=== PATIENT | male | born 1950 | race African-American/Black ===

== ENCOUNTER 2016-03-05 12:28 | Emergency (ER) | payer MEDICARE ==
[~2016-03-05] VITALS: Ht 185.4 cm; Wt 86.2 kg
[~2016-03-05 12:28] MED LIST: ASPI-482 PO; ASPI325T4 PO; FENO135C PO; FENO135C2 PO; FURO-69 PO; GLIP1TAB5 PO; GLYB1TAB10 PO; HYDR50TA6 PO; INSU100I11 SQ; INSU100I17 SQ; INSU100I18 SQ; INSU100V SQ; INSU100V13 SQ; MELO7.5O2 PO; METF10002 PO; MOME17SP NS; OMEP40CA5 PO; POTA8CAP PO; PREG75CA PO; SIMV10TA3 PO; TRIA15OI TP; VALS160T3 PO
[2016-03-05] MEDS ORDERED: IV NORMAL SALINE 1000ML BAG 1,000 ML IV SCH (13:08)
[2016-03-05 13:39] LABS: BASO % 1 % (0-3); EOS % 1 % (0-3); HEMATOCRIT 26.2 % (39.0-53.0); LYMPH # 0.9 x10^3/uL (1.0-4.8); LYMPH % 16 % (24-48); MEAN CORPUSCULAR HEMOGLOBIN 28 pg (25-35); MEAN CORPUSCULAR HGB CONC 34 g/dL (31-37); MEAN CORPUSCULAR VOLUME 82 fL (79-100); MONO % 17 % (0-9); NEUT % 66 % (31-73); PLATELET COUNT 166 x10^3/uL (140-400); RED BLOOD COUNT 3.21 x10^6/uL (4.30-5.70); RED CELL DISTRIBUTION WIDTH 16.6 % (11.5-14.5); WHITE BLOOD COUNT 5.6 x10^3/uL (4.0-11.0)
--- NOTE | 2016-03-05 13:45 | RAD ---
CT of the head without contrast, 03/05/2016: History: Weakness, fall, head trauma The ventricles are at the upper limits of normal in size. There is no shift of the midline structures. There is no evidence of acute intracranial hemorrhage or mass effect. Minimal deep white matter lucencies are noted, predominantly on the right, compatible with chronic ischemic change. No abnormal extra-axial fluid collection is seen. IMPRESSION: 1. Minimal deep white matter lucencies compatible with chronic ischemic change. 2. No acute intracranial abnormality is detected.
--- NOTE | 2016-03-05 13:55 | RAD ---
Portable chest, 03/05/2016: History: Cough Comparison is made to a study from 01/25/2015. The heart size is normal. There is mild tortuosity of the thoracic aorta. The pulmonary vascularity is normal. No pulmonary infiltrates are seen. There is no evidence of pleural fluid. IMPRESSION: No acute cardiopulmonary abnormality is detected.
--- NOTE | 2016-03-05 13:55 | RAD ---
Indication: Fall and right hip pain. Time of exam 1346 hours. Femoral acetabular alignment is normal bilaterally. Both hips appear intact. The rami are intact. The SI joints and symphysis are not widened. No fractures are seen. Impression: No acute bony abnormality is detected.
[2016-03-05 13:56] LABS: CREATININE 2.1 mg/dL (0.7-1.3); GFR 38.5; POTASSIUM 3.6 mmol/L (3.5-5.1)
[2016-03-05] MEDS ORDERED: FENTANYL PF 100 MCG/2 ML VIAL. IV ONE (14:00)
[2016-03-05 14:03] LABS: ALBUMIN 3.4 g/dL (3.4-5.0); ALBUMIN/GLOBULIN RATIO 0.7 (1.0-1.7); TOTAL BILIRUBIN 0.6 mg/dL (0.2-1.0)
[2016-03-05] MEDS ORDERED: HYDR-971 PO (14:55)
--- NOTE | 2016-03-05 14:56 | PHYS DOC ---
Past Medical History Past Medical History: Arthritis, Diabetes-Type II, GERD, High Cholesterol, Hypertension Past Surgical History: Other Additional Past Surgical Histo: hernia repair, carpal tunnel, cataract Alcohol Use: None Drug Use: None Adult General Chief Complaint Chief Complaint: MECHANICAL FALL HPI HPI Patient is a 65 year old male who presents with complaint of a fall that took place at home. Patient states that he came from an assisted living apartment and was attempting to sit on a stool after getting off of an elevator but states that he missed the stool and fell to the ground. Patient does not member has had but states he does not think he lost consciousness. The patient states since the fall he has been having pain in his right hip. Patient states that he has been able to move the hip though he has some pain in the front and lateral portion of the hip. Patient rates his pain as 5 out of 10. Patient states that he has been having cold symptoms over the past few days and states that he has had mild generalized weakness but states that he has been able to ambulate with use of a walker without difficulty prior to his fall. Patient follows a Dr. Clark for primary care. Patient was brought to the emergency department for evaluation to make sure that he does not have any severe injuries. Review of Systems Review of Systems Constitutional: Denies fever or chills [] Eyes: Denies change in visual acuity, redness, or eye pain [] HENT: Nasal congestion [] Respiratory: Cough, denies shortness of breath [] Cardiovascular: No additional information not addressed in HPI [] GI: Denies abdominal pain, nausea, vomiting, bloody stools or diarrhea [] : Denies dysuria or hematuria [] Musculoskeletal: Right hip pain [] Integument: Denies rash or skin lesions [] Neurologic: Denies headache, focal weakness or sensory changes [] Endocrine: Denies polyuria or polydipsia [] Current Medications Current Medications Current Medications Medications (Trade) Dose Ordered Sig/Madeleine Start Time Stop Time Status Last Admin Dose Admin Fentanyl Citrate (Fentanyl 2ml Vial) 25 mcg 1X ONCE 03/05/16 14:00 03/05/16 14:03 DC 03/05/16 14:26 25 MCG Sodium Chloride (Iv Sodium Chloride 0.9% 1000ml Bag) 1,000 ml @ 100 mls/hr Q10H 03/05/16 13:08 03/05/16 23:07 03/05/16 14:05 100 MLS/HR Allergies Allergies Allergies Coded Allergies Type Severity Reaction Last Updated Verified No Known Drug Allergies 09/06/15 No Physical Exam Physical Exam Constitutional: Alert, afebrile, no acute distress. [] HENT: Normocephalic, atraumatic, bilateral external ears normal, oropharynx moist, no oral exudates, nose normal. [] Eyes: PERRLA, EOMI, conjunctiva normal, no discharge. [] Neck: Normal range of motion, no tenderness, supple, no stridor. [] Cardiovascular:Heart rate regular rhythm, no murmur [] Lungs & Thorax: Bilateral breath sounds clear to auscultation [] Abdomen: Bowel sounds normal, soft, no tenderness, no masses, no pulsatile masses. [] Skin: Warm, dry, no erythema, no rash. [] Back: No tenderness, no CVA tenderness. [] Extremities: Mild right anterior hip and lateral greater trochanteric tenderness to palpation, no cyanosis, no clubbing, ROM is slightly hindered due to pain, bilateral 1+ pitting edema bilaterally [] Neurologic: Alert and oriented X 3, normal motor function, normal sensory function, no focal deficits noted. [] Current Patient Data Vital Signs Vital Signs Date Time Temp Pulse Resp B/P Pulse Ox O2 Delivery O2 Flow Rate FiO2 03/05/16 14:26 20 94 Room Air 03/05/16 14:06 94 169/85 03/05/16 12:37 99.4 99.4 Lab Values Laboratory Tests Test 03/05/16 13:30 White Blood Count 5.6x10^3/uL (4.0-11.0) Red Blood Count 3.21x10^6/uL (4.30-5.70) L Hemoglobin 9.0g/dL (13.0-17.5) L Hematocrit 26.2% (39.0-53.0) L Mean Corpuscular Volume 82fL (79-100) Mean Corpuscular Hemoglobin 28pg (25-35) Mean Corpuscular Hemoglobin Concent 34g/dL (31-37) Red Cell Distribution Width 16.6% (11.5-14.5) H Platelet Count 166x10^3/uL (140-400) Neutrophils (%) (Auto) 66% (31-73) Lymphocytes (%) (Auto) 16% (24-48) L Monocytes (%) (Auto) 17% (0-9) H Eosinophils (%) (Auto) 1% (0-3) Basophils (%) (Auto) 1% (0-3) Neutrophils # (Auto) 3.7x10^3uL (1.8-7.7) Lymphocytes # (Auto) 0.9x10^3/uL (1.0-4.8) L Monocytes # (Auto) 0.9x10^3/uL (0.0-1.1) Eosinophils # (Auto) 0.0x10^3/uL (0.0-0.7) Basophils # (Auto) 0.0x10^3/uL (0.0-0.2) Sodium Level 141mmol/L (136-145) Potassium Level 3.6mmol/L (3.5-5.1) Chloride Level 103mmol/L (98-107) Carbon Dioxide Level 30mmol/L (21-32) Anion Gap 8 (6-14) Blood Urea Nitrogen 31mg/dL (8-26) H Creatinine 2.1mg/dL (0.7-1.3) H Estimated GFR (Cockcroft-Gault) 38.5 BUN/Creatinine Ratio 15 (6-20) Glucose Level 200mg/dL (70-99) H Calcium Level 9.0mg/dL (8.5-10.1) Total Bilirubin 0.6mg/dL (0.2-1.0) Aspartate Amino Transferase (AST) 26U/L (15-37) Alanine Aminotransferase (ALT) 26U/L (16-63) Alkaline Phosphatase 37U/L (46-116) L Total Protein 8.0g/dL (6.4-8.2) Albumin 3.4g/dL (3.4-5.0) Albumin/Globulin Ratio 0.7 (1.0-1.7) L Laboratory Tests 03/05/16 13:30 Laboratory Tests 03/05/16 13:30 EKG EKG Not performed [] Radiology/Procedures Radiology/Procedures [facility] [address] [place], [place] [id number] IMAGING REPORT Signed PATIENT: RACHEL GREEN ACCOUNT: [id number] : 1950 LOCATION: ER AGE: 65 SEX: M EXAM STATUS: REG ER ORD. PHYSICIAN: ENRIQUE NAIK MD REASON: fall, right hip pain,ALSO CT PROCEDURE: HIP RIGHT 2V WITH PELVIS Indication: Fall and right hip pain. Time of exam 1346 hours. Femoral acetabular alignment is normal bilaterally. Both hips appear intact. The rami are intact. The SI joints and symphysis are not widened. No fractures are seen. Impression: No acute bony abnormality is detected. DICTATED and SIGNED BY: SHERRI NATARAJAN MD DATE: 03/05/16 1352 CC: ENRIQUE NAIK MD; GISELL CLARK MD ~ [address] [address] IMAGING REPORT Signed PATIENT: RACHEL GREEN ACCOUNT: [id number] : 1950 LOCATION: ER AGE: 65 SEX: M EXAM STATUS: REG ER ORD. PHYSICIAN: ENRIQUE NAIK MD REASON: COUGH PROCEDURE: PORTABLE CHEST 1V Portable chest, 03/05/2016: History: Cough Comparison is made to a study from 01/25/2015. The heart size is normal. There is mild tortuosity of the thoracic aorta. The pulmonary vascularity is normal. No pulmonary infiltrates are seen. There is no evidence of pleural fluid. IMPRESSION: No acute cardiopulmonary abnormality is detected. DICTATED and SIGNED BY: MADAY BERRY MD DATE: 03/05/16 135 CC: ENRIQUE NAIK MD; GISELL CLARK MD ~ [facility] [address] [place] [address] IMAGING REPORT Signed PATIENT: RACHEL GREEN ACCOUNT: [id number] : 1950 LOCATION: ER AGE: 65 SEX: M EXAM STATUS: REG ER ORD. PHYSICIAN: ENRIQUE NAIK MD REASON: fall,ALSO XRAYS. PROCEDURE: HEAD WO CONTRAST CT of the head without contrast, 03/05/2016: History: Weakness, fall, head trauma The ventricles are at the upper limits of normal in size. There is no shift of the midline structures. There is no evidence of acute intracranial hemorrhage or mass effect. Minimal deep white matter lucencies are noted, predominantly on the right, compatible with chronic ischemic change. No abnormal extra-axial fluid collection is seen. IMPRESSION: 1. Minimal deep white matter lucencies compatible with chronic ischemic change. 2. No acute intracranial abnormality is detected. DICTATED and SIGNED BY: MADAY BERRY MD DATE: 03/05/16 1340 CC: ENRIQUE NAIK MD; GISELL CLARK MD ~ [] Course & Med Decision Making Course & Med Decision Making Pertinent Labs and Imaging studies reviewed. (See chart for details) Patient was given 25 g of IV fentanyl. Patient's pain has improved at this time. The patient was able to ambulate with use of a walker in the emergency department without difficulty. The patient states that he feels comfortable going home at this time. The patient's blood work shows that he has mild dehydration superimposed on chronic renal failure. Advised that the patient increase fluid intake at home and recommended follow-up with Dr. gopal miramontes in the next 3-5 days. Advised return to emergency department for any worsening symptoms. Patient voiced understanding and in agreement with treatment plan. Dragon Disclaimer Dragon Disclaimer This electronic medical record was generated, in whole or in part, using a voice recognition dictation system. Departure Departure Impression: Primary Impression: Fall from standing Additional Impression: Contusion of right hip Disposition: HOME, SELF-CARE Condition: IMPROVED Referrals: GISELL CLARK MD (PCP) Patient Instructions: Contusion, Fall Prevention and Home Safety Additional Instructions: Follow-up with Dr. Cuevas in 3-5 days. Return to the emergency department for any worsening symptoms. Scripts Hydrocodone/Apap 5-325 ([place] 5-325 Tablet)1 Each Tablet0.5-1 Tab PO Q6HRS PRN PAIN #15 TAB Prov:ENRIQUE NAIK MD 03/05/16 Problem Qualifiers Primary Impression: Fall from standing Encounter type: initial encounter Qualified Code: W19.XXXA - Unspecified fall, initial encounter Additional Impression: Contusion of right hip Encounter type: initial encounter Qualified Code: S70.01XA - Contusion of right hip, initial encounter ENRIQUE NAIK MD Mar 05, 2016 14:56
[2016-03-05 16:00] VITALS: BP 181/95
== END 2016-03-05 16:50 | disposition home or self-care (01) ==
LOC: ER 12:28
DX: S70.01XA Contusion of right hip, initial encounter (principal); E86.0 Dehydration; E78.00 Pure hypercholesterolemia, unspecified; E11.9 Type 2 diabetes mellitus without complications; K21.9 Gastro-esophageal reflux disease without esophagitis; M19.90 Unspecified osteoarthritis, unspecified site; Z98.49 Cataract extraction status, unspecified eye; W19.XXXA Unspecified fall, initial encounter; Y93.89 Activity, other specified; Y92.89 Other specified places as the place of occurrence of the external cause; Y99.8 Other external cause status
CPT/HCPCS: 36415; 70450; 71010; 73502; 80053; 85027; 96361; 96374; 99285; J3010; J7030

== ENCOUNTER 2016-04-14 12:53 | Inpatient (IN) | payer MEDICARE ==
[~2016-04-14] VITALS: Ht 182.9 cm; Wt 95.7 kg
[~2016-04-14 12:53] MED LIST changes: +HYDR-971 PO
[2016-04-14 14:30] VITALS: BP 189/94
--- NOTE | 2016-04-14 17:21 | EKG ---
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
[2016-04-14 17:22] LABS: BASO % 1 % (0-3); EOS % 3 % (0-3); HEMATOCRIT 24.6 % (39.0-53.0); HEMOGLOBIN 8.9 g/dL (13.0-17.5); LYMPH # 1.9 x10^3/uL (1.0-4.8); LYMPH % 24 % (24-48); MEAN CORPUSCULAR HEMOGLOBIN 28 pg (25-35); MEAN CORPUSCULAR HGB CONC 36 g/dL (31-37); MEAN CORPUSCULAR VOLUME 78 fL (79-100); MONO % 12 % (0-9); NEUT % 61 % (31-73); PLATELET COUNT 212 x10^3/uL (140-400); RED BLOOD COUNT 3.14 x10^6/uL (4.30-5.70)
[2016-04-14 17:34] LABS: CALCIUM 9.1 mg/dL (8.5-10.1); CREATININE 2.4 mg/dL (0.7-1.3); GFR 32.9; POTASSIUM 4.2 mmol/L (3.5-5.1)
[2016-04-14] MEDS: FUROSEMIDE 40 MG/4 ML VIAL IVP SCH (17:39)
[2016-04-14 17:40] LABS: ALBUMIN 3.6 g/dL (3.4-5.0); ALBUMIN/GLOBULIN RATIO 0.9 (1.0-1.7); TOTAL BILIRUBIN 0.5 mg/dL (0.2-1.0); TOTAL PROTEIN 7.5 g/dL (6.4-8.2)
[2016-04-14] MEDS: POTASSIUM CHLORIDE 20 MEQ TABLET.ER. PO SCH (17:42)
[2016-04-14] MEDS ORDERED: IPRATRPIUM/ALBUTEROL 0.5/2.5MG 3 ML NEBU. NEB ONE (18:15)
[2016-04-14] MEDS ORDERED: HYDROCODONE/APAP 5/325MG TABLET. PO PRN (19:15)
[2016-04-14] MEDS ORDERED: INSULIN ASPART 300 UNITS/3 ML INSULN.PEN SQ ONE (19:30)
[2016-04-14 19:40] VITALS: BP 165/81
[2016-04-14] MEDS ORDERED: DEXTROSE 50% 25 GM / 50ML DISP.SYRIN. IV PRN ×2 (20:15→21:30)
[2016-04-14] MEDS ORDERED: INSULIN DETEMIR 300 UNITS/3 ML INSULN.PEN. SQ SCH (21:00)
[2016-04-14] MEDS: IPRATRPIUM/ALBUTEROL 0.5/2.5MG 3 ML NEBU. NEB SCH (21:10)
[2016-04-14] MEDS: SIMVASTATIN 10 MG TABLET PO SCH (21:16)
[2016-04-14] MEDS ORDERED: ENOXAPARIN 40 MG/0.4 ML DISP.SYRIN. SQ SCH (22:00)
[2016-04-14 23:56] VITALS: BP 160/88
[2016-04-15] VITALS (12 sets, daily range): BP systolic 148–178; BP diastolic 75–96
[2016-04-15 04:07] LABS: BASO # 0.1 x10^3/uL (0.0-0.2); BASO % 1 % (0-3); EOS % 3 % (0-3); HEMATOCRIT 25.1 % (39.0-53.0); HEMOGLOBIN 9.2 g/dL (13.0-17.5); LYMPH # 2.3 x10^3/uL (1.0-4.8); LYMPH % 28 % (24-48); MEAN CORPUSCULAR HEMOGLOBIN 28 pg (25-35); MEAN CORPUSCULAR HGB CONC 37 g/dL (31-37); MEAN CORPUSCULAR VOLUME 77 fL (79-100); MONO % 11 % (0-9); NEUT % 57 % (31-73); PLATELET COUNT 218 x10^3/uL (140-400); RED BLOOD COUNT 3.25 x10^6/uL (4.30-5.70); RED CELL DISTRIBUTION WIDTH 17.7 % (11.5-14.5); WHITE BLOOD COUNT 8.2 x10^3/uL (4.0-11.0)
[2016-04-15 04:21] LABS: CALCIUM 9.4 mg/dL (8.5-10.1); CREATININE 2.4 mg/dL (0.7-1.3); GFR 32.9; POTASSIUM 3.8 mmol/L (3.5-5.1)
[2016-04-15 04:38] LABS: CHOLESTEROL/HDL RATIO 4.2
[2016-04-15] MEDS: IPRATRPIUM/ALBUTEROL 0.5/2.5MG 3 ML NEBU. NEB SCH ×4 (07:42→19:03)
--- NOTE | 2016-04-15 08:51 | RAD ---
EXAM: Chest one view. HISTORY: Shortness of breath, left chest pain. COMPARISON: 03/05/2016. FINDINGS: A frontal view of the chest is obtained. Mild opacities in the left base most likely indicate atelectasis. There is no pneumothorax or pleural effusion. The heart is not enlarged. The aorta is mildly calcified and tortuous. IMPRESSION: 1. Mild basilar atelectasis. Correlate with volume status to exclude mild pulmonary edema.
[2016-04-15] MEDS: ASPIRIN ENTERIC COATED 81 MG TABLET.DR. PO SCH (09:00)
[2016-04-15] MEDS: PANTOPRAZOLE 40 MG TABLET. PO SCH (09:00)
[2016-04-15] MEDS: LOSARTAN POTASSIUM 50 MG TABLET. PO SCH (09:01)
[2016-04-15] MEDS: FLUTICASONE 50MCG/NASAL SPRAY 16GM BOTTLE. NS SCH (09:02)
[2016-04-15] MEDS: POTASSIUM CHLORIDE 20 MEQ TABLET.ER. PO SCH ×2 (09:02→17:49)
[2016-04-15] MEDS: PREGABALIN 75 MG CAPSULE PO SCH (09:02)
[2016-04-15] MEDS: FUROSEMIDE 40 MG/4 ML VIAL IVP SCH ×2 (09:02→14:00)
[2016-04-15] MEDS: INSULIN ASPART 300 UNITS/3 ML INSULN.PEN SQ SCH ×6 (09:04→17:55)
--- NOTE | 2016-04-15 09:04 | RAD ---
EXAM: Bilateral lower extremity venous Doppler. HISTORY: Bilateral lower extremity pain/swelling. COMPARISON: None. FINDINGS: Grayscale and Doppler analysis of the both lower extremity deep venous systems was performed with graded compression and augmentation. The common femoral, greater saphenous, superficial femoral, popliteal and calf veins were assessed. There is no evidence of deep venous thrombosis. Subcutaneous edema is noted. IMPRESSION: 1. No evidence of deep venous thrombosis.
--- NOTE | 2016-04-15 09:04 | RAD ---
EXAM: Renal/retroperitonal ultrasound HISTORY: Edema. COMPARISON: 09/13/2013. FINDINGS: Ultrasound of the kidneys, bladder and retroperitoneum was performed. The right kidney measures 10 cm. Cortical thickness and echogenicity are preserved. There is no hydronephrosis. The left kidney measures 10.3 cm. Cortical thickness and echogenicity are preserved. There is no hydronephrosis. Images of the bladder reveal no gross abnormality. The liver and spleen are not measured, but both appear enlarged. IMPRESSION: 1. Unremarkable examination of the kidneys. No hydronephrosis. 2. The liver and spleen are not measured but appear enlarged.
--- NOTE | 2016-04-15 10:09 | PDOC2 ---
CAROLEKENNEDY M PAINT AND TABLE EDGER 04/15/16 1009: CARDIAC CONSULT DATE OF CONSULT Date of Consult DATE: 04/15/16 TIME: 10:06 REASON FOR CONSULT Reason for Consult: CHF REFERRING PHYSICIAN Referring Physician: Dr. Tamiko Colbert SOURCE Source: Chart review, Patient HISTORY OF PRESENT ILLNESS HISTORY OF PRESENT ILLNESS 66 year old with a multi-month history of dyspnea with progressive symptoms in the last week, however, patient has been sleeping in a recliner for at least 3 - 4 months. He is unsure how much weight he has gained and reports a weight of 224# in his PCP's office yesterday. Has also been fatigued and had bilateral chest pain yesterday which resolved as well as lower extremity edema. He denies palpitations. CXR without clear CHF, however, NT- proBNP 1330 in the setting of a Cr of 2.4. Treated with BID IV furosemide. Reason for Visit: CHF PAST MEDICAL HISTORY Cardiovascular: HTN, Hyperlipidemia CENTRAL NERVOUS SYSTEM: Carpal Tunnel Syndrome (with bilateral surgerical repair) GI: Diverticulosis, GERD, Hemorrhoids, Other (colon polyps) Heme/Onc: Anemia NOS Hepatobiliary: No pertinent hx Psych: No pertinent hx Musculoskeletal: low back pain, Osteoarthritis, Other (vertebral compression) Rheumatologic: No pertinent hx Infectious disease: Other (right toe gangrene) Renal/: Chronic renal insuff (stage II), Benign prostatic enlarg. Endocrine: Diabetes (type II, poorly controlled) Dermatology: No pertinent hx PAST SURGICAL HISTORY Past Surgical History: Cataract Removal (right), Hernia Repair (bilateral inguinal), Other (bilateral carpal tunnel release) FAMILY HISTORY Family History: Heart Disease, Stroke SOCIAL HISTORY Smoke: Quit ALCOHOL: none Drugs: None CURRENT MEDICATIONS CURRENT MEDICATIONS Current Medications Medications (Trade) Dose Ordered Sig/Madeleine Route PRN Reason Start Time Stop Time Status Last Admin Dose Admin Furosemide (Lasix) 40 mg [id number] IVP 04/14/16 17:00 04/15/16 09:02 Potassium Chloride (Klor-Con) 20 meq BID76 PO 04/14/16 18:00 04/15/16 09:02 Albuterol/ Ipratropium (Duoneb) 3 ml RTQID NEB 04/14/16 20:00 04/15/16 07:42 Aspirin (Ecotrin) 81 mg DAILY PO 04/15/16 09:00 04/15/16 09:00 Pregabalin (Lyrica) 75 mg DAILY PO 04/15/16 09:00 04/15/16 09:02 Simvastatin (Zocor) 10 mg HS PO 04/14/16 21:00 04/14/16 21:16 Fluticasone Propionate (Flonase) 2 spray DAILY NS 04/15/16 09:00 04/15/16 09:02 Pantoprazole Sodium (Protonix) 40 mg DAILYAC PO 04/15/16 07:30 04/15/16 09:00 Losartan Potassium (Cozaar) 100 mg DAILY PO 04/15/16 09:00 04/15/16 09:01 Albuterol/ Ipratropium (Duoneb) 3 ml 1X ONCE NEB 04/14/16 18:15 04/14/16 18:16 DC 04/14/16 18:21 Insulin Detemir (Levemir) 20 units QHS SQ 04/14/16 21:00 04/14/16 21:21 Insulin Aspart (Novolog) 20 units TIDAC SQ 04/15/16 07:30 04/15/16 09:05 Insulin Aspart (Novolog) 20 units 1X ONCE SQ 04/14/16 19:30 04/14/16 19:31 DC 04/14/16 19:42 Insulin Aspart (Novolog) 0-5 UNITS TIDWMEALS SQ 04/15/16 08:00 04/15/16 09:04 Enoxaparin Sodium (Lovenox 40mg Syringe) 30 mg Q24H SQ 04/14/16 22:00 04/14/16 22:02 ALLERGIES ALLERGIES: Coded Allergies: No Known Drug Allergies (Unverified , 04/14/16) ROS Review of System 14 point review with pertinent positives in HPI PHYSICAL EXAM General: Alert, Oriented X3, Cooperative, No acute distress HEENT: Atraumatic, PERRLA, Mucous membr. moist/pink Lungs: Clear to auscultation, Normal air movement Heart: Regular rate, Normal S1, Normal S2, No murmurs, Other (no carotid bruits ; tele: SR) Abdomen: Normal bowel sounds, No tenderness Extremities: Other (3+ bilateral lower extremity edema) Skin: No rashes Neuro: Normal speech Psych/Mental Status: Mental status NL, Mood NL MUSCULOSKELETAL: Osteoarthritic changes both hands VITALS VITALS Vital Signs Date Time Temp Pulse Resp B/P Pulse Ox O2 Delivery O2 Flow Rate FiO2 04/15/16 09:01 86 157/88 04/15/16 07:52 Room Air 04/15/16 07:43 96 04/15/16 07:00 98.2 18 98.2 LABS Lab: Laboratory Tests Test 04/14/16 17:15 04/14/16 17:37 04/14/16 21:17 04/15/16 03:20 White Blood Count 8.0x10^3/uL (4.0-11.0) 8.2x10^3/uL (4.0-11.0) Red Blood Count 3.14x10^6/uL (4.30-5.70) 3.25x10^6/uL (4.30-5.70) Hemoglobin 8.9g/dL (13.0-17.5) 9.2g/dL (13.0-17.5) Hematocrit 24.6% (39.0-53.0) 25.1% (39.0-53.0) Mean Corpuscular Volume 78fL (79-100) 77fL (79-100) Mean Corpuscular Hemoglobin 28pg (25-35) 28pg (25-35) Mean Corpuscular Hemoglobin Concent 36g/dL (31-37) 37g/dL (31-37) Red Cell Distribution Width 17.0% (11.5-14.5) 17.7% (11.5-14.5) Platelet Count 212x10^3/uL (140-400) 218x10^3/uL (140-400) Neutrophils (%) (Auto) 61% (31-73) 57% (31-73) Lymphocytes (%) (Auto) 24% (24-48) 28% (24-48) Monocytes (%) (Auto) 12% (0-9) 11% (0-9) Eosinophils (%) (Auto) 3% (0-3) 3% (0-3) Basophils (%) (Auto) 1% (0-3) 1% (0-3) Neutrophils # (Auto) 4.8x10^3uL (1.8-7.7) 4.7x10^3uL (1.8-7.7) Lymphocytes # (Auto) 1.9x10^3/uL (1.0-4.8) 2.3x10^3/uL (1.0-4.8) Monocytes # (Auto) 0.9x10^3/uL (0.0-1.1) 0.9x10^3/uL (0.0-1.1) Eosinophils # (Auto) 0.2x10^3/uL (0.0-0.7) 0.2x10^3/uL (0.0-0.7) Basophils # (Auto) 0.0x10^3/uL (0.0-0.2) 0.1x10^3/uL (0.0-0.2) Sodium Level 146mmol/L (136-145) 145mmol/L (136-145) Potassium Level 4.2mmol/L (3.5-5.1) 3.8mmol/L (3.5-5.1) Chloride Level 108mmol/L (98-107) 106mmol/L (98-107) Carbon Dioxide Level 29mmol/L (21-32) 29mmol/L (21-32) Anion Gap 9 (6-14) 10 (6-14) Blood Urea Nitrogen 36mg/dL (8-26) 38mg/dL (8-26) Creatinine 2.4mg/dL (0.7-1.3) 2.4mg/dL (0.7-1.3) Estimated GFR (Cockcroft-Gault) 32.9 32.9 BUN/Creatinine Ratio 15 (6-20) Glucose Level 261mg/dL (70-99) 213mg/dL (70-99) Calcium Level 9.1mg/dL (8.5-10.1) 9.4mg/dL (8.5-10.1) Total Bilirubin 0.5mg/dL (0.2-1.0) Aspartate Amino Transf (AST/SGOT) 18U/L (15-37) Alanine Aminotransferase (ALT/SGPT) 17U/L (16-63) Alkaline Phosphatase 41U/L (46-116) CM-Jmo-T-Type Natriuretic Peptide 1330pg/mL (0-124) Total Protein 7.5g/dL (6.4-8.2) Albumin 3.6g/dL (3.4-5.0) Albumin/Globulin Ratio 0.9 (1.0-1.7) Glucose (Fingerstick) 264mg/dL (70-99) 298mg/dL (70-99) Triglycerides Level 142mg/dL (0-150) Cholesterol Level 109mg/dL (0-200) LDL Cholesterol, Calculated 55mg/dL (0-100) VLDL Cholesterol, Calculated 28mg/dL (0-40) HDL Cholesterol 26mg/dL (40-60) Cholesterol/HDL Ratio 4.2 Thyroid Stimulating Hormone (TSH) 2.429uIU/mL (0.358-3.74) Test 04/15/16 08:51 Glucose (Fingerstick) 182mg/dL (70-99) IMAGES IMAGES CXR: Mild opacities in the left base most likely indicate atelectasis. There is no pneumothorax or pleural effusion. The heart is not enlarged. The aorta is mildly calcified and tortuous. IMPRESSION: 1. Mild basilar atelectasis. Correlate with volume status to exclude mild pulmonary edema. EKG EKG SR without acute changes ECHOCARDIOGRAM ECHOCARDIOGRAM 01/28/2015: TTE: Mildly reduced LV systolic function. EF 45% There is subtle mild hypokinesis of the lateral wall. Mild AI, PI HEART CATH HEART CATH 05/2015: Normal left sided filling pressures. LVEDP 15 mm Hg CORONARY ANGIOGRAPHY: LM has normal angiographic appearance. LCx is a non-dominant vessel with mild luminal irregularities. OM1 is a moderate sized vessel with mild luminal irregularities. LAD is a moderate to large sized vessel with mild luminal irregularities. The LAD gives rise to three small caliber diagonal vessels. RCA is a large caliber dominant vessel with mild luminal irregularities. Conclusion Normal left ventricular filling pressure. No significant obstructive coronary disease. Recommendations Aggressive Medical Therapy ASSESSMENT/PLAN ASSESSMENT/PLAN 1. acute on chronic systolic and diastolic CHF continue BID IV furosemide echo to re-evaluate LV function add beta-blockers to improve BP control continue ARB may also benefit from addition of aldosterone agonist 2. chest pain, atypical cardiac cath 05/2015 without significant obstructive disease echo to assess LV function, otherwise no further cardiac evaluation for CP 3. accelerated HTN add beta-blockers to improve BP control 4. DM, II, poorly controlled per primary service 5. HLD continue home statin therapy 6. CKD, stage II Problems: CARMELA ISBELL MD 04/16/16 0922: CARDIAC CONSULT ALLERGIES ALLERGIES: Coded Allergies: No Known Drug Allergies (Unverified , 04/14/16) ASSESSMENT/PLAN ASSESSMENT/PLAN Patient seen and examined 04/15/16. Agree with COAL GETTER's assessment and plan. Patient presently on intravenous Lasix drip per nephrology recommendations for acute on chronic diastolic heart failure. 2-D echo showed normal left ventricle systolic function. Chest pain atypical and noncardiac. Recent cardiac cath did not show any significant coronary artery disease. Agree with adding beta blockers for better blood pressure control. Thank you for your consultation. Problems: KENNEDY LAM APRN Apr 15, 2016 10:09 CARMELA ISBELL MD Apr 16, 2016 09:22
--- NOTE | 2016-04-15 10:11 | PDOC ---
Provider Note Provider Note pt seen.H&P dictated. #[id number] GISELL CLARK MD Apr 15, 2016 10:11
[2016-04-15] MEDS: METOPROLOL TART IMMED RELEASE 25 MG TABLET PO SCH ×2 (12:13→20:46)
[2016-04-15 12:27] LABS: % SAT IRON 19 % (15-34); IRON,SERUM 55 ug/dL (65-175)
--- NOTE | 2016-04-15 14:12 | PDOC2 ---
CONSULT Date of Consult Date of Consult DATE: 04/15/16 TIME: 14:10 Reason for Consult Reason for Consult: ^ creat Referring Physician Referring Physician: Dr Colbert Identification/Chief Complaint Chief Complaint Edema and wt gain Problems: Source Source: Chart review, Patient History of Present Illness Reason for Visit: as dictated Past Medical History Past Medical History 1. Positive for longstanding hypertension. 2. Diabetes for about 20 years without known retinopathy, recent right eye cataract extraction and lens implant. 3. Hyperlipidemia. 4. GERD. 5. Diabetic neuropathy. 6. Hernia surgery. 7. Carpal tunnel surgery. SOCIAL HISTORY: He is single. Denies alcohol, tobacco, or illicit drug use. FAMILY HISTORY: Positive for sister with kidney problems and on dialysis, heart disease, hypertension, and stroke. Diabetes also noted in the family. Cardiovascular: HTN, Hyperlipidemia CENTRAL NERVOUS SYSTEM: Carpal Tunnel Syndrome (with bilateral surgerical repair) GI: Diverticulosis, GERD, Hemorrhoids, Other (colon polyps) Heme/Onc: Anemia NOS Hepatobiliary: No pertinent hx Psych: No pertinent hx Musculoskeletal: low back pain, Osteoarthritis, Other (vertebral compression) Rheumatologic: No pertinent hx Infectious disease: Other (right toe gangrene) Renal/: Chronic renal insuff (stage II), Benign prostatic enlarg. Endocrine: Diabetes (type II, poorly controlled) Dermatology: No pertinent hx Past Surgical History Past Surgical History: Cataract Removal (right), Hernia Repair (bilateral inguinal), Other (bilateral carpal tunnel release) Family History Family History: Heart Disease, Stroke Social History Quit ALCOHOL: none Drugs: None Current Problem List Problem List Problems Medical Problems: (1) CHF (congestive heart failure) Status: Acute Current Medications Current Medications Current Medications Furosemide (Lasix) 40 mg [id number] IVP Last administered on 04/15/16 09:02; Start 04/14/16 at 17:00 Potassium Chloride (Klor-Con) 20 meq BID76 PO Last administered on 04/15/16 09: 02; Start 04/14/16 at 18:00 Albuterol/ Ipratropium (Duoneb) 3 ml RTQID NEB Last administered on 04/15/16 11 :28; Start 04/14/16 at 20:00 Aspirin (Ecotrin) 81 mg DAILY PO Last administered on 04/15/16 09:00; Start 04/15/16 at 09:00 Pregabalin (Lyrica) 75 mg DAILY PO Last administered on 04/15/16 09:02; Start 04/15/16 at 09:00 Simvastatin (Zocor) 10 mg HS PO Last administered on 04/14/16 21:16; Start 04/14 at 21:00 Fluticasone Propionate (Flonase) 2 spray DAILY NS Last administered on 09:02; Start 04/15/16 at 09:00 Pantoprazole Sodium (Protonix) 40 mg DAILYAC PO Last administered on 04/15/16 09:00; Start 04/15/16 at 07:30 Losartan Potassium (Cozaar) 100 mg DAILY PO Last administered on 04/15/16 09:01 ; Start 04/15/16 at 09:00 Albuterol/ Ipratropium (Duoneb) 3 ml 1X ONCE NEB Last administered on 18:21; Start 04/14/16 at 18:15; Stop 04/14/16 at 18:16; Status DC Acetaminophen/ Hydrocodone Bitart (Lortab 5/325) 1 tab PRN Q6HRS PRN PO PAIN; Start 04/14/16 at 19:15 Insulin Detemir (Levemir) 20 units QHS SQ Last administered on 04/14/16 21:21; Start 04/14/16 at 21:00 Insulin Aspart (Novolog) 20 units TIDAC SQ Last administered on 04/15/16 12:15 ; Start 04/15/16 at 07:30 Insulin Aspart (Novolog) 20 units 1X ONCE SQ Last administered on 04/14/16 19: 42; Start 04/14/16 at 19:30; Stop 04/14/16 at 19:31; Status DC Dextrose 12.5 gm PRN Q15MIN PRN IV SEE COMMENTS; Start 04/14/16 at 20:15 Insulin Aspart (Novolog) 0-5 UNITS TIDWMEALS SQ Last administered on 04/15/16 12:14; Start 04/15/16 at 08:00 Dextrose 12.5 gm PRN Q15MIN PRN IV SEE COMMENTS; Start 04/14/16 at 21:30; Status UNV Enoxaparin Sodium (Lovenox 40mg Syringe) 30 mg Q24H SQ Last administered on 04/14 22:02; Start 04/14/16 at 22:00; Stop 04/15/16 at 13:40; Status DC Metoprolol Tartrate (Lopressor) 25 mg BID PO Last administered on 04/15/16 12: 13; Start 04/15/16 at 11:00 Enoxaparin Sodium (Lovenox 30mg Syringe) 30 mg Q24H SQ ; Start 04/15/16 at 21:00 Active Scripts Active [place] 5-325 Tablet (Acetaminophen/Hydrocodone Bitart) 1 Each Tablet 0.5-1 Tab PO Q6HRS PRN Reported Potassium Chloride 8 Meq Capsule.er 8 Meq PO DAILY Lasix (Furosemide) 20 Mg Tablet 20 Mg PO DAILY Metformin Hcl 1,000 Mg Tablet 1,000 Mg PO BIDWMEALS Mobic (Meloxicam) 7.5 Mg/5 Ml Oral.susp 7.5 Mg PO DAILY Nasonex (Mometasone Furoate) 17 Gm [place].pump 2 Sprays NS DAILY Levemir (Insulin Detemir) 100 Unit/1 Ml Vial 20 Unit SQ HS Humalog (Insulin Lispro) 100 Unit/1 Ml Vial 20 Unit SQ TIDWMEALS Trilipix (Fenofibric Acid (Choline)) 135 Mg Capsule.dr 135 Mg PO DAILY Triamcinolone Acetonide 0.1% Oint (Triamcinolone Acetonide) 15 Gm Oint...g. 1 Ayse TP BID MIX WITH EUCERIN DIRECTED BY PHYSICIAN Aspir 81 (Aspirin) 81 Mg Tablet.dr 81 Mg PO DAILY Lyrica (Pregabalin) 75 Mg Capsule 75 Mg PO DAILY Omeprazole 40 Mg Capsule.dr 40 Mg PO DAILY Simvastatin 10 Mg Tablet 10 Mg PO HS Diovan (Valsartan) 160 Mg Tablet 160 Mg PO DAILY Allergies Allergies: Coded Allergies: No Known Drug Allergies (Unverified , 04/14/16) ROS Review of System GEN: no Fevers no Chills EYES: + Visual Complaints - worsening vision in Rt eye ENT: no EN Drainage no Hearing deficiets CVS: no Orthopnea no CP RESP: min SOB min ROSE GI: no Nausea no Vomiting : no Dysuria no Urgency HEME: no easy bruising no Palp Ly Nodes NEURO no Focal Weakness no Sz PSYCH: no Suicidal Ideation no Depression SKIN: no Rashes ENDO: no Polyuria or Polydipsia no Hot/Cold Intolerance MU SK: ch Arthraigia no new Myalgia Physical Exam Physical Exam PHYSICAL EXAMINATION: GENERAL: The patient is awake, alert, and oriented, and in no apparent distress. HEENT: Head is NC/AT. Right eye lens implant noted. Left eye ? cataract is noted. Sclerae normal. Conjunctivae is mildly on the pale side on the left. Mucous membranes are moist. No active ear or nasal drainage. LUNGS: Clear to auscultation bilaterally. No rales or rhonchi. HEART: Heart sounds are S1 and S2. I was unable to hear murmurs, gallops, or rubs. ABDOMEN: Soft. He is somewhat ticklish. Hepatosplenomegaly was unable to be palpated from the same. BACK: No CVA tenderness. No back or spine tenderness. PELVIC: Deferred due to the patient being extremely ticklish. RECTAL: Deferred due to the patient being extremely ticklish. External genitalia was also hence not examined. EXTREMITIES: Lower extremities shows +2 edema. Pulses are +1 at least. He has decreased sensation in the stocking distribution, although, only half way up to his calf. Somewhat slightly dry skin is noted. No muscle atrophy is noted. Range of motion appears to be adequate. Minimum crepitus in his joints. No skin rashes . Vital Signs Vital Signs Date Time Temp Pulse Resp B/P Pulse Ox O2 Delivery O2 Flow Rate FiO2 04/15/16 12:13 80 162/98 04/15/16 11:30 Room Air 04/15/16 10:45 98.5 18 95 98.5 Assessment & Plan ARF: due to NSAIDs, ARB and Lasix combo cannot be ruled out. ? Underlying CKD based on Previous Creats in our systems. Current FLuid and E- lyte status does not necessitate emergent need for Dialysis. Will re-evaluate for Dialysis in am CHF and Edema - Diuresis; Lasix gtt as ordered Anemia: Dr South evaluating HTN: Current BP meds reviewed. See orders for changes. Discussed Plan of Care and prognosis etc. at length with pt Labs Labs Laboratory Tests Test 04/14/16 17:15 04/14/16 17:37 04/14/16 21:17 04/15/16 03:20 White Blood Count 8.0x10^3/uL (4.0-11.0) 8.2x10^3/uL (4.0-11.0) Red Blood Count 3.14x10^6/uL (4.30-5.70) 3.25x10^6/uL (4.30-5.70) Hemoglobin 8.9g/dL (13.0-17.5) 9.2g/dL (13.0-17.5) Hematocrit 24.6% (39.0-53.0) 25.1% (39.0-53.0) Mean Corpuscular Volume 78fL (79-100) 77fL (79-100) Mean Corpuscular Hemoglobin 28pg (25-35) 28pg (25-35) Mean Corpuscular Hemoglobin Concent 36g/dL (31-37) 37g/dL (31-37) Red Cell Distribution Width 17.0% (11.5-14.5) 17.7% (11.5-14.5) Platelet Count 212x10^3/uL (140-400) 218x10^3/uL (140-400) Neutrophils (%) (Auto) 61% (31-73) 57% (31-73) Lymphocytes (%) (Auto) 24% (24-48) 28% (24-48) Monocytes (%) (Auto) 12% (0-9) 11% (0-9) Eosinophils (%) (Auto) 3% (0-3) 3% (0-3) Basophils (%) (Auto) 1% (0-3) 1% (0-3) Neutrophils # (Auto) 4.8x10^3uL (1.8-7.7) 4.7x10^3uL (1.8-7.7) Lymphocytes # (Auto) 1.9x10^3/uL (1.0-4.8) 2.3x10^3/uL (1.0-4.8) Monocytes # (Auto) 0.9x10^3/uL (0.0-1.1) 0.9x10^3/uL (0.0-1.1) Eosinophils # (Auto) 0.2x10^3/uL (0.0-0.7) 0.2x10^3/uL (0.0-0.7) Basophils # (Auto) 0.0x10^3/uL (0.0-0.2) 0.1x10^3/uL (0.0-0.2) Sodium Level 146mmol/L (136-145) 145mmol/L (136-145) Potassium Level 4.2mmol/L (3.5-5.1) 3.8mmol/L (3.5-5.1) Chloride Level 108mmol/L (98-107) 106mmol/L (98-107) Carbon Dioxide Level 29mmol/L (21-32) 29mmol/L (21-32) Anion Gap 9 (6-14) 10 (6-14) Blood Urea Nitrogen 36mg/dL (8-26) 38mg/dL (8-26) Creatinine 2.4mg/dL (0.7-1.3) 2.4mg/dL (0.7-1.3) Estimated GFR (Cockcroft-Gault) 32.9 32.9 BUN/Creatinine Ratio 15 (6-20) Glucose Level 261mg/dL (70-99) 213mg/dL (70-99) Calcium Level 9.1mg/dL (8.5-10.1) 9.4mg/dL (8.5-10.1) Total Bilirubin 0.5mg/dL (0.2-1.0) Aspartate Amino Transf (AST/SGOT) 18U/L (15-37) Alanine Aminotransferase (ALT/SGPT) 17U/L (16-63) Alkaline Phosphatase 41U/L (46-116) YN-Plz-X-Type Natriuretic Peptide 1330pg/mL (0-124) Total Protein 7.5g/dL (6.4-8.2) Albumin 3.6g/dL (3.4-5.0) Albumin/Globulin Ratio 0.9 (1.0-1.7) Glucose (Fingerstick) 264mg/dL (70-99) 298mg/dL (70-99) Iron Level 55ug/dL (65-175) Total Iron Binding Capacity 291ug/dL (250-450) Iron Saturation 19% (15-34) Ferritin 794ng/mL (26-388) Triglycerides Level 142mg/dL (0-150) Cholesterol Level 109mg/dL (0-200) LDL Cholesterol, Calculated 55mg/dL (0-100) VLDL Cholesterol, Calculated 28mg/dL (0-40) HDL Cholesterol 26mg/dL (40-60) Cholesterol/HDL Ratio 4.2 Thyroid Stimulating Hormone (TSH) 2.429uIU/mL (0.358-3.74) Test 04/15/16 08:51 04/15/16 12:02 Glucose (Fingerstick) 182mg/dL (70-99) 233mg/dL (70-99) Laboratory Tests Test 04/14/16 17:15 04/14/16 17:37 04/14/16 21:17 04/15/16 03:20 White Blood Count 8.0x10^3/uL (4.0-11.0) 8.2x10^3/uL (4.0-11.0) Red Blood Count 3.14x10^6/uL (4.30-5.70) 3.25x10^6/uL (4.30-5.70) Hemoglobin 8.9g/dL (13.0-17.5) 9.2g/dL (13.0-17.5) Hematocrit 24.6% (39.0-53.0) 25.1% (39.0-53.0) Mean Corpuscular Volume 78fL (79-100) 77fL (79-100) Mean Corpuscular Hemoglobin 28pg (25-35) 28pg (25-35) Mean Corpuscular Hemoglobin Concent 36g/dL (31-37) 37g/dL (31-37) Red Cell Distribution Width 17.0% (11.5-14.5) 17.7% (11.5-14.5) Platelet Count 212x10^3/uL (140-400) 218x10^3/uL (140-400) Neutrophils (%) (Auto) 61% (31-73) 57% (31-73) Lymphocytes (%) (Auto) 24% (24-48) 28% (24-48) Monocytes (%) (Auto) 12% (0-9) 11% (0-9) Eosinophils (%) (Auto) 3% (0-3) 3% (0-3) Basophils (%) (Auto) 1% (0-3) 1% (0-3) Neutrophils # (Auto) 4.8x10^3uL (1.8-7.7) 4.7x10^3uL (1.8-7.7) Lymphocytes # (Auto) 1.9x10^3/uL (1.0-4.8) 2.3x10^3/uL (1.0-4.8) Monocytes # (Auto) 0.9x10^3/uL (0.0-1.1) 0.9x10^3/uL (0.0-1.1) Eosinophils # (Auto) 0.2x10^3/uL (0.0-0.7) 0.2x10^3/uL (0.0-0.7) Basophils # (Auto) 0.0x10^3/uL (0.0-0.2) 0.1x10^3/uL (0.0-0.2) Sodium Level 146mmol/L (136-145) 145mmol/L (136-145) Potassium Level 4.2mmol/L (3.5-5.1) 3.8mmol/L (3.5-5.1) Chloride Level 108mmol/L (98-107) 106mmol/L (98-107) Carbon Dioxide Level 29mmol/L (21-32) 29mmol/L (21-32) Anion Gap 9 (6-14) 10 (6-14) Blood Urea Nitrogen 36mg/dL (8-26) 38mg/dL (8-26) Creatinine 2.4mg/dL (0.7-1.3) 2.4mg/dL (0.7-1.3) Estimated GFR (Cockcroft-Gault) 32.9 32.9 BUN/Creatinine Ratio 15 (6-20) Glucose Level 261mg/dL (70-99) 213mg/dL (70-99) Calcium Level 9.1mg/dL (8.5-10.1) 9.4mg/dL (8.5-10.1) Total Bilirubin 0.5mg/dL (0.2-1.0) Aspartate Amino Transf (AST/SGOT) 18U/L (15-37) Alanine Aminotransferase (ALT/SGPT) 17U/L (16-63) Alkaline Phosphatase 41U/L (46-116) TS-Rjt-D-Type Natriuretic Peptide 1330pg/mL (0-124) Total Protein 7.5g/dL (6.4-8.2) Albumin 3.6g/dL (3.4-5.0) Albumin/Globulin Ratio 0.9 (1.0-1.7) Glucose (Fingerstick) 264mg/dL (70-99) 298mg/dL (70-99) Iron Level 55ug/dL (65-175) Total Iron Binding Capacity 291ug/dL (250-450) Iron Saturation 19% (15-34) Ferritin 794ng/mL (26-388) Triglycerides Level 142mg/dL (0-150) Cholesterol Level 109mg/dL (0-200) LDL Cholesterol, Calculated 55mg/dL (0-100) VLDL Cholesterol, Calculated 28mg/dL (0-40) HDL Cholesterol 26mg/dL (40-60) Cholesterol/HDL Ratio 4.2 Thyroid Stimulating Hormone (TSH) 2.429uIU/mL (0.358-3.74) Test 04/15/16 08:51 04/15/16 12:02 Glucose (Fingerstick) 182mg/dL (70-99) 233mg/dL (70-99) DARLENE QUARLES MD Apr 15, 2016 14:12
--- NOTE | 2016-04-15 14:28 | CARD ---
APPROVED REPORT EXAM: Two-dimensional and M-mode echocardiogram with Doppler and color Doppler. Other Information Quality : GoodHR: 83bpm Rhythm : NSR INDICATION Congestive Heart Failure RISK FACTORS Hypertension 2D DIMENSIONS RVDd2.8 (2.9-3.5cm)Left Atrium(2D)4.2 (1.6-4.0cm) IVSd1.3 (0.7-1.1cm)Aortic Root(2D)3.5 (2.0-3.7cm) LVDd5.6 (3.9-5.9cm)LVOT Diameter2.6 (1.8-2.4cm) PWd1.3 (0.7-1.1cm)LVDs3.4 (2.5-4.0cm) FS (%) 39.6 %SV107.2 ml LVEF(%)69.5 (>50%) Aortic Valve AoV Peak Mark.129.3cm/sAoV VTI27.6cm AO Peak GR.6.7mmHgLVOT Peak Mark.99.1cm/s AO Mean GR.4mmHgAVA (VMAX)4.07cm2 AI P 1/2 Zfmt375pp Mitral Valve MV E Vbbprpod31.6cm/sMV E Peak Gr.5mmHg MV DECEL [id number] A Qsjbcsle89.7cm/s MV E Mean Gr.3mmHgE/A Ratio0.9 MV A [id number] Pulmonary Valve PV Peak Wobmsdjy92.9cm/s Tricuspid Valve TR P. Tcvgiafc238rt/sTR Peak Gr.26mmHg Pulmonary Vein S1 Yewxqmeq10.7cm/sD2 Xsliekbm62.9cm/s PVa [id number] LEFT VENTRICLE The left ventricle is normal size. There is mild concentric left ventricular hypertrophy. The left ve ntricular systolic function is normal and the ejection fraction is within normal range. The Ejection Fraction is 60-65%. There is normal LV segmental wall motion. Transmitral Doppler flow pattern is Gra de I-abnormal relaxation pattern. RIGHT VENTRICLE The right ventricle is normal size. There is normal right ventricular wall thickness. The right ventr icular systolic function is normal. ATRIA The left atrium size is normal. The right atrium size is normal. The interatrial septum is intact wit h no evidence for an atrial septal defect or patent foramen ovale as noted on 2-D or Doppler imaging. AORTIC VALVE The aortic valve is mildly thickened. The aortic valve is trileaflet. Doppler and Color Flow revealed trace aortic regurgitation. There is no significant aortic valvular stenosis. MITRAL VALVE The mitral valve leaflets are thickened. There is no evidence of mitral valve prolapse. There is no m itral valve stenosis. Doppler and Color Flow revealed mild mitral regurgitation. TRICUSPID VALVE The tricuspid valve is normal in structure and function. Doppler and Color Flow revealed trace tricus pid regurgitation. The pulmonary artery systolic pressure is estimated at 31 mmHg. There is no tricus pid valve prolapse or vegetation. PULMONIC VALVE Doppler and Color Flow revealed mild pulmonic valvular regurgitation. There is no pulmonic valvular s tenosis. GREAT VESSELS The aortic root is normal in size. The ascending aorta is normal in size. The pulmonary artery is nor mal. The IVC is normal in size and collapses >50% with inspiration. PERICARDIAL EFFUSION There is no evidence of significant pericardial effusion. Critical Notification Critical Value: No <Conclusion> The left ventricle is normal size. The left ventricular systolic function is normal and the ejection fraction is within normal range. The Ejection Fraction is 60-65%. There is mild concentric left ventricular hypertrophy. There is no significant aortic valvular stenosis. Doppler and Color Flow revealed trace aortic regurgitation. Doppler and Color Flow revealed mild mitral regurgitation. Doppler and Color Flow revealed trace tricuspid regurgitation. The pulmonary artery systolic pressure is estimated at 31 mmHg.
[2016-04-15] MEDS ORDERED: MAGNESIUM SULFATE 2GM 50 ML IV PRN (14:30)
--- NOTE | 2016-04-15 14:45 | PDOC ---
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 No transfusions needed. No need for Aranesp. Baseline hgb ~ 10. Mild iron deficiency- Venofer ordered. Thank you. FERMIN TSANG DO Apr 15, 2016 14:45
[2016-04-15] MEDS ORDERED: IRON SUCROSE COMPLEX 500 MG in IV NORMAL SALINE 250ML 250 ML IV ONE (15:00)
[2016-04-15] MEDS: FUROSEMIDE INJ 100 MG in IV NORMAL SALINE 100ML 100 ML IV PRN (16:05)
[2016-04-15] MEDS: SIMVASTATIN 10 MG TABLET PO SCH (20:45)
[2016-04-15] MEDS: ENOXAPARIN 30 MG/0.3 ML DISP.SYRIN. SQ SCH (20:46)
[2016-04-15] MEDS: INSULIN DETEMIR 300 UNITS/3 ML INSULN.PEN. SQ SCH (20:47)
--- NOTE | 2016-04-15 20:50 | HP ---
ADMIT DATE: 04/14/2016 PATIENT LOCATION: 210. REASON FOR ADMISSION TO THE HOSPITAL: Shortness of breath, acute on chronic heart failure. HISTORY OF PRESENT ILLNESS: The patient is a 66-year-old male patient known to me, had history of diabetes, hypertension, had a cardiac catheterization 2 years ago, has a systolic heart failure and he was doing relatively well, all of a sudden he developed swelling, short of breath, gained 20 pounds who was admitted to the hospital for fine tuning of heart failure and also his kidney function was getting worse, around 2.5 to less than 3 creatinine and his hemoglobin around 9 may be contributing his problems. PAST MEDICAL HISTORY: Hypertension, hyperlipidemia, thalassemia trait. He also has GERD, anemia, arthritis, chronic renal failure, BPH, diabetes insulin-dependent, poorly controlled. PAST SURGICAL HISTORY: Had a cardiac catheterization 2 years ago. No major blockages, cataract, hernia repair, bilateral inguinal, carpal tunnel. FAMILY HISTORY: Diabetes, heart disease, kidney failure and sister on dialysis. SOCIAL HISTORY: He used to smoke, quit couple of years ago. Denies alcohol. Denies street drugs. MEDICATIONS: He is on Lasix 40 mg twice a day, potassium 20 mEq twice a day, DuoNeb 4 times daily, aspirin 81 mg daily, Lyrica 75 mg daily, Zocor 10 mg daily, fluticasone nose spray daily, Protonix 40 mg daily, Cozaar 100 mg daily, Levemir 20 units at bedtime, NovoLog 20 units 3 times daily and start on Lovenox here. ALLERGIES: No known drug allergies. REVIEW OF SYMPTOMS: CARDIAC: No chest pain, shortness of breath. GASTROINTESTINAL: No nausea or vomiting. NEUROLOGICAL: No weakness. EXTREMITIES: Swelling. Rest of the 14 systems was reviewed and negative. PHYSICAL EXAMINATION: VITAL SIGNS: At the time of admission shows temperature 97, pulse 90, respirations 20, blood pressure 189/94, 92% on room air. HEENT: Head is atraumatic. Pupils equal. Oral cavity: No congestion. NECK: Supple. Thyroid not enlarged. JVD not elevated. CHEST: Symmetrical. CARDIOVASCULAR: S1, S2. LUNGS: Crackle one-third at the base. No wheezing. ABDOMEN: Soft, bowel sounds present, no mass palpable. EXTERNAL GENITALIA: No Lombardo. RECTAL: Deferred. EXTREMITIES: 2+ edema all the way from the foot up to the knee, pitting edema. Foot, no ulcerations. NEUROLOGIC: Cranial nerves intact. Power 5/5 in all extremities. LABORATORY DATA: Shows a white count of 8, hemoglobin 8.9, platelets 212. Electrolytes shows a sodium 143, potassium 4.2, chloride 108, bicarbonate 29, BUN 36, creatinine 2.4, glucose 261. LFTs were normal. Albumin 3.6. BNP 1330. Cholesterol 109, LDL 55. TSH 2.4. Ultrasound of the lower extremities, no evidence of DVT. Ultrasound of the kidneys shows unremarkable, no hydronephrosis. Chest x-ray shows mild CHF. EKG done, report is pending. FINAL IMPRESSION: 1. Congestive heart failure, acute on chronic. 2. Diastolic heart failure, ejection fraction 65%, LVH. 3. 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 4. 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 5. Hypertension. 6. Hyperlipidemia. 7. Hemoglobin CC disease. PLAN: At this time, admit to hospital. IV Lasix, will have Cardiology consult, echocardiogram. Renal consult. Ultrasound of the kidneys was done and also hematology. The patient may benefit from iron infusion and Iron Extra over the long-term because of anemia of chronic disease. GISELL CLARK MD DR: BARBI/ruben JOB#: [id number] / [id number] PRISCILLA
[2016-04-15 23:49] LABS: BILIRUBIN,URINE NEGATIVE (NEG); GLUCOSE,URINE NEGATIVE (NEG); NITRITE,URINE NEGATIVE (NEG); PROTEIN,URINE 100 mg/dL (NEG-TRACE)
[2016-04-15 23:56] LABS: BACTERIA,URINE 0 /HPF (0-FEW); WBC,URINE 0 /HPF (0-4)
[2016-04-16] VITALS (7 sets, daily range): BP systolic 127–167; BP diastolic 76–106
[2016-04-16 05:26] LABS: BASO # 0.1 x10^3/uL (0.0-0.2); BASO % 1 % (0-3); EOS % 3 % (0-3); HEMATOCRIT 25.9 % (39.0-53.0); HEMOGLOBIN 9.1 g/dL (13.0-17.5); LYMPH # 1.8 x10^3/uL (1.0-4.8); LYMPH % 27 % (24-48); MEAN CORPUSCULAR HEMOGLOBIN 28 pg (25-35); MEAN CORPUSCULAR HGB CONC 35 g/dL (31-37); MEAN CORPUSCULAR VOLUME 79 fL (79-100); MONO % 12 % (0-9); NEUT % 58 % (31-73); PLATELET COUNT 215 x10^3/uL (140-400); RED BLOOD COUNT 3.26 x10^6/uL (4.30-5.70); RED CELL DISTRIBUTION WIDTH 16.3 % (11.5-14.5); WHITE BLOOD COUNT 6.9 x10^3/uL (4.0-11.0)
[2016-04-16 05:52] LABS: ALBUMIN 3.5 g/dL (3.4-5.0); CALCIUM 9.3 mg/dL (8.5-10.1); CREATININE 2.3 mg/dL (0.7-1.3); GFR 34.6; POTASSIUM 3.9 mmol/L (3.5-5.1)
--- NOTE | 2016-04-16 06:13 | CONS ---
DATE OF CONSULTATION: PRIMARY CARE PHYSICIAN: Dorinda Colbert M.D. REASON FOR CONSULTATION: Elevated creatinine. HISTORY OF PRESENT ILLNESS: The patient is a 66-year-old -[place] gentleman with past medical history as reviewed in my electronic note. He was at Dr. Colbert's office yesterday and was found to have some significant amount of weight gain as well as edema and possible shortness of breath. He denies chest pain to me; however, he has admitted to chest pain elsewhere. He does not know his baseline weight, but he thinks that he was below 200 pounds prior and he was yesterday 224. His chest x-ray on arrival here did not show significant CHF per se. He does have a lot of edema in his lower extremities. In this setting, he was admitted to the hospital for further evaluation. His creatinine today is 2.4. His previous creatinines in our system has been 1.7-1.8 the highest as recently as 04/28/2015. On asking to the patient, he denies any history of chronic kidney problems. He does admit to right eye vision issues as well as poorly-controlled diabetes. For rest of the details, see electronic records. DARLENE QUARLES MD DR: RAVINDER/ruben JOB#: [id number] / [id number]
[2016-04-16] MEDS: POTASSIUM CHLORIDE 20 MEQ TABLET.ER. PO SCH ×2 (06:24→17:40)
[2016-04-16] MEDS: IPRATRPIUM/ALBUTEROL 0.5/2.5MG 3 ML NEBU. NEB SCH ×4 (07:30→20:39)
[2016-04-16] MEDS: FLUTICASONE 50MCG/NASAL SPRAY 16GM BOTTLE. NS SCH (09:00)
--- NOTE | 2016-04-16 09:25 | PDOC ---
SUBJECTIVE ROS HUSSEIN/ CKD III doing well overall - thinks the fluid is coming off well CVS: no Orthopnea, no CP RESP: no SOB, no ROSE GI: no Nausea, no Vomiting : no Dysuria, no Urgency OBJECTIVE Vital Signs Vital Signs Date Time Temp Pulse Resp B/P Pulse Ox O2 Delivery O2 Flow Rate FiO2 04/16/16 07:30 Room Air 04/16/16 07:00 98.2 89 18 167/91 94 98.2 I & 0 Intake and Output 04/16/16 07:00 Intake Total 1360 ml Output Total 3300 ml Balance -1940 ml Intake Oral 1080 ml IV Total 62 ml Other 218 ml Output Urine Total 3300 ml # Voids 1 # Bowel Movements 1 PHYSICAL EXAM Physical Exam GEN: Awake, Oriented x 2, In no distress EYES: Vision Unchanged, Conjunctiva Normal EN: No EN Drainage, Mucous Membranes moist NECK: no JVD, min JVP, Supple, no Thyromegaly CVS: S1S2, + Murmur, No Gallop, No Rub,+2 Edema RESP: no Rales, no Rhonchi,no Acc. Muscle Use GI: BS + ve, NO Bruit, Non Tender, Non Distended : no CVA tenderness, no Suprapubic Tenderness DIAGNOSIS/ASSESSMENT Assessment & Plan ARF: due to NSAIDs, ARB and Lasix combo cannot be ruled out. Creat is stable for now ? Underlying CKD based on Previous Creats in our systems. Current FLuid and E- lyte status does not necessitate emergent need for Dialysis. Will re-evaluate for Dialysis in am CHF and Edema - Diuresis; Lasix gtt as ordered; DVT scan is -ve Anemia: Dr South evaluating HTN: Current BP meds reviewed. See orders for changes. Discussed Plan of Care and prognosis etc. at length with pt Problems: COMMENT/RELEVANT DATA Meds Current Medications Medications (Trade) Dose Ordered Sig/Madeleine Start Time Stop Time Status Last Admin Dose Admin Acetaminophen/ Hydrocodone Bitart (Lortab 5/325) 1 tab PRN Q6HRS PRN 04/14/16 19:15 Albuterol/ Ipratropium (Duoneb) 3 ml 1X ONCE 04/14/16 18:15 04/14/16 18:16 DC 04/14/16 18:21 3 ML Aspirin (Ecotrin) 81 mg DAILY 04/15/16 09:00 04/15/16 09:00 81 MG Dextrose 12.5 gm PRN Q15MIN PRN 04/14/16 21:30 UNV Enoxaparin Sodium (Lovenox 30mg Syringe) 30 mg Q24H 04/15/16 21:00 04/15/16 20:46 30 MG Enoxaparin Sodium (Lovenox 40mg Syringe) 30 mg Q24H 04/14/16 22:00 04/15/16 13:40 DC 04/14/16 22:02 30 MG Fluticasone Propionate (Flonase) 2 spray DAILY 04/15/16 09:00 04/15/16 09:02 2 SPRAY Furosemide (Lasix) 40 mg [id number] 04/14/16 17:00 04/15/16 14:56 DC 04/15/16 09:02 40 MG Furosemide/Sodium Chloride (Lasix Drip/Iv Sodium Chloride 0.9% 100ml) 100 ml @ 5 mls/hr CONT PRN 04/15/16 15:00 04/15/16 16:05 5 MLS/HR Insulin Aspart (Novolog) 0-5 UNITS TIDWMEALS 04/15/16 08:00 04/15/16 17:54 2 UNITS Insulin Detemir (Levemir) 20 units QHS 04/14/16 21:00 04/15/16 14:16 DC 04/14/16 21:21 20 UNITS Insulin Detemir 25 units 25 units QHS 04/15/16 21:00 04/15/16 20:47 25 UNITS Iron Sucrose 500 mg/Sodium Chloride 275 ml @ 78.571 mls/ hr 1X ONCE 04/15/16 15:00 04/15/16 18:29 DC 04/15/16 16:06 78.571 MLS/HR Losartan Potassium (Cozaar) 100 mg DAILY 04/15/16 09:00 04/15/16 09:01 100 MG Magnesium Sulfate/ Dextrose 50 ml @ 25 mls/hr PRN DAILY PRN 04/15/16 14:30 Metoprolol Tartrate (Lopressor) 25 mg BID 04/15/16 11:00 04/15/16 20:46 25 MG Pantoprazole Sodium (Protonix) 40 mg DAILYAC 04/15/16 07:30 04/15/16 09:00 40 MG Potassium Chloride (Klor-Con) 20 meq [id number] 04/14/16 18:00 04/16/16 06:24 20 MEQ Pregabalin (Lyrica) 75 mg DAILY 04/15/16 09:00 04/15/16 09:02 75 MG Simvastatin (Zocor) 10 mg HS 04/14/16 21:00 04/15/16 20:45 10 MG Lab Laboratory Tests Test 04/15/16 12:02 04/15/16 17:20 04/15/16 20:40 04/15/16 23:18 Glucose (Fingerstick) 233mg/dL (70-99) 160mg/dL (70-99) 154mg/dL (70-99) Urine Collection Type Unknown Urine Color Yellow Urine Clarity Clear Urine pH 6.0 Urine Specific [place] 1.010 Urine Protein 100mg/dL (NEG-TRACE) Urine Glucose (UA) Negativemg/dL (NEG) Urine Ketones (Stick) Negativemg/dL (NEG) Urine Blood Small (NEG) Urine Nitrite Negative (NEG) Urine Bilirubin Negative (NEG) Urine Urobilinogen Dipstick 1.0mg/dL (0.2 mg/dL) Urine Leukocyte Esterase Negative (NEG) Urine RBC 3-5/HPF (0-2) Urine WBC 0/HPF (0-4) Urine Squamous Epithelial Cells None/LPF Urine Bacteria 0/HPF (0-FEW) Urine Hyaline Casts Occasional/HPF Urine Mucus Slight/LPF Test 04/16/16 05:15 04/16/16 07:55 White Blood Count 6.9x10^3/uL (4.0-11.0) Red Blood Count 3.26x10^6/uL (4.30-5.70) Hemoglobin 9.1g/dL (13.0-17.5) Hematocrit 25.9% (39.0-53.0) Mean Corpuscular Volume 79fL (79-100) Mean Corpuscular Hemoglobin 28pg (25-35) Mean Corpuscular Hemoglobin Concent 35g/dL (31-37) Red Cell Distribution Width 16.3% (11.5-14.5) Platelet Count 215x10^3/uL (140-400) Neutrophils (%) (Auto) 58% (31-73) Lymphocytes (%) (Auto) 27% (24-48) Monocytes (%) (Auto) 12% (0-9) Eosinophils (%) (Auto) 3% (0-3) Basophils (%) (Auto) 1% (0-3) Neutrophils # (Auto) 4.0x10^3uL (1.8-7.7) Lymphocytes # (Auto) 1.8x10^3/uL (1.0-4.8) Monocytes # (Auto) 0.8x10^3/uL (0.0-1.1) Eosinophils # (Auto) 0.2x10^3/uL (0.0-0.7) Basophils # (Auto) 0.1x10^3/uL (0.0-0.2) Sodium Level 145mmol/L (136-145) Potassium Level 3.9mmol/L (3.5-5.1) Chloride Level 105mmol/L (98-107) Carbon Dioxide Level 31mmol/L (21-32) Anion Gap 9 (6-14) Blood Urea Nitrogen 36mg/dL (8-26) Creatinine 2.3mg/dL (0.7-1.3) Estimated GFR (Cockcroft-Gault) 34.6 Glucose Level 177mg/dL (70-99) Calcium Level 9.3mg/dL (8.5-10.1) Phosphorus Level 4.0mg/dL (2.6-4.7) Magnesium Level 1.9mg/dL (1.8-2.4) Albumin 3.5g/dL (3.4-5.0) Glucose (Fingerstick) 182mg/dL (70-99) DARLENE QUARLES MD Apr 16, 2016 09:25
[2016-04-16] MEDS: PREGABALIN 75 MG CAPSULE PO SCH (10:02)
[2016-04-16] MEDS: PANTOPRAZOLE 40 MG TABLET. PO SCH (10:03)
[2016-04-16] MEDS: LOSARTAN POTASSIUM 50 MG TABLET. PO SCH (10:03)
[2016-04-16] MEDS: ASPIRIN ENTERIC COATED 81 MG TABLET.DR. PO SCH (10:03)
[2016-04-16] MEDS: METOPROLOL TART IMMED RELEASE 25 MG TABLET PO SCH (10:03)
[2016-04-16] MEDS: INSULIN ASPART 300 UNITS/3 ML INSULN.PEN SQ SCH ×6 (10:10→17:45)
--- NOTE | 2016-04-16 10:41 | PDOC ---
RONALDO DAN [employer]INCIPAL AUTOMATION ENGINEER 04/16/16 1040: CARDIO Progress Notes Date and Time Date of Service 04/16/2016 Time of Evaluation 0920 Subjective Subjective: No Chest Pain, No shortness of breath, No Palpitations, No Dizziness, Other (slept well overnight) Vitals Vitals Vital Signs Date Time Temp Pulse Resp B/P Pulse Ox O2 Delivery O2 Flow Rate FiO2 04/16/16 10:03 89 167/91 04/16/16 07:30 Room Air 04/16/16 07:00 98.2 18 94 98.2 Weight Weight [ ] Input and Output Intake and Output Intake and Output 04/16/16 07:00 Intake Total 1360 ml Output Total 3300 ml Balance -1940 ml Intake Oral 1080 ml IV Total 62 ml Other 218 ml Output Urine Total 3300 ml # Voids 1 # Bowel Movements 1 Laboratory Labs Laboratory Tests Test 04/15/16 12:02 04/15/16 17:20 04/15/16 20:40 04/15/16 23:18 Glucose (Fingerstick) 233mg/dL (70-99) 160mg/dL (70-99) 154mg/dL (70-99) Urine Collection Type Unknown Urine Color Yellow Urine Clarity Clear Urine pH 6.0 Urine Specific [place] 1.010 Urine Protein 100mg/dL (NEG-TRACE) Urine Glucose (UA) Negativemg/dL (NEG) Urine Ketones (Stick) Negativemg/dL (NEG) Urine Blood Small (NEG) Urine Nitrite Negative (NEG) Urine Bilirubin Negative (NEG) Urine Urobilinogen Dipstick 1.0mg/dL (0.2 mg/dL) Urine Leukocyte Esterase Negative (NEG) Urine RBC 3-5/HPF (0-2) Urine WBC 0/HPF (0-4) Urine Squamous Epithelial Cells None/LPF Urine Bacteria 0/HPF (0-FEW) Urine Hyaline Casts Occasional/HPF Urine Mucus Slight/LPF Test 04/16/16 05:15 04/16/16 07:55 White Blood Count 6.9x10^3/uL (4.0-11.0) Red Blood Count 3.26x10^6/uL (4.30-5.70) Hemoglobin 9.1g/dL (13.0-17.5) Hematocrit 25.9% (39.0-53.0) Mean Corpuscular Volume 79fL (79-100) Mean Corpuscular Hemoglobin 28pg (25-35) Mean Corpuscular Hemoglobin Concent 35g/dL (31-37) Red Cell Distribution Width 16.3% (11.5-14.5) Platelet Count 215x10^3/uL (140-400) Neutrophils (%) (Auto) 58% (31-73) Lymphocytes (%) (Auto) 27% (24-48) Monocytes (%) (Auto) 12% (0-9) Eosinophils (%) (Auto) 3% (0-3) Basophils (%) (Auto) 1% (0-3) Neutrophils # (Auto) 4.0x10^3uL (1.8-7.7) Lymphocytes # (Auto) 1.8x10^3/uL (1.0-4.8) Monocytes # (Auto) 0.8x10^3/uL (0.0-1.1) Eosinophils # (Auto) 0.2x10^3/uL (0.0-0.7) Basophils # (Auto) 0.1x10^3/uL (0.0-0.2) Sodium Level 145mmol/L (136-145) Potassium Level 3.9mmol/L (3.5-5.1) Chloride Level 105mmol/L (98-107) Carbon Dioxide Level 31mmol/L (21-32) Anion Gap 9 (6-14) Blood Urea Nitrogen 36mg/dL (8-26) Creatinine 2.3mg/dL (0.7-1.3) Estimated GFR (Cockcroft-Gault) 34.6 Glucose Level 177mg/dL (70-99) Calcium Level 9.3mg/dL (8.5-10.1) Phosphorus Level 4.0mg/dL (2.6-4.7) Magnesium Level 1.9mg/dL (1.8-2.4) Albumin 3.5g/dL (3.4-5.0) Glucose (Fingerstick) 182mg/dL (70-99) Physical Exam HEENT: Neck Supple W Full Motion Chest: Symmetric LUNGS: Other (basilar crackles) Heart: S1S2, RRR (SR), murmurs (2/6 systolic murmur) Abdomen: Soft N/T, Other (truncal obesity) Extremities: No Calf Tenderness, Other (3+ pitting LE edema) Neurology: alert, oriented, follow commands Assessment Assessment 1. Acute on chronic diastolic CHF: suspect induced primarily by uncontrolled HTN, element of noncompliance with renal insufficiency. Currently compensated 2. Atypical CP: noncardiac, recent LHC with no significant CAD. Current TTE virtually unremarkable for significant changes 3. Accelerated HTN: improved 4. DM2: A1C 6.4 5. HLD 6. CKD3 7. Suspect element of poor compliance 8. ?PITER Recommendations 1. Lasix drip per nephrology 2. Change metoprolol to coreg and uptitrate as warranted 3. Continue with losartan 4. Continue with secondary prevention 5. Defer diurese to nephrology, no further cardiac recommendation CARMELA ISBELL MD 04/17/16 0955: CARDIO Progress Notes Assessment Assessment Patient seen and examined 04/16/16. Agree with BLOOD BANK CALENDAR CONTROL CLERK's assessment and plan. Acute on chronic diastolic heart failure better compensated after diuresis with intravenous Lasix drip started by nephrology team. Blood pressure better controlled since admission. Continue current medical regimen. RONALDO DAN APRN Apr 16, 2016 10:40 CARMELA ISBELL MD Apr 17, 2016 09:55
[2016-04-16] MEDS: FUROSEMIDE INJ 100 MG in IV NORMAL SALINE 100ML 100 ML IV PRN (13:00)
--- NOTE | 2016-04-16 13:01 | CONS ---
DATE OF CONSULTATION: 04/15/2016 REFERRING PROVIDER: Dr. Colbert. REASON FOR CONSULTATION: Anemia. HISTORY OF PRESENT ILLNESS: The patient is a 66-year-old male, who I met in clinic in December 2015 to follow up on his chronic anemia. 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 He has not required ongoing transfusions. He is admitted now with heart failure. When I saw him in clinic in December 2015, his hemoglobin was noted to be 10.2, previously in May 2015, it was down to 9.3. His B12, folic acid, and iron levels were previously within normal limits. Here in the hospital now, his hemoglobin is again 9.2, but MCV has decreased to 77, previously 84. Renal ultrasound has been unremarkable and did not reveal any hepatosplenomegaly. He states it has been a few years since his last colonoscopy, but that only 1-2 polyps were removed. PAST MEDICAL HISTORY: Hypertension; diabetes; chronic kidney disease; arthritis; hyperlipidemia; anemia of chronic disease, multifactorial as above; and hemoglobin CC disease. PAST SURGICAL HISTORY: Colonoscopy and heart catheterization. FAMILY HISTORY: Mom has coronary artery disease, diabetes, breast cancer, stroke. Dad had heart disease, diabetes, stroke. He has 19 siblings, many of whom have diabetes. SOCIAL HISTORY: He denied any tobacco or alcohol use. ALLERGIES: No known drug allergies. CURRENT MEDICATIONS: Levemir, Lovenox, metoprolol, Cozaar, Flonase, Lyrica, aspirin, NovoLog, Protonix, simvastatin, DuoNeb, Lortab, potassium chloride and Lasix. REVIEW OF SYSTEMS: Ten point review of systems completed and unremarkable with the exception of some initial shortness of breath, chest pressure, lower extremity swelling, and worsening fatigue. PHYSICAL EXAMINATION: VITAL SIGNS: Temperature 98.5, pulse 80, respiratory rate 18, blood pressure 162/96, 95% O2 on room air. GENERAL: He is alert and oriented. He is not in any distress at this time. HEENT: Right eye generally remains closed. There is no scleral icterus. CARDIOVASCULAR: Heart is regular in rhythm and rate. LUNGS: Clear to auscultation bilaterally. ABDOMEN: Soft, obese, nontender. EXTREMITIES: 2+ edema bilateral lower extremities. NEUROLOGIC: No focal cranial deficit. IMAGING AND LABORATORY DATA: Pertinent CBC findings as above. I added on iron tests, which revealed a mildly decreased serum iron level of 55, percent iron saturation 19, TIBC 291, ferritin remains elevated at 794. Chest x-ray was negative. Renal ultrasound negative as above. Lower extremity ultrasound negative for clot. ASSESSMENT AND PLAN: The patient is a 66-year-old male with the following medical problems: 1. 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 His labs are really close to his baseline since 2012. Therefore, he does not need long-term Oncology followup. He has some very minimal iron deficiency today and due to his worsening microcytosis, I will go ahead and replace him with Venofer 500 mg. He has not required any transfusions. Again, due to the multifactorial nature, especially with his underlying hemoglobinopathy, I do not think he would benefit from Aranesp injections. I discussed this information with Dr. Colbert. Thank you again for alerting us of his admission. He can follow up as needed. FERMIN TSANG DO DR: BREANN/ruben JOB#: [id number] / [id number]
--- NOTE | 2016-04-16 14:10 | PDOC ---
PROGRESS NOTES Subjective Subjective swelling down in legs Objective Objective Vital Signs Date Time Temp Pulse Resp B/P Pulse Ox O2 Delivery O2 Flow Rate FiO2 04/16/16 13:10 96 Room Air 04/16/16 10:25 97.6 93 20 140/82 97.6 Intake and Output 04/16/16 07:00 Intake Total 1360 ml Output Total 3300 ml Balance -1940 ml Intake Oral 1080 ml IV Total 62 ml Other 218 ml Output Urine Total 3300 ml # Voids 1 # Bowel Movements 1 Physical Exam Abdomen: Normal bowel sounds, No tenderness Heart: Regular rate, Normal S1, Normal S2, No murmurs, Other (no carotid bruits ; tele: SR) Extremities: Other (3+ bilateral lower extremity edema) General: Alert, Oriented X3, Cooperative, No acute distress HEENT: Atraumatic, PERRLA, Mucous membr. moist/pink Lungs: Clear to auscultation, Normal air movement MUSCULOSKELETAL: Osteoarthritic changes both hands Neuro: Normal speech Psych/Mental Status: Mental status NL, Mood NL Skin: No rashes Diagnosis Problem List Problems Medical Problems: (1) CHF (congestive heart failure) Status: Acute Assessment Assessment Problems Medical Problems: (1) CHF (congestive heart failure) Status: Acute FINAL IMPRESSION: 1. Congestive heart failure, acute on chronic. 2. Diastolic heart failure, ejection fraction 65%, LVH. 3. 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 4. 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 5. Hypertension. 6. Hyperlipidemia. 7. Hemoglobin CC disease. 8.Diabetic retinopathy PLAN: echo good lvf. cr 2.3 sono kidneys ok. eye doctor referaal blurring in eyes . At this time, admit to hospital. IV Lasix, will have Cardiology consult, echocardiogram. Renal consult. Ultrasound of the kidneys was done and also hematology. The patient may benefit from iron infusion and Iron Extra over the long-term because of anemia of chronic disease. Problems: Plan Plan of Care Problems Medical Problems: (1) CHF (congestive heart failure) Status: Acute Comment Review of Relevant I have reviewed the following items ken (where applicable) has been applied. Labs Laboratory Tests Test 04/15/16 17:20 04/15/16 20:40 04/15/16 23:18 04/16/16 05:15 Glucose (Fingerstick) 160mg/dL (70-99) 154mg/dL (70-99) Urine Collection Type Unknown Urine Color Yellow Urine Clarity Clear Urine pH 6.0 Urine Specific [place] 1.010 Urine Protein 100mg/dL (NEG-TRACE) Urine Glucose (UA) Negativemg/dL (NEG) Urine Ketones (Stick) Negativemg/dL (NEG) Urine Blood Small (NEG) Urine Nitrite Negative (NEG) Urine Bilirubin Negative (NEG) Urine Urobilinogen Dipstick 1.0mg/dL (0.2 mg/dL) Urine Leukocyte Esterase Negative (NEG) Urine RBC 3-5/HPF (0-2) Urine WBC 0/HPF (0-4) Urine Squamous Epithelial Cells None/LPF Urine Bacteria 0/HPF (0-FEW) Urine Hyaline Casts Occasional/HPF Urine Mucus Slight/LPF White Blood Count 6.9x10^3/uL (4.0-11.0) Red Blood Count 3.26x10^6/uL (4.30-5.70) Hemoglobin 9.1g/dL (13.0-17.5) Hematocrit 25.9% (39.0-53.0) Mean Corpuscular Volume 79fL (79-100) Mean Corpuscular Hemoglobin 28pg (25-35) Mean Corpuscular Hemoglobin Concent 35g/dL (31-37) Red Cell Distribution Width 16.3% (11.5-14.5) Platelet Count 215x10^3/uL (140-400) Neutrophils (%) (Auto) 58% (31-73) Lymphocytes (%) (Auto) 27% (24-48) Monocytes (%) (Auto) 12% (0-9) Eosinophils (%) (Auto) 3% (0-3) Basophils (%) (Auto) 1% (0-3) Neutrophils # (Auto) 4.0x10^3uL (1.8-7.7) Lymphocytes # (Auto) 1.8x10^3/uL (1.0-4.8) Monocytes # (Auto) 0.8x10^3/uL (0.0-1.1) Eosinophils # (Auto) 0.2x10^3/uL (0.0-0.7) Basophils # (Auto) 0.1x10^3/uL (0.0-0.2) Sodium Level 145mmol/L (136-145) Potassium Level 3.9mmol/L (3.5-5.1) Chloride Level 105mmol/L (98-107) Carbon Dioxide Level 31mmol/L (21-32) Anion Gap 9 (6-14) Blood Urea Nitrogen 36mg/dL (8-26) Creatinine 2.3mg/dL (0.7-1.3) Estimated GFR (Cockcroft-Gault) 34.6 Glucose Level 177mg/dL (70-99) Calcium Level 9.3mg/dL (8.5-10.1) Phosphorus Level 4.0mg/dL (2.6-4.7) Magnesium Level 1.9mg/dL (1.8-2.4) Albumin 3.5g/dL (3.4-5.0) Test 04/16/16 07:55 04/16/16 11:50 Glucose (Fingerstick) 182mg/dL (70-99) 215mg/dL (70-99) Medications Current Medications Carvedilol (Coreg) 6.25 mg BIDWMEALS PO ; Start 04/16/16 at 17:00 Enoxaparin Sodium (Lovenox 30mg Syringe) 30 mg Q24H SQ Last administered on 04/15 20:46; Start 04/15/16 at 21:00 Furosemide/Sodium Chloride (Lasix Drip/Iv Sodium Chloride 0.9% 100ml) 100 ml @ 5 mls/hr CONT PRN IV SEE I/O RECORD Last administered on 04/16/16 13:00; Start 04/15/16 at 15:00 Insulin Detemir 25 units 25 units QHS SQ Last administered on 04/15/16 20:47; Start 04/15/16 at 21:00 Iron Sucrose 500 mg/Sodium Chloride 275 ml @ 78.571 mls/ hr 1X ONCE IV Last administered on 04/15/16 16:06; Start 04/15/16 at 15:00; Stop 04/15/16 at 18:29; Status DC Magnesium Sulfate/ Dextrose 50 ml @ 25 mls/hr PRN DAILY PRN IV for Mag < 1.7 on am labs; Start 04/15/16 at 14:30 Vitals/I & O Vital Sign - Last 24 Hours 3/804/15/16 04/15/16 04/15/16 14:46 15:57 16:15 16:45 Temp 97.3 97.3 Pulse 80 86 83 Resp 18 B/P 148/80 165/89 178/83 Pulse Ox 95 O2 Delivery Room Air Room Air 04/15/16 04/15/16 04/15/16 04/15/16 17:15 19:00 19:04 19:30 Temp 98.1 98.1 Pulse 85 82 98 Resp 18 B/P 174/93 177/89 166/81 Pulse Ox 93 O2 Delivery Room Air Room Air 04/15/16 04/15/16 04/15/16 04/15/16 19:45 20:30 20:46 21:30 Pulse 86 98 84 B/P 162/82 166/81 148/75 O2 Delivery Room Air 04/15/16 04/16/16 04/16/16 04/16/16 23:00 01:00 03:03 07:00 Temp 97.6 97.6 98.2 97.6 97.6 98.2 Pulse 82 82 80 89 Resp 18 20 18 B/P 153/91 162/85 160/106 167/91 Pulse Ox 94 99 94 O2 Delivery Room Air Room Air Room Air 04/16/16 04/16/16 04/16/16 04/16/16 07:30 10:03 10:03 10:25 Temp 97.6 97.6 Pulse 89 89 93 Resp 20 B/P 167/91 167/91 140/82 Pulse Ox 93 O2 Delivery Room Air Room Air 04/16/16 13:10 Pulse Ox 96 O2 Delivery Room Air Intake and Output 04/15/16 04/15/16 04/16/16 15:00 23:00 07:00 Intake Total 180 ml 618 ml 562 ml Output Total 1850 ml 400 ml 1050 ml Balance -1670 ml 218 ml -488 ml GISELL CLARK MD Apr 16, 2016 14:10
[2016-04-16] MEDS: CARVEDILOL 6.25 MG TABLET PO SCH (17:40)
[2016-04-16] MEDS: ENOXAPARIN 30 MG/0.3 ML DISP.SYRIN. SQ SCH (21:31)
[2016-04-16] MEDS: SIMVASTATIN 10 MG TABLET PO SCH (21:31)
[2016-04-16] MEDS: INSULIN DETEMIR 300 UNITS/3 ML INSULN.PEN. SQ SCH (21:36)
[2016-04-17 03:36] VITALS: BP 140/82
[2016-04-17 04:46] LABS: CALCIUM 9.6 mg/dL (8.5-10.1); CREATININE 2.7 mg/dL (0.7-1.3); GFR 28.8; POTASSIUM 4.4 mmol/L (3.5-5.1)
[2016-04-17 04:54] LABS: ALBUMIN 3.6 g/dL (3.4-5.0); CALCIUM 9.6 mg/dL (8.5-10.1); CREATININE 2.8 mg/dL (0.7-1.3); GFR 27.6; POTASSIUM 4.3 mmol/L (3.5-5.1)
[2016-04-17 07:40] VITALS: BP 174/89
[2016-04-17] MEDS: PANTOPRAZOLE 40 MG TABLET. PO SCH (08:35)
[2016-04-17] MEDS: PREGABALIN 75 MG CAPSULE PO SCH (08:36)
[2016-04-17] MEDS: ASPIRIN ENTERIC COATED 81 MG TABLET.DR. PO SCH (08:36)
[2016-04-17] MEDS: POTASSIUM CHLORIDE 20 MEQ TABLET.ER. PO SCH ×3 (08:36→21:21)
[2016-04-17] MEDS: CARVEDILOL 6.25 MG TABLET PO SCH ×2 (08:37→17:42)
[2016-04-17] MEDS: LOSARTAN POTASSIUM 50 MG TABLET. PO SCH (08:37)
[2016-04-17] MEDS: FLUTICASONE 50MCG/NASAL SPRAY 16GM BOTTLE. NS SCH (08:38)
[2016-04-17] MEDS: INSULIN ASPART 300 UNITS/3 ML INSULN.PEN SQ SCH ×6 (08:45→17:46)
[2016-04-17] MEDS: IPRATRPIUM/ALBUTEROL 0.5/2.5MG 3 ML NEBU. NEB SCH ×4 (08:58→20:01)
--- NOTE | 2016-04-17 09:05 | PDOC ---
SUBJECTIVE ROS CKD III/ IV DOign andf eeling OK voerall, happy with dec in edema / swelling CVS: no Orthopnea, no CP RESP: no SOB, min ROSE GI: no Nausea, no Vomiting : no Dysuria, no Urgency OBJECTIVE Vital Signs Vital Signs Date Time Temp Pulse Resp B/P Pulse Ox O2 Delivery O2 Flow Rate FiO2 04/17/16 08:37 85 174/89 04/17/16 03:36 98.5 16 92 Room Air 98.5 I & 0 Intake and Output 04/17/16 07:00 Intake Total 1460 ml Output Total 925 ml Balance 535 ml Intake Oral 1460 ml Output Urine Total 925 ml # Voids 1 PHYSICAL EXAM Physical Exam GEN: Awake, Oriented x 2, In no distress EYES: Vision Unchanged, Conjunctiva Normal EN: No EN Drainage, Mucous Membranes moist NECK: no JVD, min JVP, Supple, no Thyromegaly CVS: S1S2, + Murmur, No Gallop, No Rub,+1 Edema RESP: no Rales, no Rhonchi,no Acc. Muscle Use GI: BS + ve, NO Bruit, Non Tender, Non Distended : no CVA tenderness, no Suprapubic Tenderness DIAGNOSIS/ASSESSMENT Assessment & Plan ARF: due to NSAIDs, ARB and Lasix combo cannot be ruled out. Creat trend noted ? Underlying CKD III (previously) / IV (now) based on Previous Creats in our systems. Current FLuid and E-lyte status does not necessitate emergent need for Dialysis. Will re-evaluate for Dialysis in am CHF - symptomatically better and has had a good Diuresis;change to Po Bumex; Low ext Edema - ? due to Liver asso pathology? DVT scan is -ve Anemia: Dr South evaluating HTN: Current BP meds reviewed. See orders for changes. Discussed Plan of Care and prognosis etc. at length with pt - would be OK to D.c in am COMMENT/RELEVANT DATA Meds Current Medications Medications (Trade) Dose Ordered Sig/Madeleine Start Time Stop Time Status Last Admin Dose Admin Acetaminophen/ Hydrocodone Bitart (Lortab 5/325) 1 tab PRN Q6HRS PRN 04/14/16 19:15 Albuterol/ Ipratropium (Duoneb) 3 ml 1X ONCE 04/14/16 18:15 3/7/17 18:16 DC 04/14/16 18:21 3 ML Aspirin (Ecotrin) 81 mg DAILY 04/15/16 09:00 04/17/16 08:36 81 MG Carvedilol (Coreg) 6.25 mg BIDWMEALS 04/16/16 17:00 04/17/16 08:37 6.25 MG Dextrose 12.5 gm PRN Q15MIN PRN 04/14/16 21:30 UNV Enoxaparin Sodium (Lovenox 30mg Syringe) 30 mg Q24H 04/15/16 21:00 04/16/16 21:31 30 MG Enoxaparin Sodium (Lovenox 40mg Syringe) 30 mg Q24H 04/14/16 22:00 04/15/16 13:40 DC 04/14/16 22:02 30 MG Fluticasone Propionate (Flonase) 2 spray DAILY 04/15/16 09:00 04/17/16 08:38 2 SPRAY Furosemide (Lasix) 40 mg BID92 04/14/16 17:00 04/15/16 14:56 DC 04/15/16 09:02 40 MG Furosemide/Sodium Chloride (Lasix Drip/Iv Sodium Chloride 0.9% 100ml) 100 ml @ 5 mls/hr CONT PRN 04/15/16 15:00 04/16/16 13:00 5 MLS/HR Insulin Aspart (Novolog) 0-5 UNITS TIDWMEALS 04/15/16 08:00 04/16/16 13:08 3 UNITS Insulin Detemir (Levemir) 20 units QHS 04/14/16 21:00 04/15/16 14:16 DC 04/14/16 21:21 20 UNITS Insulin Detemir 25 units 25 units QHS 04/15/16 21:00 04/16/16 21:36 25 UNITS Iron Sucrose 500 mg/Sodium Chloride 275 ml @ 78.571 mls/ hr 1X ONCE 04/15/16 15:00 04/15/16 18:29 DC 04/15/16 16:06 78.571 MLS/HR Losartan Potassium (Cozaar) 100 mg DAILY 04/15/16 09:00 04/17/16 08:37 100 MG Magnesium Sulfate/ Dextrose 50 ml @ 25 mls/hr PRN DAILY PRN 04/15/16 14:30 Metoprolol Tartrate (Lopressor) 25 mg BID 04/15/16 11:00 04/16/16 10:42 DC 04/16/16 10:03 25 MG Pantoprazole Sodium (Protonix) 40 mg DAILYAC 04/15/16 07:30 04/17/16 08:35 40 MG Potassium Chloride (Klor-Con) 20 meq BID76 04/14/16 18:00 04/17/16 08:36 20 MEQ Pregabalin (Lyrica) 75 mg DAILY 04/15/16 09:00 04/17/16 08:36 75 MG Simvastatin (Zocor) 10 mg HS 04/14/16 21:00 04/16/16 21:31 10 MG Lab Laboratory Tests Test 04/16/16 11:50 04/16/16 17:01 04/17/16 03:30 04/17/16 03:40 Glucose (Fingerstick) 215mg/dL (70-99) 101mg/dL (70-99) Sodium Level 142mmol/L (136-145) 142mmol/L (136-145) Potassium Level 4.4mmol/L (3.5-5.1) 4.3mmol/L (3.5-5.1) Chloride Level 102mmol/L (98-107) 102mmol/L (98-107) Carbon Dioxide Level 32mmol/L (21-32) 30mmol/L (21-32) Anion Gap 8 (6-14) 10 (6-14) Blood Urea Nitrogen 42mg/dL (8-26) 41mg/dL (8-26) Creatinine 2.7mg/dL (0.7-1.3) 2.8mg/dL (0.7-1.3) Estimated GFR (Cockcroft-Gault) 28.8 27.6 Glucose Level 275mg/dL (70-99) 277mg/dL (70-99) Calcium Level 9.6mg/dL (8.5-10.1) 9.6mg/dL (8.5-10.1) Phosphorus Level 4.0mg/dL (2.6-4.7) Magnesium Level 2.3mg/dL (1.8-2.4) Albumin 3.6g/dL (3.4-5.0) Test 04/17/16 08:17 Glucose (Fingerstick) 281mg/dL (70-99) DARLENE QUARLES MD Apr 17, 2016 09:05
--- NOTE | 2016-04-17 10:22 | PDOC ---
PROGRESS NOTES Subjective Subjective feeling better today Objective Objective Vital Signs Date Time Temp Pulse Resp B/P Pulse Ox O2 Delivery O2 Flow Rate FiO2 04/17/16 09:01 95 Room Air 04/17/16 08:37 85 174/89 04/17/16 07:40 98.5 16 98.5 Intake and Output 04/17/16 07:00 Intake Total 1460 ml Output Total 925 ml Balance 535 ml Intake Oral 1460 ml Output Urine Total 925 ml # Voids 1 Physical Exam Abdomen: Normal bowel sounds, No tenderness Heart: Regular rate, Normal S1, Normal S2, No murmurs, Other (no carotid bruits ; tele: SR) Extremities: Other (3+ bilateral lower extremity edema) General: Alert, Oriented X3, Cooperative, No acute distress HEENT: Atraumatic, PERRLA, Mucous membr. moist/pink Lungs: Clear to auscultation, Normal air movement MUSCULOSKELETAL: Osteoarthritic changes both hands Neuro: Normal speech Psych/Mental Status: Mental status NL, Mood NL Skin: No rashes COMMENT dec leg swelling Diagnosis Problem List Problems Medical Problems: (1) CHF (congestive heart failure) Status: Acute Assessment Assessment Problems Medical Problems: (1) CHF (congestive heart failure) Status: Acute FINAL IMPRESSION: 1. Congestive heart failure, acute on chronic. 2. Diastolic heart failure, ejection fraction 65%, LVH. 3. 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 4. 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 5. Hypertension. 6. Hyperlipidemia. 7. Hemoglobin CC disease. 8.Diabetic retinopathy PLAN: IV lasix drip echo good lvf. cr 2.3 sono kidneys ok. eye doctor referral blurring in eyes . home over the weekend? At this time, admit to hospital. IV Lasix, will have Cardiology consult, echocardiogram. Renal consult. Ultrasound of the kidneys was done and also hematology. The patient may benefit from iron infusion and Iron Extra over the long-term because of anemia of chronic disease. Problems: Plan Plan of Care Problems Medical Problems: (1) CHF (congestive heart failure) Status: Acute Comment Review of Relevant I have reviewed the following items ken (where applicable) has been applied. Labs Laboratory Tests Test 04/16/16 11:50 04/16/16 17:01 04/17/16 03:30 04/17/16 03:40 Glucose (Fingerstick) 215mg/dL (70-99) 101mg/dL (70-99) Sodium Level 142mmol/L (136-145) 142mmol/L (136-145) Potassium Level 4.4mmol/L (3.5-5.1) 4.3mmol/L (3.5-5.1) Chloride Level 102mmol/L (98-107) 102mmol/L (98-107) Carbon Dioxide Level 32mmol/L (21-32) 30mmol/L (21-32) Anion Gap 8 (6-14) 10 (6-14) Blood Urea Nitrogen 42mg/dL (8-26) 41mg/dL (8-26) Creatinine 2.7mg/dL (0.7-1.3) 2.8mg/dL (0.7-1.3) Estimated GFR (Cockcroft-Gault) 28.8 27.6 Glucose Level 275mg/dL (70-99) 277mg/dL (70-99) Calcium Level 9.6mg/dL (8.5-10.1) 9.6mg/dL (8.5-10.1) Phosphorus Level 4.0mg/dL (2.6-4.7) Magnesium Level 2.3mg/dL (1.8-2.4) Albumin 3.6g/dL (3.4-5.0) Test 04/17/16 08:17 Glucose (Fingerstick) 281mg/dL (70-99) Medications Current Medications Bumetanide (Bumex) 1 mg BID PO ; Start 04/17/16 at 09:30 Carvedilol (Coreg) 6.25 mg BIDWMEALS PO Last administered on 04/17/16t 08:37; Start 04/16/16 at 17:00 Darbepoetin Camron (Aranesp) 60 mcg WEEKLYHS SQ ; Start 04/17/16 at 21:00 Metolazone (Zaroxolyn) 2.5 mg DAILY PO ; Start 04/17/16 at 09:30 Vitals/I & O Vital Sign - Last 24 Hours 04/16/16 04/16/16 04/16/16 04/16/16 10:25 13:10 15:14 16:21 Temp 97.6 98.5 97.6 98.5 Pulse 93 85 Resp 20 18 B/P 140/82 127/76 Pulse Ox 93 96 92 96 O2 Delivery Room Air Room Air Room Air Room Air 04/16/16 04/16/16 04/16/16 04/16/16 17:40 19:23 19:50 20:39 Temp 98.0 98.0 Pulse 85 89 Resp 16 B/P 127/76 143/85 Pulse Ox 93 95 O2 Delivery Room Air Room Air Room Air 04/16/16 04/17/16 04/17/16 04/17/16 23:07 03:36 07:40 08:37 Temp 98.2 98.5 98.5 98.2 98.5 98.5 Pulse 87 90 89 86 Resp 18 16 16 B/P 157/79 140/82 174/89 174/89 Pulse Ox 93 92 96 O2 Delivery Room Air Room Air Room Air 04/17/16 04/17/16 08:37 09:01 Pulse 85 B/P 174/89 Pulse Ox 95 O2 Delivery Room Air Intake and Output 04/16/16 04/16/16 04/17/16 15:00 23:00 07:00 Intake Total 1060 ml 400 ml Output Total 600 ml 325 ml Balance 460 ml 75 ml GISELL CLARK MD Apr 17, 2016 10:22
[2016-04-17] MEDS: BUMETANIDE 1 MG TABLET PO SCH ×2 (11:20→21:02)
[2016-04-17] MEDS: METOLAZONE 2.5 MG TABLET PO SCH (11:20)
[2016-04-17 11:54] VITALS: BP_SYST 130; BP_SYST 140; BP_SYST 143; BP_DIAS 64; BP_DIAS 67; BP_DIAS 70
[2016-04-17 15:00] VITALS: BP 132/70
[2016-04-17 19:40] VITALS: BP 139/77
[2016-04-17] MEDS ORDERED: DARBEPOETIN ALFA 60 MCG/0.3 ML DISP.SYRIN. SQ SCH (21:00)
[2016-04-17] MEDS: SIMVASTATIN 10 MG TABLET PO SCH (21:02)
[2016-04-17] MEDS: ENOXAPARIN 30 MG/0.3 ML DISP.SYRIN. SQ SCH (21:02)
[2016-04-17] MEDS: INSULIN DETEMIR 300 UNITS/3 ML INSULN.PEN. SQ SCH (21:07)
[2016-04-17 23:46] VITALS: BP 131/86
[2016-04-18 03:00] VITALS: BP 117/70
[2016-04-18 06:14] LABS: ALBUMIN 3.4 g/dL (3.4-5.0); CALCIUM 9.5 mg/dL (8.5-10.1); CREATININE 3.1 mg/dL (0.7-1.3); GFR 24.5; PHOSPHORUS 4.6 mg/dL (2.6-4.7); POTASSIUM 4.5 mmol/L (3.5-5.1)
[2016-04-18] MEDS: IPRATRPIUM/ALBUTEROL 0.5/2.5MG 3 ML NEBU. NEB SCH ×2 (07:31→12:21)
[2016-04-18 07:50] VITALS: BP 142/83
--- NOTE | 2016-04-18 07:55 | PDOC ---
DAO-SOCORRO BRITTON [employer] 04/18/16 0755: IM PROGRESS NOTES- Subjective Subjective breathing improved Objective Objective alert stable Vitals Vital Signs Date Time Temp Pulse Resp B/P Pulse Ox O2 Delivery O2 Flow Rate FiO2 04/18/16 07:31 96 Room Air 04/18/16 03:00 98.1 85 18 117/70 98.1 Input & Output Intake and Output 04/18/16 07:00 Intake Total 1175 ml Output Total 800 ml Balance 375 ml Intake Oral 1160 ml IV Total 15 ml Output Urine Total 800 ml # Voids 1 Physical Exam Physical Exam General appearance - alert,well appearing, and in no distress and oriented to person, place, and time Mental Status - alert, oriented to person, place, and time, affect appropriate to mood Head - normal Chest - clear to auscultation, no wheezes, rales or rhonchi Heart - S1 and S2 normal Abdomen - soft, nontender, nondistended, no masses or organomegaly Neurological - no acute focal neurological deficit noted Musculoskeletal - no muscular tenderness noted Extremities - ++ pedal edema Skin - warm and dry Labs Laboratory Tests Test 04/16/16 07:55 04/16/16 11:50 04/16/16 17:01 04/16/16 20:56 Glucose (Fingerstick) 182mg/dL (70-99) 215mg/dL (70-99) 101mg/dL (70-99) 237mg/dL (70-99) Test 04/17/16 03:30 04/17/16 03:40 04/17/16 08:17 04/17/16 11:22 Sodium Level 142mmol/L (136-145) 142mmol/L (136-145) Potassium Level 4.4mmol/L (3.5-5.1) 4.3mmol/L (3.5-5.1) Chloride Level 102mmol/L (98-107) 102mmol/L (98-107) Carbon Dioxide Level 32mmol/L (21-32) 30mmol/L (21-32) Anion Gap 8 (6-14) 10 (6-14) Blood Urea Nitrogen 42mg/dL (8-26) 41mg/dL (8-26) Creatinine 2.7mg/dL (0.7-1.3) 2.8mg/dL (0.7-1.3) Estimated GFR (Cockcroft-Gault) 28.8 27.6 Glucose Level 275mg/dL (70-99) 277mg/dL (70-99) Calcium Level 9.6mg/dL (8.5-10.1) 9.6mg/dL (8.5-10.1) Phosphorus Level 4.0mg/dL (2.6-4.7) Magnesium Level 2.3mg/dL (1.8-2.4) Albumin 3.6g/dL (3.4-5.0) Glucose (Fingerstick) 281mg/dL (70-99) 220mg/dL (70-99) Test 04/17/16 16:40 04/18/16 05:00 Glucose (Fingerstick) 74mg/dL (70-99) Sodium Level 142mmol/L (136-145) Potassium Level 4.5mmol/L (3.5-5.1) Chloride Level 102mmol/L (98-107) Carbon Dioxide Level 31mmol/L (21-32) Anion Gap 9 (6-14) Blood Urea Nitrogen 54mg/dL (8-26) Creatinine 3.1mg/dL (0.7-1.3) Estimated GFR (Cockcroft-Gault) 24.5 Glucose Level 153mg/dL (70-99) Calcium Level 9.5mg/dL (8.5-10.1) Phosphorus Level 4.6mg/dL (2.6-4.7) Magnesium Level 2.2mg/dL (1.8-2.4) Albumin 3.4g/dL (3.4-5.0) Laboratory Tests Test 04/17/16 08:17 04/17/16 11:22 04/17/16 16:40 04/18/16 05:00 Glucose (Fingerstick) 281mg/dL (70-99) 220mg/dL (70-99) 74mg/dL (70-99) Sodium Level 142mmol/L (136-145) Potassium Level 4.5mmol/L (3.5-5.1) Chloride Level 102mmol/L (98-107) Carbon Dioxide Level 31mmol/L (21-32) Anion Gap 9 (6-14) Blood Urea Nitrogen 54mg/dL (8-26) Creatinine 3.1mg/dL (0.7-1.3) Estimated GFR (Cockcroft-Gault) 24.5 Glucose Level 153mg/dL (70-99) Calcium Level 9.5mg/dL (8.5-10.1) Phosphorus Level 4.6mg/dL (2.6-4.7) Magnesium Level 2.2mg/dL (1.8-2.4) Albumin 3.4g/dL (3.4-5.0) Meds Current Medications Bumetanide (Bumex) 1 mg BID PO Last administered on 04/17/16 21:02; Start 11/24 at 09:30 Darbepoetin Camron (Aranesp) 60 mcg WEEKLYHS SQ Last administered on 04/17/16 21 :03; Start 04/17/16 at 21:00 Metolazone (Zaroxolyn) 2.5 mg DAILY PO Last administered on 04/17/16 11:20; Start 04/17/16 at 09:30 Potassium Chloride (Klor-Con) 20 meq BID PO Last administered on 04/17/16 21: 21; Start 04/17/16 at 21:00 Assessment Assessment Problems Medical Problems: (1) CHF (congestive heart failure) Status: Acute FINAL IMPRESSION: 1. Congestive heart failure, acute on chronic. 2. Diastolic heart failure, ejection fraction 65%, LVH. 3. 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 4. 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 5. Hypertension. 6. Hyperlipidemia. 7. Hemoglobin CC disease. 8.Diabetic retinopathy PLAN: A/C diastolic CHF Admit wt 428# Lasix gtt stopped. 04/18 211.03 improved -- Bumex 1mg bid and zaroxlyn 2.5mg tid ARF ATN with CKD ANC-WO-cylbzpx. (admit BUN 36 Cr 2.4) 04/18 BUN 54 Cr 3.1 Nephrology managing DM II -BS 74-281 levemir/novolog scheduled anemia-Fe -hematology consult -Venofer 500mg IV x 1, aranesp not of benefit edema LE- ?lyrica, US negative DVT sono kidneys - liver spleen appear enlarged, not measured DC initiated. Hand written scripts due to multiple providers involved with care. DC medications reflect new meds-if changes, staff have been advised to update at discharge. PLAN: IV lasix drip echo good lvf. cr 2.3 sono kidneys ok. eye doctor referral blurring in eyes . home over the weekend? At this time, admit to hospital. IV Lasix, will have Cardiology consult, echocardiogram. Renal consult. Ultrasound of the kidneys was done and also hematology. The patient may benefit from iron infusion and Iron Extra over the long-term because of anemia of chronic disease. Plan Plan For more details regarding further plans, please refer to the orders. KARINA COCHRAN MD 04/18/16 1123: IM PROGRESS NOTES- Assessment Assessment Doing better. Discharge today.see in 5 days. The patient was seen and examined by me. Chart reviewed and plan of care formulated. Discussed with, reviewed and agree with SANDING MACHINE OPERATOR's notes, plan of care and orders with modifications as necessary. Discharge Management - 35 minutes. SOCORRO MENDEZ APRN Apr 18, 2016 07:55 KARINA COCHRAN MD Apr 18, 2016 11:23
--- NOTE | 2016-04-18 07:56 | DISCH ---
DISCHARGE INSTRUCTIONS Condition on Discharge Condition on Discharge: Stable Activity After Discharge Activity Instructions for Disc: Activity as tolerated Diet after Discharge Diet after Discharge: Cardiac (renal non dialysis ) Checks after Discharge Checks after discharge: Weigh Yourself Daily (Call MD if wt increases 2 pounds in 24 hours or 3 pounds in 48 hours. ) DC Comment: Check Blood sugar TID SOCORRO Santiago APRN Apr 18, 2016 07:56
[2016-04-18] MEDS ORDERED: CARV6.252 PO (08:01)
[2016-04-18] MEDS ORDERED: METO2.5T PO (08:01)
[2016-04-18] MEDS ORDERED: BUME1TAB PO (08:01)
[2016-04-18] MEDS ORDERED: POTA20TA4 PO (08:01)
[2016-04-18] MEDS: PANTOPRAZOLE 40 MG TABLET. PO SCH (08:07)
[2016-04-18] MEDS: POTASSIUM CHLORIDE 20 MEQ TABLET.ER. PO SCH (08:49)
[2016-04-18] MEDS: ASPIRIN ENTERIC COATED 81 MG TABLET.DR. PO SCH (08:50)
[2016-04-18] MEDS: INSULIN ASPART 300 UNITS/3 ML INSULN.PEN SQ SCH ×4 (08:50→12:57)
[2016-04-18] MEDS: PREGABALIN 75 MG CAPSULE PO SCH (08:51)
[2016-04-18] MEDS: BUMETANIDE 1 MG TABLET PO SCH (08:51)
[2016-04-18] MEDS: LOSARTAN POTASSIUM 50 MG TABLET. PO SCH (08:51)
[2016-04-18] MEDS: FLUTICASONE 50MCG/NASAL SPRAY 16GM BOTTLE. NS SCH (08:52)
[2016-04-18] MEDS: CARVEDILOL 6.25 MG TABLET PO SCH (08:52)
[2016-04-18] MEDS: METOLAZONE 2.5 MG TABLET PO SCH (08:52)
[2016-04-18 10:33] VITALS: BP 139/85
--- NOTE | 2016-04-19 21:48 | PDOC ---
Provider Note Provider Note Discharge summary dictated. #[id number] GISELL CLARK MD Apr 19, 2016 21:48
--- NOTE | 2016-04-20 00:35 | DS ---
DATE OF DISCHARGE: 04/18/2016 REASON FOR ADMISSION TO THE HOSPITAL: Congestive heart failure, [id number] diastolic heart failure. CONSULTATIONS: 1. Dr. Yordy Prado, Cardiology. 2. Dr. Laura South, Hematology. 3. Dr. Luther Tinoco, Renal. PROCEDURES DONE: 1. Ultrasound of the kidneys. 2. Echocardiogram. 3. Venousl Doppler of lower extremities. COMPLICATIONS NOTED: None. HOSPITAL COURSE: The patient is a 66-year-old male with history of diabetes, insulin-dependent; chronic renal failure, creatinine around 2; and he was having shortness of breath with weight gain, 2+ edema, was admitted with diagnosis of congestive heart failure. The patient had an echocardiogram that shows good left ventricular function of 65%, mostly diastolic dysfunction. The patient was seen by Renal. Ultrasound of the kidneys was negative. His creatinine went up to 3.5 and moved from stage 2 to between stage 3 and 4. The patient also had anemia, was seen by Hematology, was given iron infusion. He also has a history of thalassemia trait. The patient on the whole was feeling better, was given IV Lasix drip, and finally his condition improved to the point where he could be discharged home. FINAL DIAGNOSES: 1. Congestive heart failure, acute on chronic. 2. Chronic diastolic heart failure. 3. Chronic kidney disease between stage 3 and 4. 4. Anemia of chronic disease. 5. Diabetes, insulin-dependent. 6. Hypertension. 7. Hyperlipidemia. 8. Protein-calorie malnutrition. DISPOSITION: Home. DISCHARGE MEDICATIONS: See MRAD for discharge medications. GISELL CLARK MD DR: BARBI/ruben JOB#: [id number] / [id number] PRISCILLA
== END 2016-04-18 14:10 | disposition home or self-care (01) | DRG 291 ==
LOC: EDBD → 2 NORTH 14:12
PROVIDERS: ADMIT Internal Medicine; ATTEND Internal Medicine
DX: I13.0 Hypertensive heart and chronic kidney disease with heart failure and stage 1 through stage 4 chronic kidney disease, or unspecified chronic kidney disease (principal); I50.43 Acute on chronic combined systolic (congestive) and diastolic (congestive) heart failure; J98.11 Atelectasis; N18.4 Chronic kidney disease, stage 4 (severe); D57.3 Sickle-cell trait; D63.8 Anemia in other chronic diseases classified elsewhere; E11.22 Type 2 diabetes mellitus with diabetic chronic kidney disease; E11.319 Type 2 diabetes mellitus with unspecified diabetic retinopathy without macular edema; E11.40 Type 2 diabetes mellitus with diabetic neuropathy, unspecified; E11.65 Type 2 diabetes mellitus with hyperglycemia; E78.5 Hyperlipidemia, unspecified; G47.33 Obstructive sleep apnea (adult) (pediatric); I34.0 Nonrheumatic mitral (valve) insufficiency; K21.9 Gastro-esophageal reflux disease without esophagitis; N40.0 Benign prostatic hyperplasia without lower urinary tract symptoms; Z79.4 Long term (current) use of insulin; Z82.3 Family history of stroke; Z82.49 Family history of ischemic heart disease and other diseases of the circulatory system; Z83.3 Family history of diabetes mellitus; Z83.71 Family history of colonic polyps; Z86.010 Personal history of colon polyps; Z87.891 Personal history of nicotine dependence
CPT/HCPCS: 36415; 71010; 76770; 80048; 80053; 80061; 80069; 81001; 82728; 82947; 83036; 83540; 83550; 83735; 83880; 84443; 85027; 93005; 93306; 93970; 94250; 94640; 94760; J0881; J1650; J1756; J1815; J1940; J7050; J7620; J7030

== ENCOUNTER → 2016-08-19 | Outpatient (CLI) | payer MEDICARE ==
[~2016-08-19] MED LIST changes: -ASPI325T4 PO; +ASPI325T8 PO; +BUME1TAB PO; +CARV6.252 PO; -GLYB1TAB10 PO; +GLYB1TAB15 PO; +METF-620 PO; -METF10002 PO; +METO2.5T PO; +POTA20TA4 PO
--- NOTE | 2016-08-19 15:53 | RAD ---
Right RIBS with chest, 3 views, 08/19/2016: History: Fall, lower rib pain No fracture is identified. There is no evidence of underlying pneumothorax, hemothorax or pulmonary infiltrate. The heart size is normal. IMPRESSION: No significant right rib abnormality is detected.
== END | disposition home or self-care (01) ==
LOC: RAD 15:10
PROVIDERS: ATTEND Internal Medicine
DX: R07.81 Pleurodynia (principal); Z91.81 History of falling
CPT/HCPCS: 71101

== ENCOUNTER → 2016-10-13 | Day surgery (SDC) | payer MEDICARE ==
[~2016-10-13] MED LIST changes: +HYDROmorphone 2 MG/ML VIAL IV PRN; +IV NORMAL SALINE 1000ML BAG 1,000 ML IV SCH; +IV RINGERS,LACTATED 1000ML 1,000 ML IV SCH; +LIDOCAINE 1% 1 ML SYRINGE. ID PRN; +METO-239 PO; +MIDAZOLAM HCL/PF 2 MG/2 ML VIAL. IV PRN; +MORPHINE SULFATE 2 MG/ML DISP.SYRIN. IV PRN; +ONDANSETRON PF 4 MG/2 ML VIAL. IV PRN; +PROCHLORPERAZINE 10 MG/2 ML VIAL. IV PRN; +PROPOFOL 20 ML IV ONE; +fentaNYL PF VIAL 100 MCG/2 ML VIAL IV PRN
--- NOTE | 2016-10-13 08:54 | PDOC1 ---
HISTORY & PHYSICAL H&P Brent Huber 1950 06/30/2016 02:50 PM 02/08 [facility] OUR PATIENTS COME FIRST [address] [place] [address] Ph. [phone] Patient: Brent Huber Date of : 1950 Date: 06/30/2016 2:50 PM Historian: self Visit Type: Consult This 66 year old male presents for H/o colorectal polyp. History of Present Illness: 1. H/o colorectal polyp Prior screening: colonoscopy. Denies risk factors. Pertinent negatives include abdominal pain, change in bowel habits, change in stool caliber, constipation, decreased appetite, diarrhea, melena, nausea, rectal bleeding, vomiting, weight gain and weight loss. Additional information: No family history of colon cancer, No family history of Crohn's/colitis, No NSAID/ASA use and history of colon polyp 2013. Adenomas. INTAKE COMMENTS: Intake Comments: Nurses Notes: Pt IS here Today a Recall Colonoscopy. Pt last colonoscopy was 2013 PROBLEM LIST: Problem Description Onset Date Type II diabetes mellitus uncontrolled 06/05/2013 Chronic systolic congestive heart failure 04/16/2015 Diabetes mellitus due to underlying condition with diabetic neuropathy, without long-term current use of insulin 04/16/2015 Coronary artery disease involving [place] coronary artery of [place] heart without angina pectoris 04/16/2015 Anemia 09/22/2013 Diabetes mellitus w/ neuropathy 09/22/2013 Renal insufficiency 09/22/2013 Accelerated hypertension 05/14/2015 Tachycardia 01/25/2015 Type 2 diabetes mellitus with other diabetic kidney complication 11/06/2015 CRF (chronic renal failure), stage 3 (moderate) 11/06/2015 IDDM (insulin dependent diabetes mellitus) 11/06/2015 Iron deficiency anemia due to dietary causes 10/09/2015 Unsteady gait 12/14/2014 Edema of both legs 01/25/2015 Acute systolic congestive heart failure 02/11/2015 Essential hypertension 06/05/2013 PAST MEDICAL/SURGICAL HISTORY (Detailed) Disease/disorder Onset Date Management Date Comments Hernia repair chest pain 2016 cardiac cath colonic polyp colonoscopy 09/2013 Diabetes Diverticulosis gum disease 2012 dental implants Hyperlipidemia Hypertension Internal hemorrhoids Medications (Active): Started Medication Directions Instruction Stopped 06/29/2016 ACCU-CHEK BARBARA PLUS TEST STRP USE DIRECTED 10/28/2015 ACCU-CHEK FASTCLIX LANCETS TEST SUGARS DIRECTED 08/14/2015 Aspir-81 81 mg tablet,delayed release take 1 tablet by oral route every day 08/14/2015 Barbara Test Strips STRIP Check BS 4 times daily before meals and at bedtime 04/22/2016 carvedilol 6.25 mg tablet take 1 tablet by oral route 2 times every day with food 06/12/2016 DIOVAN 320MG TABLET TAKE ONE TABLET DAILY 06/12/2016 FUROSEMIDE 20 MG TABLET TAKE ONE TABLET DAILY 02/07/2016 HUMALOG 100 UNITS/ML KWIKPEN INJECT 20 UNITS 3 TIMES A DAY 06/22/2016 IPRATROPI/ALB 0.5/3MG INH SL 60X3ML INHALE THE CONTENTS OF ONE VIAL VIA NEBULIZER BY MOUTH FOUR TIMES DAILY 12/04/2015 Levemir FlexTouch 100 unit/mL (3 mL) subcutaneous insulin pen Inject 20 units SQ qhs. 06/19/2016 Lyrica 75 mg capsule take 1 capsule by oral route every day 03/10/2016 MELOXICAM 7.5 MG TABLET TAKE ONE TABLET DAILY 06/12/2016 METOPROLOL SUCC ER 25 MG TAB TAKE ONE TABLET DAILY 01/24/2016 NASONEX NASAL SPRA INHALE 2 SPRAYS EACH NOSTRIL DAILY 06/12/[address] 40 MG CAPSULE TAKE 1 CAPSULE DAILY BEFORE A MEAL 08/14/2015 Pen Needle 31 gauge x 5/16" USE DIRECTED 4 TIMES A DAY ( DX CODE E11.9 ) 06/22/2016 PEN NEEDLES 6MM MINI 31G USE DIRECTED 4 TIMES DAILY 04/22/2016 potassium chloride ER 20 mEq tablet,extended release take 1/2 tablet by oral route 1 times every day with food 04/14/2016 ProAir HFA 90 mcg/actuation aerosol inhaler inhale 2 puff by inhalation route every 4 hours as needed 06/12/2016 SIMVASTATIN 10 MG TABLET TAKE 1 DAILY EACH EVENING. 12/20/2015 TRIAMCINOLONE 0.1% CREAM APPLY A THIN COAT TO LEGS TWICE DAILY. 06/12/[address] TAKE ONE CAPSULE DAILY 01/28/2016 Visine Tired Eye Relief 1 %-0.36 %-0.2 % drops 1 drop bid both eyes Allergies: Ingredient Reaction Medication Name Comment NO KNOWN ALLERGIES REVIEW OF SYSTEMS System Neg/Pos Details Constitutional Negative Chills, fever, malaise, weight gain and weight loss. ENMT Negative Sore throat. Eyes Negative Double vision. Respiratory Negative Dyspnea and wheezing. Cardio Negative Chest pain and irregular heartbeat/palpitations. GI Positive See HPI. GI Negative Abdominal pain, change in bowel habits, change in stool caliber, constipation, decreased appetite, diarrhea, melena, nausea, see HPI, rectal bleeding and vomiting. Negative Dysuria and hematuria. Endocrine Negative Cold intolerance and heat intolerance. Psych Negative Anxiety. Integumentary Negative Hives and rash. MS Negative Joint pain. Edgardo/Lymph Negative Easy bleeding and easy bruising. Allergic/Immuno Negative Food allergies. VITAL SIGNS Time BP mm/Hg Pulse /min Resp /min Temp F Ht ft Ht in Ht cm Wt lb Wt kg BMI kg/ m2 BSA m2 O2 Sat% 2:57 PM 130/76 91 16 97.3 6.0 0.00 182.88 216.60 98.248 29.38 94 Time Measured by 2:57 PM Mary Rolon PHYSICAL EXAM: Exam Findings Details Constitutional Normal Well developed. Eyes Normal Conjunctiva - Right: Normal, Left: Normal. Sclera - Right: Normal, Left: Normal. Nasopharynx Normal Lips/teeth/gums - Normal. Neck Exam Normal Inspection - Normal. Thyroid gland - Normal. Respiratory Normal Inspection - Normal. Auscultation - Normal. Cardiovascular Normal Regular rate and rhythm. No murmurs, gallops, or rubs. Vascular Normal Pulses - Carotids: Normal, Femoral: Normal, Dorsalis pedis: Normal. Abdomen Normal Inspection - Normal. Anterior palpation - No guarding. No abdominal tenderness. No hepatic enlargement. No splenic enlargement. No hernia. No ascites. Skin Normal Inspection - Normal. Extremity Normal No edema. Psychiatric * Oriented to time, place, person and situation. Psychiatric Normal Appropriate mood and effect. Assessment/Plan # Detail Type Description 1. Assessment History of colon polyps (Z86.010). [place] [facility] [place] Further diagnostic evaluations ordered today include(s) Colonoscopy to be performed today. He is to schedule a follow-up visit with Dior Dill MD upon completion of work-up Electronically signed by: Dior Dill MD 06/30/2016 04:27 PM Document generated by: Dior Dill 06/30/2016 04:27 PM Buck Raymundo MD, Family Practice; Yordy Caldera MD Internal Medicine; Dorinda Colbert MD, Internal Medicine; Jim Dill MD Internal Medicine; Dior Dill MD, Gastroenterology; Edward Bliss MD, Rheumatology, S. Arnold Brownlee, Physical Medicine/Vinayab Aiyana Rod APRN ------ 10/13/16 Patient seen and examined. No change in H&P DIOR DILL MD Oct 13, 2016 08:54
[2016-10-13 10:15] VITALS: BP 188/91
== END | disposition home or self-care (01) ==
LOC: ENDOS 08:29
PROVIDERS: ATTEND Internal Medicine Gastroenterology
DX: Z09 Encounter for follow-up examination after completed treatment for conditions other than malignant neoplasm (principal); Z87.19 Personal history of other diseases of the digestive system; E11.39 Type 2 diabetes mellitus with other diabetic ophthalmic complication; H40.9 Unspecified glaucoma; M19.91 Primary osteoarthritis, unspecified site; I13.0 Hypertensive heart and chronic kidney disease with heart failure and stage 1 through stage 4 chronic kidney disease, or unspecified chronic kidney disease; I50.9 Heart failure, unspecified; N18.3 Chronic kidney disease, stage 3 (moderate); E11.22 Type 2 diabetes mellitus with diabetic chronic kidney disease; D64.9 Anemia, unspecified; Z98.41 Cataract extraction status, right eye; Z86.39 Personal history of other endocrine, nutritional and metabolic disease
CPT/HCPCS: 45378; 82962; J2704

== ENCOUNTER → 2017-03-09 | Outpatient (CLI) | payer MEDICARE | END | disposition home or self-care (01) | LOC: US 08:52 | DX: M79.89 Other specified soft tissue disorders (principal); R60.0 Localized edema | CPT/HCPCS: 93971 ==

== ENCOUNTER → 2017-12-07 | Day surgery (SDC) | payer MEDICARE ==
[~2017-12-07] MED LIST changes: +AMLO10TA6 PO; +CARV12.5 PO; +FURO20TA3 PO; +GLYB-102 PO; -GLYB1TAB15 PO; +IPRA3AMP29 NEB; -LIDOCAINE 1% 1 ML SYRINGE. ID PRN; +LIDOCAINE 1% PF 2 ML VIAL. ID PRN; +LOSA50TA2 PO; -METF-620 PO; +METF10007 PO; -MIDAZOLAM HCL/PF 2 MG/2 ML VIAL. IV PRN; -MORPHINE SULFATE 2 MG/ML DISP.SYRIN. IV PRN; +MORPHINE SULFATE 2 MG/ML VIAL. IV PRN; -PROPOFOL 20 ML IV ONE
[2017-12-07 09:57] VITALS: BP 171/97
--- NOTE | 2017-12-07 10:41 | PDOC1 ---
HISTORY & PHYSICAL H&P Patient had some liquid by mouth and anesthesia was not safe to administer and later anesthesia availability was not feasible therefore procedure was cancelled. DIOR COCHRAN MD Dec 07, 2017 10:41
== END | disposition home or self-care (01) ==
LOC: SURG 09:39
PROVIDERS: ATTEND Internal Medicine Gastroenterology
DX: Z12.11 Encounter for screening for malignant neoplasm of colon (principal); Z53.8 Procedure and treatment not carried out for other reasons; E11.9 Type 2 diabetes mellitus without complications; Z79.84 Long term (current) use of oral hypoglycemic drugs; Z79.899 Other long term (current) drug therapy
CPT/HCPCS: 82962

== ENCOUNTER 2018-08-21 16:13 | Emergency (ER) | payer OTHER ==
[~2018-08-21] VITALS: Ht 182.9 cm; Wt 95.7 kg
[~2018-08-21 16:13] MED LIST changes: -AMLO10TA6 PO; +AMLO10TA8 PO; +AMOX1TAB11 PO; -BUME1TAB PO; +BUME1TAB3 PO; +CARV6.2511 PO; -CARV6.252 PO; +DOXY100T PO; +ERYT1OIN6 OP; +HYDR-3164 PO; -HYDR-971 PO; -HYDROmorphone 2 MG/ML VIAL IV PRN; -IV NORMAL SALINE 1000ML BAG 1,000 ML IV SCH; -IV RINGERS,LACTATED 1000ML 1,000 ML IV SCH; -LIDOCAINE 1% PF 2 ML VIAL. ID PRN; +LOSA-73 PO; -LOSA50TA2 PO; -MORPHINE SULFATE 2 MG/ML VIAL. IV PRN; +NAPR-514 PO; -ONDANSETRON PF 4 MG/2 ML VIAL. IV PRN; -PROCHLORPERAZINE 10 MG/2 ML VIAL. IV PRN; -fentaNYL PF VIAL 100 MCG/2 ML VIAL IV PRN
[2018-08-21 16:36] VITALS: BP 168/85
--- NOTE | 2018-08-21 16:37 | PHYS DOC ---
Past Medical History Past Medical History: Arthritis, CHF, Diabetes-Type II, GERD, High Cholesterol, Hypertension Past Surgical History: Other Additional Past Surgical Histo: hernia repair, carpal tunnel, cataract Alcohol Use: None Drug Use: Marijuana Adult General Chief Complaint Chief Complaint: EYE PROBLEMS HPI HPI Patient is a 68 year old male who presents with right eye pain that started after coughing at 10:30 PM last night. The patient states that his right eye has been blurry since that time, and describes as curtain over his eye. His pain is 1 out of 10 and describes it as sharp. The patient does have a history of diabetes, hypertension, and congestive heart failure. Has not performed any interventions for the pain at home. Review of Systems Review of Systems Constitutional: Denies fever or chills [] Eyes: Reports change in visual acuity, and R eye pain [] HENT: Denies nasal congestion or sore throat [] Respiratory: Denies cough or shortness of breath [] Cardiovascular: No additional information not addressed in HPI [] GI: Denies abdominal pain, nausea, vomiting, bloody stools or diarrhea [] : Denies dysuria or hematuria [] Musculoskeletal: Denies back pain or joint pain [] Integument: Denies rash or skin lesions [] Neurologic: Denies headache, focal weakness or sensory changes [] Endocrine: Denies polyuria or polydipsia [] Complete systems were reviewed and found to be within normal limits, except as documented in this note. Current Medications Current Medications Current Medications Medications (Trade) Dose Ordered Sig/Madeleine Start Time Stop Time Status Last Admin Dose Admin Tetracaine HCl (Tetracaine) 1 drop 1X ONCE 08/21/18 16:45 08/21/18 16:46 DC 08/21/18 16:42 1 DROP Allergies Allergies Allergies Coded Allergies Type Severity Reaction Last Updated Verified I S O L A T I O N *CONTACT* Allergy Unknown 10/04/17 Yes No Known Medication Allergies Allergy Unknown 12/07/17 Yes Physical Exam Physical Exam Constitutional: Well developed, well nourished, no acute distress, non-toxic appearance. [] HENT: Normocephalic, atraumatic, bilateral external ears normal, oropharynx moist, no oral exudates, nose normal. Unable to visualize fundoscope during ophthalmologic exam. Eyes: PERRLA, EOMI, conjunctiva normal, no discharge. [] Neck: Normal range of motion, no tenderness, supple, no stridor. [] Cardiovascular:Heart rate regular rhythm, no murmur [] Lungs & Thorax: Bilateral breath sounds clear to auscultation [] Abdomen: Bowel sounds normal, soft, no tenderness, no masses, no pulsatile masses. [] Skin: Warm, dry, no erythema, no rash. [] Back: No tenderness, no CVA tenderness. [] Extremities: No tenderness, no cyanosis, no clubbing, ROM intact, no edema. [] Neurologic: Alert and oriented X 3, normal motor function, normal sensory function, no focal deficits noted. [] Psychologic: Affect normal, judgement normal, mood normal. [] Current Patient Data Vital Signs Vital Signs Date Time Temp Pulse Resp B/P (MAP) Pulse Ox O2 Delivery O2 Flow Rate FiO2 08/21/18 16:36 99.0 76 16 168/85 (112) 94 Room Air 99.0 EKG EKG [] Radiology/Procedures Radiology/Procedures [] Course & Med Decision Making Course & Med Decision Making Pertinent Labs and Imaging studies reviewed. (See chart for details) Will have nursing perform visual acuity and then check intraocular eye pressure. Nursing reports visual acuity was 20/70 with both eyes, L was 20/70, and R patient states he was unable to make out letters on the chart due to blurriness. Intraocular pressure with Lucas-pen was 22 in R eye. Paged Opthomology (Dr. Kim) at [phone]. Talked to Dr. Kim at 1739. Discussed patient with him and he states to have patient call his office and see him first thing tomorrow. Dragon Disclaimer Dragon Disclaimer This electronic medical record was generated, in whole or in part, using a voice recognition dictation system. Departure Departure Impression: Primary Impression: Blurry vision, right eye Disposition: HOME, SELF-CARE Condition: STABLE Referrals: GISELL CLARK MD (PCP) Patient Instructions: Eye - Blurred Vision Additional Instructions: Thank you for visiting [facility]. We appreciate you trusting us with your care. If any additional problems come up don't hesitate to return to visit us. Please follow up with your primary care provider so they can plan additional care if needed and know about the problem that you had. If symptoms worsen come back to the Emergency Department. Any concerning symptoms that start such as chest pain, shortness of air, weakness or numbness on one side of the body, running high fevers or any other concerning symptoms return to the ER. Please call [phone] and make an appointment for tomorrow with Dr. Kim or Julia. Please let them know we spoke to Dr. Kim on the phone. MYKEL RUIZ APRN Aug 21, 2018 16:37
[2018-08-21] MEDS ORDERED: TETRACAINE 0.5% OPHTH SOLUTION 4ML BOTTLE. OD ONE (16:45)
== END 2018-08-21 17:51 | disposition home or self-care (01) ==
LOC: ER 16:13
DX: H53.8 Other visual disturbances (principal); R05 Cough; E78.00 Pure hypercholesterolemia, unspecified; I11.0 Hypertensive heart disease with heart failure; I50.9 Heart failure, unspecified; E11.9 Type 2 diabetes mellitus without complications; Z91.041 Radiographic dye allergy status
CPT/HCPCS: 99284

== ENCOUNTER → 2019-11-14 | Outpatient (CLI) | payer OTHER ==
[~2019-11-14] MED LIST changes: -GLYB-102 PO; +GLYB1TAB20 PO; -INSU100V SQ; +INSU100V6 SQ; +OMEP40CA45 PO; -OMEP40CA5 PO; -POTA8CAP PO; +POTA8CAP19 PO; +PREG-9 PO; -PREG75CA PO; +SIMV10TA15 PO; -SIMV10TA3 PO
[2019-11-14 16:57] LABS: BASO # 0.1 x10^3/uL (0.0-0.2); BASO % 1 % (0-3); EOS # 0.4 x10^3/uL (0.0-0.7); EOS % 4 % (0-3); HEMATOCRIT 21.8 % (39.0-53.0); HEMOGLOBIN 7.7 g/dL (13.0-17.5); LYMPH # 2.4 x10^3/uL (1.0-4.8); LYMPH % 28 % (24-48); MEAN CORPUSCULAR HEMOGLOBIN 30 pg (25-35); MEAN CORPUSCULAR HGB CONC 35 g/dL (31-37); MEAN CORPUSCULAR VOLUME 86 fL (79-100); MONO # 0.8 x10^3/uL (0.0-1.1); MONO % 10 % (0-9); NEUT % 57 % (31-73); PLATELET COUNT 187 x10^3/uL (140-400); RED BLOOD COUNT 2.53 x10^6/uL (4.30-5.70); RED CELL DISTRIBUTION WIDTH 16.4 % (11.5-14.5); WHITE BLOOD COUNT 8.8 x10^3/uL (4.0-11.0)
[2019-11-14 17:26] LABS: LACTATE DEHYDROGENASE 214 U/L (85-227)
== END | disposition home or self-care (01) ==
LOC: ONCLAB 16:32
PROVIDERS: ATTEND Internal Medicine Hematology & Oncology
DX: N18.9 Chronic kidney disease, unspecified (principal); D63.8 Anemia in other chronic diseases classified elsewhere
CPT/HCPCS: 36415; 82607; 82668; 82728; 82746; 83010; 83520; 83540; 83550; 83615; 83921; 84165; 85025; 85045

== ENCOUNTER → 2020-02-21 | Outpatient (CLI) | payer OTHER ==
[2020-01-24 14:52] VITALS: BP 163/78
[~2020-02-21] MED LIST changes: +AMLO-187 PO; -AMLO10TA8 PO; -HYDR50TA6 PO; +HYDR50TA9 PO
[2020-02-21 13:50] LABS: BASO # 0.1 x10^3/uL (0.0-0.2); BASO % 1 % (0-3); EOS # 0.4 x10^3/uL (0.0-0.7); EOS % 5 % (0-3); HEMOGLOBIN 8.4 g/dL (13.0-17.5); LYMPH % 26 % (24-48); MEAN CORPUSCULAR HEMOGLOBIN 29 pg (25-35); MEAN CORPUSCULAR HGB CONC 35 g/dL (31-37); MEAN CORPUSCULAR VOLUME 82 fL (79-100); MONO # 0.8 x10^3/uL (0.0-1.1); MONO % 10 % (0-9); NEUT # 4.6 x10^3/uL (1.8-7.7); NEUT % 59 % (31-73); PLATELET COUNT 200 x10^3/uL (140-400); RED BLOOD COUNT 2.93 x10^6/uL (4.30-5.70); RED CELL DISTRIBUTION WIDTH 16.9 % (11.5-14.5); WHITE BLOOD COUNT 7.8 x10^3/uL (4.0-11.0)
[2020-02-21 13:57] LABS: CREATININE 4.4 mg/dL (0.7-1.3); GFR 16.2; POTASSIUM 4.4 mmol/L (3.5-5.1)
== END ==
LOC: ONCLAB 13:30
PROVIDERS: ATTEND Internal Medicine Hematology & Oncology
DX: N18.9 Chronic kidney disease, unspecified (principal); D63.1 Anemia in chronic kidney disease
CPT/HCPCS: 36415; 80048; 85025

== ENCOUNTER → 2020-05-20 | Outpatient (CLI) | payer OTHER ==
[2020-05-03 11:34] VITALS: BP 162/77
[2020-05-20 11:19] LABS: BASO # 0.1 x10^3/uL (0.0-0.2); BASO % 1 % (0-3); EOS # 0.3 x10^3/uL (0.0-0.7); EOS % 3 % (0-3); HEMATOCRIT 23.1 % (39.0-53.0); LYMPH # 2.9 x10^3/uL (1.0-4.8); LYMPH % 33 % (24-48); MEAN CORPUSCULAR HEMOGLOBIN 28 pg (25-35); MEAN CORPUSCULAR HGB CONC 35 g/dL (31-37); MEAN CORPUSCULAR VOLUME 80 fL (79-100); MONO # 0.7 x10^3/uL (0.0-1.1); MONO % 8 % (0-9); NEUT # 4.8 x10^3/uL (1.8-7.7); NEUT % 55 % (31-73); PLATELET COUNT 205 x10^3/uL (140-400); RED CELL DISTRIBUTION WIDTH 16.3 % (11.5-14.5); WHITE BLOOD COUNT 8.7 x10^3/uL (4.0-11.0)
[2020-05-20 11:28] LABS: CALCIUM 8.9 mg/dL (8.5-10.1); CREATININE 4.6 mg/dL (0.7-1.3); GFR 15.4; POTASSIUM 4.5 mmol/L (3.5-5.1)
[2020-05-20 11:34] LABS: ALBUMIN 3.3 g/dL (3.4-5.0); ALBUMIN/GLOBULIN RATIO 0.7 (1.0-1.7); TOTAL BILIRUBIN 0.4 mg/dL (0.2-1.0); TOTAL PROTEIN 8.1 g/dL (6.4-8.2)
[2020-05-21 17:37] LABS: KAPPA FREE 177.5 mg/L (3.3-19.4); KAPPA LAMBDA RATIO 2.57 (0.26-1.65); LAMBDA FREE 69.2 mg/L (5.7-26.3)
[2020-05-21 21:08] LABS: ALBUM 3.9 g/dL (2.9-4.4); ALPHA 1 0.2 g/dL (0.0-0.4); ALPHA 2 0.8 g/dL (0.4-1.0); BETA 1.2 g/dL (0.7-1.3); GAMMA 2.1 g/dL (0.4-1.8); PROTEIN TOTAL 8.1 g/dL (6.0-8.5); SPEP AG RATIO 0.9 (0.7-1.7)
== END ==
LOC: ONCLAB 10:55
PROVIDERS: ATTEND Internal Medicine Hematology & Oncology
DX: N18.9 Chronic kidney disease, unspecified (principal); D63.1 Anemia in chronic kidney disease
CPT/HCPCS: 36415; 80053; 83520; 84165; 85025

== ENCOUNTER → 2020-06-03 | Outpatient (CLI) | payer OTHER ==
[2020-05-03 11:34] VITALS: BP 162/77
[2020-06-03 10:34] LABS: BASO # 0.1 x10^3/uL (0.0-0.2); BASO % 1 % (0-3); EOS # 0.2 x10^3/uL (0.0-0.7); EOS % 3 % (0-3); HEMATOCRIT 22.2 % (39.0-53.0); HEMOGLOBIN 7.7 g/dL (13.0-17.5); LYMPH # 2.2 x10^3/uL (1.0-4.8); LYMPH % 30 % (24-48); MEAN CORPUSCULAR HEMOGLOBIN 28 pg (25-35); MEAN CORPUSCULAR HGB CONC 35 g/dL (31-37); MEAN CORPUSCULAR VOLUME 81 fL (79-100); MONO # 0.5 x10^3/uL (0.0-1.1); MONO % 7 % (0-9); NEUT # 4.5 x10^3/uL (1.8-7.7); NEUT % 60 % (31-73); PLATELET COUNT 199 x10^3/uL (140-400); RED BLOOD COUNT 2.75 x10^6/uL (4.30-5.70); RED CELL DISTRIBUTION WIDTH 16.8 % (11.5-14.5); WHITE BLOOD COUNT 7.5 x10^3/uL (4.0-11.0)
== END ==
LOC: ONCLAB 09:54
PROVIDERS: ATTEND Physician Assistant
DX: D63.1 Anemia in chronic kidney disease (principal)
CPT/HCPCS: 36415; 85025

== ENCOUNTER → 2020-06-20 | Outpatient (CLI) | payer OTHER ==
[2020-05-03 11:34] VITALS: BP 162/77
[2020-06-20 10:49] LABS: BASO # 0.1 x10^3/uL (0.0-0.2); BASO % 1 % (0-3); EOS # 0.3 x10^3/uL (0.0-0.7); EOS % 4 % (0-3); HEMATOCRIT 22.7 % (39.0-53.0); HEMOGLOBIN 7.9 g/dL (13.0-17.5); LYMPH % 26 % (24-48); MEAN CORPUSCULAR HEMOGLOBIN 28 pg (25-35); MEAN CORPUSCULAR HGB CONC 35 g/dL (31-37); MEAN CORPUSCULAR VOLUME 81 fL (79-100); MONO # 0.5 x10^3/uL (0.0-1.1); MONO % 7 % (0-9); NEUT # 4.9 x10^3/uL (1.8-7.7); NEUT % 63 % (31-73); PLATELET COUNT 192 x10^3/uL (140-400); RED CELL DISTRIBUTION WIDTH 17.3 % (11.5-14.5); WHITE BLOOD COUNT 7.8 x10^3/uL (4.0-11.0)
[2020-06-20 11:00] LABS: CALCIUM 8.6 mg/dL (8.5-10.1); CREATININE 4.1 mg/dL (0.7-1.3); GFR 17.5; POTASSIUM 4.2 mmol/L (3.5-5.1)
[2020-06-20 11:06] LABS: ALBUMIN 3.3 g/dL (3.4-5.0); ALBUMIN/GLOBULIN RATIO 0.7 (1.0-1.7); TOTAL BILIRUBIN 0.4 mg/dL (0.2-1.0); TOTAL PROTEIN 7.9 g/dL (6.4-8.2)
== END ==
LOC: ONCLAB 10:24
PROVIDERS: ATTEND Internal Medicine Hematology & Oncology
DX: D63.1 Anemia in chronic kidney disease (principal)
CPT/HCPCS: 36415; 80053; 85025

== ENCOUNTER → 2020-08-01 | Outpatient (CLI) | payer OTHER ==
[2020-07-10 15:00] VITALS: BP 126/74
[~2020-08-01] MED LIST changes: +HYDR-2761 PO; +INSU100V35 SQ; +INSU100V8 SQ; -OMEP40CA45 PO; +OMEP40CA7 PO
[2020-08-01 14:17] LABS: BASO # 0.1 x10^3/uL (0.0-0.2); BASO % 1 % (0-3); EOS # 0.3 x10^3/uL (0.0-0.7); EOS % 4 % (0-3); HEMATOCRIT 24.4 % (39.0-53.0); HEMOGLOBIN 8.6 g/dL (13.0-17.5); LYMPH # 2.2 x10^3/uL (1.0-4.8); LYMPH % 28 % (24-48); MEAN CORPUSCULAR HEMOGLOBIN 28 pg (25-35); MEAN CORPUSCULAR HGB CONC 35 g/dL (31-37); MEAN CORPUSCULAR VOLUME 79 fL (79-100); MONO # 0.7 x10^3/uL (0.0-1.1); MONO % 9 % (0-9); NEUT # 4.5 x10^3/uL (1.8-7.7); NEUT % 58 % (31-73); PLATELET COUNT 197 x10^3/uL (140-400); RED BLOOD COUNT 3.09 x10^6/uL (4.30-5.70); RED CELL DISTRIBUTION WIDTH 16.6 % (11.5-14.5); WHITE BLOOD COUNT 7.7 x10^3/uL (4.0-11.0)
[2020-08-01 14:30] LABS: CALCIUM 8.6 mg/dL (8.5-10.1); CREATININE 1.9 mg/dL (0.7-1.3); GFR 42.6; POTASSIUM 3.2 mmol/L (3.5-5.1)
[2020-08-01 14:37] LABS: ALBUMIN 3.5 g/dL (3.4-5.0); ALBUMIN/GLOBULIN RATIO 0.7 (1.0-1.7); TOTAL BILIRUBIN 0.6 mg/dL (0.2-1.0); TOTAL PROTEIN 8.3 g/dL (6.4-8.2)
== END ==
LOC: ONCLAB 11:58
PROVIDERS: ATTEND Physician Assistant
DX: N18.9 Chronic kidney disease, unspecified (principal); D63.1 Anemia in chronic kidney disease
CPT/HCPCS: 36415; 80053; 85025

== ENCOUNTER → 2020-08-16 | Outpatient (CLI) | payer OTHER ==
[2020-07-10 15:00] VITALS: BP 126/74
[2020-08-16 09:29] LABS: BASO # 0.1 x10^3/uL (0.0-0.2); BASO % 1 % (0-3); EOS # 0.2 x10^3/uL (0.0-0.7); EOS % 3 % (0-3); HEMATOCRIT 25.3 % (39.0-53.0); HEMOGLOBIN 8.9 g/dL (13.0-17.5); LYMPH % 33 % (24-48); MEAN CORPUSCULAR HEMOGLOBIN 29 pg (25-35); MEAN CORPUSCULAR HGB CONC 35 g/dL (31-37); MEAN CORPUSCULAR VOLUME 81 fL (79-100); MONO # 0.5 x10^3/uL (0.0-1.1); MONO % 9 % (0-9); NEUT # 3.4 x10^3/uL (1.8-7.7); NEUT % 55 % (31-73); PLATELET COUNT 182 x10^3/uL (140-400); RED BLOOD COUNT 3.11 x10^6/uL (4.30-5.70); WHITE BLOOD COUNT 6.2 x10^3/uL (4.0-11.0)
== END ==
LOC: ONCLAB 09:11
PROVIDERS: ATTEND Physician Assistant
DX: D47.2 Monoclonal gammopathy (principal); D63.1 Anemia in chronic kidney disease
CPT/HCPCS: 36415; 85025

== ENCOUNTER → 2020-08-30 | Outpatient (CLI) | payer OTHER ==
[2020-07-10 15:00] VITALS: BP 126/74
[2020-08-30 09:47] LABS: BASO # 0.1 x10^3/uL (0.0-0.2); BASO % 1 % (0-3); EOS # 0.2 x10^3/uL (0.0-0.7); EOS % 4 % (0-3); HEMATOCRIT 27.1 % (39.0-53.0); HEMOGLOBIN 9.4 g/dL (13.0-17.5); LYMPH # 2.2 x10^3/uL (1.0-4.8); LYMPH % 33 % (24-48); MEAN CORPUSCULAR HEMOGLOBIN 28 pg (25-35); MEAN CORPUSCULAR HGB CONC 35 g/dL (31-37); MEAN CORPUSCULAR VOLUME 82 fL (79-100); MONO # 0.5 x10^3/uL (0.0-1.1); MONO % 7 % (0-9); NEUT # 3.7 x10^3/uL (1.8-7.7); NEUT % 55 % (31-73); PLATELET COUNT 183 x10^3/uL (140-400); RED BLOOD COUNT 3.32 x10^6/uL (4.30-5.70); RED CELL DISTRIBUTION WIDTH 19.2 % (11.5-14.5); WHITE BLOOD COUNT 6.7 x10^3/uL (4.0-11.0)
== END ==
LOC: ONCLAB 09:28
PROVIDERS: ATTEND Internal Medicine Hematology & Oncology
DX: D47.2 Monoclonal gammopathy (principal); D63.1 Anemia in chronic kidney disease
CPT/HCPCS: 36415; 85025

== ENCOUNTER → 2020-09-13 | Outpatient (CLI) | payer OTHER ==
[2020-07-10 15:00] VITALS: BP 126/74
[2020-09-13 09:31] LABS: BASO % 1 % (0-3); EOS # 0.2 x10^3/uL (0.0-0.7); EOS % 3 % (0-3); HEMATOCRIT 28.2 % (39.0-53.0); LYMPH # 2.7 x10^3/uL (1.0-4.8); LYMPH % 38 % (24-48); MEAN CORPUSCULAR HEMOGLOBIN 29 pg (25-35); MEAN CORPUSCULAR HGB CONC 35 g/dL (31-37); MEAN CORPUSCULAR VOLUME 81 fL (79-100); MONO # 0.7 x10^3/uL (0.0-1.1); MONO % 10 % (0-9); NEUT # 3.5 x10^3/uL (1.8-7.7); NEUT % 49 % (31-73); PLATELET COUNT 205 x10^3/uL (140-400); RED BLOOD COUNT 3.49 x10^6/uL (4.30-5.70); RED CELL DISTRIBUTION WIDTH 18.7 % (11.5-14.5)
== END ==
LOC: ONCLAB 09:10
PROVIDERS: ATTEND Internal Medicine Hematology & Oncology
DX: N18.9 Chronic kidney disease, unspecified (principal); D63.1 Anemia in chronic kidney disease
CPT/HCPCS: 36415; 85025

== ENCOUNTER → 2020-10-11 | Outpatient (CLI) | payer OTHER ==
[2020-07-10 15:00] VITALS: BP 126/74
[~2020-10-11] MED LIST changes: +POTA-121 PO; -POTA20TA4 PO
[2020-10-11 09:58] LABS: BASO # 0.1 x10^3/uL (0.0-0.2); BASO % 1 % (0-3); EOS # 0.2 x10^3/uL (0.0-0.7); EOS % 3 % (0-3); HEMATOCRIT 28.8 % (39.0-53.0); HEMOGLOBIN 10.4 g/dL (13.0-17.5); LYMPH # 2.6 x10^3/uL (1.0-4.8); LYMPH % 31 % (24-48); MEAN CORPUSCULAR HEMOGLOBIN 29 pg (25-35); MEAN CORPUSCULAR HGB CONC 36 g/dL (31-37); MEAN CORPUSCULAR VOLUME 80 fL (79-100); MONO # 0.6 x10^3/uL (0.0-1.1); MONO % 8 % (0-9); NEUT # 4.9 x10^3/uL (1.8-7.7); NEUT % 58 % (31-73); PLATELET COUNT 211 x10^3/uL (140-400); RED BLOOD COUNT 3.58 x10^6/uL (4.30-5.70); RED CELL DISTRIBUTION WIDTH 18.1 % (11.5-14.5); WHITE BLOOD COUNT 8.4 x10^3/uL (4.0-11.0)
== END ==
LOC: ONCLAB 09:31
PROVIDERS: ATTEND Physician Assistant
DX: D58.2 Other hemoglobinopathies (principal)
CPT/HCPCS: 36415; 85025

== ENCOUNTER 2020-12-14 11:34 | Inpatient (IN) | payer OTHER ==
[~2020-12-14] VITALS: Ht 177.8 cm; Wt 75.6 kg
--- NOTE | 2020-12-14 12:01 | PHYS DOC ---
Past Medical History Past Medical History: Arthritis, Cancer, CHF, Diabetes-Type II, GERD, High Cholesterol, Hypertension Additional Past Medical Histor: "BLOOD CANCER" Past Surgical History: Other Additional Past Surgical Histo: hernia repair, carpal tunnel, cataract Smoking Status: Never Smoker Alcohol Use: None Drug Use: Marijuana General Adult EDM: Chief Complaint: WEAKNESS/GENERALIZED HPI: HPI: 70-year-old male with a history of end-stage renal disease on dialysis Wednesday and Wednesday presents to the emergency department complaining of generalized weakness. He reportedly has been laying around in his own feces for the last 48 hours. He notes somebody named "Ms. Parks "takes care of him at home. He reports he makes his own urine still. He also reports that his left upper extremity is being prepared for a fistula placement. He denies any pain anywhere. Reports that his onset of weakness was gradual. He was unable to power himself off his seated position at home. The patient denies nausea, vomiting, fever, chills, chest pain, shortness of breath, abdominal pain, urinary symptoms, cough, recent trauma, or any other complaints. Review of Systems: Review of Systems: Constitutional: Negative except what was mentioned in HPI. Eyes: Negative except what was mentioned in HPI. HENT: Negative except what was mentioned in HPI. Respiratory: Negative except what was mentioned in HPI. Cardiovascular: Negative except what was mentioned in HPI. GI: Negative except what was mentioned in HPI. : Negative except what was mentioned in HPI. Musculoskeletal: Negative except what was mentioned in HPI. Integument: Negative except what was mentioned in HPI. Neurologic: Negative except what was mentioned in HPI. Heart Score: C/O Chest Pain: No Allergies: Allergies: Allergies Coded Allergies Type Severity Reaction Last Updated Verified No Known Drug Allergies 07/05/20 No Physical Exam: PE: Constitutional: No acute distress. Malodorous, feces on buttocks HENT: Atraumatic, bilateral external ears normal, nose normal. Eyes: PERRLA, EOMI, conjunctiva normal, no discharge. Neck: Normal range of motion, supple, no stridor. Cardiovascular: Heart rate regular rhythm. 2+ radial pulses Lungs & Thorax: No respiratory distress, symmetrical expansion. Abdomen: Soft, no tenderness Skin: Warm, dry. Extremities: Left upper extremity with large sutured wound with surrounding er ythema Neurologic: Alert and oriented X 3, normal motor function, normal sensory function, no focal deficits noted. GCS 15. Psychologic: Affect normal, judgment normal, mood normal. Current Patient Data: Labs: Laboratory Tests Test 12/14/20 12:35 White Blood Count 11.0 x10^3/uL (4.0-11.0) Red Blood Count 3.34 x10^6/uL (4.30-5.70) Hemoglobin 9.9 g/dL (13.0-17.5) Hematocrit 28.7 % (39.0-53.0) Mean Corpuscular Volume 86 fL (79-100) Mean Corpuscular Hemoglobin 30 pg (25-35) Mean Corpuscular Hemoglobin Concent 34 g/dL (31-37) Red Cell Distribution Width 17.6 % (11.5-14.5) Platelet Count 198 x10^3/uL (140-400) Neutrophils (%) (Auto) 69 % (31-73) Lymphocytes (%) (Auto) 20 % (24-48) Monocytes (%) (Auto) 8 % (0-9) Eosinophils (%) (Auto) 2 % (0-3) Basophils (%) (Auto) 1 % (0-3) Neutrophils # (Auto) 7.6 x10^3/uL (1.8-7.7) Lymphocytes # (Auto) 2.2 x10^3/uL (1.0-4.8) Monocytes # (Auto) 0.9 x10^3/uL (0.0-1.1) Eosinophils # (Auto) 0.2 x10^3/uL (0.0-0.7) Basophils # (Auto) 0.1 x10^3/uL (0.0-0.2) Sodium Level 145 mmol/L (136-145) Potassium Level 4.2 mmol/L (3.5-5.1) Chloride Level 107 mmol/L (98-107) Carbon Dioxide Level 27 mmol/L (21-32) Anion Gap 11 (6-14) Blood Urea Nitrogen 72 mg/dL (8-26) Creatinine 7.1 mg/dL (0.7-1.3) Estimated GFR (Cockcroft-Gault) 9.3 BUN/Creatinine Ratio 10 (6-20) Glucose Level 306 mg/dL (70-99) Lactic Acid Level 1.0 mmol/L (0.4-2.0) Calcium Level 8.8 mg/dL (8.5-10.1) Magnesium Level 2.1 mg/dL (1.8-2.4) Total Bilirubin 0.8 mg/dL (0.2-1.0) Aspartate Amino Transf (AST/SGOT) 10 U/L (15-37) Alanine Aminotransferase (ALT/SGPT) 11 U/L (16-63) Alkaline Phosphatase 78 U/L (46-116) Total Protein 8.0 g/dL (6.4-8.2) Albumin 3.2 g/dL (3.4-5.0) Albumin/Globulin Ratio 0.7 (1.0-1.7) Vital Signs: Vital Signs Date Time Temp Pulse Resp B/P (MAP) Pulse Ox O2 Delivery O2 Flow Rate FiO2 12/14/20 11:41 98.9 105 20 143/76 (98) 89 Room Air 98.9 EKG: EKG: Time read: 1244 Sinus tachycardia rate of 102, no ST-T wave changes, no ectopic beats, normal axis, normal OK, QRS, and QTc intervals. Impression: Normal EKG. interpreted by meGus D.O. Radiology/Procedures: Radiology/Procedures: PROCEDURE: CHEST AP ONLY XR CHEST 1V History: Reason: weakness / Spl. Instructions: / History: Comparison: July 01, 2020 Findings: Mild interstitial thickening. No pleural effusion. No pneumothorax. Unchanged heart size. Right IJ central line with tip projecting over the cavoatrial junction. Impression: 1. Mild interstitial thickening, may represent pulmonary edema or infection. Electronically signed by: Wilber Aquino DO (12/14/2020 12:54 PM) PROCEDURE: VENOUS UPPER EXTREMITY LEFT INDICATION: Reason: left arm redness/ Spl. Instructions: / History: COMPARISON: None. TECHNIQUE: Grayscale, color and doppler ultrasound images were obtained of the left upper extremity venous vasculature. No thrombus identified in the internal jugular, subclavian, axillary, brachial, basilic, cephalic, radial or ulnar veins. The patient has a left arm AV fistula which measures 463 cm/S proximally, 257 cm/S at the midportion and 196 cm/S distally. IMPRESSION: No thrombus identified in deep venous system of left upper extremity. Mixed waveforms are seen which could be from the patient's known left-sided AV fistula. There is a prominent velocity within the fistula but a portion of this finding could be secondary to tortuosity of the vessel. Arterial system is not formally evaluated. Electronically signed by: Riky Arana MD (12/14/2020 2:30 PM) Course & Med Decision Making: Course & Med Decision Making patient was found in his own excrement, appears to have inability to take care of self. No focal neurological finding. Labs/ekg dont suggest a need for acute dialysis today, likely last dialysis session Wednesday. Will admit for placement and further acre to Dr Clark. Departure Departure Impression: Primary Impression: Adult failure to thrive Additional Impressions: ESRD (end stage renal disease) Cellulitis Disposition: ADMITTED INPATIENT Admitting Physician: Dorinda Clark Condition: STABLE Referrals: DORINDA CLARK MD (PCP) UGS MCKEON DO Dec 14, 2020 12:01
--- NOTE | 2020-12-14 12:43 | PDOC1 ---
History and Physical Date of Service: DOS: DATE: 12/14/20 TIME: 12:41 History of Present Illness: HPI: History obtained from discussion with the ED physician and chart review 70-year-old male with a history of end-stage renal disease on dialysis Wednesday and Wednesday presents to the emergency department complaining of generalized weakness. He reportedly has been laying around in his own feces for the last 48 hours. He notes somebody named "Ms. Parks "takes care of him at home. He reports he makes his own urine still. He also reports that his left upper extremity is being prepared for a fistula placement. He denies any pain anywhere. Reports that his onset of weakness was gradual. He was unable to power himself off his seated position at home. The patient denies nausea, vomiting, fever, chills, chest pain, shortness of breath, abdominal pain, urinary symptoms, cough, recent trauma, or any other complaints. Allergies: Allergies: Coded Allergies: No Known Drug Allergies (Unverified , 07/05/20) Current Medications: Current Medications Active Scripts Active Hydrocodone-Apap 5-325 (Hydrocodone Bit/Acetaminophen) 1 Tab Tablet 1 Tab PO PRN 1-2XD PRN 10 Days Admelog (Insulin Lispro) 100 Unit/1 Ml Vial 5 Units SQ TIDWMEALS 30 Days Lantus (Insulin Glargine,Hum.rec.anlog) 100 Unit/1 Ml Vial 10 Unit SQ QHS 30 Days Amlodipine Besylate 10 Mg Tablet 10 Mg PO DAILY 30 Days Klor-Con M20 (Potassium Chloride) 20 Meq Tab.er.prt 20 Meq PO BID Reported Duoneb 0.5-3(2.5) Mg/3 Ml (Albuterol/Ipratropium) 3 Ml Ampul.neb 3 Ml NEB QID PRN Furosemide 20 Mg Tablet 1 Tab PO DAILY Triamcinolone Acetonide 0.1% Oint (Triamcinolone Acetonide) 15 Gm Oint...g. 1 Ayse TP BID MIX WITH EUCERIN DIRECTED BY PHYSICIAN Buddy 81 (Aspirin) 81 Mg Tablet. 81 Mg PO DAILY Omeprazole 40 Mg Capsule. 40 Mg PO DAILY Simvastatin 10 Mg Tablet 10 Mg PO HS ROS: Review of Systems Review of System REVIEW OF SYSTEMS: GENERAL: Denies weakness SKIN: No bruising, hair changes or rashes. EYES: No blurred, double or loss of vision. NOSE AND THROAT: No history of nosebleeds, hoarseness or sore throat. HEART: No history of palpitations, chest pain or shortness of breath on exertion. LUNGS: Denies cough, hemoptysis, wheezing or shortness of breath. GASTROINTESTINAL: Denies changes in appetite, nausea, vomiting, diarrhea or constipation. GENITOURINARY: No history of frequency, urgency, hesitancy or nocturia. NEUROLOGIC: Denies history of numbness, tingling, or tremor. PSYCHIATRIC: No history of panic, anxiety or depression. ENDOCRINE: No history of heat or cold intolerance, polyuria or polydipsia. EXTREMITIES: Denies joint pain, pain on walking or stiffness. Physical Exam: Vital Signs: Vital Signs Date Time Temp Pulse Resp B/P (MAP) Pulse Ox O2 Delivery O2 Flow Rate FiO2 12/14/20 11:41 98.9 105 20 143/76 (98) 89 Room Air 98.9 Physcial Exam: GEN: No apparent distress. Alert and oriented HEENT: Normal cephalic, atraumatic, external auditory canals are patent EYES: Extraocular muscles are intact, pupil are equally round and reactive to light and accommodation MUSCULOSKELETAL: Well developed , well nourished, good range of motion ENDOCRINE: No thyromegaly was palpated LYMPHATICS: No cervical chain or axillary nodes were noted HEMATOPOIETIC: No bruising NECK: Supple, no JVD, no thyromegaly was noted LUNGS: Clear to auscultation in all lung davey without rhonchi or wheezing HEART: RRR, S!, S2 present. Peripheral pulses intact, no obvious murmurs noted ABDOMEN: Soft, nontender. Positive bowel sounds, no organomegaly, normal bowel sounds EXTREMITIES: Without clubbing, cyanosis, or edema. Pedal pulses intact. Negative Homans sign NEUROLOGIC: Normal speech and tone. A&O x 3, moves all extremities, no obvious focal deficits PSYCHIATRIC: Normal affect, normal mood. Stable SKIN: No ulcerations or rashes, good skin turgor, no jaundice VASCULAR: Good capillary refill, neurovascular bundle appears to be intact Justifications for Admission Other Justification JESSICA HELTON MD Dec 14, 2020 12:43
--- NOTE | 2020-12-14 12:57 | RAD ---
XR CHEST 1V History: Reason: weakness / Spl. Instructions: / History: Comparison: July 01, 2020 Findings: Mild interstitial thickening. No pleural effusion. No pneumothorax. Unchanged heart size. Right IJ ce ntral line with tip projecting over the cavoatrial junction. Impression: 1. Mild interstitial thickening, may represent pulmonary edema or infection. Electronically signed by: Wilber Aquino DO (12/14/2020 12:54 PM) [facility]
[2020-12-14 12:58] LABS: BASO # 0.1 x10^3/uL (0.0-0.2); BASO % 1 % (0-3); EOS # 0.2 x10^3/uL (0.0-0.7); EOS % 2 % (0-3); HEMATOCRIT 28.7 % (39.0-53.0); HEMOGLOBIN 9.9 g/dL (13.0-17.5); LYMPH # 2.2 x10^3/uL (1.0-4.8); LYMPH % 20 % (24-48); MEAN CORPUSCULAR HEMOGLOBIN 30 pg (25-35); MEAN CORPUSCULAR HGB CONC 34 g/dL (31-37); MEAN CORPUSCULAR VOLUME 86 fL (79-100); MONO # 0.9 x10^3/uL (0.0-1.1); MONO % 8 % (0-9); NEUT # 7.6 x10^3/uL (1.8-7.7); NEUT % 69 % (31-73); PLATELET COUNT 198 x10^3/uL (140-400); RED BLOOD COUNT 3.34 x10^6/uL (4.30-5.70); RED CELL DISTRIBUTION WIDTH 17.6 % (11.5-14.5)
[2020-12-14 13:00] LABS: CALCIUM 8.8 mg/dL (8.5-10.1); CREATININE 7.1 mg/dL (0.7-1.3); GFR 9.3; POTASSIUM 4.2 mmol/L (3.5-5.1)
[2020-12-14 13:05] LABS: ALBUMIN 3.2 g/dL (3.4-5.0); ALBUMIN/GLOBULIN RATIO 0.7 (1.0-1.7); MAGNESIUM 2.1 mg/dL (1.8-2.4); TOTAL BILIRUBIN 0.8 mg/dL (0.2-1.0)
[2020-12-14] MEDS ORDERED: ACETAMINOPHEN 325 MG TABLET. PO PRN (13:15)
[2020-12-14] MEDS ORDERED: fentaNYL PF VIAL 100 MCG/2 ML VIAL IVP PRN (13:15)
--- NOTE | 2020-12-14 14:29 | PDOC2 ---
CONSULT Date of Consult Date of Consult DATE: 12/14/20 TIME: 14:26 Reason for Consult Reason for Consult: ESRD History of Present Illness Reason for Visit: 70-year-old AA male with a history of end-stage renal disease on dialysis TTS presents to the emergency department complaining of generalized weakness. He reportedly has been laying around in his own feces for the last 48 hours. He notes somebody named "Ms. Parks "takes care of him at home. He reports he makes his own urine still. He also reports that his left upper extremity is being prepared for a fistula placement. He denies any pain anywhere. Reports that his onset of weakness was gradual. He was unable to power himself off his seated position at home. He denies nausea, vomiting, fever, chills, chest pain, shortness of breath, abdominal pain, urinary symptoms, cough, recent trauma, or any other complaints. His last dialysis was on , Currently No SOB , No other acute complaints Past Medical History Cardiovascular: HTN, Hyperlipidemia CENTRAL NERVOUS SYSTEM: Carpal Tunnel Syndrome GI: Diverticulosis, GERD, Hemorrhoids, Other Heme/Onc: Anemia NOS Musculoskeletal: low back pain, Osteoarthritis, Other Infectious disease: Other Renal/: Chronic renal insuff, Benign prostatic enlarg. Endocrine: Diabetes Past Surgical History Past Surgical History: Cataract Removal, Hernia Repair, Other Family History Family History: Heart Disease, Stroke Social History ALCOHOL: none Drugs: None Lives: with Family Current Problem List Problem List Problems Medical Problems: (1) Adult failure to thrive Status: Acute (2) Cellulitis Status: Acute (3) ESRD (end stage renal disease) Status: Acute Current Medications Current Medications Current Medications Fentanyl Citrate (Fentanyl 2ml Vial) 50 mcg PRN Q1HR PRN IVP PAIN; Start 12/14/20 at 13:15; Stop 12/15/20 at 13:14 Acetaminophen (Tylenol) 650 mg PRN Q4HRS PRN PO FEVER > 100.3'F; Start 12/14/20 at 13:15; Stop 12/15/20 at 13:14 Cefazolin Sodium/ Dextrose 50 ml @ 100 mls/hr 1X ONCE IV ; Start 12/14/20 at 13:30; Stop 12/14/20 at 13:59; Status DC Active Scripts Active Hydrocodone-Apap 5-325 (Hydrocodone Bit/Acetaminophen) 1 Tab Tablet 1 Tab PO PRN 1-2XD PRN 10 Days Admelog (Insulin Lispro) 100 Unit/1 Ml Vial 5 Units SQ TIDWMEALS 30 Days Lantus (Insulin Glargine,Hum.rec.anlog) 100 Unit/1 Ml Vial 10 Unit SQ QHS 30 Days Amlodipine Besylate 10 Mg Tablet 10 Mg PO DAILY 30 Days Klor-Con M20 (Potassium Chloride) 20 Meq Tab.er.prt 20 Meq PO BID Reported Duoneb 0.5-3(2.5) Mg/3 Ml (Albuterol/Ipratropium) 3 Ml Ampul.neb 3 Ml NEB QID PRN Furosemide 20 Mg Tablet 1 Tab PO DAILY Triamcinolone Acetonide 0.1% Oint (Triamcinolone Acetonide) 15 Gm Oint...g. 1 Ayse TP BID MIX WITH EUCERIN DIRECTED BY PHYSICIAN Buddy 81 (Aspirin) 81 Mg Tablet. 81 Mg PO DAILY Omeprazole 40 Mg Capsule. 40 Mg PO DAILY Simvastatin 10 Mg Tablet 10 Mg PO HS Allergies Allergies: Coded Allergies: No Known Drug Allergies (Unverified , 07/05/20) ROS Review of System As per HPI, rest of the ROS is negative Physical Exam Physical Exam General NAD HEEN OM moist Nck Supple Lungs decreased at abses, Non labored CV s1s2, no rub GI- soft, NT Ext No LE edema Neuro grossly normal No CVA or SP tenderness Psych Normal Affect Vital Signs Vital Signs Date Time Temp Pulse Resp B/P (MAP) Pulse Ox O2 Delivery O2 Flow Rate FiO2 12/14/20 11:41 98.9 105 20 143/76 (98) 89 Room Air 98.9 Assessment & Plan ESRD on HD TTS under my care at [facility] . Last Dialysis was on . E-Lytes stable . Dialysis later tonight or tomorrow, currently stable. No Urgent need Anemia- Hgb stable, TANIA Diabetes, insulin-dependent. History of diastolic heart failure. Labs Labs Laboratory Tests Test 12/14/20 12:35 White Blood Count 11.0 x10^3/uL (4.0-11.0) Red Blood Count 3.34 x10^6/uL (4.30-5.70) Hemoglobin 9.9 g/dL (13.0-17.5) Hematocrit 28.7 % (39.0-53.0) Mean Corpuscular Volume 86 fL (79-100) Mean Corpuscular Hemoglobin 30 pg (25-35) Mean Corpuscular Hemoglobin Concent 34 g/dL (31-37) Red Cell Distribution Width 17.6 % (11.5-14.5) Platelet Count 198 x10^3/uL (140-400) Neutrophils (%) (Auto) 69 % (31-73) Lymphocytes (%) (Auto) 20 % (24-48) Monocytes (%) (Auto) 8 % (0-9) Eosinophils (%) (Auto) 2 % (0-3) Basophils (%) (Auto) 1 % (0-3) Neutrophils # (Auto) 7.6 x10^3/uL (1.8-7.7) Lymphocytes # (Auto) 2.2 x10^3/uL (1.0-4.8) Monocytes # (Auto) 0.9 x10^3/uL (0.0-1.1) Eosinophils # (Auto) 0.2 x10^3/uL (0.0-0.7) Basophils # (Auto) 0.1 x10^3/uL (0.0-0.2) Sodium Level 145 mmol/L (136-145) Potassium Level 4.2 mmol/L (3.5-5.1) Chloride Level 107 mmol/L (98-107) Carbon Dioxide Level 27 mmol/L (21-32) Anion Gap 11 (6-14) Blood Urea Nitrogen 72 mg/dL (8-26) Creatinine 7.1 mg/dL (0.7-1.3) Estimated GFR (Cockcroft-Gault) 9.3 BUN/Creatinine Ratio 10 (6-20) Glucose Level 306 mg/dL (70-99) Lactic Acid Level 1.0 mmol/L (0.4-2.0) Calcium Level 8.8 mg/dL (8.5-10.1) Magnesium Level 2.1 mg/dL (1.8-2.4) Total Bilirubin 0.8 mg/dL (0.2-1.0) Aspartate Amino Transf (AST/SGOT) 10 U/L (15-37) Alanine Aminotransferase (ALT/SGPT) 11 U/L (16-63) Alkaline Phosphatase 78 U/L (46-116) Total Protein 8.0 g/dL (6.4-8.2) Albumin 3.2 g/dL (3.4-5.0) Albumin/Globulin Ratio 0.7 (1.0-1.7) Laboratory Tests Test 12/14/20 12:35 White Blood Count 11.0 x10^3/uL (4.0-11.0) Red Blood Count 3.34 x10^6/uL (4.30-5.70) Hemoglobin 9.9 g/dL (13.0-17.5) Hematocrit 28.7 % (39.0-53.0) Mean Corpuscular Volume 86 fL (79-100) Mean Corpuscular Hemoglobin 30 pg (25-35) Mean Corpuscular Hemoglobin Concent 34 g/dL (31-37) Red Cell Distribution Width 17.6 % (11.5-14.5) Platelet Count 198 x10^3/uL (140-400) Neutrophils (%) (Auto) 69 % (31-73) Lymphocytes (%) (Auto) 20 % (24-48) Monocytes (%) (Auto) 8 % (0-9) Eosinophils (%) (Auto) 2 % (0-3) Basophils (%) (Auto) 1 % (0-3) Neutrophils # (Auto) 7.6 x10^3/uL (1.8-7.7) Lymphocytes # (Auto) 2.2 x10^3/uL (1.0-4.8) Monocytes # (Auto) 0.9 x10^3/uL (0.0-1.1) Eosinophils # (Auto) 0.2 x10^3/uL (0.0-0.7) Basophils # (Auto) 0.1 x10^3/uL (0.0-0.2) Sodium Level 145 mmol/L (136-145) Potassium Level 4.2 mmol/L (3.5-5.1) Chloride Level 107 mmol/L (98-107) Carbon Dioxide Level 27 mmol/L (21-32) Anion Gap 11 (6-14) Blood Urea Nitrogen 72 mg/dL (8-26) Creatinine 7.1 mg/dL (0.7-1.3) Estimated GFR (Cockcroft-Gault) 9.3 BUN/Creatinine Ratio 10 (6-20) Glucose Level 306 mg/dL (70-99) Lactic Acid Level 1.0 mmol/L (0.4-2.0) Calcium Level 8.8 mg/dL (8.5-10.1) Magnesium Level 2.1 mg/dL (1.8-2.4) Total Bilirubin 0.8 mg/dL (0.2-1.0) Aspartate Amino Transf (AST/SGOT) 10 U/L (15-37) Alanine Aminotransferase (ALT/SGPT) 11 U/L (16-63) Alkaline Phosphatase 78 U/L (46-116) Total Protein 8.0 g/dL (6.4-8.2) Albumin 3.2 g/dL (3.4-5.0) Albumin/Globulin Ratio 0.7 (1.0-1.7) Review All relevant outside records, renal labs, imaging studies, telemetry/EKG's were reviewed. Images Images History: Reason: weakness / Spl. Instructions: / History: Comparison: July 01, 2020 Findings: Mild interstitial thickening. No pleural effusion. No pneumothorax. Unchanged heart size. Right IJ central line with tip projecting over the cavoatrial junction. Impression: 1. Mild interstitial thickening, may represent pulmonary edema or infection. ABRAM HARDING MD Dec 14, 2020 14:29
--- NOTE | 2020-12-14 14:32 | RAD ---
INDICATION: Reason: left arm redness/ Spl. Instructions: / History: COMPARISON: None. TECHNIQUE: Grayscale, color and doppler ultrasound images were obtained of the left upper extremity v enous vasculature. No thrombus identified in the internal jugular, subclavian, axillary, brachial, basilic, cephalic, r adial or ulnar veins. The patient has a left arm AV fistula which measures 463 cm/S proximally, 257 cm/S at the midportion and 196 cm/S distally. IMPRESSION: No thrombus identified in deep venous system of left upper extremity. Mixed waveforms are seen which could be from the patient's known left-sided AV fistula. There is a pr ominent velocity within the fistula but a portion of this finding could be secondary to tortuosity of the vessel. Arterial system is not formally evaluated. Electronically signed by: Riky Arana MD (12/14/2020 2:30 PM) [id number]
[2020-12-14 15:15] VITALS: BP 135/72
[2020-12-14 19:00] VITALS: BP 162/78
[2020-12-14] MEDS ORDERED: DEXTROSE 50% 25 GM / 50ML DISP.SYRIN. IV PRN (21:15)
--- NOTE | 2020-12-14 21:20 | NUR ---
Pt's glucose was 478 @ 2100. Pt asymptomatic. Dr. Colbert notified, orders given for 10U Lantus and 10U Humalog. Will continue to monitor patient.
[2020-12-14] MEDS ORDERED: INSULIN LISPRO 300 UNITS/3 ML VIAL. SQ ONE (22:30)
[2020-12-14] MEDS: INSULIN GLARGINE SYRINGE. SQ SCH (22:31)
[2020-12-14] MEDS ORDERED: HYDROcodone/APAP 5/325MG 1 TAB TABLET PO PRN (22:45)
[2020-12-14 23:00] VITALS: BP 146/83
[2020-12-14] MEDS ORDERED: ALBUTEROL SULFATE 2.5 MG/3 ML NEBU. NEB PRN (23:00)
--- NOTE | 2020-12-14 23:49 | EKG ---
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
[2020-12-15 03:00] VITALS: BP 143/77
[2020-12-15] MEDS ORDERED: DIALYSIS PATIENT. MC PRN ×2 (06:45)
[2020-12-15] MEDS ORDERED: IV NORMAL SALINE 1000ML BAG 1,000 ML IV PRN ×2 (06:45)
[2020-12-15 07:33] LABS: BASO # 0.1 x10^3/uL (0.0-0.2); BASO % 1 % (0-3); EOS # 0.5 x10^3/uL (0.0-0.7); EOS % 4 % (0-3); HEMATOCRIT 27.9 % (39.0-53.0); HEMOGLOBIN 9.5 g/dL (13.0-17.5); LYMPH # 2.7 x10^3/uL (1.0-4.8); LYMPH % 24 % (24-48); MEAN CORPUSCULAR HEMOGLOBIN 30 pg (25-35); MEAN CORPUSCULAR HGB CONC 34 g/dL (31-37); MEAN CORPUSCULAR VOLUME 87 fL (79-100); MONO # 1.1 x10^3/uL (0.0-1.1); MONO % 10 % (0-9); NEUT # 6.7 x10^3/uL (1.8-7.7); NEUT % 61 % (31-73); PLATELET COUNT 155 x10^3/uL (140-400); RED BLOOD COUNT 3.21 x10^6/uL (4.30-5.70); RED CELL DISTRIBUTION WIDTH 17.9 % (11.5-14.5)
[2020-12-15 07:56] LABS: CALCIUM 8.6 mg/dL (8.5-10.1); CREATININE 6.8 mg/dL (0.7-1.3); GFR 9.8; POTASSIUM 3.9 mmol/L (3.5-5.1)
[2020-12-15] MEDS: INSULIN LISPRO 300 UNITS/3 ML VIAL. SQ SCH ×6 (08:00→17:00)
[2020-12-15] MEDS ORDERED: VANCOMYCIN 1.5 GM in IV NORMAL SALINE 500ML BAG 500 ML IV ONE (08:30)
[2020-12-15] MEDS ORDERED: VANCOMYCIN 2 GM in IV NORMAL SALINE 500ML BAG 500 ML IV ONE (09:00)
--- NOTE | 2020-12-15 09:55 | PDOC ---
Provider Note Date of Service: DATE: 12/15/20 TIME: 09:55 Provider Note Pt seen.H&P dictated.#[id number]. Justifications for Admission Other Justification GISELL CLARK MD Dec 15, 2020 09:55
--- NOTE | 2020-12-15 10:26 | HP ---
DATE OF SERVICE: 12/15/2020 ADMIT DATE: 12/14/2020 REASON FOR ADMISSION TO THE HOSPITAL: Generalized weakness. The patient had an AV shunt recently, maybe a questionable infection. The patient has been very weak, not able to get out of the bed. HISTORY OF PRESENT ILLNESS: The patient is a 70-year-old male patient well known to me, has history of diabetes, hypertension, hyperlipidemia, chronic kidney failure. The patient was recently started on dialysis a couple of months ago. He has a temporary dialysis catheter right side of the chest and a permanent AV graft placed a couple of weeks ago in the left arm. He says he has been not feeling well. Has been having lot of loose stools, weak, not able to get up. He has a business coordinator at home, Ms. Parks, who is kind of a homemaker and takes care of him. The patient was brought to the hospital. There is a lot of stool incontinence in his bed. He was very weak, was admitted to the hospital. There was a slight warmness in the left upper arm where the AV shunt, was started on Ancef, culture was done. The patient was seen by Renal. We will continue dialysis 3 times a week. Last dialysis was last week. He goes to dialysis Wednesday, and Wednesday. PAST MEDICAL HISTORY: Has a history of diabetes; kidney failure; hypertension; hyperlipidemia; anemia due to CRF. PAST SURGICAL HISTORY: Had a hernia repair, cataract surgery, carpal tunnel. ALLERGIES: No known allergies. PERSONAL HISTORY: Denies smoking, alcohol social, marijuana use. MEDICATIONS AT HOME: The patient is on insulin Lantus 10 units, NovoLog 5 units with each meal, amlodipine 10 mg daily, aspirin 81 mg daily, hydrocodone for pain, omeprazole 40 mg daily, simvastatin 10 mg daily, Lasix 20 mg and potassium 20 mEq. FAMILY HISTORY: Most of the family has kidney problems, on dialysis with diabetes. REVIEW OF SYMPTOMS: The patient denies any chest pain, shortness of breath. Complains of loose stools. No vomiting, no fever. Has some slight warmth in the left upper extremities. Rest of the 14 systems are reviewed and negative. PHYSICAL EXAMINATION: GENERAL: The patient is seen on dialysis. Looks comfortable. VITAL SIGNS: Temperature 99, pulse 105, respirations 20, blood pressure 143/76, 89 on room air, on 4 liters 99. HEENT: Atraumatic. Pupils equal. Oral cavity, no congestion. NECK: Supple. Thyroid not enlarged. JVD not elevated. CHEST: Symmetrical. Had a dialysis catheter, right side of the chest. CARDIOVASCULAR: S1, S2. No murmurs. LUNGS: Clear to auscultation. ABDOMEN: Soft. No mass palpable. EXTERNAL GENITALIA: Deferred. EXTREMITIES: Dry skin. No edema. The patient has weak extremities. Able to lift off the bed with some difficulty, both right and left. The patient has diabetic neuropathy. Upper extremities with wasting of the hands. Has an AV shunt in the left upper arm. Thrill is present. I do not see any redness. There is slight edema because of the recent surgery. NEUROLOGIC: Cranial nerves intact. Power 5/5 in all extremities. No focal deficits noted. LABORATORY DATA: Shows a white count of 11, hemoglobin 10, platelets 198. Electrolytes show sodium 145, potassium 4.2, chloride 107, bicarb 27, anion gap 11, BUN 72, creatinine 7.1, glucose 306. Lactic acid 1.0, magnesium 2. LFTs normal. COVID test negative. DIAGNOSTIC DATA: Chest x-ray; some chronic infiltrates, maybe CHF. Sonogram of the upper extremity shows no thrombus at the AV shunt. FINAL IMPRESSION: 1. Weakness. 2. Diarrhea. 3. Recent left upper arm arteriovenous shunt, rule out infection. 4. End-stage renal disease, on hemodialysis. 5. Insulin-dependent diabetes. 6. General debility. PLAN: At this time, the patient was admitted to the hospital. COVID test was negative. Blood cultures was drawn, started on Ancef. The patient is seen by Renal. Get dialysis today and physical therapy, occupational therapy, Social Service consult and see how he does in the next couple of days. BARBI/HANNAH DR: Rajesh TID: [id number] [facility]ITALJefferson
--- NOTE | 2020-12-15 12:00 | NUR ---
Pt did not want to each much, insulin not given at this time.
--- NOTE | 2020-12-15 12:56 | PDOC ---
DATE OF SERVICE DATE: 12/15/20 TIME: 12:54 SUBJECTIVE ROS states feeling tired but better OBJECTIVE Vital Signs Vital Signs Date Time Temp Pulse Resp B/P (MAP) Pulse Ox O2 Delivery O2 Flow Rate FiO2 12/15/20 03:00 98.3 95 20 143/77 (99) 99 98.3 12/14/20 20:00 Nasal Cannula 4.0 I & 0 Intake and Output 12/15/20 07:00 Intake Total 220 ml Balance 220 ml Intake Oral 220 ml # Voids 1 PHYSICAL EXAM Physical Exam General NAD HEEN OM moist Nck Supple Lungs decreased at abses, Non labored CV s1s2, no rub GI- soft, NT Ext No LE edema Neuro grossly normal No CVA or SP tenderness Psych Normal Affect DIAGNOSIS/ASSESSMENT Assessment & Plan ESRD on HD TTS . E-Lytes stable . Dialysis today ,tolerated well, discussed treatment plan with Anca Anemia- Hgb stable, TANIA ordered Diabetes, insulin-dependent. History of diastolic heart failure. COMMENT/RELEVANT DATA Meds Current Medications Medications (Trade) Dose Ordered Sig/Madeleine Start Time Stop Time Status Last Admin Dose Admin Acetaminophen (Tylenol) 650 mg PRN Q4HRS PRN 12/14/20 13:15 12/15/20 13:14 Acetaminophen/ Hydrocodone Bitart (Lortab 5/325) 1 tab PRN QID PRN 12/14/20 22:45 Albuterol Sulfate (Ventolin Neb Soln) 2.5 mg PRN QID PRN 12/14/20 23:00 Amlodipine Besylate (Norvasc) 10 mg DAILY 12/15/20 09:00 Aspirin (Ecotrin) 81 mg DAILY 12/15/20 09:00 Cefazolin Sodium/ Dextrose 50 ml @ 100 mls/hr 1X ONCE 12/14/20 13:30 12/14/20 13:59 DC 12/14/20 14:23 100 MLS/HR Dextrose (Dextrose 50%-Water Syringe) 12.5 gm PRN Q15MIN PRN 12/14/20 21:15 Fentanyl Citrate (Fentanyl 2ml Vial) 50 mcg PRN Q1HR PRN 12/14/20 13:15 12/15/20 13:14 Info (PHARMACY MONITORING -- do not chart) 1 each PRN DAILY PRN 12/15/20 06:45 12/15/20 06:47 DC Insulin Glargine (Lantus Syringe) 10 unit QHS 12/14/20 23:00 12/14/20 22:31 10 UNIT Insulin Human Lispro (HumaLOG) 5 units TIDWMEALS 12/15/20 08:00 Pantoprazole Sodium (Protonix) 40 mg DAILYAC 12/15/20 07:30 Simvastatin (Zocor) 10 mg HS 12/15/20 21:00 Sodium Chloride 1,000 ml @ 400 mls/hr Q2H30M PRN 12/15/20 06:45 12/15/20 18:44 Triamcinolone Acetonide (Kenalog 0.1%) 1 babar BID 12/15/20 09:00 Vancomycin HCl 1.5 gm/Sodium Chloride 500 ml @ 250 mls/hr 1X ONCE 12/15/20 08:30 12/15/20 10:29 UNV Vancomycin HCl 2 gm/Sodium Chloride 500 ml @ 250 mls/hr 1X ONCE 12/15/20 09:00 12/15/20 10:59 DC Lab Laboratory Tests Test 12/14/20 14:30 12/14/20 20:31 12/14/20 20:32 12/14/20 23:29 SARS-CoV-2 RNA (HANNAH) Negative (Negative) SARS-CoV-2 Antigen (Rapid) Negative (NEGATIVE) Glucose (Fingerstick) 478 mg/dL (70-99) 479 mg/dL (70-99) 409 mg/dL (70-99) Test 12/15/20 02:33 12/15/20 06:00 12/15/20 08:48 12/15/20 10:33 Glucose (Fingerstick) 287 mg/dL (70-99) 175 mg/dL (70-99) 171 mg/dL (70-99) White Blood Count 11.0 x10^3/uL (4.0-11.0) Red Blood Count 3.21 x10^6/uL (4.30-5.70) Hemoglobin 9.5 g/dL (13.0-17.5) Hematocrit 27.9 % (39.0-53.0) Mean Corpuscular Volume 87 fL (79-100) Mean Corpuscular Hemoglobin 30 pg (25-35) Mean Corpuscular Hemoglobin Concent 34 g/dL (31-37) Red Cell Distribution Width 17.9 % (11.5-14.5) Platelet Count 155 x10^3/uL (140-400) Neutrophils (%) (Auto) 61 % (31-73) Lymphocytes (%) (Auto) 24 % (24-48) Monocytes (%) (Auto) 10 % (0-9) Eosinophils (%) (Auto) 4 % (0-3) Basophils (%) (Auto) 1 % (0-3) Neutrophils # (Auto) 6.7 x10^3/uL (1.8-7.7) Lymphocytes # (Auto) 2.7 x10^3/uL (1.0-4.8) Monocytes # (Auto) 1.1 x10^3/uL (0.0-1.1) Eosinophils # (Auto) 0.5 x10^3/uL (0.0-0.7) Basophils # (Auto) 0.1 x10^3/uL (0.0-0.2) Sodium Level 144 mmol/L (136-145) Potassium Level 3.9 mmol/L (3.5-5.1) Chloride Level 109 mmol/L (98-107) Carbon Dioxide Level 24 mmol/L (21-32) Anion Gap 11 (6-14) Blood Urea Nitrogen 79 mg/dL (8-26) Creatinine 6.8 mg/dL (0.7-1.3) Estimated GFR (Cockcroft-Gault) 9.8 Glucose Level 256 mg/dL (70-99) Calcium Level 8.6 mg/dL (8.5-10.1) Results All relevant outside records, renal labs, imaging studies, telemetry/EKG's were reviewed. Justicifation of Admission Dx: Justifications for Admission: Justification of Admission Dx: N/A ABRAM HARDING MD Dec 15, 2020 12:56
[2020-12-15] MEDS: ASPIRIN ENTERIC COATED 81 MG TABLET.DR. PO SCH (14:01)
[2020-12-15] MEDS: PANTOPRAZOLE 40 MG TABLET.DR. PO SCH (14:01)
[2020-12-15] MEDS: TRIAMCINOLONE ACETONIDE 0.1% TOPICAL OINTMENT 15GM TUBE. TP SCH ×2 (14:02→21:17)
[2020-12-15 15:00] VITALS: BP 132/66
[2020-12-15] MEDS: VANCOMYCIN PER PHARMACY MC PRN (15:17)
[2020-12-15 19:00] VITALS: BP 165/65
[2020-12-15] MEDS: SIMVASTATIN 10 MG TABLET PO SCH (21:11)
[2020-12-15] MEDS: INSULIN GLARGINE SYRINGE. SQ SCH (21:18)
[2020-12-15 22:46] VITALS: BP 159/68
[2020-12-16 03:00] VITALS: BP 154/64
[2020-12-16 07:00] VITALS: BP 127/67
--- NOTE | 2020-12-16 08:55 | PDOC ---
PROGRESS NOTES Date of Service: DATE: 12/16/20 TIME: 08:52 Subjective Subjective feels ok today Objective Objective Vital Signs Date Time Temp Pulse Resp B/P (MAP) Pulse Ox O2 Delivery O2 Flow Rate FiO2 12/16/20 07:00 98.1 101 16 127/67 (87) 94 Nasal Cannula 3.5 98.1 Intake and Output 12/16/20 07:00 Intake Total 240 ml Output Total 2 ml Balance 238 ml Intake Oral 240 ml Output Urine Total 2 ml Physical Exam Abdomen: Soft Heart: Normal S1, Normal S2 Extremities: No clubbing General: Alert MUSCULOSKELETAL: No swelling, Osteoarthritic changes both hands Neuro: Normal speech Psych/Mental Status: Mental status NL Skin: No breakdown Diagnosis Problem List Problems Medical Problems: (1) Adult failure to thrive Status: Acute (2) Cellulitis Status: Acute (3) ESRD (end stage renal disease) Status: Acute Assessment Assessment Problems Medical Problems: (1) Adult failure to thrive Status: Acute (2) Cellulitis Status: Acute (3) ESRD (end stage renal disease) Status: Acute FINAL IMPRESSION: sepsis,positive blood c/s 2/4, gram positive. 1. Weakness. 2. Diarrhea. 3. Recent left upper arm arteriovenous shunt, rule out infection. 4. End-stage renal disease, on hemodialysis. 5. Insulin-dependent diabetes. 6. General debility. PLAN: sepsis,positive blood c/s 2/4, gram positive. may need to remove dialysis catheter tomorrow after dialysis vancomycin 1 dose given iv,pharmacy to dose. At this time, the patient was admitted to the hospital. COVID test was negative. Blood cultures was drawn, started on Ancef. The patient is seen by Renal. Get dialysis today and physical therapy, occupational therapy, Social Service consult and see how he does in the next couple of days. Plan Plan of Care Problems Medical Problems: (1) Adult failure to thrive Status: Acute (2) Cellulitis Status: Acute (3) ESRD (end stage renal disease) Status: Acute Comment Review of Relevant I have reviewed the following items ken (where applicable) has been applied. Labs Laboratory Tests Test 12/15/20 10:33 12/15/20 17:15 12/15/20 18:48 12/16/20 07:49 Glucose (Fingerstick) 171 mg/dL (70-99) 289 mg/dL (70-99) 288 mg/dL (70-99) 211 mg/dL (70-99) Microbiology 12/14/20 Blood Culture - Final, Complete Medications Current Medications Amlodipine Besylate (Norvasc) 10 mg DAILY PO Last administered on 12/15/20at 14 :21; Start 12/15/20 at 09:00 Aspirin (Ecotrin) 81 mg DAILY PO Last administered on 12/15/20at 14:01; Start 12/15/20 at 09:00 Epoetin Camron-epbx (RETACRIT for ESRD PTS) 10,000 unit MoWeFr@2100 SQ ; Start 12/16/20 at 21:00 Simvastatin (Zocor) 10 mg HS PO Last administered on 12/15/20at 21:11; Start 12/15/20 at 21:00 Triamcinolone Acetonide (Kenalog 0.1%) 1 babar BID TP Last administered on 12/15/20at 21:17; Start 12/15/20 at 09:00 Vancomycin HCl (Vanco Per Pharmacy) 1 each PRN DAILY PRN MC SEE COMMENTS Last administered on 12/15/20at 15:17; Start 12/15/20 at 15:15 Vancomycin HCl (Vancomycin Random Level) 1 each 1X ONCE MC ; Start 12/17/20 at 06:00; Stop 12/17/20 at 06:01 Vancomycin HCl 2 gm/Sodium Chloride 500 ml @ 250 mls/hr 1X ONCE IV Last administered on 12/15/20at 14:02; Start 12/15/20 at 09:00; Stop 12/15/20 at 10:59; Status DC Vitals/I & O Vital Sign - Last 24 Hours 12/15/20 12/15/20 12/15/20 12/15/20 12:00 14:21 15:00 19:00 Temp 97.5 97.8 97.5 97.8 Pulse 100 101 101 Resp 16 17 B/P (MAP) 119/62 132/66 (88) 165/65 (98) Pulse Ox 90 92 O2 Delivery Nasal Cannula Room Air Nasal Cannula O2 Flow Rate 4.0 2.0 12/15/20 12/15/20 12/16/20 12/16/20 20:06 22:46 03:00 07:00 Temp 97.8 97.9 98.1 97.8 97.9 98.1 Pulse 90 92 101 Resp 17 17 16 B/P (MAP) 159/68 (98) 154/64 (94) 127/67 (87) Pulse Ox 92 93 94 O2 Delivery Room Air Nasal Cannula Nasal Cannula Nasal Cannula O2 Flow Rate 2.0 2.0 3.5 Intake and Output 12/15/20 12/15/20 12/16/20 15:00 23:00 07:00 Intake Total 240 ml Output Total 2 ml Balance 240 ml -2 ml Justifications for Admission Other Justification GISELL CLARK MD Dec 16, 2020 08:55
[2020-12-16] MEDS: PANTOPRAZOLE 40 MG TABLET.DR. PO SCH (09:20)
[2020-12-16] MEDS: TRIAMCINOLONE ACETONIDE 0.1% TOPICAL OINTMENT 15GM TUBE. TP SCH ×2 (09:20→21:04)
[2020-12-16] MEDS: ASPIRIN ENTERIC COATED 81 MG TABLET.DR. PO SCH (09:20)
[2020-12-16] MEDS ORDERED: methylPREDNISolone ACETATE 40 MG/ML VIAL. IM ONE (09:30)
[2020-12-16] MEDS ORDERED: BUPIVACAINE MPF 0.25% 10 ML VIAL. ONE (09:30)
[2020-12-16] MEDS ORDERED: methylPREDNISolone ACETATE 40 MG/ML VIAL. ONE (09:30)
[2020-12-16] MEDS ORDERED: BUPIVACAINE MPF 0.25% 10 ML VIAL. IJ ONE (09:30)
[2020-12-16] MEDS: INSULIN LISPRO 300 UNITS/3 ML VIAL. SQ SCH ×6 (09:32→18:31)
--- NOTE | 2020-12-16 09:54 | PDOC4 ---
PROCEDURE Procedure At his request,I have injected his left shoulder joint under aseptic skin te chnique with alcohol skin prep using 2 ml of 0.25% marcaine solution mixed with 1 ml of depo-medrol 40 mg/ 1ml solution and he tolerated the procedure satisfactorily without nay side effects. ANIL MULLER MD Dec 16, 2020 09:54
--- NOTE | 2020-12-16 09:56 | CONS ---
DATE OF CONSULTATION: 12/16/2020 ATTENDING PHYSICIAN: Dr. Colbert. REASON FOR CONSULTATION: The patient was seen at the request of Dr. Colbert for rehab evaluation. HISTORY OF PRESENT ILLNESS: This is a 70-year-old male known to me in the past. The patient with known diabetes mellitus, hypertension, hyperlipidemia, chronic renal failure, receiving dialysis for the last few months. He had a temporary dialysis catheter, right side of his chest and permanent AV graft placed a couple of weeks ago on his left arm. The patient admits some left shoulder area pain. The patient was noted with incontinent stool and urine. He had a manager inspection at home, Ms. Parks. The patient was admitted through the Emergency Room. The patient is being followed by Physical Therapy, Renal. The patient admits pain, left shoulder. He is requiring significant help with bed mobility and transfers as per Physical Therapy note. PAST MEDICAL HISTORY: Also includes anemia due to chronic renal failure, hyperlipidemia. The patient is status post hernia repair, cataract surgery and carpal tunnel surgical release. ALLERGIES: He is not known allergic to any medication. SOCIAL HISTORY: He [place] a [place]rise. PHYSICAL EXAMINATION: GENERAL: Physical examination today revealed a middle-aged male. He is alert, oriented to place and person, follows commands appropriately. NEUROLOGIC: Moves all 4 extremities voluntarily where he had 4/5 to 4+/5 grade muscle strength with relatively increased weakness in right foot dorsiflexor muscles. The patient had equal perception of touch and pinprick sensation bilaterally. Deep tendon reflexes are decreased overall with absent knee and ankle jerks. He had mild crepitus on range of motion of his left knee joint. He had significant pain on attempts to actively move his left shoulder. No significant weakness of rotator cuff muscles noted. He had tenderness to palpation over left shoulder. He had dependent edema of the left arm. He requires help with bed mobility. I have not tested transfers or ambulation skills at this time. He had painful range of motion of both hip joints. He had somewhat overgrown toenails and dry scaly skin of his feet and legs. ASSESSMENT: Middle-aged male with mobility and self-care limitations from diabetes mellitus with peripheral neuropathy, chronic renal failure, was recently started on hemodialysis, tendinitis, left shoulder. 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 RECOMMENDATIONS: To proceed with injecting painful left shoulder. Agree with the plan for physical therapy and occupational therapy to ask for a screen for transfer to [facility] for continued care when medically stable. Dr. Colbert, I appreciate asking me to participate in the care of this interesting patient. I will be glad to see him for followup with you on as needed basis. SELWYN DR: ERIN/ruben TID: [id number]
[2020-12-16] MEDS: DICLOFENAC SODIUM 1% TOPICAL GEL 100GM TUBE. TP SCH ×2 (10:00→20:56)
--- NOTE | 2020-12-16 10:13 | CONS ---
DATE OF CONSULTATION: 12/16/2020 REFERRING PHYSICIAN: Dorinda Colbert MD REASON FOR CONSULTATION: Bacteremia, antibiotic management. HISTORY OF PRESENT ILLNESS: A 70-year-old male with history of diabetes, hypertension, hyperlipidemia, CKD, on dialysis, which was started a couple of months ago. The patient had temporary dialysis catheter on the right chest wall and graft placed a couple of weeks ago in the left arm. He started feeling weak, loose stools, swelling of the left upper extremity. The patient was brought to the hospital. The patient is afebrile. White count was normal. SARS-COVID negative. Blood culture on 12/14 positive for gram-positive cocci. The patient received Ancef. Currently, he is on vancomycin. ID consultation has been requested for antibiotic management. Ultrasound of the left upper extremity is negative for thrombus. PAST MEDICAL HISTORY: Diabetes, hypertension, hyperlipidemia; CKD, on hemodialysis Wednesday, and Wednesday with dialysis catheter, right chest wall; permanent AV graft on the left upper extremity, anemia. PAST SURGICAL HISTORY: Hernia repair, cataract surgery, carpal tunnel. ALLERGIES: No known drug allergies. SOCIAL HISTORY: Denies smoking, ETOH or illicit drug use. CURRENT MEDICATIONS: IV vancomycin, received a dose of Ancef before. Other medications reviewed in medication list. FAMILY HISTORY: As per HPI. REVIEW OF SYSTEMS: Negative except for above in HPI. PHYSICAL EXAMINATION: VITAL SIGNS: Temperature 98.1, pulse 101, respirations 16, blood pressure 127/67, oxygen saturation 94% on 3.5 liters O2 by nasal cannula. GENERAL: Alert and oriented x3 male, lying in bed comfortably, in no acute distress. HEENT: Normocephalic and atraumatic. No thrush. Oral mucosa moist. NECK: Supple, no JVD. LUNGS: Clear bilaterally. HEART: S1, S2. No murmurs. ABDOMEN: Soft, nontender, bowel sounds present. EXTREMITIES: No edema. DERMATOLOGIC: Warm, dry, no generalized rash. NEUROLOGIC: Alert, awake, grossly nonfocal. PSYCHIATRIC: Calm and cooperative. Left upper extremity graft site slightly warm and erythematous. Incision well- healed. No drainage. Right chest wall HDC catheter clean LABORATORY DATA: WBC 11, hemoglobin 9.5, platelets 155. Labs from 12/15 noted. MICROBIOLOGY: Blood culture, GPC both sets. IMAGING: Chest x-ray noted. Ultrasound of left upper extremity as above. IMPRESSION: 1. Gram-positive cocci bacteremia. Could be HDC catheter infection 2. Left upper extremity graft placement, possible secondary cellulitis. Incision intact. No drainage. Ultrasound negative for deep venous thrombosis. 3. Diarrhea. 4. End-stage renal disease. The patient is undergoing dialysis through right dialysis catheter in the chest. 5. Diabetes. 6. Anemia. RECOMMENDATIONS: 1. Continue vancomycin. 2. Follow up GPC in blood cultures. 3. The patient may need right HDC catheter removal. 4. If the patient continues to have diarrhea, check C. diff. 5. Follow up labs and cultures. 6. Continue supportive care. Discussed with Dr. Wilson. Discussed with RN Thank you, Dr. Colbert, for consulting Infectious Disease to participate in this patient's care. If you have any questions, do not hesitate to contact me. SAE DR: Randolph TID: [id number] [facility]ITAL[facility]
--- NOTE | 2020-12-16 10:27 | PDOC ---
Renal-Progress Notes Subjective Notes Notes NO NEW COMPLAINTS History of Present Illness Hx of present illness STABLE Vitals Vitals Vital Signs Date Time Temp Pulse Resp B/P (MAP) Pulse Ox O2 Delivery O2 Flow Rate FiO2 12/16/20 09:20 101 127/67 12/16/20 07:00 98.1 16 94 Nasal Cannula 3.5 98.1 Weight Weight [ ] I.O. Intake and Output Intake and Output 12/16/20 07:00 Intake Total 240 ml Output Total 2 ml Balance 238 ml Intake Oral 240 ml Output Urine Total 2 ml Labs Labs Laboratory Tests Test 12/15/20 10:33 12/15/20 17:15 12/15/20 18:48 12/16/20 07:49 Glucose (Fingerstick) 171 mg/dL (70-99) 289 mg/dL (70-99) 288 mg/dL (70-99) 211 mg/dL (70-99) Micro Micro Microbiology 12/14/20 Blood Culture - Preliminary, Resulted Review of Systems Constitutional: yes: weakness, alert, oriented Ears/Nose/Throat: Yes: no symptom reported Eyes: Yes: no symptom reported Pulmonary: Yes no symptom reported Cardiovascular: Yes no symptom reported Gastrointestional: Yes: no symptom reported Genitourinary: Yes: no symptom reported Musculoskeletal: Yes: arm pain Skin: Yes no symptom reported Psychiatric/Neurological: Yes: no symptom reported Endocrine: Yes: no symptom reported Hematologic/Lymphatic: Yes: no symptom reported Physical Exam General Appearance: no apparent distress Skin: warm Respiratory: bilateral CTA Heart: S1S2 Abdomen: soft, bowel sounds present Genitourinary: bladder flat Extremities: pulses present, other (LEFT ARM AVG WITH A GOOD THRILL AND BRUIT. WARM TO TOUCH, NO ERYTHEMA OR DRAINAGE) Neurology: alert, oriented Musculoskeletal: Other Assessment Assessment IMP [id number] RIGHT IJ TUNNELED HD LINE FOR HD ANEMIA DM II HTN BACTEREMIA NEW L ARM BRACHIO-BASILIC LOOP GRAFT PLAN ANTIBIOTICS HD TTS WILL HAVE HD TOMORROW WILL USE TDC FOR HD TOMORROW THEN REMOVE IT WILL THEN PLAN FOR HD ON WEDNESDAY AND UTILIZE HIS AVG D/W ID AND ATTENDING WILL FOLLOW JUS AYALA MD Dec 16, 2020 10:27
[2020-12-16 11:00] VITALS: BP 113/64
--- NOTE | 2020-12-16 12:21 | NUR ---
SW following. Discussed with RN, pt from home with a anesthesia assistant, 2L (RN attempting to titrate), renal diet. Pt does dialysis T, Th, Sa, COVID-19 negative. Awaiting cultures, may have to remove dialysis cath. Therapy recommending SNF. SW awaiting further plan of care. Last admission pt declined SNF, went home with [facility]. SW will continue to follow.
[2020-12-16] MEDS: VANCOMYCIN PER PHARMACY MC PRN (13:31)
[2020-12-16 15:00] VITALS: BP 145/63
[2020-12-16 19:00] VITALS: BP 165/63
[2020-12-16] MEDS: EPOETIN ALFA-EPBX for ESRD 20,000 UNIT/ML VIAL. SQ SCH (20:56)
[2020-12-16] MEDS: LACTOBACILLUS RHAMNOSUS GG 1 CAPSULE. PO SCH (20:56)
[2020-12-16] MEDS: MINERAL OIL/PETROLATUM TOPICAL CREAM 113GM JAR. TP SCH (20:56)
[2020-12-16] MEDS: SIMVASTATIN 10 MG TABLET PO SCH (20:56)
[2020-12-16] MEDS: INSULIN GLARGINE SYRINGE. SQ SCH (21:08)
[2020-12-16 23:00] VITALS: BP 160/67
[2020-12-17 03:33] VITALS: BP 150/80
[2020-12-17 04:45] LABS: BASO % 0 % (0-3); EOS % 0 % (0-3); HEMATOCRIT 22.8 % (39.0-53.0); HEMOGLOBIN 8.2 g/dL (13.0-17.5); LYMPH # 1.1 x10^3/uL (1.0-4.8); LYMPH % 10 % (24-48); MEAN CORPUSCULAR HEMOGLOBIN 30 pg (25-35); MEAN CORPUSCULAR HGB CONC 36 g/dL (31-37); MEAN CORPUSCULAR VOLUME 84 fL (79-100); MONO # 0.7 x10^3/uL (0.0-1.1); MONO % 6 % (0-9); NEUT # 8.6 x10^3/uL (1.8-7.7); NEUT % 83 % (31-73); PLATELET COUNT 156 x10^3/uL (140-400); RED BLOOD COUNT 2.73 x10^6/uL (4.30-5.70); RED CELL DISTRIBUTION WIDTH 16.7 % (11.5-14.5); WHITE BLOOD COUNT 10.4 x10^3/uL (4.0-11.0)
[2020-12-17 05:02] LABS: CALCIUM 8.2 mg/dL (8.5-10.1); CREATININE 5.3 mg/dL (0.7-1.3); POTASSIUM 3.5 mmol/L (3.5-5.1)
[2020-12-17] MEDS ORDERED: VANCOMYCIN RANDOM LEVEL. MC ONE (06:00)
[2020-12-17 07:00] VITALS: BP 154/87
[2020-12-17] MEDS ORDERED: IV NORMAL SALINE 1000ML BAG 1,000 ML IV PRN ×2 (08:00)
[2020-12-17] MEDS: INSULIN LISPRO 300 UNITS/3 ML VIAL. SQ SCH ×6 (08:00→17:36)
[2020-12-17] MEDS ORDERED: DIALYSIS PATIENT. MC PRN ×2 (08:00)
[2020-12-17] MEDS: PANTOPRAZOLE 40 MG TABLET.DR. PO SCH (08:42)
[2020-12-17] MEDS: LACTOBACILLUS RHAMNOSUS GG 1 CAPSULE. PO SCH ×2 (08:42→21:07)
[2020-12-17] MEDS: MINERAL OIL/PETROLATUM TOPICAL CREAM 113GM JAR. TP SCH ×2 (08:43→21:18)
[2020-12-17] MEDS: TRIAMCINOLONE ACETONIDE 0.1% TOPICAL OINTMENT 15GM TUBE. TP SCH ×2 (08:43→21:18)
[2020-12-17] MEDS: ASPIRIN ENTERIC COATED 81 MG TABLET.DR. PO SCH (08:43)
[2020-12-17] MEDS: DICLOFENAC SODIUM 1% TOPICAL GEL 100GM TUBE. TP SCH ×2 (08:43→21:18)
--- NOTE | 2020-12-17 08:57 | PDOC ---
PROGRESS NOTES Date of Service: DATE: 12/17/20 TIME: 08:55 Subjective Subjective feels ok,no new problems Objective Objective Vital Signs Date Time Temp Pulse Resp B/P (MAP) Pulse Ox O2 Delivery O2 Flow Rate FiO2 12/17/20 08:43 91 154/87 12/17/20 07:00 98.0 16 96 Nasal Cannula 2.0 98.0 Intake and Output 12/17/20 07:00 Intake Total 100 ml Balance 100 ml Intake Oral 100 ml # Voids 1 Physical Exam Abdomen: Soft Heart: Normal S1, Normal S2 Extremities: No clubbing General: Alert MUSCULOSKELETAL: No swelling, Osteoarthritic changes both hands Neuro: Normal speech Psych/Mental Status: Mental status NL Skin: No breakdown Diagnosis Problem List Problems Medical Problems: (1) Adult failure to thrive Status: Acute (2) Cellulitis Status: Acute (3) ESRD (end stage renal disease) Status: Acute Assessment Assessment Problems Medical Problems: (1) Adult failure to thrive Status: Acute (2) Cellulitis Status: Acute (3) ESRD (end stage renal disease) Status: Acute FINAL IMPRESSION: sepsis,positive blood c/s 2/4, gram positive ,Staph. 1. Weakness. 2. Diarrhea. 3. Recent left upper arm arteriovenous shunt, rule out infection. 4. End-stage renal disease, on hemodialysis. 5. Insulin-dependent diabetes. 6. General debility. PLAN: spoke with Renal yesterday. sepsis,positive blood c/s 2/4, gram positive. may need to remove dialysis catheter tomorrow after dialysis vancomycin 1 dose given iv,pharmacy to dose. Appreciate ID consult. Plan Plan of Care Problems Medical Problems: (1) Adult failure to thrive Status: Acute (2) Cellulitis Status: Acute (3) ESRD (end stage renal disease) Status: Acute Comment Review of Relevant I have reviewed the following items ken (where applicable) has been applied. Labs Laboratory Tests Test 12/16/20 10:49 12/16/20 19:35 12/17/20 04:00 12/17/20 07:35 Glucose (Fingerstick) 280 mg/dL (70-99) 272 mg/dL (70-99) 276 mg/dL (70-99) White Blood Count 10.4 x10^3/uL (4.0-11.0) Red Blood Count 2.73 x10^6/uL (4.30-5.70) Hemoglobin 8.2 g/dL (13.0-17.5) Hematocrit 22.8 % (39.0-53.0) Mean Corpuscular Volume 84 fL (79-100) Mean Corpuscular Hemoglobin 30 pg (25-35) Mean Corpuscular Hemoglobin Concent 36 g/dL (31-37) Red Cell Distribution Width 16.7 % (11.5-14.5) Platelet Count 156 x10^3/uL (140-400) Neutrophils (%) (Auto) 83 % (31-73) Lymphocytes (%) (Auto) 10 % (24-48) Monocytes (%) (Auto) 6 % (0-9) Eosinophils (%) (Auto) 0 % (0-3) Basophils (%) (Auto) 0 % (0-3) Neutrophils # (Auto) 8.6 x10^3/uL (1.8-7.7) Lymphocytes # (Auto) 1.1 x10^3/uL (1.0-4.8) Monocytes # (Auto) 0.7 x10^3/uL (0.0-1.1) Eosinophils # (Auto) 0.0 x10^3/uL (0.0-0.7) Basophils # (Auto) 0.0 x10^3/uL (0.0-0.2) Sodium Level 141 mmol/L (136-145) Potassium Level 3.5 mmol/L (3.5-5.1) Chloride Level 104 mmol/L (98-107) Carbon Dioxide Level 27 mmol/L (21-32) Anion Gap 10 (6-14) Blood Urea Nitrogen 67 mg/dL (8-26) Creatinine 5.3 mg/dL (0.7-1.3) Estimated GFR (Cockcroft-Gault) 13.0 Glucose Level 314 mg/dL (70-99) Calcium Level 8.2 mg/dL (8.5-10.1) Random Vancomycin Level 18.8 mcg/mL Microbiology 12/14/20 Blood Culture - Final, Complete 12/14/20 Antimicrobic Susceptibility - Final, Complete Medications Current Medications Bupivacaine HCl (Sensorcaine-Mpf 0.25%) 10 ml 1X ONCE IJ ; Start 12/16/20 at 09:30; Stop 12/16/20 at 09:31; Status DC Diclofenac Sodium (Voltaren) 1 babar BID TP Last administered on 12/17/20at 08:43; Start 12/16/20 at 10:00 Epoetin Camron-epbx (RETACRIT for ESRD PTS) 10,000 unit MoWeFr@2100 SQ Last administered on 12/16/20at 20:56; Start 12/16/20 at 21:00 Info (PHARMACY MONITORING -- do not chart) 1 each PRN DAILY PRN MC SEE COMMENTS; Start 12/17/20 at 08:00 Info (PHARMACY MONITORING -- do not chart) 1 each PRN DAILY PRN MC SEE COMMENTS; Start 12/17/20 at 08:00 Lactobacillus Rhamnosus (Culturelle) 1 cap BID PO Last administered on 12/17/20at 08:42; Start 12/16/20 at 21:00 Methylprednisolone Acetate (DEPO-Medrol 40MG VIAL) 40 mg 1X ONCE IM ; Start 12/16/20 at 09:30; Stop 12/16/20 at 09:31; Status DC Multi-Ingredient Ointment (Hydrocerin, Eucerin Cream) 1 babar BID TP Last administered on 12/17/20at 08:43; Start 12/16/20 at 21:00 Sodium Chloride 1,000 ml @ 400 mls/hr Q2H30M PRN IV PATENCY; Start 12/17/20 at 08:00; Stop 12/17/20 at 19:59 Sodium Chloride 1,000 ml @ 1,000 mls/hr Q1H PRN IV hypotension; Start 12/17/20 at 08:00; Stop 12/17/20 at 13:59 Vancomycin HCl (Vancomycin Random Level) 1 each 1X ONCE MC Last administered on 12/17/20at 06:00; Start 12/17/20 at 06:00; Stop 12/17/20 at 06:01; Status DC Vitals/I & O Vital Sign - Last 24 Hours 12/16/20 12/16/20 12/16/20 12/16/20 09:20 11:00 15:00 19:00 Temp 98.5 98.5 98.5 98.5 98.5 98.5 Pulse 101 97 98 100 Resp 16 18 18 B/P (MAP) 127/67 113/64 (80) 145/63 (90) 165/63 (97) Pulse Ox 94 92 92 O2 Delivery Nasal Cannula Nasal Cannula Room Air O2 Flow Rate 3.5 3.5 3.5 12/16/20 12/16/20 12/17/20 12/17/20 19:40 23:00 03:33 07:00 Temp 97.9 97.9 98.0 97.9 97.9 98.0 Pulse 88 94 91 Resp 17 18 16 B/P (MAP) 160/67 (98) 150/80 (103) 154/87 (109) Pulse Ox 99 97 96 O2 Delivery Nasal Cannula Nasal Cannula Room Air Nasal Cannula O2 Flow Rate 3.5 2.0 12/17/20 08:43 Pulse 91 B/P (MAP) 154/87 Intake and Output 12/16/20 12/16/20 12/17/20 15:00 23:00 07:00 Intake Total 100 ml Balance 100 ml Justifications for Admission Other Justification GISELL CLARK MD Dec 17, 2020 08:57
--- NOTE | 2020-12-17 10:01 | PDOC ---
PROGRESS NOTES Date of Service DATE: 12/17/20 TIME: 09:59 Subjective Subjective He admits some soreness in his left shoulder and denies any knee joint pain. Objective Objective Vital Signs Date Time Temp Pulse Resp B/P (MAP) Pulse Ox O2 Delivery O2 Flow Rate FiO2 12/17/20 08:43 91 154/87 12/17/20 07:00 98.0 16 96 Nasal Cannula 2.0 98.0 Intake and Output 12/17/20 07:00 Intake Total 100 ml Balance 100 ml Intake Oral 100 ml # Voids 1 Physical Exam Physical Exam He is alert,supine on dialysis bed and he is moving left shoulder better. Assessment Assessment Problems Medical Problems: (1) Adult failure to thrive Status: Acute (2) Cellulitis Status: Acute (3) ESRD (end stage renal disease) Status: Acute Plan Plan of Care To continue present rehab efforts as tolerated and to rehab or SNF when medically stable. Comment Review of Relevant I have reviewed the following items ken (where applicable) has been applied. Labs Laboratory Tests Test 12/15/20 10:33 12/15/20 17:15 12/15/20 18:48 12/16/20 07:49 Glucose (Fingerstick) 171 mg/dL (70-99) 289 mg/dL (70-99) 288 mg/dL (70-99) 211 mg/dL (70-99) Test 12/16/20 10:49 12/16/20 19:35 12/17/20 04:00 12/17/20 07:35 Glucose (Fingerstick) 280 mg/dL (70-99) 272 mg/dL (70-99) 276 mg/dL (70-99) White Blood Count 10.4 x10^3/uL (4.0-11.0) Red Blood Count 2.73 x10^6/uL (4.30-5.70) Hemoglobin 8.2 g/dL (13.0-17.5) Hematocrit 22.8 % (39.0-53.0) Mean Corpuscular Volume 84 fL (79-100) Mean Corpuscular Hemoglobin 30 pg (25-35) Mean Corpuscular Hemoglobin Concent 36 g/dL (31-37) Red Cell Distribution Width 16.7 % (11.5-14.5) Platelet Count 156 x10^3/uL (140-400) Neutrophils (%) (Auto) 83 % (31-73) Lymphocytes (%) (Auto) 10 % (24-48) Monocytes (%) (Auto) 6 % (0-9) Eosinophils (%) (Auto) 0 % (0-3) Basophils (%) (Auto) 0 % (0-3) Neutrophils # (Auto) 8.6 x10^3/uL (1.8-7.7) Lymphocytes # (Auto) 1.1 x10^3/uL (1.0-4.8) Monocytes # (Auto) 0.7 x10^3/uL (0.0-1.1) Eosinophils # (Auto) 0.0 x10^3/uL (0.0-0.7) Basophils # (Auto) 0.0 x10^3/uL (0.0-0.2) Sodium Level 141 mmol/L (136-145) Potassium Level 3.5 mmol/L (3.5-5.1) Chloride Level 104 mmol/L (98-107) Carbon Dioxide Level 27 mmol/L (21-32) Anion Gap 10 (6-14) Blood Urea Nitrogen 67 mg/dL (8-26) Creatinine 5.3 mg/dL (0.7-1.3) Estimated GFR (Cockcroft-Gault) 13.0 Glucose Level 314 mg/dL (70-99) Calcium Level 8.2 mg/dL (8.5-10.1) Random Vancomycin Level 18.8 mcg/mL Laboratory Tests Test 12/16/20 10:49 12/16/20 19:35 12/17/20 04:00 12/17/20 07:35 Glucose (Fingerstick) 280 mg/dL (70-99) 272 mg/dL (70-99) 276 mg/dL (70-99) White Blood Count 10.4 x10^3/uL (4.0-11.0) Red Blood Count 2.73 x10^6/uL (4.30-5.70) Hemoglobin 8.2 g/dL (13.0-17.5) Hematocrit 22.8 % (39.0-53.0) Mean Corpuscular Volume 84 fL (79-100) Mean Corpuscular Hemoglobin 30 pg (25-35) Mean Corpuscular Hemoglobin Concent 36 g/dL (31-37) Red Cell Distribution Width 16.7 % (11.5-14.5) Platelet Count 156 x10^3/uL (140-400) Neutrophils (%) (Auto) 83 % (31-73) Lymphocytes (%) (Auto) 10 % (24-48) Monocytes (%) (Auto) 6 % (0-9) Eosinophils (%) (Auto) 0 % (0-3) Basophils (%) (Auto) 0 % (0-3) Neutrophils # (Auto) 8.6 x10^3/uL (1.8-7.7) Lymphocytes # (Auto) 1.1 x10^3/uL (1.0-4.8) Monocytes # (Auto) 0.7 x10^3/uL (0.0-1.1) Eosinophils # (Auto) 0.0 x10^3/uL (0.0-0.7) Basophils # (Auto) 0.0 x10^3/uL (0.0-0.2) Sodium Level 141 mmol/L (136-145) Potassium Level 3.5 mmol/L (3.5-5.1) Chloride Level 104 mmol/L (98-107) Carbon Dioxide Level 27 mmol/L (21-32) Anion Gap 10 (6-14) Blood Urea Nitrogen 67 mg/dL (8-26) Creatinine 5.3 mg/dL (0.7-1.3) Estimated GFR (Cockcroft-Gault) 13.0 Glucose Level 314 mg/dL (70-99) Calcium Level 8.2 mg/dL (8.5-10.1) Random Vancomycin Level 18.8 mcg/mL Microbiology 12/14/20 Blood Culture - Final, Complete 12/14/20 Antimicrobic Susceptibility - Final, Complete Medications Current Medications Fentanyl Citrate (Fentanyl 2ml Vial) 50 mcg PRN Q1HR PRN IVP PAIN; Start 12/14/20 at 13:15; Stop 12/15/20 at 13:14; Status DC Acetaminophen (Tylenol) 650 mg PRN Q4HRS PRN PO FEVER > 100.3'F; Start 12/14/20 at 13:15; Stop 12/15/20 at 13:14; Status DC Cefazolin Sodium/ Dextrose 50 ml @ 100 mls/hr 1X ONCE IV Last administered on 12/14/20 14:23; Start 12/14/20 at 13:30; Stop 12/14/20 at 13:59; Status DC Insulin Glargine (Lantus Syringe) 10 unit QHS SQ Last administered on 12/16/20at 21:08; Start 12/14/20 at 23:00 Insulin Human Lispro (HumaLOG) 0-7 UNITS TIDWMEALS SQ Last administered on 12/17/20at 08:50; Start 12/15/20 at 08:00 Dextrose (Dextrose 50%-Water Syringe) 12.5 gm PRN Q15MIN PRN IV SEE COMMENTS; Start 12/14/20 at 21:15 Insulin Human Lispro (HumaLOG) 10 units 1X ONCE SQ Last administered on 12/14/20 22:29; Start 12/14/20 at 22:30; Stop 12/14/20 at 22:31; Status DC Amlodipine Besylate (Norvasc) 10 mg DAILY PO Last administered on 12/17/20at 08:43; Start 12/15/20 at 09:00 Aspirin (Ecotrin) 81 mg DAILY PO Last administered on 12/17/20 08:43; Start 12/15/20 at 09:00 Acetaminophen/ Hydrocodone Bitart (Lortab 5/325) 1 tab PRN QID PRN PO MODERATE PAIN 4-6; Start 12/14/20 at 22:45 Insulin Human Lispro (HumaLOG) 5 units TIDWMEALS SQ Last administered on 12/17/20at 08:00; Start 12/15/20 at 08:00 Albuterol Sulfate (Ventolin Neb Soln) 2.5 mg PRN QID PRN NEB WHEEZING; Start 12/14/20 at 23:00 Simvastatin (Zocor) 10 mg HS PO Last administered on 12/16/20at 20:56; Start 12/15/20 at 21:00 Triamcinolone Acetonide (Kenalog 0.1%) 1 ayse BID TP Last administered on 12/17/20 08:43; Start 12/15/20 at 09:00 Pantoprazole Sodium (Protonix) 40 mg DAILYAC PO Last administered on 12/17/20 08:42; Start 12/15/20 at 07:30 Sodium Chloride 1,000 ml @ 1,000 mls/hr Q1H PRN IV hypotension; Start 12/15/20 at 06:45; Stop 12/15/20 at 12:44; Status DC Sodium Chloride 1,000 ml @ 400 mls/hr Q2H30M PRN IV PATENCY; Start 12/15/20 at 06:45; Stop 12/15/20 at 18:44; Status DC Info (PHARMACY MONITORING -- do not chart) 1 each PRN DAILY PRN MC SEE COMMENT S; Start 12/15/20 at 06:45 Info (PHARMACY MONITORING -- do not chart) 1 each PRN DAILY PRN MC SEE COMMENTS; Start 12/15/20 at 06:45; Stop 12/15/20 at 06:47; Status DC Vancomycin HCl 1.5 gm/Sodium Chloride 500 ml @ 250 mls/hr 1X ONCE IV ; Start 12/15/20 at 08:30; Stop 12/15/20 at 10:29; Status UNV Vancomycin HCl 2 gm/Sodium Chloride 500 ml @ 250 mls/hr 1X ONCE IV Last administered on 12/15/20at 14:02; Start 12/15/20 at 09:00; Stop 12/15/20 at 10:59; Status DC Epoetin Camron-epbx (RETACRIT for ESRD PTS) 10,000 unit MoWeFr@2100 SQ Last administered on 12/16/20at 20:56; Start 12/16/20 at 21:00 Vancomycin HCl (Vanco Per Pharmacy) 1 each PRN DAILY PRN MC SEE COMMENTS Last administered on 12/16/20at 13:31; Start 12/15/20 at 15:15 Vancomycin HCl (Vancomycin Random Level) 1 each 1X ONCE MC Last administered on 12/17/20at 06:00; Start 12/17/20 at 06:00; Stop 12/17/20 at 06:01; Status DC Methylprednisolone Acetate (DEPO-Medrol 40MG VIAL) 40 mg 1X ONCE IM ; Start 12/16/20 at 09:30; Stop 12/16/20 at 09:31; Status DC Bupivacaine HCl (Sensorcaine-Mpf 0.25%) 10 ml 1X ONCE IJ ; Start 12/16/20 at 09:30; Stop 12/16/20 at 09:31; Status DC Multi-Ingredient Ointment (Hydrocerin, Eucerin Cream) 1 ayse BID TP Last administered on 12/17/20at 08:43; Start 12/16/20 at 21:00 Diclofenac Sodium (Voltaren) 1 ayse BID TP Last administered on 12/17/20at 08:43; Start 12/16/20 at 10:00 Lactobacillus Rhamnosus (Culturelle) 1 cap BID PO Last administered on 12/17/20at 08:42; Start 12/16/20 at 21:00 Sodium Chloride 1,000 ml @ 1,000 mls/hr Q1H PRN IV hypotension; Start 12/17/20 at 08:00; Stop 12/17/20 at 13:59 Sodium Chloride 1,000 ml @ 400 mls/hr Q2H30M PRN IV PATENCY; Start 12/17/20 at 08:00; Stop 12/17/20 at 19:59 Info (PHARMACY MONITORING -- do not chart) 1 each PRN DAILY PRN MC SEE COMMENTS; Start 12/17/20 at 08:00; Status Cancel Info (PHARMACY MONITORING -- do not chart) 1 each PRN DAILY PRN MC SEE RIVERA TS; Start 12/17/20 at 08:00; Status Cancel Vancomycin HCl 500 mg/Sodium Chloride 100 ml @ 100 mls/hr QTUTHSA IV ; Start 12/17/20 at 16:00 Active Scripts Active Hydrocodone-Apap 5-325 (Hydrocodone Bit/Acetaminophen) 1 Tab Tablet 1 Tab PO PRN 1-2XD PRN 10 Days Admelog (Insulin Lispro) 100 Unit/1 Ml Vial 5 Units SQ TIDWMEALS 30 Days Lantus (Insulin Glargine,Hum.rec.anlog) 100 Unit/1 Ml Vial 10 Unit SQ QHS 30 Days Amlodipine Besylate 10 Mg Tablet 10 Mg PO DAILY 30 Days Klor-Con M20 (Potassium Chloride) 20 Meq Tab.er.prt 20 Meq PO BID Reported Duoneb 0.5-3(2.5) Mg/3 Ml (Albuterol/Ipratropium) 3 Ml Ampul.neb 3 Ml NEB QID PRN Furosemide 20 Mg Tablet 1 Tab PO DAILY Triamcinolone Acetonide 0.1% Oint (Triamcinolone Acetonide) 15 Gm Oint...g. 1 Ayse TP BID MIX WITH EUCERIN DIRECTED BY PHYSICIAN Aspir 81 (Aspirin) 81 Mg Tablet. 81 Mg PO DAILY Omeprazole 40 Mg Capsule.dr 40 Mg PO DAILY Simvastatin 10 Mg Tablet 10 Mg PO HS Vitals/I & O Vital Sign - Last 24 Hours 12/16/20 12/16/20 12/16/20 12/16/20 11:00 15:00 19:00 19:40 Temp 98.5 98.5 98.5 98.5 98.5 98.5 Pulse 97 98 100 Resp 16 18 18 B/P (MAP) 113/64 (80) 145/63 (90) 165/63 (97) Pulse Ox 94 92 92 O2 Delivery Nasal Cannula Nasal Cannula Room Air Nasal Cannula O2 Flow Rate 3.5 3.5 3.5 12/16/20 12/17/20 12/17/20 12/17/20 23:00 03:33 07:00 08:43 Temp 97.9 97.9 98.0 97.9 97.9 98.0 Pulse 88 94 91 91 Resp 17 18 16 B/P (MAP) 160/67 (98) 150/80 (103) 154/87 (109) 154/87 Pulse Ox 99 97 96 O2 Delivery Nasal Cannula Room Air Nasal Cannula O2 Flow Rate 3.5 2.0 Intake and Output 12/16/20 12/16/20 12/17/20 15:00 23:00 07:00 Intake Total 100 ml Balance 100 ml Justifications for Admission Other Justification ANIL MULLER MD Dec 17, 2020 10:01
--- NOTE | 2020-12-17 10:25 | PDOC ---
Renal-Progress Notes Subjective Notes Notes NO NEW COMPLAINTS History of Present Illness Hx of present illness STABLE Vitals Vitals Vital Signs Date Time Temp Pulse Resp B/P (MAP) Pulse Ox O2 Delivery O2 Flow Rate FiO2 12/17/20 08:43 91 154/87 12/17/20 07:00 98.0 16 96 Nasal Cannula 2.0 98.0 Weight Weight [ ] I.O. Intake and Output Intake and Output 12/17/20 07:00 Intake Total 100 ml Balance 100 ml Intake Oral 100 ml # Voids 1 Labs Labs Laboratory Tests Test 12/16/20 10:49 12/16/20 19:35 12/17/20 04:00 12/17/20 07:35 Glucose (Fingerstick) 280 mg/dL (70-99) 272 mg/dL (70-99) 276 mg/dL (70-99) White Blood Count 10.4 x10^3/uL (4.0-11.0) Red Blood Count 2.73 x10^6/uL (4.30-5.70) Hemoglobin 8.2 g/dL (13.0-17.5) Hematocrit 22.8 % (39.0-53.0) Mean Corpuscular Volume 84 fL (79-100) Mean Corpuscular Hemoglobin 30 pg (25-35) Mean Corpuscular Hemoglobin Concent 36 g/dL (31-37) Red Cell Distribution Width 16.7 % (11.5-14.5) Platelet Count 156 x10^3/uL (140-400) Neutrophils (%) (Auto) 83 % (31-73) Lymphocytes (%) (Auto) 10 % (24-48) Monocytes (%) (Auto) 6 % (0-9) Eosinophils (%) (Auto) 0 % (0-3) Basophils (%) (Auto) 0 % (0-3) Neutrophils # (Auto) 8.6 x10^3/uL (1.8-7.7) Lymphocytes # (Auto) 1.1 x10^3/uL (1.0-4.8) Monocytes # (Auto) 0.7 x10^3/uL (0.0-1.1) Eosinophils # (Auto) 0.0 x10^3/uL (0.0-0.7) Basophils # (Auto) 0.0 x10^3/uL (0.0-0.2) Sodium Level 141 mmol/L (136-145) Potassium Level 3.5 mmol/L (3.5-5.1) Chloride Level 104 mmol/L (98-107) Carbon Dioxide Level 27 mmol/L (21-32) Anion Gap 10 (6-14) Blood Urea Nitrogen 67 mg/dL (8-26) Creatinine 5.3 mg/dL (0.7-1.3) Estimated GFR (Cockcroft-Gault) 13.0 Glucose Level 314 mg/dL (70-99) Calcium Level 8.2 mg/dL (8.5-10.1) Random Vancomycin Level 18.8 mcg/mL Micro Micro Microbiology 12/14/20 Blood Culture - Final, Complete 12/14/20 Antimicrobic Susceptibility - Final, Complete Review of Systems Constitutional: yes: weakness, alert, oriented Ears/Nose/Throat: Yes: no symptom reported Eyes: Yes: no symptom reported Pulmonary: Yes no symptom reported Cardiovascular: Yes no symptom reported Gastrointestional: Yes: no symptom reported Genitourinary: Yes: no symptom reported Musculoskeletal: Yes: arm pain Skin: Yes no symptom reported Psychiatric/Neurological: Yes: no symptom reported Endocrine: Yes: no symptom reported Hematologic/Lymphatic: Yes: no symptom reported Physical Exam General Appearance: no apparent distress Skin: warm Respiratory: bilateral CTA Heart: S1S2 Abdomen: soft, bowel sounds present Genitourinary: bladder flat Extremities: pulses present, other (LEFT ARM AVG WITH A GOOD THRILL AND BRUIT. WARM TO TOUCH, NO ERYTHEMA OR DRAINAGE) Neurology: alert, oriented Musculoskeletal: Other Assessment Assessment IMP [id number] RIGHT IJ TUNNELED HD LINE FOR HD ANEMIA DM II HTN BACTEREMIA NEW L ARM BRACHIO-BASILIC LOOP GRAFT PLAN ANTIBIOTICS HD TODAY UF TO TW REMOVE TDC TODAY AFTER HD WILL THEN PLAN FOR HD ON WEDNESDAY AND UTILIZE HIS AVG D/W ID AND ATTENDING WILL FOLLOW JUS AYALA MD Dec 17, 2020 10:25
[2020-12-17] MEDS: VANCOMYCIN PER PHARMACY MC PRN (11:23)
--- NOTE | 2020-12-17 11:27 | NUR ---
Pharmacy Vancomycin Dosing Note S: Consulted to monitor and dose vancomycin started 12/15/20. O: RACHEL GREEN is a 70 year old M with Sepsis,Empiric treatment LABS: Last BUN: 67 Last Creatinine: 5.3 Creatinine Clearance: 11 (HD) mL/min Last WBC: 10.4 Tmax (past 24 hours): AFEBRILE Drug Levels: Last Random level: 18.8 on 12/17/20 at 0600 Last dose given 12/15/20 at 1402 Vancomycin Dosing: Dosing Weight: Actual Target Trough: 10-20 A: Based on: VANCO dosing guidelines P: 1. Continue Vancomycin 500 mg IV AFTER DIALYSIS TuThSa 2. Follow up Random level if needed. 3. Pharmacy will continue to monitor, follow and adjust therapy as needed. JAQUELINE HANSON [facility], 12/17/20 [id number]
[2020-12-17] MEDS ORDERED: LIDOCAINE 1%/EPI 1:100,000 20 ML VIAL. ONE (14:24)
[2020-12-17 15:00] VITALS: BP 111/84
--- NOTE | 2020-12-17 15:18 | NUR ---
Pt to IR for dialysis cath removal. Pt tolerated without difficulty. Dressing to R chest, clean and dry. GEOVANNA RN
[2020-12-17] MEDS ORDERED: VANCOMYCIN 500 MG in IV NORMAL SALINE 100ML 100 ML IV SCH (16:00)
[2020-12-17 19:30] VITALS: BP 134/63
[2020-12-17] MEDS: SIMVASTATIN 10 MG TABLET PO SCH (21:07)
[2020-12-17] MEDS: INSULIN GLARGINE SYRINGE. SQ SCH (21:21)
[2020-12-17 23:57] VITALS: BP 145/83
[2020-12-18 03:00] VITALS: BP 138/84
--- NOTE | 2020-12-18 05:43 | PDOC ---
Provider Note Date of Service: DATE: 12/17/20 TIME: 08 Provider Note pt without complaints LLU swelling is somewhat better no f/n/v MEDS reviewed PE VSS GENERAL: Alert and oriented x3 male, lying in bed comfortably, in no acute distress. HEENT: Normocephalic and atraumatic. No thrush. Oral mucosa moist. NECK: Supple, no JVD. LUNGS: Clear bilaterally. HEART: S1, S2. No murmurs. ABDOMEN: Soft, nontender, bowel sounds present. EXTREMITIES: No edema. DERMATOLOGIC: Warm, dry, no generalized rash. NEUROLOGIC: Alert, awake, grossly nonfocal. PSYCHIATRIC: Calm and cooperative. Left upper extremity graft site slightly warm and erythematous. Incision well- healed. No drainage. Right chest wall TDC catheter clean LABORATORY DATA: reviewed IMPRESSION: 1. Gram-positive cocci bacteremia.Staph hominis, Could be TDC catheter infection 2. Left upper extremity graft placement, possible secondary cellulitis. Incision intact. No drainage. Ultrasound negative for deep venous thrombosis. 3. Diarrhea. 4. End-stage renal disease. The patient is undergoing dialysis through right dialysis catheter in the chest. 5. Diabetes. 6. Anemia. RECOMMENDATIONS: 1. Continue IV vancomycin. 2. Follow up GPC in blood cultures. 3. Awaiting right HDC catheter removal today after HD 4. If the patient continues to have diarrhea, check C. diff. 5. Follow up labs and cultures. 6. Monitor LUE closely Justifications for Admission Other Justification CHANTEL QUARLES MD Dec 18, 2020 05:43
[2020-12-18 07:00] VITALS: BP 126/69
[2020-12-18] MEDS: INSULIN LISPRO 300 UNITS/3 ML VIAL. SQ SCH ×6 (08:00→17:00)
[2020-12-18] MEDS: ASPIRIN ENTERIC COATED 81 MG TABLET.DR. PO SCH (08:54)
[2020-12-18] MEDS: PANTOPRAZOLE 40 MG TABLET.DR. PO SCH (08:54)
[2020-12-18] MEDS: LACTOBACILLUS RHAMNOSUS GG 1 CAPSULE. PO SCH ×2 (08:54→21:11)
[2020-12-18] MEDS: MINERAL OIL/PETROLATUM TOPICAL CREAM 113GM JAR. TP SCH ×2 (09:00→21:51)
[2020-12-18] MEDS: DICLOFENAC SODIUM 1% TOPICAL GEL 100GM TUBE. TP SCH ×2 (09:00→21:52)
[2020-12-18] MEDS: TRIAMCINOLONE ACETONIDE 0.1% TOPICAL OINTMENT 15GM TUBE. TP SCH ×2 (09:00→21:51)
--- NOTE | 2020-12-18 09:01 | PDOC ---
PROGRESS NOTES Date of Service: DATE: 12/18/20 TIME: 08:58 Subjective Subjective feels ok ,weak Objective Objective Vital Signs Date Time Temp Pulse Resp B/P (MAP) Pulse Ox O2 Delivery O2 Flow Rate FiO2 12/18/20 07:00 98.0 90 16 126/69 (88) 94 Nasal Cannula 2.0 98.0 Intake and Output 12/18/20 07:00 Intake Total 740 ml Balance 740 ml Intake Oral 740 ml # Voids 2 Physical Exam Abdomen: Soft Heart: Normal S1, Normal S2 Extremities: No clubbing General: Alert MUSCULOSKELETAL: No swelling, Osteoarthritic changes both hands Neuro: Normal speech Psych/Mental Status: Mental status NL Skin: No breakdown Diagnosis Problem List Problems Medical Problems: (1) Adult failure to thrive Status: Acute (2) Cellulitis Status: Acute (3) ESRD (end stage renal disease) Status: Acute Assessment Assessment Problems Medical Problems: (1) Adult failure to thrive Status: Acute (2) Cellulitis Status: Acute (3) ESRD (end stage renal disease) Status: Acute FINAL IMPRESSION: sepsis,positive blood c/s 2/4, gram positive ,STAPHYLOCOCCUS HOMINIS MRS 1. Weakness. 2. Diarrhea. 3. Recent left upper arm arteriovenous shunt, rule out infection. 4. End-stage renal disease, on hemodialysis. 5. Insulin-dependent diabetes. 6. General debility. PLAN: New temp dialysis catheter to be placed tomorrow sepsis,positive blood c/s 2/4, gram positive.STAPHYLOCOCCUS HOMINIS MRS removed dialysis catheter 12/17/20 vancomycin 1 dose given iv,pharmacy to dose further. Appreciate ID consult. TO rehab wednesday Plan Plan of Care Problems Medical Problems: (1) Adult failure to thrive Status: Acute (2) Cellulitis Status: Acute (3) ESRD (end stage renal disease) Status: Acute Comment Review of Relevant I have reviewed the following items ken (where applicable) has been applied. Labs Laboratory Tests Test 12/17/20 13:01 12/17/20 17:15 12/17/20 19:29 12/18/20 07:35 Glucose (Fingerstick) 209 mg/dL (70-99) 196 mg/dL (70-99) 202 mg/dL (70-99) 213 mg/dL (70-99) Microbiology 12/14/20 Blood Culture - Final, Complete 12/14/20 Antimicrobic Susceptibility - Final, Complete Medications Current Medications Lidocaine/ Epinephrine (LIDOCAINE 1%-EPI 1:100,000 Multi-Dose) 20 ml STK-MED ONCE .ROUTE ; Start 12/17/20 at 14:24; Stop 12/17/20 at 14:24; Status DC Vancomycin HCl 500 mg/Sodium Chloride 100 ml @ 100 mls/hr QTUTHSA IV Last administered on 12/17/20at 16:00; Start 12/17/20 at 16:00 Vitals/I & O Vital Sign - Last 24 Hours 12/17/20 12/17/20 12/17/20 12/17/20 15:00 19:30 20:00 23:57 Temp 98.3 98.4 98.5 98.3 98.4 98.5 Pulse 97 100 80 Resp 16 16 16 B/P (MAP) 111/84 (93) 134/63 (86) 145/83 (103) Pulse Ox 96 98 97 O2 Delivery Room Air Room Air Nasal Cannula Nasal Cannula O2 Flow Rate 2.0 2.0 2.0 12/18/20 12/18/20 03:00 07:00 Temp 98.2 98.0 98.2 98.0 Pulse 90 90 Resp 16 16 B/P (MAP) 138/84 (102) 126/69 (88) Pulse Ox 97 94 O2 Delivery Nasal Cannula Nasal Cannula O2 Flow Rate 2.0 2.0 Intake and Output 12/17/20 12/17/20 12/18/20 15:00 23:00 07:00 Intake Total 200 ml 540 ml Balance 200 ml 540 ml Justifications for Admission Other Justification GISELL CLARK MD Dec 18, 2020 09:00
--- NOTE | 2020-12-18 09:06 | PDOC ---
PROGRESS NOTES Date of Service DATE: 12/18/20 TIME: 09:02 Subjective Subjective No new complaints. Objective Objective Vital Signs Date Time Temp Pulse Resp B/P (MAP) Pulse Ox O2 Delivery O2 Flow Rate FiO2 12/18/20 07:00 98.0 90 16 126/69 (88) 94 Nasal Cannula 2.0 98.0 Intake and Output 12/18/20 07:00 Intake Total 740 ml Balance 740 ml Intake Oral 740 ml # Voids 2 Physical Exam Physical Exam He is alert,sitting at edge of bed and he got up with supervision and cues and made a few steps at bedside with roller walker with wide based gait and then felt weak but did not loose balance. His physical endurance is low and he is a fall risk without standby assistance. Assessment Assessment Problems Medical Problems: (1) Adult failure to thrive Status: Acute (2) Cellulitis Status: Acute (3) ESRD (end stage renal disease) Status: Acute Plan Plan of Care Waiting for rehab or SNF transfer when medically stable. Comment Review of Relevant I have reviewed the following items ken (where applicable) has been applied. Labs Laboratory Tests Test 12/16/20 10:49 12/16/20 19:35 12/17/20 04:00 12/17/20 07:35 Glucose (Fingerstick) 280 mg/dL (70-99) 272 mg/dL (70-99) 276 mg/dL (70-99) White Blood Count 10.4 x10^3/uL (4.0-11.0) Red Blood Count 2.73 x10^6/uL (4.30-5.70) Hemoglobin 8.2 g/dL (13.0-17.5) Hematocrit 22.8 % (39.0-53.0) Mean Corpuscular Volume 84 fL (79-100) Mean Corpuscular Hemoglobin 30 pg (25-35) Mean Corpuscular Hemoglobin Concent 36 g/dL (31-37) Red Cell Distribution Width 16.7 % (11.5-14.5) Platelet Count 156 x10^3/uL (140-400) Neutrophils (%) (Auto) 83 % (31-73) Lymphocytes (%) (Auto) 10 % (24-48) Monocytes (%) (Auto) 6 % (0-9) Eosinophils (%) (Auto) 0 % (0-3) Basophils (%) (Auto) 0 % (0-3) Neutrophils # (Auto) 8.6 x10^3/uL (1.8-7.7) Lymphocytes # (Auto) 1.1 x10^3/uL (1.0-4.8) Monocytes # (Auto) 0.7 x10^3/uL (0.0-1.1) Eosinophils # (Auto) 0.0 x10^3/uL (0.0-0.7) Basophils # (Auto) 0.0 x10^3/uL (0.0-0.2) Sodium Level 141 mmol/L (136-145) Potassium Level 3.5 mmol/L (3.5-5.1) Chloride Level 104 mmol/L (98-107) Carbon Dioxide Level 27 mmol/L (21-32) Anion Gap 10 (6-14) Blood Urea Nitrogen 67 mg/dL (8-26) Creatinine 5.3 mg/dL (0.7-1.3) Estimated GFR (Cockcroft-Gault) 13.0 Glucose Level 314 mg/dL (70-99) Calcium Level 8.2 mg/dL (8.5-10.1) Random Vancomycin Level 18.8 mcg/mL Test 12/17/20 13:01 12/17/20 17:15 12/17/20 19:29 12/18/20 07:35 Glucose (Fingerstick) 209 mg/dL (70-99) 196 mg/dL (70-99) 202 mg/dL (70-99) 213 mg/dL (70-99) Laboratory Tests Test 12/17/20 13:01 12/17/20 17:15 12/17/20 19:29 12/18/20 07:35 Glucose (Fingerstick) 209 mg/dL (70-99) 196 mg/dL (70-99) 202 mg/dL (70-99) 213 mg/dL (70-99) Microbiology 12/14/20 Blood Culture - Final, Complete 12/14/20 Antimicrobic Susceptibility - Final, Complete Medications Current Medications Fentanyl Citrate (Fentanyl 2ml Vial) 50 mcg PRN Q1HR PRN IVP PAIN; Start 12/14/20 at 13:15; Stop 12/15/20 at 13:14; Status DC Acetaminophen (Tylenol) 650 mg PRN Q4HRS PRN PO FEVER > 100.3'F; Start 12/14/20 at 13:15; Stop 12/15/20 at 13:14; Status DC Cefazolin Sodium/ Dextrose 50 ml @ 100 mls/hr 1X ONCE IV Last administered on 12/14/20at 14:23; Start 12/14/20 at 13:30; Stop 12/14/20 at 13:59; Status DC Insulin Glargine (Lantus Syringe) 10 unit QHS SQ Last administered on 12/17/20at 21:21; Start 12/14/20 at 23:00 Insulin Human Lispro (HumaLOG) 0-7 UNITS TIDWMEALS SQ Last administered on 12/17/20at 17:00; Start 12/15/20 at 08:00 Dextrose (Dextrose 50%-Water Syringe) 12.5 gm PRN Q15MIN PRN IV SEE COMMENTS; Start 12/14/20 at 21:15 Insulin Human Lispro (HumaLOG) 10 units 1X ONCE SQ Last administered on 12/14/20at 22:29; Start 12/14/20 at 22:30; Stop 12/14/20 at 22:31; Status DC Amlodipine Besylate (Norvasc) 10 mg DAILY PO Last administered on 12/17/20at 08:43; Start 12/15/20 at 09:00 Aspirin (Ecotrin) 81 mg DAILY PO Last administered on 12/17/20at 08:43; Start 12/15/20 at 09:00 Acetaminophen/ Hydrocodone Bitart (Lortab 5/325) 1 tab PRN QID PRN PO MODERATE PAIN 4-6; Start 12/14/20 at 22:45 Insulin Human Lispro (HumaLOG) 5 units TIDWMEALS SQ Last administered on 12/17/20at 17:36; Start 12/15/20 at 08:00 Albuterol Sulfate (Ventolin Neb Soln) 2.5 mg PRN QID PRN NEB WHEEZING; Start 12/14/20 at 23:00 Simvastatin (Zocor) 10 mg HS PO Last administered on 12/17/20at 21:07; Start 12/15/20 at 21:00 Triamcinolone Acetonide (Kenalog 0.1%) 1 ayse BID TP Last administered on 12/17/20at 21:18; Start 12/15/20 at 09:00 Pantoprazole Sodium (Protonix) 40 mg DAILYAC PO Last administered on 12/17/20at 08:42; Start 12/15/20 at 07:30 Sodium Chloride 1,000 ml @ 1,000 mls/hr Q1H PRN IV hypotension; Start 12/15/20 at 06:45; Stop 12/15/20 at 12:44; Status DC Sodium Chloride 1,000 ml @ 400 mls/hr Q2H30M PRN IV PATENCY; Start 12/15/20 at 06:45; Stop 12/15/20 at 18:44; Status DC Info (PHARMACY MONITORING -- do not chart) 1 each PRN DAILY PRN MC SEE COMMENTS; Start 12/15/20 at 06:45 Info (PHARMACY MONITORING -- do not chart) 1 each PRN DAILY PRN MC SEE CO MMENTS; Start 12/15/20 at 06:45; Stop 12/15/20 at 06:47; Status DC Vancomycin HCl 1.5 gm/Sodium Chloride 500 ml @ 250 mls/hr 1X ONCE IV ; Start 12/15/20 at 08:30; Stop 12/15/20 at 10:29; Status UNV Vancomycin HCl 2 gm/Sodium Chloride 500 ml @ 250 mls/hr 1X ONCE IV Last administered on 12/15/20at 14:02; Start 12/15/20 at 09:00; Stop 12/15/20 at 10:59; Status DC Epoetin Camron-epbx (RETACRIT for ESRD PTS) 10,000 unit MoWeFr@2100 SQ Last administered on 12/16/20at 20:56; Start 12/16/20 at 21:00 Vancomycin HCl (Vanco Per Pharmacy) 1 each PRN DAILY PRN MC SEE COMMENTS Last administered on 12/17/20at 11:23; Start 12/15/20 at 15:15 Vancomycin HCl (Vancomycin Random Level) 1 each 1X ONCE MC Last administered on 12/17/20at 06:00; Start 12/17/20 at 06:00; Stop 12/17/20 at 06:01; Status DC Methylprednisolone Acetate (DEPO-Medrol 40MG VIAL) 40 mg 1X ONCE IM ; Start 12/16/20 at 09:30; Stop 12/16/20 at 09:31; Status DC Bupivacaine HCl (Sensorcaine-Mpf 0.25%) 10 ml 1X ONCE IJ ; Start 12/16/20 at 09:30; Stop 12/16/20 at 09:31; Status DC Multi-Ingredient Ointment (Hydrocerin, Eucerin Cream) 1 ayse BID TP Last administered on 12/17/20at 21:18; Start 12/16/20 at 21:00 Diclofenac Sodium (Voltaren) 1 ayse BID TP Last administered on 12/17/20at 21:18; Start 12/16/20 at 10:00 Lactobacillus Rhamnosus (Culturelle) 1 cap BID PO Last administered on 12/17/20at 21:07; Start 12/16/20 at 21:00 Sodium Chloride 1,000 ml @ 1,000 mls/hr Q1H PRN IV hypotension; Start 12/17/20 at 08:00; Stop 12/17/20 at 13:59; Status DC Sodium Chloride 1,000 ml @ 400 mls/hr Q2H30M PRN IV PATENCY; Start 12/17/20 at 08:00; Stop 12/17/20 at 19:59; Status DC Info (PHARMACY MONITORING -- do not chart) 1 each PRN DAILY PRN MC SEE COMMENTS; Start 12/17/20 at 08:00; Status Cancel Info (PHARMACY MONITORING -- do not chart) 1 each PRN DAILY PRN MC SEE COMMENTS; Start 12/17/20 at 08:00; Status Cancel Vancomycin HCl 500 mg/Sodium Chloride 100 ml @ 100 mls/hr QTUTHSA IV Last administered on 12/17/20at 16:00; Start 12/17/20 at 16:00 Lidocaine/ Epinephrine (LIDOCAINE 1%-EPI 1:100,000 Multi-Dose) 20 ml STK-MED ONCE .ROUTE ; Start 12/17/20 at 14:24; Stop 12/17/20 at 14:24; Status DC Active Scripts Active Hydrocodone-Apap 5-325 (Hydrocodone Bit/Acetaminophen) 1 Tab Tablet 1 Tab PO PRN 1-2XD PRN 10 Days Admelog (Insulin Lispro) 100 Unit/1 Ml Vial 5 Units SQ TIDWMEALS 30 Days Lantus (Insulin Glargine,Hum.rec.anlog) 100 Unit/1 Ml Vial 10 Unit SQ QHS 30 Days Amlodipine Besylate 10 Mg Tablet 10 Mg PO DAILY 30 Days Klor-Con M20 (Potassium Chloride) 20 Meq Tab.er.prt 20 Meq PO BID Reported Duoneb 0.5-3(2.5) Mg/3 Ml (Albuterol/Ipratropium) 3 Ml Ampul.neb 3 Ml NEB QID PRN Furosemide 20 Mg Tablet 1 Tab PO DAILY Triamcinolone Acetonide 0.1% Oint (Triamcinolone Acetonide) 15 Gm Oint...g. 1 Ayse TP BID MIX WITH EUCERIN DIRECTED BY PHYSICIAN Buddy 81 (Aspirin) 81 Mg Tablet. 81 Mg PO DAILY Omeprazole 40 Mg Capsule. 40 Mg PO DAILY Simvastatin 10 Mg Tablet 10 Mg PO HS Vitals/I & O Vital Sign - Last 24 Hours 12/17/20 12/17/20 12/17/20 12/17/20 15:00 19:30 20:00 23:57 Temp 98.3 98.4 98.5 98.3 98.4 98.5 Pulse 97 100 80 Resp 16 16 16 B/P (MAP) 111/84 (93) 134/63 (86) 145/83 (103) Pulse Ox 96 98 97 O2 Delivery Room Air Room Air Nasal Cannula Nasal Cannula O2 Flow Rate 2.0 2.0 2.0 12/18/20 12/18/20 03:00 07:00 Temp 98.2 98.0 98.2 98.0 Pulse 90 90 Resp 16 16 B/P (MAP) 138/84 (102) 126/69 (88) Pulse Ox 97 94 O2 Delivery Nasal Cannula Nasal Cannula O2 Flow Rate 2.0 2.0 Intake and Output 12/17/20 12/17/20 12/18/20 15:00 23:00 07:00 Intake Total 200 ml 540 ml Balance 200 ml 540 ml Justifications for Admission Other Justification ANIL MULLER MD Dec 18, 2020 09:06
[2020-12-18 11:00] VITALS: BP 118/56
--- NOTE | 2020-12-18 11:37 | PDOC ---
Renal-Progress Notes Subjective Notes Notes NO NEW COMPLAINTS History of Present Illness Hx of present illness FEELING A BIT BETTER Vitals Vitals Vital Signs Date Time Temp Pulse Resp B/P (MAP) Pulse Ox O2 Delivery O2 Flow Rate FiO2 12/18/20 11:00 97.9 100 16 118/56 (76) 92 Nasal Cannula 2.0 97.9 Weight Weight [ ] I.O. Intake and Output Intake and Output 12/18/20 07:00 Intake Total 740 ml Balance 740 ml Intake Oral 740 ml # Voids 2 Labs Labs Laboratory Tests Test 12/17/20 13:01 12/17/20 17:15 12/17/20 19:29 12/18/20 07:35 Glucose (Fingerstick) 209 mg/dL (70-99) 196 mg/dL (70-99) 202 mg/dL (70-99) 213 mg/dL (70-99) Micro Micro Microbiology 12/14/20 Blood Culture - Final, Complete 12/14/20 Antimicrobic Susceptibility - Final, Complete Review of Systems Constitutional: yes: weakness, alert, oriented Ears/Nose/Throat: Yes: no symptom reported Eyes: Yes: no symptom reported Pulmonary: Yes no symptom reported Cardiovascular: Yes no symptom reported Gastrointestional: Yes: no symptom reported Genitourinary: Yes: no symptom reported Musculoskeletal: Yes: arm pain Skin: Yes no symptom reported Psychiatric/Neurological: Yes: no symptom reported Endocrine: Yes: no symptom reported Hematologic/Lymphatic: Yes: no symptom reported Physical Exam General Appearance: no apparent distress Skin: warm Respiratory: bilateral CTA Heart: S1S2 Abdomen: soft, bowel sounds present Genitourinary: bladder flat Extremities: pulses present, other (LEFT ARM AVG WITH A GOOD THRILL AND BRUIT. WARM TO TOUCH, NO ERYTHEMA OR DRAINAGE) Neurology: alert, oriented Musculoskeletal: Other Assessment Assessment IMP COUA-DOD-FUXCI RIGHT IJ TUNNELED HD LINE FOR HD ANEMIA DM II HTN BACTEREMIA NEW L ARM BRACHIO-BASILIC LOOP GRAFT PLAN ANTIBIOTICS HD NEXT ON WEDNESDAY UTILIZE HIS AVG WEDNESDAY D/W ID AND ATTENDING WILL FOLLOW JUS AYALA MD Dec 18, 2020 11:37
[2020-12-18 15:00] VITALS: BP 148/78
--- NOTE | 2020-12-18 17:27 | PDOC ---
Infectious Disease Note Subjective Subjective pt is feeling better ROS ROS no n/v/d/ Vital Sign Vital Signs Vital Signs Date Time Temp Pulse Resp B/P (MAP) Pulse Ox O2 Delivery O2 Flow Rate FiO2 12/18/20 15:00 97.7 88 16 148/78 (101) 94 Nasal Cannula 2.0 97.7 Physical Exam PHYSICAL EXAM VSS GENERAL: Alert and oriented x3 male, lying in bed comfortably, in no acute distress. HEENT: Normocephalic and atraumatic. No thrush. Oral mucosa moist. NECK: Supple, no JVD. LUNGS: Clear bilaterally. HEART: S1, S2. No murmurs. ABDOMEN: Soft, nontender, bowel sounds present. EXTREMITIES: No edema. DERMATOLOGIC: Warm, dry, no generalized rash. NEUROLOGIC: Alert, awake, grossly nonfocal. PSYCHIATRIC: Calm and cooperative. Left upper extremity graft site slightly warm and erythematous. Incision well- healed. No drainage. Right chest wall TDC catheter out Labs Lab Laboratory Tests Test 12/17/20 19:29 12/18/20 07:35 12/18/20 11:37 12/18/20 16:42 Glucose (Fingerstick) 202 mg/dL (70-99) 213 mg/dL (70-99) 249 mg/dL (70-99) 272 mg/dL (70-99) Micro BC coag neg staph Objective Assessment 1. Gram-positive cocci bacteremia.Staph hominis, Could be TDC catheter infection 2. Left upper extremity graft placement, possible secondary cellulitis. Incision intact. No drainage. Ultrasound negative for deep venous thrombosis. 3. Diarrhea. 4. End-stage renal disease. The patient is undergoing dialysis through right dialysis catheter in the chest. 5. Diabetes. 6. Anemia. Plan Plan of Care cont antibiotics cont vancomycin VIKTOR QUARLES MD Dec 18, 2020 17:27
[2020-12-18 19:00] VITALS: BP 151/75
[2020-12-18] MEDS: SIMVASTATIN 10 MG TABLET PO SCH (21:11)
[2020-12-18] MEDS: EPOETIN ALFA-EPBX for ESRD 20,000 UNIT/ML VIAL. SQ SCH (21:11)
[2020-12-18] MEDS: INSULIN GLARGINE SYRINGE. SQ SCH (21:16)
[2020-12-18 23:33] VITALS: BP 141/79
[2020-12-19 03:00] VITALS: BP 136/71
[2020-12-19 05:09] LABS: CALCIUM 8.6 mg/dL (8.5-10.1); CREATININE 4.8 mg/dL (0.7-1.3); GFR 14.6; POTASSIUM 3.2 mmol/L (3.5-5.1)
[2020-12-19 07:00] VITALS: BP 150/74
[2020-12-19] MEDS: PANTOPRAZOLE 40 MG TABLET.DR. PO SCH (07:30)
[2020-12-19] MEDS: INSULIN LISPRO 300 UNITS/3 ML VIAL. SQ SCH ×6 (07:56→17:26)
--- NOTE | 2020-12-19 08:56 | PDOC ---
PROGRESS NOTES Date of Service: DATE: 12/19/20 TIME: 08:54 Subjective Subjective no new problems Objective Objective Vital Signs Date Time Temp Pulse Resp B/P (MAP) Pulse Ox O2 Delivery O2 Flow Rate FiO2 12/19/20 07:00 98.1 89 18 150/74 (99) 95 Room Air 98.1 12/19/20 03:00 2.0 Intake and Output 12/19/20 07:00 Intake Total 100 ml Output Total 1 ml Balance 99 ml Intake Oral 100 ml Stool Total 1 ml # Voids 3 Physical Exam Abdomen: Soft Heart: Normal S1, Normal S2 Extremities: No clubbing General: Alert MUSCULOSKELETAL: No swelling, Osteoarthritic changes both hands Neuro: Normal speech Psych/Mental Status: Mental status NL Skin: No breakdown Diagnosis Problem List Problems Medical Problems: (1) Adult failure to thrive Status: Acute (2) Cellulitis Status: Acute (3) ESRD (end stage renal disease) Status: Acute Assessment Assessment Problems Medical Problems: (1) Adult failure to thrive Status: Acute (2) Cellulitis Status: Acute (3) ESRD (end stage renal disease) Status: Acute FINAL IMPRESSION: sepsis,positive blood c/s 2/4, gram positive ,STAPHYLOCOCCUS HOMINIS MRS 1. Weakness. 2. Diarrhea. 3. Recent left upper arm arteriovenous shunt, rule out infection. 4. End-stage renal disease, on hemodialysis. 5. Insulin-dependent diabetes. 6. General debility. PLAN: New temp dialysis catheter to be placed today? tomorrow plans for dialysis tomorrow am.repeat blood c/s neg sepsis,positive blood c/s 2/4, gram positive.STAPHYLOCOCCUS HOMINIS MRS removed dialysis catheter 12/17/20 vancomycin given iv,pharmacy to dose further. Appreciate ID consult. To SNU wednesday spoke with RN Plan Plan of Care Problems Medical Problems: (1) Adult failure to thrive Status: Acute (2) Cellulitis Status: Acute (3) ESRD (end stage renal disease) Status: Acute Comment Review of Relevant I have reviewed the following items ken (where applicable) has been applied. Labs Laboratory Tests Test 12/18/20 11:37 12/18/20 16:42 12/18/20 19:40 12/19/20 03:10 Glucose (Fingerstick) 249 mg/dL (70-99) 272 mg/dL (70-99) 189 mg/dL (70-99) Sodium Level 142 mmol/L (136-145) Potassium Level 3.2 mmol/L (3.5-5.1) Chloride Level 103 mmol/L (98-107) Carbon Dioxide Level 27 mmol/L (21-32) Anion Gap 12 (6-14) Blood Urea Nitrogen 61 mg/dL (8-26) Creatinine 4.8 mg/dL (0.7-1.3) Estimated GFR (Cockcroft-Gault) 14.6 Glucose Level 161 mg/dL (70-99) Calcium Level 8.6 mg/dL (8.5-10.1) Test 12/19/20 07:37 Glucose (Fingerstick) 175 mg/dL (70-99) Microbiology 12/17/20 Blood Culture - Preliminary, Resulted NO GROWTH AFTER 1 DAY Vitals/I & O Vital Sign - Last 24 Hours 12/18/20 12/18/20 12/18/20 12/18/20 08:55 11:00 15:00 19:00 Temp 97.9 97.7 98.5 97.9 97.7 98.5 Pulse 90 100 88 94 Resp 16 16 16 B/P (MAP) 126/69 118/56 (76) 148/78 (101) 151/75 (100) Pulse Ox 92 94 95 O2 Delivery Nasal Cannula Nasal Cannula Nasal Cannula O2 Flow Rate 2.0 2.0 2.0 12/18/20 12/18/20 12/18/20 12/19/20 20:00 23:10 23:33 03:00 Temp 98.6 98.2 98.6 98.2 Pulse 89 65 Resp 16 16 B/P (MAP) 141/79 (99) 136/71 (92) Pulse Ox 96 94 O2 Delivery Room Air Room Air Nasal Cannula Nasal Cannula O2 Flow Rate 2.0 2.0 12/19/20 07:00 Temp 98.1 98.1 Pulse 89 Resp 18 B/P (MAP) 150/74 (99) Pulse Ox 95 O2 Delivery Room Air Intake and Output 12/18/20 12/18/20 12/19/20 15:00 23:00 07:00 Intake Total 100 ml Output Total 1 ml Balance 100 ml -1 ml Justifications for Admission Other Justification GISELL CLARK MD Dec 19, 2020 08:56
[2020-12-19] MEDS: LACTOBACILLUS RHAMNOSUS GG 1 CAPSULE. PO SCH ×2 (09:00→21:26)
[2020-12-19] MEDS: TRIAMCINOLONE ACETONIDE 0.1% TOPICAL OINTMENT 15GM TUBE. TP SCH ×2 (09:00→21:35)
[2020-12-19] MEDS: ASPIRIN ENTERIC COATED 81 MG TABLET.DR. PO SCH (09:00)
--- NOTE | 2020-12-19 09:04 | PDOC ---
PROGRESS NOTES Date of Service DATE: 12/19/20 TIME: 09:02 Subjective Subjective No new complaints. Objective Objective Vital Signs Date Time Temp Pulse Resp B/P (MAP) Pulse Ox O2 Delivery O2 Flow Rate FiO2 12/19/20 07:00 98.1 89 18 150/74 (99) 95 Room Air 98.1 12/19/20 03:00 2.0 Intake and Output 12/19/20 07:00 Intake Total 100 ml Output Total 1 ml Balance 99 ml Intake Oral 100 ml Stool Total 1 ml # Voids 3 Physical Exam Physical Exam He is alert,supine in bed and seems comfortable and he is working with therapy but balance probles persists and his physical endurance is low. Assessment Assessment Problems Medical Problems: (1) Adult failure to thrive Status: Acute (2) Cellulitis Status: Acute (3) ESRD (end stage renal disease) Status: Acute Plan Plan of Care Agree with plans for transfer to SNF when arrangements are completed. Comment Review of Relevant I have reviewed the following items ken (where applicable) has been applied. Labs Laboratory Tests Test 12/17/20 13:01 12/17/20 17:15 12/17/20 19:29 12/18/20 07:35 Glucose (Fingerstick) 209 mg/dL (70-99) 196 mg/dL (70-99) 202 mg/dL (70-99) 213 mg/dL (70-99) Test 12/18/20 11:37 12/18/20 16:42 12/18/20 19:40 12/19/20 03:10 Glucose (Fingerstick) 249 mg/dL (70-99) 272 mg/dL (70-99) 189 mg/dL (70-99) Sodium Level 142 mmol/L (136-145) Potassium Level 3.2 mmol/L (3.5-5.1) Chloride Level 103 mmol/L (98-107) Carbon Dioxide Level 27 mmol/L (21-32) Anion Gap 12 (6-14) Blood Urea Nitrogen 61 mg/dL (8-26) Creatinine 4.8 mg/dL (0.7-1.3) Estimated GFR (Cockcroft-Gault) 14.6 Glucose Level 161 mg/dL (70-99) Calcium Level 8.6 mg/dL (8.5-10.1) Test 12/19/20 07:37 Glucose (Fingerstick) 175 mg/dL (70-99) Laboratory Tests Test 12/18/20 11:37 12/18/20 16:42 12/18/20 19:40 12/19/20 03:10 Glucose (Fingerstick) 249 mg/dL (70-99) 272 mg/dL (70-99) 189 mg/dL (70-99) Sodium Level 142 mmol/L (136-145) Potassium Level 3.2 mmol/L (3.5-5.1) Chloride Level 103 mmol/L (98-107) Carbon Dioxide Level 27 mmol/L (21-32) Anion Gap 12 (6-14) Blood Urea Nitrogen 61 mg/dL (8-26) Creatinine 4.8 mg/dL (0.7-1.3) Estimated GFR (Cockcroft-Gault) 14.6 Glucose Level 161 mg/dL (70-99) Calcium Level 8.6 mg/dL (8.5-10.1) Test 12/19/20 07:37 Glucose (Fingerstick) 175 mg/dL (70-99) Microbiology 12/17/20 Gram Stain - Final, Resulted 12/17/20 Aerobic Culture - Preliminary, Resulted 12/17/20 Blood Culture - Preliminary, Resulted NO GROWTH AFTER 1 DAY Medications Current Medications Fentanyl Citrate (Fentanyl 2ml Vial) 50 mcg PRN Q1HR PRN IVP PAIN; Start 12/14/20 at 13:15; Stop 12/15/20 at 13:14; Status DC Acetaminophen (Tylenol) 650 mg PRN Q4HRS PRN PO FEVER > 100.3'F; Start 12/14/20 at 13:15; Stop 12/15/20 at 13:14; Status DC Cefazolin Sodium/ Dextrose 50 ml @ 100 mls/hr 1X ONCE IV Last administered on 12/14/20at 14:23; Start 12/14/20 at 13:30; Stop 12/14/20 at 13:59; Status DC Insulin Glargine (Lantus Syringe) 10 unit QHS SQ Last administered on 12/18/20at 21:16; Start 12/14/20 at 23:00 Insulin Human Lispro (HumaLOG) 0-7 UNITS TIDWMEALS SQ Last administered on 12/18/20at 17:00; Start 12/15/20 at 08:00 Dextrose (Dextrose 50%-Water Syringe) 12.5 gm PRN Q15MIN PRN IV SEE COMMENTS; Start 12/14/20 at 21:15 Insulin Human Lispro (HumaLOG) 10 units 1X ONCE SQ Last administered on 12/14/20at 22:29; Start 12/14/20 at 22:30; Stop 12/14/20 at 22:31; Status DC Amlodipine Besylate (Norvasc) 10 mg DAILY PO Last administered on 12/18/20at 08:55; Start 12/15/20 at 09:00 Aspirin (Ecotrin) 81 mg DAILY PO Last administered on 12/18/20at 08:54; Start 12/15/20 at 09:00 Acetaminophen/ Hydrocodone Bitart (Lortab 5/325) 1 tab PRN QID PRN PO MODERATE PAIN 4-6; Start 12/14/20 at 22:45 Insulin Human Lispro (HumaLOG) 5 units TIDWMEALS SQ Last administered on 12/18/20at 17:00; Start 12/15/20 at 08:00 Albuterol Sulfate (Ventolin Neb Soln) 2.5 mg PRN QID PRN NEB WHEEZING; Start 12/14/20 at 23:00 Simvastatin (Zocor) 10 mg HS PO Last administered on 12/18/20at 21:11; Start 12/15/20 at 21:00 Triamcinolone Acetonide (Kenalog 0.1%) 1 ayse BID TP Last administered on 12/18/20at 21:51; Start 12/15/20 at 09:00 Pantoprazole Sodium (Protonix) 40 mg DAILYAC PO Last administered on 12/18/20at 08:54; Start 12/15/20 at 07:30 Sodium Chloride 1,000 ml @ 1,000 mls/hr Q1H PRN IV hypotension; Start 12/15/20 at 06:45; Stop 12/15/20 at 12:44; Status DC Sodium Chloride 1,000 ml @ 400 mls/hr Q2H30M PRN IV PATENCY; Start 12/15/20 at 06:45; Stop 12/15/20 at 18:44; Status DC Info (PHARMACY MONITORING -- do not chart) 1 each PRN DAILY PRN MC SEE COMMENTS; Start 12/15/20 at 06:45 Info (PHARMACY MONITORING -- do not chart) 1 each PRN DAILY PRN MC SEE COMMENTS; Start 12/15/20 at 06:45; Stop 12/15/20 at 06:47; Status DC Vancomycin HCl 1.5 gm/Sodium Chloride 500 ml @ 250 mls/hr 1X ONCE IV ; Start 12/15/20 at 08:30; Stop 12/15/20 at 10:29; Status UNV Vancomycin HCl 2 gm/Sodium Chloride 500 ml @ 250 mls/hr 1X ONCE IV Last administered on 12/15/20at 14:02; Start 12/15/20 at 09:00; Stop 12/15/20 at 10:59; Status DC Epoetin Camron-epbx (RETACRIT for ESRD PTS) 10,000 unit MoWeFr@2100 SQ Last administered on 12/18/20at 21:11; Start 12/16/20 at 21:00 Vancomycin HCl (Vanco Per Pharmacy) 1 each PRN DAILY PRN MC SEE COMMENTS Last administered on 12/17/20at 11:23; Start 12/15/20 at 15:15 Vancomycin HCl (Vancomycin Random Level) 1 each 1X ONCE MC Last administered on 12/17/20at 06:00; Start 12/17/20 at 06:00; Stop 12/17/20 at 06:01; Status DC Methylprednisolone Acetate (DEPO-Medrol 40MG VIAL) 40 mg 1X ONCE IM ; Start 12/16/20 at 09:30; Stop 12/16/20 at 09:31; Status DC Bupivacaine HCl (Sensorcaine-Mpf 0.25%) 10 ml 1X ONCE IJ ; Start 12/16/20 at 09:30; Stop 12/16/20 at 09:31; Status DC Multi-Ingredient Ointment (Hydrocerin, Eucerin Cream) 1 ayse BID TP Last administered on 12/18/20at 21:51; Start 12/16/20 at 21:00 Diclofenac Sodium (Voltaren) 1 ayse BID TP Last administered on 12/18/20at 21:52; Start 12/16/20 at 10:00 Lactobacillus Rhamnosus (Culturelle) 1 cap BID PO Last administered on 12/18at 21:11; Start 12/16/20 at 21:00 Sodium Chloride 1,000 ml @ 1,000 mls/hr Q1H PRN IV hypotension; Start 12/17/20 at 08:00; Stop 12/17/20 at 13:59; Status DC Sodium Chloride 1,000 ml @ 400 mls/hr Q2H30M PRN IV PATENCY; Start 12/17/20 at 08:00; Stop 12/17/20 at 19:59; Status DC Info (PHARMACY MONITORING -- do not chart) 1 each PRN DAILY PRN MC SEE COMMENTS; Start 12/17/20 at 08:00; Status Cancel Info (PHARMACY MONITORING -- do not chart) 1 each PRN DAILY PRN MC SEE COMMENTS; Start 12/17/20 at 08:00; Status Cancel Vancomycin HCl 500 mg/Sodium Chloride 100 ml @ 100 mls/hr QTUTHSA IV Last administered on 12/17/20at 16:00; Start 12/17/20 at 16:00 Lidocaine/ Epinephrine (LIDOCAINE 1%-EPI 1:100,000 Multi-Dose) 20 ml STK-MED ONCE .ROUTE ; Start 12/17/20 at 14:24; Stop 12/17/20 at 14:24; Status DC Active Scripts Active Hydrocodone-Apap 5-325 (Hydrocodone Bit/Acetaminophen) 1 Tab Tablet 1 Tab PO PRN 1-2XD PRN 10 Days Admelog (Insulin Lispro) 100 Unit/1 Ml Vial 5 Units SQ TIDWMEALS 30 Days Lantus (Insulin Glargine,Hum.rec.anlog) 100 Unit/1 Ml Vial 10 Unit SQ QHS 30 Days Amlodipine Besylate 10 Mg Tablet 10 Mg PO DAILY 30 Days Klor-Con M20 (Potassium Chloride) 20 Meq Tab.er.prt 20 Meq PO BID Reported Duoneb 0.5-3(2.5) Mg/3 Ml (Albuterol/Ipratropium) 3 Ml Ampul.neb 3 Ml NEB QID PRN Furosemide 20 Mg Tablet 1 Tab PO DAILY Triamcinolone Acetonide 0.1% Oint (Triamcinolone Acetonide) 15 Gm Oint...g. 1 Ayse TP BID MIX WITH EUCERIN DIRECTED BY PHYSICIAN Buddy 81 (Aspirin) 81 Mg Tablet. 81 Mg PO DAILY Omeprazole 40 Mg Capsule. 40 Mg PO DAILY Simvastatin 10 Mg Tablet 10 Mg PO HS Vitals/I & O Vital Sign - Last 24 Hours 11/1012/18/20 12/18/20 12/18/20 11:00 15:00 19:00 20:00 Temp 97.9 97.7 98.5 97.9 97.7 98.5 Pulse 100 88 94 Resp 16 16 16 B/P (MAP) 118/56 (76) 148/78 (101) 151/75 (100) Pulse Ox 92 94 95 O2 Delivery Nasal Cannula Nasal Cannula Nasal Cannula Room Air O2 Flow Rate 2.0 2.0 2.0 12/18/20 12/18/20 12/19/20 12/19/20 23:10 23:33 03:00 07:00 Temp 98.6 98.2 98.1 98.6 98.2 98.1 Pulse 89 65 89 Resp 16 16 18 B/P (MAP) 141/79 (99) 136/71 (92) 150/74 (99) Pulse Ox 96 94 95 O2 Delivery Room Air Nasal Cannula Nasal Cannula Room Air O2 Flow Rate 2.0 2.0 Intake and Output 12/18/20 12/18/20 12/19/20 15:00 23:00 07:00 Intake Total 100 ml Output Total 1 ml Balance 100 ml -1 ml Justifications for Admission Other Justification ANIL MULLER MD Dec 19, 2020 09:04
[2020-12-19] MEDS ORDERED: POTASSIUM CHLORIDE 20 MEQ TABLET.ER. PO ONE (09:15)
[2020-12-19] MEDS: MINERAL OIL/PETROLATUM TOPICAL CREAM 113GM JAR. TP SCH ×2 (09:16→21:35)
[2020-12-19] MEDS: DICLOFENAC SODIUM 1% TOPICAL GEL 100GM TUBE. TP SCH ×2 (09:16→21:36)
--- NOTE | 2020-12-19 10:20 | NUR ---
Pt. was held NPO this am due to the possibility of having tunnelled dialysis catheter replaced. Spoke with Dr. Wilson re: clarification of tunnelled catheter replacement. Dr. Wilson stated graft would be used tomorrow for dialysis and there was currently no plan to replace tunnelled dialysis catheter.
--- NOTE | 2020-12-19 10:42 | PDOC ---
Renal-Progress Notes Subjective Notes Notes NO NEW COMPLAINTS History of Present Illness Hx of present illness NO SOB Vitals Vitals Vital Signs Date Time Temp Pulse Resp B/P (MAP) Pulse Ox O2 Delivery O2 Flow Rate FiO2 12/19/20 09:00 89 150/74 12/19/20 07:00 98.1 18 95 Room Air 98.1 12/19/20 03:00 2.0 Weight Weight [ ] I.O. Intake and Output Intake and Output 12/19/20 07:00 Intake Total 100 ml Output Total 1 ml Balance 99 ml Intake Oral 100 ml Stool Total 1 ml # Voids 3 Labs Labs Laboratory Tests Test 12/18/20 11:37 12/18/20 16:42 12/18/20 19:40 12/19/20 03:10 Glucose (Fingerstick) 249 mg/dL (70-99) 272 mg/dL (70-99) 189 mg/dL (70-99) Sodium Level 142 mmol/L (136-145) Potassium Level 3.2 mmol/L (3.5-5.1) Chloride Level 103 mmol/L (98-107) Carbon Dioxide Level 27 mmol/L (21-32) Anion Gap 12 (6-14) Blood Urea Nitrogen 61 mg/dL (8-26) Creatinine 4.8 mg/dL (0.7-1.3) Estimated GFR (Cockcroft-Gault) 14.6 Glucose Level 161 mg/dL (70-99) Calcium Level 8.6 mg/dL (8.5-10.1) Test 12/19/20 07:37 Glucose (Fingerstick) 175 mg/dL (70-99) Micro Micro Microbiology 12/17/20 Gram Stain - Final, Resulted 12/17/20 Aerobic Culture - Preliminary, Resulted 12/17/20 Blood Culture - Preliminary, Resulted NO GROWTH AFTER 1 DAY Review of Systems Constitutional: yes: weakness, alert, oriented Ears/Nose/Throat: Yes: no symptom reported Eyes: Yes: no symptom reported Pulmonary: Yes no symptom reported Cardiovascular: Yes no symptom reported Gastrointestional: Yes: no symptom reported Genitourinary: Yes: no symptom reported Musculoskeletal: Yes: arm pain Skin: Yes no symptom reported Psychiatric/Neurological: Yes: no symptom reported Endocrine: Yes: no symptom reported Hematologic/Lymphatic: Yes: no symptom reported Physical Exam General Appearance: no apparent distress Skin: warm Respiratory: bilateral CTA Heart: S1S2 Abdomen: soft, bowel sounds present Genitourinary: bladder flat Extremities: pulses present, other (LEFT ARM AVG WITH A GOOD THRILL AND BRUIT. WARM TO TOUCH, NO ERYTHEMA OR DRAINAGE) Neurology: alert, oriented Musculoskeletal: Other Assessment Assessment IMP ESRD-TTS ANEMIA DM II HTN BACTEREMIA NEW L ARM BRACHIO-BASILIC LOOP GRAFT MILD HYPOKALEMIA PLAN ANTIBIOTICS HD TOMORROW UTILIZE HIS AVG WEDNESDAY D/W ID AND ATTENDING WILL FOLLOW JUS AYALA MD Dec 19, 2020 10:41
[2020-12-19 11:00] VITALS: BP 146/75
--- NOTE | 2020-12-19 13:19 | PDOC ---
Infectious Disease Note Subjective: Subjective pt is feeling better Vital Signs: Vital Signs Vital Signs Date Time Temp Pulse Resp B/P (MAP) Pulse Ox O2 Delivery O2 Flow Rate FiO2 12/19/20 11:00 98.2 92 16 146/75 (98) 95 Room Air 98.2 12/19/20 07:10 2.0 Physical Exam: PHYSICAL EXAM VSS GENERAL: Alert and oriented x3 male, lying in bed comfortably, in no acute distress. HEENT: Normocephalic and atraumatic. No thrush. Oral mucosa moist. NECK: Supple, no JVD. LUNGS: Clear bilaterally. HEART: S1, S2. No murmurs. ABDOMEN: Soft, nontender, bowel sounds present. EXTREMITIES: No edema. DERMATOLOGIC: Warm, dry, no generalized rash. NEUROLOGIC: Alert, awake, grossly nonfocal. PSYCHIATRIC: Calm and cooperative. Left upper extremity graft site slightly warm and erythematous. Incision well- healed. No drainage. Right chest wall TDC catheter out Medications: Inpatient Meds: Medications reviewed. Labs: Lab Laboratory Tests Test 12/18/20 16:42 12/18/20 19:40 12/19/20 03:10 12/19/20 07:37 Glucose (Fingerstick) 272 mg/dL (70-99) 189 mg/dL (70-99) 175 mg/dL (70-99) Sodium Level 142 mmol/L (136-145) Potassium Level 3.2 mmol/L (3.5-5.1) Chloride Level 103 mmol/L (98-107) Carbon Dioxide Level 27 mmol/L (21-32) Anion Gap 12 (6-14) Blood Urea Nitrogen 61 mg/dL (8-26) Creatinine 4.8 mg/dL (0.7-1.3) Estimated GFR (Cockcroft-Gault) 14.6 Glucose Level 161 mg/dL (70-99) Calcium Level 8.6 mg/dL (8.5-10.1) Test 12/19/20 11:22 Glucose (Fingerstick) 194 mg/dL (70-99) Objective: Assessment: 1. Gram-positive cocci bacteremia.Staph hominis, Could be TDC catheter infection.S/P TDC removal 2. Left upper extremity graft placement, possible secondary cellulitis. Incision intact. No drainage. Ultrasound negative for deep venous thrombosis. 3. Diarrhea. 4. End-stage renal disease. The patient is undergoing dialysis through right dialysis catheter in the chest. 5. Diabetes. 6. Anemia. Plan: Plan of Care cont IV vancomycin for now Discussed with CHANTEL SAGASTUME MD Dec 19, 2020 13:19
--- NOTE | 2020-12-19 13:34 | RAD ---
Removal right internal jugular tunneled hemodialysis catheter 12/19/2020 INDICATION: Possible infection. COMPARISON STUDY: None Discussion: Consent: The procedure was explained in its entirety to the patient or the patients desig nated correspondence representative by a member of the treatment team, including a discussion of the risks, benefits and commonly accepted alternatives to the procedure, as well as the expected consequences of no ther apy whatsoever. Discussion of the risks included, but was not limited to, those that are most frequ ent and those that are rare but possibly severe or life-threatening, as well as the possibility of un foreseen complications. The right chest was prepped and draped using sterile barrier technique. Fluoroscopy demonstrates an a ppropriately positioned catheter. 1% lidocaine was administered for local anesthesia. The subcutaneou s catheter cuff was loosened using blunt dissection. The catheter was removed with traction. The cath eter was removed intact. Manual pressure was held. Sterile dressings were applied. Catheter tip was sent for culture. No immediate complications were identified. Total fluoroscopy time: 0.1 minutes Dose area product 0.1 Jefferson centimeter squared Impression: Removal of right internal jugular tunneled hemodialysis catheter Electronically signed by: Doug Avila MD (12/19/2020 1:32 PM) [id number]
[2020-12-19 15:00] VITALS: BP 159/77
[2020-12-19 19:00] VITALS: BP 137/67
[2020-12-19] MEDS: SIMVASTATIN 10 MG TABLET PO SCH (21:26)
[2020-12-19] MEDS: INSULIN GLARGINE SYRINGE. SQ SCH (21:43)
--- NOTE | 2020-12-19 22:11 | SNU/HH DC ---
DISCHARGE ORDERS DISCHARGE INFORMATION: DISCHARGE DATE: Dec 20, 2020 FINAL DIAGNOSIS Problems Medical Problems: (1) Adult failure to thrive Status: Acute (2) Cellulitis Status: Acute (3) ESRD (end stage renal disease) Status: Acute CONDITION ON DISCHARGE: Stable CODE STATUS: Code Status: Full HALFWAY: SNF STAY <30 DAYS: Yes HOSPICE: HOSPICE: No HOSPICE EVAL & TREAT: No LTAC: ADMIT TO LTAC: No POST DISCHARGE ORDERS: ACTIVITY ORDERS: Activity as tolerated WEIGHT BEARING STATUS: As tolerated DIET AFTER DISCHARGE: Renal CHECKS AFTER DISCHARGE: CHECKS AFTER DISCHARGE: Check blood press - daily, Check blood sugar, ac/hs, Check your Temp as needed FOLLOW-UP: Additional Instructions: Dialysis , ,Wed TREATMENT/EQUIPMENT ORDERS: ADAPTIVE EQUIPMENT NEEDED: None Physical Therapy For: Evalulation/Treatment Occupational Therapy For: Evaluation/Treatment DISCHARGE MEDICATIONS: Home Meds Active Scripts Hydrocodone Bit/Acetaminophen (HYDROCODONE-APAP 5-325 ) 1 Tab Tablet, 1 TAB PO PRN 1-2XD PRN for PAIN for 10 Days, TAB 0 Refills Prov:GISELL CLARK MD 07/10/20 Insulin Lispro (Admelog) 100 Unit/1 Ml Vial, 5 UNITS SQ TIDWMEALS for annamarie for 30 Days, EACH Prov:GISELL CLARK MD 07/10/20 Insulin Glargine,Hum.rec.anlog (LANTUS) 100 Unit/1 Ml Vial, 10 UNIT SQ QHS for annamarie for 30 Days, EACH Prov:GISELL CLARK MD 07/10/20 Amlodipine Besylate (AMLODIPINE BESYLATE) 10 Mg Tablet, 10 MG PO DAILY for 30 Days, #30 TAB Prov:GISELL CLARK MD 10/04/17 Potassium Chloride (KLOR-CON M20) 20 Meq Tab.er.prt, 20 MEQ PO BID, #180 TAB-CAP Prov:SOCORRO MENDEZ APRN 04/18/16 Reported Medications Ipratropium/Albuterol Sulfate (DUONEB 0.5-3(2.5) MG/3 ML) 3 Ml Ampul.neb, 3 ML NEB QID PRN for WHEEZING, EACH 10/01/17 Furosemide (FUROSEMIDE) 20 Mg Tablet, 1 TAB PO DAILY, #90 TAB 1 Refill 10/01/17 Triamcinolone Acetonide (TRIAMCINOLONE ACETONIDE 0.1% OINT) 15 Gm Oint...g., 1 MEME TP BID for WOUND CARE, #1 TUBE MIX WITH EUCERIN DIRECTED BY PHYSICIAN 01/25/15 Aspirin (ASPIR 81) 81 Mg Tablet.dr, 81 MG PO DAILY, TAB 01/25/15 Omeprazole (OMEPRAZOLE) 40 Mg Capsule.dr, 40 MG PO DAILY, CAP 04/09/14 Simvastatin (SIMVASTATIN) 10 Mg Tablet, 10 MG PO HS for FOR CHOLESTEROL, TAB 0 Refills 04/09/14 GISELL CLARK MD Dec 19, 2020 22:11
[2020-12-19 23:00] VITALS: BP 126/66
[2020-12-20 03:00] VITALS: BP 177/78
[2020-12-20 07:00] VITALS: BP 137/72
--- NOTE | 2020-12-20 07:03 | PDOC ---
Infectious Disease Note Subjective: Subjective pt is feeling better Left upper extremity swelling redness has resolved Vital Signs: Vital Signs Vital Signs Date Time Temp Pulse Resp B/P (MAP) Pulse Ox O2 Delivery O2 Flow Rate FiO2 12/20/20 03:00 97.7 90 16 177/78 (111) 93 Room Air 97.7 12/19/20 07:10 2.0 Physical Exam: PHYSICAL EXAM VSS GENERAL: Alert and oriented x3 male, lying in bed comfortably, in no acute distress. HEENT: Normocephalic and atraumatic. No thrush. Oral mucosa moist. NECK: Supple, no JVD. LUNGS: Clear bilaterally. HEART: S1, S2. No murmurs. ABDOMEN: Soft, nontender, bowel sounds present. EXTREMITIES: No edema. DERMATOLOGIC: Warm, dry, no generalized rash. NEUROLOGIC: Alert, awake, grossly nonfocal. PSYCHIATRIC: Calm and cooperative. Left upper extremity graft site slightly warm and erythematous resolved. I ncision well-healed. No drainage. Right chest wall TDC catheter out Medications: Inpatient Meds: Medications reviewed. Labs: Lab Laboratory Tests Test 12/19/20 07:37 12/19/20 11:22 12/19/20 16:58 12/19/20 20:03 Glucose (Fingerstick) 175 mg/dL (70-99) 194 mg/dL (70-99) 186 mg/dL (70-99) 210 mg/dL (70-99) Objective: Assessment: 1. Gram-positive cocci bacteremia.Staph hominis, Could be TDC catheter in fection.S/P TDC removal 2. Left upper extremity graft placement, possible secondary cellulitis. Improving Incision intact. No drainage. Ultrasound negative for deep venous thrombosis. 3. Diarrhea. 4. End-stage renal disease. The patient is undergoing dialysis through right dialysis catheter in the chest. 5. Diabetes. 6. Anemia. Plan: Plan of Care cont IV vancomycin Upon discharge complete 7 days of IV vancomycin postdialysis on dialysis days Nephrology team and case management to coordinate with outside dialysis center for IV vancomycin Prescription in chart ID will sign off. Call with any questions Discussed with CHANTEL SAGASTUME MD Dec 20, 2020 07:03
[2020-12-20] MEDS: PANTOPRAZOLE 40 MG TABLET.DR. PO SCH (07:30)
[2020-12-20 07:43] LABS: CALCIUM 8.6 mg/dL (8.5-10.1); CREATININE 4.9 mg/dL (0.7-1.3); GFR 14.3; POTASSIUM 3.8 mmol/L (3.5-5.1)
[2020-12-20] MEDS: INSULIN LISPRO 300 UNITS/3 ML VIAL. SQ SCH ×6 (08:00→17:40)
--- NOTE | 2020-12-20 08:31 | NUR ---
Pt transported via bed to 5 for dialysis.
[2020-12-20] MEDS ORDERED: IV NORMAL SALINE 1000ML BAG 1,000 ML IV PRN ×2 (08:45)
[2020-12-20] MEDS ORDERED: DIALYSIS PATIENT. MC PRN (08:45)
[2020-12-20] MEDS: DICLOFENAC SODIUM 1% TOPICAL GEL 100GM TUBE. TP SCH ×2 (09:00→21:39)
[2020-12-20] MEDS: MINERAL OIL/PETROLATUM TOPICAL CREAM 113GM JAR. TP SCH ×2 (09:00→21:36)
[2020-12-20] MEDS: ASPIRIN ENTERIC COATED 81 MG TABLET.DR. PO SCH (09:00)
[2020-12-20] MEDS: TRIAMCINOLONE ACETONIDE 0.1% TOPICAL OINTMENT 15GM TUBE. TP SCH ×2 (09:00→21:36)
[2020-12-20] MEDS: LACTOBACILLUS RHAMNOSUS GG 1 CAPSULE. PO SCH ×2 (09:00→21:34)
--- NOTE | 2020-12-20 09:06 | PDOC ---
PROGRESS NOTES Date of Service: DATE: 12/20/20 TIME: 09:03 Subjective Subjective seen in dialysis Objective Objective Vital Signs Date Time Temp Pulse Resp B/P (MAP) Pulse Ox O2 Delivery O2 Flow Rate FiO2 12/20/20 07:00 98.0 84 19 137/72 (93) 91 Nasal Cannula 2.0 98.0 Intake and Output 12/20/20 07:00 Intake Total 800 ml Balance 800 ml Intake Oral 800 ml # Voids 2 Physical Exam Abdomen: Soft Heart: Normal S1, Normal S2 Extremities: No clubbing General: Alert MUSCULOSKELETAL: No swelling, Osteoarthritic changes both hands Neuro: Normal speech Psych/Mental Status: Mental status NL Skin: No breakdown Diagnosis Problem List Problems Medical Problems: (1) Adult failure to thrive Status: Acute (2) Cellulitis Status: Acute (3) ESRD (end stage renal disease) Status: Acute Assessment Assessment Problems Medical Problems: (1) Adult failure to thrive Status: Acute (2) Cellulitis Status: Acute (3) ESRD (end stage renal disease) Status: Acute FINAL IMPRESSION: sepsis,positive blood c/s 2/4, gram positive ,STAPHYLOCOCCUS HOMINIS MRS 1. Weakness. 2. Diarrhea. 3. Recent left upper arm arteriovenous shunt, rule out infection. 4. End-stage renal disease, on hemodialysis. 5. Insulin-dependent diabetes. 6. General debility. PLAN: Using AV shunt for the first time left arm for dialysis today d/c to SNU later today needs 3 more doses of vancomycin , will be given with out pt dialysis sepsis,positive blood c/s 2/4, gram positive.STAPHYLOCOCCUS HOMINIS MRS removed dialysis catheter 12/17/20 spoke with ID spoke with home appliance washing machine mechanic Plan Plan of Care Problems Medical Problems: (1) Adult failure to thrive Status: Acute (2) Cellulitis Status: Acute (3) ESRD (end stage renal disease) Status: Acute Comment Review of Relevant I have reviewed the following items ken (where applicable) has been applied. Labs Laboratory Tests Test 12/19/20 11:22 12/19/20 16:58 12/19/20 20:03 12/20/20 06:15 Glucose (Fingerstick) 194 mg/dL (70-99) 186 mg/dL (70-99) 210 mg/dL (70-99) Sodium Level 141 mmol/L (136-145) Potassium Level 3.8 mmol/L (3.5-5.1) Chloride Level 106 mmol/L (98-107) Carbon Dioxide Level 27 mmol/L (21-32) Anion Gap 8 (6-14) Blood Urea Nitrogen 73 mg/dL (8-26) Creatinine 4.9 mg/dL (0.7-1.3) Estimated GFR (Cockcroft-Gault) 14.3 Glucose Level 231 mg/dL (70-99) Calcium Level 8.6 mg/dL (8.5-10.1) Test 12/20/20 07:15 Glucose (Fingerstick) 215 mg/dL (70-99) Microbiology 12/17/20 Gram Stain - Final, Resulted 12/17/20 Aerobic Culture - Preliminary, Resulted 12/17/20 Blood Culture - Preliminary, Resulted NO GROWTH AFTER 2 DAYS Medications Current Medications Info (PHARMACY MONITORING -- do not chart) 1 each PRN DAILY PRN MC SEE COMMENTS; Start 12/20/20 at 08:45 Potassium Chloride (Klor-Con) 20 meq 1X ONCE PO Last administered on 12/19/20at 11:49; Start 12/19/20 at 09:15; Stop 12/19/20 at 09:16; Status DC Sodium Chloride 1,000 ml @ 400 mls/hr Q2H30M PRN IV PATENCY; Start 12/20/20 at 08:45; Stop 12/20/20 at 20:44 Sodium Chloride 1,000 ml @ 1,000 mls/hr Q1H PRN IV hypotension; Start 12/20/20 at 08:45; Stop 12/20/20 at 14:44 Vancomycin HCl 500 mg/Sodium Chloride 100 ml @ 100 mls/hr QMWF IV ; Start 12/20/20 at 16:00 Vitals/I & O Vital Sign - Last 24 Hours 12/19/20 12/19/20 12/19/20 12/19/20 11:00 15:00 19:00 19:40 Temp 98.2 98.3 97.4 98.2 98.3 97.4 Pulse 92 85 88 Resp 16 16 18 B/P (MAP) 146/75 (98) 159/77 (104) 137/67 (90) Pulse Ox 95 96 95 O2 Delivery Room Air Room Air Room Air Room Air 12/19/20 12/20/20 12/20/20 23:00 03:00 07:00 Temp 98.1 97.7 98.0 98.1 97.7 98.0 Pulse 91 90 84 Resp 18 16 19 B/P (MAP) 126/66 (86) 177/78 (111) 137/72 (93) Pulse Ox 93 93 91 O2 Delivery Room Air Room Air Nasal Cannula O2 Flow Rate 2.0 Intake and Output 12/19/20 12/19/20 12/20/20 15:00 23:00 07:00 Intake Total 300 ml 500 ml Balance 300 ml 500 ml Justifications for Admission Other Justification GISELL CLARK MD Dec 20, 2020 09:06
--- NOTE | 2020-12-20 09:10 | SNU/HH DC ---
DISCHARGE ORDERS DISCHARGE INFORMATION: DISCHARGE DATE: Dec 20, 2020 FINAL DIAGNOSIS Problems Medical Problems: (1) Adult failure to thrive Status: Acute (2) Cellulitis Status: Acute (3) ESRD (end stage renal disease) Status: Acute CONDITION ON DISCHARGE: Stable CODE STATUS: Code Status: Full POST DISCHARGE ORDERS: ACTIVITY ORDERS: Activity as tolerated WEIGHT BEARING STATUS: As tolerated DIET AFTER DISCHARGE: Renal CHECKS AFTER DISCHARGE: CHECKS AFTER DISCHARGE: Check blood press - daily, Check blood sugar, ac/hs, Check your Temp as needed FOLLOW-UP: Additional Instructions: vancomycin with dialysis for 3 more doses TREATMENT/EQUIPMENT ORDERS: ADAPTIVE EQUIPMENT NEEDED: None Physical Therapy For: Evalulation/Treatment Occupational Therapy For: Evaluation/Treatment DISCHARGE MEDICATIONS: Home Meds Active Scripts Hydrocodone Bit/Acetaminophen (HYDROCODONE-APAP 5-325 ) 1 Tab Tablet, 1 TAB PO PRN 1-2XD PRN for PAIN for 10 Days, TAB 0 Refills Prov:GISELL CLARK MD 07/10/20 Insulin Lispro (Admelog) 100 Unit/1 Ml Vial, 5 UNITS SQ TIDWMEALS for annamarie for 30 Days, EACH Prov:GISELL CLARK MD 07/10/20 Insulin Glargine,Hum.rec.anlog (LANTUS) 100 Unit/1 Ml Vial, 10 UNIT SQ QHS for annamarie for 30 Days, EACH Prov:GISELL CLARK MD 07/10/20 Amlodipine Besylate (AMLODIPINE BESYLATE) 10 Mg Tablet, 10 MG PO DAILY for 30 Days, #30 TAB Prov:GISELL CLARK MD 10/04/17 Reported Medications Ipratropium/Albuterol Sulfate (DUONEB 0.5-3(2.5) MG/3 ML) 3 Ml Ampul.neb, 3 ML NEB QID PRN for WHEEZING, EACH 10/01/17 Triamcinolone Acetonide (TRIAMCINOLONE ACETONIDE 0.1% OINT) 15 Gm Oint...g., 1 MEME TP BID for WOUND CARE, #1 TUBE MIX WITH EUCERIN DIRECTED BY PHYSICIAN 01/25/15 Aspirin (ASPIR 81) 81 Mg Tablet.dr, 81 MG PO DAILY, TAB 01/25/15 Omeprazole (OMEPRAZOLE) 40 Mg Capsule.dr, 40 MG PO DAILY, CAP 04/09/14 Simvastatin (SIMVASTATIN) 10 Mg Tablet, 10 MG PO HS for FOR CHOLESTEROL, TAB 0 Refills 04/09/14 Discontinued Reported Medications Furosemide (FUROSEMIDE) 20 Mg Tablet, 1 TAB PO DAILY, #90 TAB 1 Refill 10/01/17 Discontinued Scripts Potassium Chloride (KLOR-CON M20) 20 Meq Tab.er.prt, 20 MEQ PO BID, #180 TAB-CAP Prov:SOCORRO MENDEZ APRN 04/18/16 GISELL CLARK MD Dec 20, 2020 09:10
--- NOTE | 2020-12-20 09:20 | PDOC ---
PROGRESS NOTES Date of Service DATE: 12/20/20 TIME: 09:18 Subjective Subjective No new complaints. Objective Objective Vital Signs Date Time Temp Pulse Resp B/P (MAP) Pulse Ox O2 Delivery O2 Flow Rate FiO2 12/20/20 07:00 98.0 84 19 137/72 (93) 91 Nasal Cannula 2.0 98.0 Intake and Output 12/20/20 07:00 Intake Total 800 ml Balance 800 ml Intake Oral 800 ml # Voids 2 Physical Exam Physical Exam He is alert,receiving hemodialysis and seems to be comfortable and I have not seen any notes from physical therapy. Assessment Assessment Problems Medical Problems: (1) Adult failure to thrive Status: Acute (2) Cellulitis Status: Acute (3) ESRD (end stage renal disease) Status: Acute Plan Plan of Care Awaiting SNF transfer. Comment Review of Relevant I have reviewed the following items ken (where applicable) has been applied. Labs Laboratory Tests Test 12/18/20 11:37 12/18/20 16:42 12/18/20 19:40 12/19/20 03:10 Glucose (Fingerstick) 249 mg/dL (70-99) 272 mg/dL (70-99) 189 mg/dL (70-99) Sodium Level 142 mmol/L (136-145) Potassium Level 3.2 mmol/L (3.5-5.1) Chloride Level 103 mmol/L (98-107) Carbon Dioxide Level 27 mmol/L (21-32) Anion Gap 12 (6-14) Blood Urea Nitrogen 61 mg/dL (8-26) Creatinine 4.8 mg/dL (0.7-1.3) Estimated GFR (Cockcroft-Gault) 14.6 Glucose Level 161 mg/dL (70-99) Calcium Level 8.6 mg/dL (8.5-10.1) Test 12/19/20 07:37 12/19/20 11:22 12/19/20 16:58 12/19/20 20:03 Glucose (Fingerstick) 175 mg/dL (70-99) 194 mg/dL (70-99) 186 mg/dL (70-99) 210 mg/dL (70-99) Test 12/20/20 06:15 12/20/20 07:15 Sodium Level 141 mmol/L (136-145) Potassium Level 3.8 mmol/L (3.5-5.1) Chloride Level 106 mmol/L (98-107) Carbon Dioxide Level 27 mmol/L (21-32) Anion Gap 8 (6-14) Blood Urea Nitrogen 73 mg/dL (8-26) Creatinine 4.9 mg/dL (0.7-1.3) Estimated GFR (Cockcroft-Gault) 14.3 Glucose Level 231 mg/dL (70-99) Calcium Level 8.6 mg/dL (8.5-10.1) Glucose (Fingerstick) 215 mg/dL (70-99) Laboratory Tests Test 12/19/20 11:22 12/19/20 16:58 12/19/20 20:03 12/20/20 06:15 Glucose (Fingerstick) 194 mg/dL (70-99) 186 mg/dL (70-99) 210 mg/dL (70-99) Sodium Level 141 mmol/L (136-145) Potassium Level 3.8 mmol/L (3.5-5.1) Chloride Level 106 mmol/L (98-107) Carbon Dioxide Level 27 mmol/L (21-32) Anion Gap 8 (6-14) Blood Urea Nitrogen 73 mg/dL (8-26) Creatinine 4.9 mg/dL (0.7-1.3) Estimated GFR (Cockcroft-Gault) 14.3 Glucose Level 231 mg/dL (70-99) Calcium Level 8.6 mg/dL (8.5-10.1) Test 12/20/20 07:15 Glucose (Fingerstick) 215 mg/dL (70-99) Microbiology 12/17/20 Gram Stain - Final, Resulted 12/17/20 Aerobic Culture - Preliminary, Resulted 12/17/20 Blood Culture - Preliminary, Resulted NO GROWTH AFTER 2 DAYS Medications Current Medications Fentanyl Citrate (Fentanyl 2ml Vial) 50 mcg PRN Q1HR PRN IVP PAIN; Start 12/14/20 at 13:15; Stop 12/15/20 at 13:14; Status DC Acetaminophen (Tylenol) 650 mg PRN Q4HRS PRN PO FEVER > 100.3'F; Start 12/14/20 at 13:15; Stop 12/15/20 at 13:14; Status DC Cefazolin Sodium/ Dextrose 50 ml @ 100 mls/hr 1X ONCE IV Last administered on 12/14/20at 14:23; Start 12/14/20 at 13:30; Stop 12/14/20 at 13:59; Status DC Insulin Glargine (Lantus Syringe) 10 unit QHS SQ Last administered on 12/19/20at 21:43; Start 12/14/20 at 23:00 Insulin Human Lispro (HumaLOG) 0-7 UNITS TIDWMEALS SQ Last administered on 12/19/20 17:26; Start 12/15/20 at 08:00 Dextrose (Dextrose 50%-Water Syringe) 12.5 gm PRN Q15MIN PRN IV SEE COMMENTS; Start 12/14/20 at 21:15 Insulin Human Lispro (HumaLOG) 10 units 1X ONCE SQ Last administered on 12/14/20 22:29; Start 12/14/20 at 22:30; Stop 12/14/20 at 22:31; Status DC Amlodipine Besylate (Norvasc) 10 mg DAILY PO Last administered on 12/18/20at 08:55; Start 12/15/20 at 09:00 Aspirin (Ecotrin) 81 mg DAILY PO Last administered on 12/18/20 08:54; Start 12/15/20 at 09:00 Acetaminophen/ Hydrocodone Bitart (Lortab 5/325) 1 tab PRN QID PRN PO MODERATE PAIN 4-6; Start 12/14/20 at 22:45 Insulin Human Lispro (HumaLOG) 5 units TIDWMEALS SQ Last administered on 12/19/20at 17:26; Start 12/15/20 at 08:00 Albuterol Sulfate (Ventolin Neb Soln) 2.5 mg PRN QID PRN NEB WHEEZING; Start 12/14/20 at 23:00 Simvastatin (Zocor) 10 mg HS PO Last administered on 12/19/20 21:26; Start 12/15/20 at 21:00 Triamcinolone Acetonide (Kenalog 0.1%) 1 ayse BID TP Last administered on 12/19/20at 21:35; Start 12/15/20 at 09:00 Pantoprazole Sodium (Protonix) 40 mg DAILYAC PO Last administered on 12/18/20 08:54; Start 12/15/20 at 07:30 Sodium Chloride 1,000 ml @ 1,000 mls/hr Q1H PRN IV hypotension; Start 12/15/20 at 06:45; Stop 12/15/20 at 12:44; Status DC Sodium Chloride 1,000 ml @ 400 mls/hr Q2H30M PRN IV PATENCY; Start 12/15/20 at 06:45; Stop 12/15/20 at 18:44; Status DC Info (PHARMACY MONITORING -- do not chart) 1 each PRN DAILY PRN MC SEE COMMENTS; Start 12/15/20 at 06:45; Status Cancel Info (PHARMACY MONITORING -- do not chart) 1 each PRN DAILY PRN MC SEE COMMENTS; Start 12/15/20 at 06:45; Stop 12/15/20 at 06:47; Status DC Vancomycin HCl 1.5 gm/Sodium Chloride 500 ml @ 250 mls/hr 1X ONCE IV ; Start 12/15/20 at 08:30; Stop 12/15/20 at 10:29; Status UNV Vancomycin HCl 2 gm/Sodium Chloride 500 ml @ 250 mls/hr 1X ONCE IV Last administered on 12/15/20at 14:02; Start 12/15/20 at 09:00; Stop 12/15/20 at 10:59; Status DC Epoetin Camron-epbx (RETACRIT for ESRD PTS) 10,000 unit MoWeFr@2100 SQ Last administered on 12/18/20at 21:11; Start 12/16/20 at 21:00 Vancomycin HCl (Vanco Per Pharmacy) 1 each PRN DAILY PRN MC SEE COMMENTS Last administered on 12/17/20at 11:23; Start 12/15/20 at 15:15 Vancomycin HCl (Vancomycin Random Level) 1 each 1X ONCE MC Last administered on 12/17/20at 06:00; Start 12/17/20 at 06:00; Stop 12/17/20 at 06:01; Status DC Methylprednisolone Acetate (DEPO-Medrol 40MG VIAL) 40 mg 1X ONCE IM ; Start 12/16/20 at 09:30; Stop 12/16/20 at 09:31; Status DC Bupivacaine HCl (Sensorcaine-Mpf 0.25%) 10 ml 1X ONCE IJ ; Start 12/16/20 at 09:30; Stop 12/16/20 at 09:31; Status DC Multi-Ingredient Ointment (Hydrocerin, Eucerin Cream) 1 ayse BID TP Last administered on 12/19/20at 21:35; Start 12/16/20 at 21:00 Diclofenac Sodium (Voltaren) 1 ayse BID TP Last administered on 12/19/20at 21:36; Start 12/16/20 at 10:00 Lactobacillus Rhamnosus (Culturelle) 1 cap BID PO Last administered on 12/19/20at 21:26; Start 12/16/20 at 21:00 Sodium Chloride 1,000 ml @ 1,000 mls/hr Q1H PRN IV hypotension; Start 12/17/20 at 08:00; Stop 12/17/20 at 13:59; Status DC Sodium Chloride 1,000 ml @ 400 mls/hr Q2H30M PRN IV PATENCY; Start 12/17/20 at 08:00; Stop 12/17/20 at 19:59; Status DC Info (PHARMACY MONITORING -- do not chart) 1 each PRN DAILY PRN MC SEE COMMENTS; Start 12/17/20 at 08:00; Status Cancel Info (PHARMACY MONITORING -- do not chart) 1 each PRN DAILY PRN MC SEE COMMENTS; Start 12/17/20 at 08:00; Status Cancel Vancomycin HCl 500 mg/Sodium Chloride 100 ml @ 100 mls/hr QTUTHSA IV Last administered on 12/17/20at 16:00; Start 12/17/20 at 16:00; Stop 12/19/20 at 10:44; Status DC Lidocaine/ Epinephrine (LIDOCAINE 1%-EPI 1:100,000 Multi-Dose) 20 ml STK-MED ONCE .ROUTE ; Start 12/17/20 at 14:24; Stop 12/17/20 at 14:24; Status DC Potassium Chloride (Klor-Con) 20 meq 1X ONCE PO Last administered on 12/19/20at 11:49; Start 12/19/20 at 09:15; Stop 12/19/20 at 09:16; Status DC Vancomycin HCl 500 mg/Sodium Chloride 100 ml @ 100 mls/hr QMWF IV ; Start 12/20/20 at 16:00 Bupivacaine HCl (Sensorcaine-Mpf 0.25%) 10 ml STK-MED ONCE .ROUTE ; Start 12/16/20 at 09:30; Stop 12/19/20 at 13:17; Status DC Methylprednisolone Acetate (DEPO-Medrol 40MG VIAL) 40 mg STK-MED ONCE .ROUTE ; Start 12/16/20 at 09:30; Stop 12/19/20 at 13:17; Status DC Sodium Chloride 1,000 ml @ 1,000 mls/hr Q1H PRN IV hypotension; Start 12/20/20 at 08:45; Stop 12/20/20 at 14:44 Sodium Chloride 1,000 ml @ 400 mls/hr Q2H30M PRN IV PATENCY; Start 12/20/20 at 08:45; Stop 12/20/20 at 20:44 Info (PHARMACY MONITORING -- do not chart) 1 each PRN DAILY PRN MC SEE COMMENTS; Start 12/20/20 at 08:45 Active Scripts Active Hydrocodone-Apap 5-325 (Hydrocodone Bit/Acetaminophen) 1 Tab Tablet 1 Tab PO PRN 1-2XD PRN 10 Days Admelog (Insulin Lispro) 100 Unit/1 Ml Vial 5 Units SQ TIDWMEALS 30 Days Lantus (Insulin Glargine,Hum.rec.anlog) 100 Unit/1 Ml Vial 10 Unit SQ QHS 30 Days Amlodipine Besylate 10 Mg Tablet 10 Mg PO DAILY 30 Days Reported Duoneb 0.5-3(2.5) Mg/3 Ml (Albuterol/Ipratropium) 3 Ml Ampul.neb 3 Ml NEB QID PRN Triamcinolone Acetonide 0.1% Oint (Triamcinolone Acetonide) 15 Gm Oint...g. 1 Ayse TP BID MIX WITH EUCERIN DIRECTED BY PHYSICIAN Bdudy 81 (Aspirin) 81 Mg Tablet. 81 Mg PO DAILY Omeprazole 40 Mg Capsule. 40 Mg PO DAILY Simvastatin 10 Mg Tablet 10 Mg PO HS Vitals/I & O Vital Sign - Last 24 Hours 12/19/20 12/19/20 12/19/20 12/19/20 11:00 15:00 19:00 19:40 Temp 98.2 98.3 97.4 98.2 98.3 97.4 Pulse 92 85 88 Resp 16 16 18 B/P (MAP) 146/75 (98) 159/77 (104) 137/67 (90) Pulse Ox 95 96 95 O2 Delivery Room Air Room Air Room Air Room Air 12/19/20 12/20/20 12/20/20 23:00 03:00 07:00 Temp 98.1 97.7 98.0 98.1 97.7 98.0 Pulse 91 90 84 Resp 18 16 19 B/P (MAP) 126/66 (86) 177/78 (111) 137/72 (93) Pulse Ox 93 93 91 O2 Delivery Room Air Room Air Nasal Cannula O2 Flow Rate 2.0 Intake and Output 12/19/20 12/19/20 12/20/20 15:00 23:00 07:00 Intake Total 300 ml 500 ml Balance 300 ml 500 ml Justifications for Admission Other Justification ANIL MULLER MD Dec 20, 2020 09:19
--- NOTE | 2020-12-20 10:58 | PDOC ---
Renal-Progress Notes Subjective Notes Notes FEELS WELL History of Present Illness Hx of present illness NO COMPLAINTS Vitals Vitals Vital Signs Date Time Temp Pulse Resp B/P (MAP) Pulse Ox O2 Delivery O2 Flow Rate FiO2 12/20/20 07:00 98.0 84 19 137/72 (93) 91 Nasal Cannula 2.0 98.0 Weight Weight [ ] I.O. Intake and Output Intake and Output 12/20/20 07:00 Intake Total 800 ml Balance 800 ml Intake Oral 800 ml # Voids 2 Labs Labs Laboratory Tests Test 12/19/20 11:22 12/19/20 16:58 12/19/20 20:03 12/20/20 06:15 Glucose (Fingerstick) 194 mg/dL (70-99) 186 mg/dL (70-99) 210 mg/dL (70-99) Sodium Level 141 mmol/L (136-145) Potassium Level 3.8 mmol/L (3.5-5.1) Chloride Level 106 mmol/L (98-107) Carbon Dioxide Level 27 mmol/L (21-32) Anion Gap 8 (6-14) Blood Urea Nitrogen 73 mg/dL (8-26) Creatinine 4.9 mg/dL (0.7-1.3) Estimated GFR (Cockcroft-Gault) 14.3 Glucose Level 231 mg/dL (70-99) Calcium Level 8.6 mg/dL (8.5-10.1) Test 12/20/20 07:15 Glucose (Fingerstick) 215 mg/dL (70-99) Micro Micro Microbiology 12/17/20 Gram Stain - Final, Resulted 12/17/20 Aerobic Culture - Preliminary, Resulted 12/17/20 Blood Culture - Preliminary, Resulted NO GROWTH AFTER 2 DAYS Review of Systems Constitutional: yes: weakness, alert, oriented Ears/Nose/Throat: Yes: no symptom reported Eyes: Yes: no symptom reported Pulmonary: Yes no symptom reported Cardiovascular: Yes no symptom reported Gastrointestional: Yes: no symptom reported Genitourinary: Yes: no symptom reported Musculoskeletal: Yes: arm pain Skin: Yes no symptom reported Psychiatric/Neurological: Yes: no symptom reported Endocrine: Yes: no symptom reported Hematologic/Lymphatic: Yes: no symptom reported Physical Exam General Appearance: no apparent distress Skin: warm Respiratory: bilateral CTA Heart: S1S2 Abdomen: soft, bowel sounds present Genitourinary: bladder flat Extremities: pulses present, other (LEFT ARM AVG WITH A GOOD THRILL AND BRUIT. WARM TO TOUCH, NO ERYTHEMA OR DRAINAGE) Neurology: alert, oriented Musculoskeletal: Other Assessment Assessment IMP ESRD-TTS ANEMIA DM II HTN BACTEREMIA NEW L ARM BRACHIO-BASILIC LOOP GRAFT MILD HYPOKALEMIA-CORRECTED PLAN ANTIBIOTICS HD TODAY UF TO TW LEFT ARM AVG WORKING WELL WILL FOLLOW JUS AYALA MD Dec 20, 2020 10:58
[2020-12-20 15:00] VITALS: BP 133/75
[2020-12-20] MEDS ORDERED: VANCOMYCIN 500 MG in IV NORMAL SALINE 100ML 100 ML IV SCH (16:00)
[2020-12-20 19:00] VITALS: BP 109/56
[2020-12-20] MEDS: EPOETIN ALFA-EPBX for ESRD 20,000 UNIT/ML VIAL. SQ SCH (21:00)
[2020-12-20] MEDS: SIMVASTATIN 10 MG TABLET PO SCH (21:34)
[2020-12-20] MEDS: INSULIN GLARGINE SYRINGE. SQ SCH (21:46)
[2020-12-20 23:00] VITALS: BP 115/62
[2020-12-21 02:51] VITALS: BP 130/76
[2020-12-21 07:00] VITALS: BP 125/73
[2020-12-21 08:05] LABS: CALCIUM 8.7 mg/dL (8.5-10.1); CREATININE 4.4 mg/dL (0.7-1.3); GFR 16.2; POTASSIUM 3.7 mmol/L (3.5-5.1)
[2020-12-21] MEDS: LACTOBACILLUS RHAMNOSUS GG 1 CAPSULE. PO SCH ×2 (08:19→21:02)
[2020-12-21] MEDS: ASPIRIN ENTERIC COATED 81 MG TABLET.DR. PO SCH (08:19)
[2020-12-21] MEDS: INSULIN LISPRO 300 UNITS/3 ML VIAL. SQ SCH ×6 (08:26→17:28)
[2020-12-21] MEDS: PANTOPRAZOLE 40 MG TABLET.DR. PO SCH (08:27)
[2020-12-21] MEDS: MINERAL OIL/PETROLATUM TOPICAL CREAM 113GM JAR. TP SCH ×2 (08:28→21:00)
[2020-12-21] MEDS: DICLOFENAC SODIUM 1% TOPICAL GEL 100GM TUBE. TP SCH ×2 (08:28→21:48)
[2020-12-21] MEDS: TRIAMCINOLONE ACETONIDE 0.1% TOPICAL OINTMENT 15GM TUBE. TP SCH ×2 (08:28→21:00)
[2020-12-21] MEDS ORDERED: IV NORMAL SALINE 1000ML BAG 1,000 ML IV PRN ×2 (09:30)
[2020-12-21] MEDS ORDERED: LIDOCAINE 1% PF 2 ML VIAL. INJ PRN (09:30)
[2020-12-21] MEDS ORDERED: DIALYSIS PATIENT. MC PRN ×2 (09:30)
[2020-12-21 10:00] VITALS: BP 123/68
--- NOTE | 2020-12-21 10:14 | PDOC ---
PROGRESS NOTES Date of Service DATE: 12/21/20 TIME: 10:11 Subjective Subjective No new complaints. Objective Objective Vital Signs Date Time Temp Pulse Resp B/P (MAP) Pulse Ox O2 Delivery O2 Flow Rate FiO2 12/21/20 08:19 88 125/73 12/21/20 07:00 98.3 16 91 Room Air 98.3 12/21/20 02:51 2.0 Intake and Output 12/21/20 07:00 Intake Total 240 ml Balance 240 ml Intake Oral 240 ml # Voids 4 # Bowel Movements 1 Physical Exam Physical Exam He is lying in bed,supine and somewhat sleepy this AM but wakes up and moves all 4 extremities to commands and he continues to require close stand by supervision while up and his physical endurance is low. Assessment Assessment Problems Medical Problems: (1) Adult failure to thrive Status: Acute (2) Cellulitis Status: Acute (3) ESRD (end stage renal disease) Status: Acute Plan Plan of Care Awaiting placement. Comment Review of Relevant I have reviewed the following items ken (where applicable) has been applied. Labs Laboratory Tests Test 12/19/20 11:22 12/19/20 16:58 12/19/20 20:03 12/20/20 06:15 Glucose (Fingerstick) 194 mg/dL (70-99) 186 mg/dL (70-99) 210 mg/dL (70-99) Sodium Level 141 mmol/L (136-145) Potassium Level 3.8 mmol/L (3.5-5.1) Chloride Level 106 mmol/L (98-107) Carbon Dioxide Level 27 mmol/L (21-32) Anion Gap 8 (6-14) Blood Urea Nitrogen 73 mg/dL (8-26) Creatinine 4.9 mg/dL (0.7-1.3) Estimated GFR (Cockcroft-Gault) 14.3 Glucose Level 231 mg/dL (70-99) Calcium Level 8.6 mg/dL (8.5-10.1) Test 12/20/20 07:15 12/20/20 16:38 12/20/20 20:12 12/21/20 07:15 Glucose (Fingerstick) 215 mg/dL (70-99) 274 mg/dL (70-99) 244 mg/dL (70-99) Sodium Level 137 mmol/L (136-145) Potassium Level 3.7 mmol/L (3.5-5.1) Chloride Level 99 mmol/L (98-107) Carbon Dioxide Level 30 mmol/L (21-32) Anion Gap 8 (6-14) Blood Urea Nitrogen 54 mg/dL (8-26) Creatinine 4.4 mg/dL (0.7-1.3) Estimated GFR (Cockcroft-Gault) 16.2 Glucose Level 184 mg/dL (70-99) Calcium Level 8.7 mg/dL (8.5-10.1) Laboratory Tests Test 12/20/20 16:38 12/20/20 20:12 12/21/20 07:15 Glucose (Fingerstick) 274 mg/dL (70-99) 244 mg/dL (70-99) Sodium Level 137 mmol/L (136-145) Potassium Level 3.7 mmol/L (3.5-5.1) Chloride Level 99 mmol/L (98-107) Carbon Dioxide Level 30 mmol/L (21-32) Anion Gap 8 (6-14) Blood Urea Nitrogen 54 mg/dL (8-26) Creatinine 4.4 mg/dL (0.7-1.3) Estimated GFR (Cockcroft-Gault) 16.2 Glucose Level 184 mg/dL (70-99) Calcium Level 8.7 mg/dL (8.5-10.1) Microbiology 12/17/20 Gram Stain - Final, Resulted 12/17/20 Aerobic Culture - Preliminary, Resulted 12/17/20 Blood Culture - Preliminary, Resulted NO GROWTH AFTER 3 DAYS Medications Current Medications Fentanyl Citrate (Fentanyl 2ml Vial) 50 mcg PRN Q1HR PRN IVP PAIN; Start 12/14/20 at 13:15; Stop 12/15/20 at 13:14; Status DC Acetaminophen (Tylenol) 650 mg PRN Q4HRS PRN PO FEVER > 100.3'F; Start 12/14/20 at 13:15; Stop 12/15/20 at 13:14; Status DC Cefazolin Sodium/ Dextrose 50 ml @ 100 mls/hr 1X ONCE IV Last administered on 12/14/20at 14:23; Start 12/14/20 at 13:30; Stop 12/14/20 at 13:59; Status DC Insulin Glargine (Lantus Syringe) 10 unit QHS SQ Last administered on 12/20/20at 21:46; Start 12/14/20 at 23:00 Insulin Human Lispro (HumaLOG) 0-7 UNITS TIDWMEALS SQ Last administered on 12/21/20at 08:26; Start 12/15/20 at 08:00 Dextrose (Dextrose 50%-Water Syringe) 12.5 gm PRN Q15MIN PRN IV SEE COMMENTS; Start 12/14/20 at 21:15 Insulin Human Lispro (HumaLOG) 10 units 1X ONCE SQ Last administered on 12/14/20at 22:29; Start 12/14/20 at 22:30; Stop 12/14/20 at 22:31; Status DC Amlodipine Besylate (Norvasc) 10 mg DAILY PO Last administered on 12/21/20 08:19; Start 12/15/20 at 09:00 Aspirin (Ecotrin) 81 mg DAILY PO Last administered on 12/21/20 08:19; Start 12/15/20 at 09:00 Acetaminophen/ Hydrocodone Bitart (Lortab 5/325) 1 tab PRN QID PRN PO MODERATE PAIN 4-6; Start 12/14/20 at 22:45 Insulin Human Lispro (HumaLOG) 5 units TIDWMEALS SQ Last administered on 12/21/20 08:27; Start 12/15/20 at 08:00 Albuterol Sulfate (Ventolin Neb Soln) 2.5 mg PRN QID PRN NEB WHEEZING; Start 12/14/20 at 23:00 Simvastatin (Zocor) 10 mg HS PO Last administered on 12/20/20at 21:34; Start 12/15/20 at 21:00 Triamcinolone Acetonide (Kenalog 0.1%) 1 ayse BID TP Last administered on 12/21/20 08:28; Start 12/15/20 at 09:00 Pantoprazole Sodium (Protonix) 40 mg DAILYAC PO Last administered on 12/21/20 08:27; Start 12/15/20 at 07:30 Sodium Chloride 1,000 ml @ 1,000 mls/hr Q1H PRN IV hypotension; Start 12/15/20 at 06:45; Stop 12/15/20 at 12:44; Status DC Sodium Chloride 1,000 ml @ 400 mls/hr Q2H30M PRN IV PATENCY; Start 12/15/20 at 06:45; Stop 12/15/20 at 18:44; Status DC Info (PHARMACY MONITORING -- do not chart) 1 each PRN DAILY PRN MC SEE COMMENTS; Start 12/15/20 at 06:45; Status Cancel Info (PHARMACY MONITORING -- do not chart) 1 each PRN DAILY PRN MC SEE COMMENTS; Start 12/15/20 at 06:45; Stop 12/15/20 at 06:47; Status DC Vancomycin HCl 1.5 gm/Sodium Chloride 500 ml @ 250 mls/hr 1X ONCE IV ; Start 12/15/20 at 08:30; Stop 12/15/20 at 10:29; Status UNV Vancomycin HCl 2 gm/Sodium Chloride 500 ml @ 250 mls/hr 1X ONCE IV Last administered on 12/15/20at 14:02; Start 12/15/20 at 09:00; Stop 12/15/20 at 10:59; Status DC Epoetin Camron-epbx (RETACRIT for ESRD PTS) 10,000 unit MoWeFr@2100 SQ Last administered on 12/18/20at 21:11; Start 12/16/20 at 21:00 Vancomycin HCl (Vanco Per Pharmacy) 1 each PRN DAILY PRN MC SEE COMMENTS Last administered on 12/17/20at 11:23; Start 12/15/20 at 15:15 Vancomycin HCl (Vancomycin Random Level) 1 each 1X ONCE MC Last administered on 12/17/20at 06:00; Start 12/17/20 at 06:00; Stop 12/17/20 at 06:01; Status DC Methylprednisolone Acetate (DEPO-Medrol 40MG VIAL) 40 mg 1X ONCE IM ; Start 12/16/20 at 09:30; Stop 12/16/20 at 09:31; Status DC Bupivacaine HCl (Sensorcaine-Mpf 0.25%) 10 ml 1X ONCE IJ ; Start 12/16/20 at 09:30; Stop 12/16/20 at 09:31; Status DC Multi-Ingredient Ointment (Hydrocerin, Eucerin Cream) 1 ayse BID TP Last administered on 12/21/20at 08:28; Start 12/16/20 at 21:00 Diclofenac Sodium (Voltaren) 1 ayse BID TP Last administered on 12/21/20at 08:2 8; Start 12/16/20 at 10:00 Lactobacillus Rhamnosus (Culturelle) 1 cap BID PO Last administered on 12/21/20at 08:19; Start 12/16/20 at 21:00 Sodium Chloride 1,000 ml @ 1,000 mls/hr Q1H PRN IV hypotension; Start 12/17/20 at 08:00; Stop 12/17/20 at 13:59; Status DC Sodium Chloride 1,000 ml @ 400 mls/hr Q2H30M PRN IV PATENCY; Start 12/17/20 at 08:00; Stop 12/17/20 at 19:59; Status DC Info (PHARMACY MONITORING -- do not chart) 1 each PRN DAILY PRN MC SEE COMMENTS; Start 12/17/20 at 08:00; Status Cancel Info (PHARMACY MONITORING -- do not chart) 1 each PRN DAILY PRN MC SEE COMMENTS; Start 12/17/20 at 08:00; Status Cancel Vancomycin HCl 500 mg/Sodium Chloride 100 ml @ 100 mls/hr QTUTHSA IV Last administered on 12/17/20at 16:00; Start 12/17/20 at 16:00; Stop 12/19/20 at 10:44; Status DC Lidocaine/ Epinephrine (LIDOCAINE 1%-EPI 1:100,000 Multi-Dose) 20 ml STK-MED ONCE .ROUTE ; Start 12/17/20 at 14:24; Stop 12/17/20 at 14:24; Status DC Potassium Chloride (Klor-Con) 20 meq 1X ONCE PO Last administered on 12/19/20at 11:49; Start 12/19/20 at 09:15; Stop 12/19/20 at 09:16; Status DC Vancomycin HCl 500 mg/Sodium Chloride 100 ml @ 100 mls/hr QMWF IV Last administered on 12/20/20at 19:45; Start 12/20/20 at 16:00 Bupivacaine HCl (Sensorcaine-Mpf 0.25%) 10 ml STK-MED ONCE .ROUTE ; Start 12/16/20 at 09:30; Stop 12/19/20 at 13:17; Status DC Methylprednisolone Acetate (DEPO-Medrol 40MG VIAL) 40 mg STK-MED ONCE .ROUTE ; Start 12/16/20 at 09:30; Stop 12/19/20 at 13:17; Status DC Sodium Chloride 1,000 ml @ 1,000 mls/hr Q1H PRN IV hypotension; Start 12/20/20 at 08:45; Stop 12/20/20 at 14:44; Status DC Sodium Chloride 1,000 ml @ 400 mls/hr Q2H30M PRN IV PATENCY; Start 12/20/20 at 08:45; Stop 12/20/20 at 20:44; Status DC Info (PHARMACY MONITORING -- do not chart) 1 each PRN DAILY PRN MC SEE COMMENTS; Start 12/20/20 at 08:45 Sodium Chloride 1,000 ml @ 1,000 mls/hr Q1H PRN IV hypotension; Start 12/21/20 at 09:30; Stop 12/21/20 at 15:29 Sodium Chloride 1,000 ml @ 400 mls/hr Q2H30M PRN IV PATENCY; Start 12/21/20 at 09:30; Stop 12/21/20 at 21:29 Lidocaine HCl (Xylocaine-Mpf 1% 2ml Vial) 2 ml 1X PRN PRN INJ FOR DIALYSIS; Start 12/21/20 at 09:30; Stop 12/22/20 at 09:29 Info (PHARMACY MONITORING -- do not chart) 1 each PRN DAILY PRN MC SEE COMMENTS; Start 12/21/20 at 09:30; Status UNV Info (PHARMACY MONITORING -- do not chart) 1 each PRN DAILY PRN MC SEE COMMENTS; Start 12/21/20 at 09:30; Status UNV Active Scripts Active Hydrocodone-Apap 5-325 (Hydrocodone Bit/Acetaminophen) 1 Tab Tablet 1 Tab PO PRN 1-2XD PRN 10 Days Admelog (Insulin Lispro) 100 Unit/1 Ml Vial 5 Units SQ TIDWMEALS 30 Days Lantus (Insulin Glargine,Hum.rec.anlog) 100 Unit/1 Ml Vial 10 Unit SQ QHS 30 Days Amlodipine Besylate 10 Mg Tablet 10 Mg PO DAILY 30 Days Reported Duoneb 0.5-3(2.5) Mg/3 Ml (Albuterol/Ipratropium) 3 Ml Ampul.neb 3 Ml NEB QID PRN Triamcinolone Acetonide 0.1% Oint (Triamcinolone Acetonide) 15 Gm Oint...g. 1 Ayse TP BID MIX WITH EUCERIN DIRECTED BY PHYSICIAN Aspir 81 (Aspirin) 81 Mg Tablet. 81 Mg PO DAILY Omeprazole 40 Mg Capsule. 40 Mg PO DAILY Simvastatin 10 Mg Tablet 10 Mg PO HS Vitals/I & O Vital Sign - Last 24 Hours 12/20/20 12/20/20 12/20/20 12/20/20 15:00 19:00 19:50 23:00 Temp 97.7 97.7 98.1 97.7 97.7 98.1 Pulse 95 93 95 Resp 19 18 16 B/P (MAP) 133/75 (94) 109/56 (73) 115/62 (79) Pulse Ox 92 92 94 O2 Delivery Nasal Cannula Nasal Cannula Room Air Nasal Cannula O2 Flow Rate 2.0 2.0 2.0 12/21/20 12/21/20 12/21/20 02:51 07:00 08:19 Temp 98.3 98.3 98.3 98.3 Pulse 93 88 88 Resp 16 16 B/P (MAP) 130/76 (94) 125/73 (90) 125/73 Pulse Ox 93 91 O2 Delivery Nasal Cannula Room Air O2 Flow Rate 2.0 Intake and Output 12/20/20 12/20/20 12/21/20 15:00 23:00 07:00 Intake Total 0 ml 0 ml 240 ml Balance 0 ml 0 ml 240 ml Justifications for Admission Other Justification ANIL MULLER MD Dec 21, 2020 10:14
--- NOTE | 2020-12-21 10:50 | PDOC ---
IM PROGRESS NOTES- Subjective Subjective No complaints of pain or dyspnea. Objective Vitals/I&O Vital Signs Date Time Temp Pulse Resp B/P (MAP) Pulse Ox O2 Delivery O2 Flow Rate FiO2 12/21/20 08:19 88 125/73 12/21/20 07:00 98.3 16 91 Room Air 98.3 12/21/20 02:51 2.0 I & O 12/20/20 12/20/20 12/21/20 15:00 23:00 07:00 Intake Total 0 ml 0 ml 240 ml Balance 0 ml 0 ml 240 ml Physical Exam Physical Exam General Appearance - alert and in no distress Chest - decreased breath sounds at bases Heart - S1 and S2 normal Abdomen - soft, non tender Neurological - alert and oriented Musculoskeletal - generalized weakness Extremities - no edema Labs Laboratory Tests Test 12/20/20 16:38 12/20/20 20:12 12/21/20 07:15 Glucose (Fingerstick) 274 mg/dL (70-99) H 244 mg/dL (70-99) H Sodium Level 137 mmol/L (136-145) Potassium Level 3.7 mmol/L (3.5-5.1) Chloride Level 99 mmol/L (98-107) Carbon Dioxide Level 30 mmol/L (21-32) Anion Gap 8 (6-14) Blood Urea Nitrogen 54 mg/dL (8-26) H Creatinine 4.4 mg/dL (0.7-1.3) H Estimated GFR (Cockcroft-Gault) 16.2 Glucose Level 184 mg/dL (70-99) H Calcium Level 8.7 mg/dL (8.5-10.1) Laboratory Tests 12/21/20 07:15 Meds Current Medications Medications (Trade) Dose Ordered Sig/Madeleine Route PRN Reason Start Time Stop Time Status Last Admin Dose Admin Vancomycin HCl 500 mg/Sodium Chloride 100 ml @ 100 mls/hr QMWF IV 12/20/20 16:00 12/20/20 19:45 Assessment Assessment Problems Medical Problems: (1) Adult failure to thrive Status: Acute (2) Cellulitis Status: Acute (3) ESRD (end stage renal disease) Status: Acute FINAL IMPRESSION: sepsis,positive blood c/s 2/4, gram positive ,STAPHYLOCOCCUS HOMINIS MRS 1. Weakness. 2. Diarrhea. 3. Recent left upper arm arteriovenous shunt, rule out infection. 4. End-stage renal disease, on hemodialysis. 5. Insulin-dependent diabetes. 6. General debility. PLAN: Using AV shunt for the first time left arm for dialysis. d/c to [facility] later today needs 3 more doses of vancomycin , will be given with out pt dialysis sepsis,positive blood c/s 03/14, gram positive.STAPHYLOCOCCUS HOMINIS MRS removed dialysis catheter 12/17/20 Hb 8.2 Labs on Wednesday. Plan Plan For more details regarding further plans, please refer to the orders. Justifications for Admission Other Justification KARINA COCHRAN MD Dec 21, 2020 10:50
--- NOTE | 2020-12-21 11:43 | PDOC ---
Dialysis Progress Note Date of Service: DATE: 12/21/20 TIME: 11:41 Dialysis Note Dialysis Note Seen on Hemodialysis, tolerating treatment Okay so far Vitals on Hemodialysis: 115 / 65 93 afeb General Appearance: Awake Neck: No JVD or JVP Chest: CTA Dickson Heart: S1 S2 Abdomen - Soft NTND Extremities - No Edema ESRD: Dialysis as below F 180 NR 3.0 Hrs 4 K 2.5 Ca 140 Na 35 HC03 Qb 350 + Qd 500+ Heparin 0 Units Uf 1 Kgs or to dry weight as tolerated May give 25-50 gms of 25% Albumin if needed to maintain Hemodynamic stability Treatment plan reviewed and discussed with suture gauger Vitals Vital Signs Vital Signs Date Time Temp Pulse Resp B/P (MAP) Pulse Ox O2 Delivery O2 Flow Rate FiO2 12/21/20 10:00 98.3 90 18 123/68 (86) 92 Room Air 98.3 12/21/20 02:51 2.0 Labs Last Labs Laboratory Tests Test 12/19/20 16:58 12/19/20 20:03 12/20/20 06:15 12/20/20 07:15 Glucose (Fingerstick) 186 mg/dL (70-99) 210 mg/dL (70-99) 215 mg/dL (70-99) Sodium Level 141 mmol/L (136-145) Potassium Level 3.8 mmol/L (3.5-5.1) Chloride Level 106 mmol/L (98-107) Carbon Dioxide Level 27 mmol/L (21-32) Anion Gap 8 (6-14) Blood Urea Nitrogen 73 mg/dL (8-26) Creatinine 4.9 mg/dL (0.7-1.3) Estimated GFR (Cockcroft-Gault) 14.3 Glucose Level 231 mg/dL (70-99) Calcium Level 8.6 mg/dL (8.5-10.1) Test 12/20/20 16:38 12/20/20 20:12 12/21/20 07:15 Glucose (Fingerstick) 274 mg/dL (70-99) 244 mg/dL (70-99) Sodium Level 137 mmol/L (136-145) Potassium Level 3.7 mmol/L (3.5-5.1) Chloride Level 99 mmol/L (98-107) Carbon Dioxide Level 30 mmol/L (21-32) Anion Gap 8 (6-14) Blood Urea Nitrogen 54 mg/dL (8-26) Creatinine 4.4 mg/dL (0.7-1.3) Estimated GFR (Cockcroft-Gault) 16.2 Glucose Level 184 mg/dL (70-99) Calcium Level 8.7 mg/dL (8.5-10.1) Laboratory Tests Test 12/20/20 16:38 12/20/20 20:12 12/21/20 07:15 Glucose (Fingerstick) 274 mg/dL (70-99) 244 mg/dL (70-99) Sodium Level 137 mmol/L (136-145) Potassium Level 3.7 mmol/L (3.5-5.1) Chloride Level 99 mmol/L (98-107) Carbon Dioxide Level 30 mmol/L (21-32) Anion Gap 8 (6-14) Blood Urea Nitrogen 54 mg/dL (8-26) Creatinine 4.4 mg/dL (0.7-1.3) Estimated GFR (Cockcroft-Gault) 16.2 Glucose Level 184 mg/dL (70-99) Calcium Level 8.7 mg/dL (8.5-10.1) Assessment Assessment Problems Medical Problems: (1) Adult failure to thrive Status: Acute (2) Cellulitis Status: Acute (3) ESRD (end stage renal disease) Status: Acute Plan Plan of Care Problems Medical Problems: (1) Adult failure to thrive Status: Acute (2) Cellulitis Status: Acute (3) ESRD (end stage renal disease) Status: Acute DARLENE QUARLES MD Dec 21, 2020 11:42
--- NOTE | 2020-12-21 12:24 | PDOC ---
Infectious Disease Note Subjective: Subjective pt undergoing dialysis Awaiting placement Vital Signs: Vital Signs Vital Signs Date Time Temp Pulse Resp B/P (MAP) Pulse Ox O2 Delivery O2 Flow Rate FiO2 12/21/20 10:00 98.3 90 18 123/68 (86) 92 Room Air 98.3 12/21/20 02:51 2.0 Physical Exam: PHYSICAL EXAM VSS GENERAL: Alert and oriented x3 male, lying in bed comfortably, in no acute distress. HEENT: Normocephalic and atraumatic. No thrush. Oral mucosa moist. NECK: Supple, no JVD. LUNGS: Clear bilaterally. HEART: S1, S2. No murmurs. ABDOMEN: Soft, nontender, bowel sounds present. EXTREMITIES: No edema. DERMATOLOGIC: Warm, dry, no generalized rash. NEUROLOGIC: Alert, awake, grossly nonfocal. PSYCHIATRIC: Calm and cooperative. Left upper extremity graft site slightly warm and erythematous resolved. Incision well-healed. No drainage. Right chest wall TDC catheter out Medications: Inpatient Meds: Medications reviewed. Labs: Lab Laboratory Tests Test 12/20/20 16:38 12/20/20 20:12 12/21/20 07:15 Glucose (Fingerstick) 274 mg/dL (70-99) 244 mg/dL (70-99) Sodium Level 137 mmol/L (136-145) Potassium Level 3.7 mmol/L (3.5-5.1) Chloride Level 99 mmol/L (98-107) Carbon Dioxide Level 30 mmol/L (21-32) Anion Gap 8 (6-14) Blood Urea Nitrogen 54 mg/dL (8-26) Creatinine 4.4 mg/dL (0.7-1.3) Estimated GFR (Cockcroft-Gault) 16.2 Glucose Level 184 mg/dL (70-99) Calcium Level 8.7 mg/dL (8.5-10.1) Objective: Assessment: 1. Gram-positive cocci bacteremia.Staph hominis, Could be TDC catheter infection.S/P TDC removal 2. Left upper extremity graft placement, possible secondary cellulitis. Improving Incision intact. No drainage. Ultrasound negative for deep venous thrombosis. 3. Diarrhea. 4. End-stage renal disease. The patient is undergoing dialysis through right dialysis catheter in the chest. 5. Diabetes. 6. Anemia. Plan: Plan of Care Continue IV vancomycin for total of 7 days Patient is awaiting placement per team Discussed with CHANTEL SAGASTUME MD Dec 21, 2020 12:24
[2020-12-21 15:00] VITALS: BP 131/79
[2020-12-21] MEDS ORDERED: VANCOMYCIN 500 MG in IV NORMAL SALINE 100ML 100 ML IV SCH (16:00)
[2020-12-21 19:00] VITALS: BP 121/71
[2020-12-21] MEDS: SIMVASTATIN 10 MG TABLET PO SCH (21:02)
[2020-12-21] MEDS: INSULIN GLARGINE SYRINGE. SQ SCH (21:27)
[2020-12-21 23:00] VITALS: BP 130/63
[2020-12-22 03:00] VITALS: BP 133/67
[2020-12-22 07:00] VITALS: BP 128/75
[2020-12-22] MEDS: MINERAL OIL/PETROLATUM TOPICAL CREAM 113GM JAR. TP SCH ×2 (08:50→21:00)
[2020-12-22] MEDS: DICLOFENAC SODIUM 1% TOPICAL GEL 100GM TUBE. TP SCH ×2 (08:50→21:00)
[2020-12-22] MEDS: LACTOBACILLUS RHAMNOSUS GG 1 CAPSULE. PO SCH ×2 (08:50→21:11)
[2020-12-22] MEDS: PANTOPRAZOLE 40 MG TABLET.DR. PO SCH (08:50)
[2020-12-22] MEDS: ASPIRIN ENTERIC COATED 81 MG TABLET.DR. PO SCH (08:50)
[2020-12-22] MEDS: TRIAMCINOLONE ACETONIDE 0.1% TOPICAL OINTMENT 15GM TUBE. TP SCH ×2 (08:51→21:00)
[2020-12-22] MEDS: INSULIN LISPRO 300 UNITS/3 ML VIAL. SQ SCH ×6 (08:57→18:11)
--- NOTE | 2020-12-22 10:29 | PDOC ---
PROGRESS NOTES Date of Service: DATE: 12/22/20 TIME: 10:27 Subjective Subjective no new problems Objective Objective Vital Signs Date Time Temp Pulse Resp B/P (MAP) Pulse Ox O2 Delivery O2 Flow Rate FiO2 12/22/20 08:59 98 Room Air 2.0 12/22/20 08:50 85 128/75 12/22/20 07:00 98.3 16 98.3 Intake and Output 12/22/20 07:00 Intake Total 380 ml Balance 380 ml Intake Oral 280 ml IV Total 100 ml # Bowel Movements 1 Physical Exam Abdomen: Soft Heart: Normal S1, Normal S2 Extremities: No clubbing General: Alert MUSCULOSKELETAL: No swelling, Osteoarthritic changes both hands Neuro: Normal speech Psych/Mental Status: Mental status NL Skin: No breakdown Diagnosis Problem List Problems Medical Problems: (1) Adult failure to thrive Status: Acute (2) Cellulitis Status: Acute (3) ESRD (end stage renal disease) Status: Acute Assessment Assessment Problems Medical Problems: (1) Adult failure to thrive Status: Acute (2) Cellulitis Status: Acute (3) ESRD (end stage renal disease) Status: Acute FINAL IMPRESSION: sepsis,positive blood c/s 2/4, gram positive ,STAPHYLOCOCCUS HOMINIS MRS 1. Weakness. 2. Diarrhea. 3. Recent left upper arm arteriovenous shunt, rule out infection. 4. End-stage renal disease, on hemodialysis. 5. Insulin-dependent diabetes. 6. General debility. PLAN: Using AV shunt for the first time left arm for dialysis on wednesday. d/c to [facility] wednesday pending insurance authorization needs 3 more doses of vancomycin , will be given with out pt dialysis sepsis,positive blood c/s 2/4, gram positive.STAPHYLOCOCCUS HOMINIS MRS removed dialysis catheter 12/17/20 labs stable Plan Plan of Care Problems Medical Problems: (1) Adult failure to thrive Status: Acute (2) Cellulitis Status: Acute (3) ESRD (end stage renal disease) Status: Acute Comment Review of Relevant I have reviewed the following items ken (where applicable) has been applied. Labs Laboratory Tests Test 12/21/20 16:52 12/21/20 20:09 12/22/20 07:39 Glucose (Fingerstick) 270 mg/dL (70-99) 269 mg/dL (70-99) 171 mg/dL (70-99) Microbiology 12/17/20 Gram Stain - Final, Complete 12/17/20 Aerobic Culture - Final, Complete 12/17/20 Blood Culture - Preliminary, Resulted NO GROWTH AFTER 4 DAYS Medications Current Medications Vancomycin HCl 500 mg/Sodium Chloride 100 ml @ 100 mls/hr TuThSa IV Last administered on 12/21/20at 16:36; Start 12/21/20 at 16:00 Vitals/I & O Vital Sign - Last 24 Hours 12/21/20 12/21/20 12/21/20 12/21/20 15:00 19:00 20:00 23:00 Temp 97.9 98.8 98.6 97.9 98.8 98.6 Pulse 87 97 69 Resp 16 18 18 B/P (MAP) 131/79 (96) 121/71 (88) 130/63 (85) Pulse Ox 94 91 O2 Delivery Room Air Room Air Room Air Room Air 12/22/20 12/22/20 12/22/20 12/22/20 03:00 07:00 08:50 08:59 Temp 98.2 98.3 98.2 98.3 Pulse 84 85 85 Resp 18 16 B/P (MAP) 133/67 (89) 128/75 (92) 128/75 Pulse Ox 93 98 98 O2 Delivery Room Air Room Air Room Air O2 Flow Rate 2.0 Intake and Output 12/21/20 12/21/20 12/22/20 15:00 23:00 07:00 Intake Total 280 ml 100 ml 0 ml Balance 280 ml 100 ml 0 ml Justifications for Admission Other Justification GISELL CLARK MD Dec 22, 2020 10:29
[2020-12-22 11:00] VITALS: BP 106/57
--- NOTE | 2020-12-22 11:39 | PDOC ---
Infectious Disease Note Subjective Subjective feeling good Awaiting placement ROS ROS no n/v/d/ Vital Sign Vital Signs Vital Signs Date Time Temp Pulse Resp B/P (MAP) Pulse Ox O2 Delivery O2 Flow Rate FiO2 12/22/20 11:13 98 Room Air 2.0 12/22/20 08:50 85 128/75 12/22/20 07:00 98.3 16 98.3 Physical Exam PHYSICAL EXAM VSS GENERAL: Alert and oriented x3 male, lying in bed comfortably, in no acute distress. HEENT: Normocephalic and atraumatic. No thrush. Oral mucosa moist. NECK: Supple, no JVD. LUNGS: Clear bilaterally. HEART: S1, S2. No murmurs. ABDOMEN: Soft, nontender, bowel sounds present. EXTREMITIES: No edema. DERMATOLOGIC: Warm, dry, no generalized rash. NEUROLOGIC: Alert, awake, grossly nonfocal. PSYCHIATRIC: Calm and cooperative. Left upper extremity graft site slightly warm and erythematous resolved. Incision well-healed. No drainage. Right chest wall TDC catheter out Labs Lab Laboratory Tests Test 12/21/20 16:52 12/21/20 20:09 12/22/20 07:39 12/22/20 11:21 Glucose (Fingerstick) 270 mg/dL (70-99) 269 mg/dL (70-99) 171 mg/dL (70-99) 202 mg/dL (70-99) Micro BC coag neg staph Objective Assessment 1. Gram-positive cocci bacteremia.Staph hominis, Could be TDC catheter infection.S/P TDC removal 2. Left upper extremity graft placement, possible secondary cellulitis. Improving Incision intact. No drainage. Ultrasound negative for deep venous thrombosis. 3. Diarrhea. 4. End-stage renal disease. The patient is undergoing dialysis through right dialysis catheter in the chest. 5. Diabetes. 6. Anemia. Plan Plan of Care Continue IV vancomycin for total of 7 days Patient is awaiting placement per team Discussed with VIKTOR SAGASTUME MD Dec 22, 2020 11:39
[2020-12-22] MEDS ORDERED: MAGNESIUM SULFATE 2GM 50 ML IV PRN (12:15)
--- NOTE | 2020-12-22 12:57 | PDOC ---
DATE OF SERVICE: DOS: DATE: 12/22/20 TIME: 12:55 SUBJECTIVE ROS Follow-up for ESRD on hemodialysis with a recent hyperkalemia Patient denies any new complaints, no labs today. Easily eating lunch CVS: no Orthopnea, no CP RESP: no SOB, no ROSE GI: no Nausea, no Vomiting : no Dysuria, no Urgency OBJECTIVE Vital Signs Vital Signs Date Time Temp Pulse Resp B/P (MAP) Pulse Ox O2 Delivery O2 Flow Rate FiO2 12/22/20 11:13 98 Room Air 2.0 12/22/20 11:00 98.1 92 18 106/57 (73) 98.1 I & 0 Intake and Output 12/22/20 07:00 Intake Total 380 ml Balance 380 ml Intake Oral 280 ml IV Total 100 ml # Bowel Movements 1 PHYSICAL EXAM Physical Exam GEN: Awake, Oriented x 2, In no distress, flat affect EYES: Vision Unchanged, Conjunctiva Normal EN: No EN Drainage, Mucous Membranes moist NECK: no JVD, no JVP, Supple, no Thyromegaly CVS: S1S2, ? soft Murmur, No Gallop, No Rub,no Edema RESP: no Rales, no Rhonchi,no Acc. Muscle Use GI: BS + ve, NO Bruit, Non Tender, Non Distended : no CVA tenderness, no Suprapubic Tenderness DIAGNOSIS/ASSESSMENT Assessment & Plan ESRD: Current fluid and E-lyte status does not necessitate emergent need for dialysis. Will re-evaluate for dialysis in the am and continue on TTSat schedule unless required tomorrow morning for rebound of hyperkalemia. Hyperkalemia: Resolved on last check. Unclear etiology ANEMIA; supplemental erythropoietinwill need ordered, if hemoglobin remains low, transfuse with next HD as needed HTN: Current BP meds as reviewed. See orders for changes. BONE & MINERAL: Follow phosphorus levels and alter binder regimen as needed COMMENT/RELEVANT DATA Meds Current Medications Medications (Trade) Dose Ordered Sig/Madeleine Start Time Stop Time Status Last Admin Dose Admin Acetaminophen (Tylenol) 650 mg PRN Q4HRS PRN 12/14/20 13:15 12/15/20 13:14 DC Acetaminophen/ Hydrocodone Bitart (Lortab 5/325) 1 tab PRN QID PRN 12/14/20 22:45 12/22/20 08:59 1 TAB Albuterol Sulfate (Ventolin Neb Soln) 2.5 mg PRN QID PRN 12/14/20 23:00 Amlodipine Besylate (Norvasc) 10 mg DAILY 12/15/20 09:00 12/22/20 08:50 10 MG Aspirin (Ecotrin) 81 mg DAILY 12/15/20 09:00 12/22/20 08:50 81 MG Bupivacaine HCl (Sensorcaine-Mpf 0.25%) 10 ml STK-MED ONCE 12/16/20 09:30 12/19/20 13:17 DC Cefazolin Sodium/ Dextrose 50 ml @ 100 mls/hr 1X ONCE 12/14/20 13:30 12/14/20 13:59 DC 12/14/20 14:23 100 MLS/HR Dextrose (Dextrose 50%-Water Syringe) 12.5 gm PRN Q15MIN PRN 12/14/20 21:15 Diclofenac Sodium (Voltaren) 1 babar BID 12/16/20 10:00 12/22/20 08:50 1 BABAR Epoetin Camron-epbx (RETACRIT for ESRD PTS) 10,000 unit MoWeFr@2100 12/16/20 21:00 12/18/20 21:11 10,000 UNIT Fentanyl Citrate (Fentanyl 2ml Vial) 50 mcg PRN Q1HR PRN 12/14/20 13:15 12/15/20 13:14 DC Info (PHARMACY MONITORING -- do not chart) 1 each PRN DAILY PRN 12/21/20 09:30 UNV Insulin Glargine (Lantus Syringe) 10 unit QHS 12/14/20 23:00 12/21/20 21:27 10 UNIT Insulin Human Lispro (HumaLOG) 5 units TIDWMEALS 12/15/20 08:00 12/22/20 12:52 5 UNITS Lactobacillus Rhamnosus (Culturelle) 1 cap BID 12/16/20 21:00 12/22/20 08:50 1 CAP Lidocaine HCl (Xylocaine-Mpf 1% 2ml Vial) 2 ml 1X PRN PRN 12/21/20 09:30 12/22/20 09:29 DC Lidocaine/ Epinephrine (LIDOCAINE 1%-EPI 1:100,000 Multi-Dose) 20 ml STK-MED ONCE 12/17/20 14:24 12/17/20 14:24 DC Magnesium Sulfate 50 ml @ 25 mls/hr PRN DAILY PRN 12/22/20 12:15 Methylprednisolone Acetate (DEPO-Medrol 40MG VIAL) 40 mg STK-MED ONCE 12/16/20 09:30 12/19/20 13:17 DC Multi-Ingredient Ointment (Hydrocerin, Eucerin Cream) 1 babar BID 12/16/20 21:00 12/22/20 08:50 1 BABAR Pantoprazole Sodium (Protonix) 40 mg DAILYAC 12/15/20 07:30 12/22/20 08:50 40 MG Potassium Chloride (Klor-Con) 20 meq 1X ONCE 12/19/20 09:15 12/19/20 09:16 DC 12/19/20 11:49 20 MEQ Simvastatin (Zocor) 10 mg HS 12/15/20 21:00 12/21/20 21:02 10 MG Sodium Chloride 1,000 ml @ 400 mls/hr Q2H30M PRN 12/21/20 09:30 12/21/20 21:29 DC Triamcinolone Acetonide (Kenalog 0.1%) 1 babar BID 12/15/20 09:00 12/22/20 08:51 1 BABAR Vancomycin HCl (Vanco Per Pharmacy) 1 each PRN DAILY PRN 12/15/20 15:15 12/17/20 11:23 1 EACH Vancomycin HCl (Vancomycin Random Level) 1 each 1X ONCE 12/17/20 06:00 12/17/20 06:01 DC 12/17/20 06:00 1 EACH Vancomycin HCl 1.5 gm/Sodium Chloride 500 ml @ 250 mls/hr 1X ONCE 12/15/20 08:30 12/15/20 10:29 UNV Vancomycin HCl 500 mg/Sodium Chloride 100 ml @ 100 mls/hr TuThSa 12/21/20 16:00 12/21/20 16:36 100 MLS/HR Vancomycin HCl 2 gm/Sodium Chloride 500 ml @ 250 mls/hr 1X ONCE 12/15/20 09:00 12/15/20 10:59 DC 12/15/20 14:02 250 MLS/HR Lab Laboratory Tests Test 12/21/20 16:52 12/21/20 20:09 12/22/20 07:39 12/22/20 11:21 Glucose (Fingerstick) 270 mg/dL (70-99) 269 mg/dL (70-99) 171 mg/dL (70-99) 202 mg/dL (70-99) Results All relevant outside records, renal labs, imaging studies, telemetry/EKG's were reviewed. Justicifation of Admission Dx: Justifications for Admission: Justification of Admission Dx: N/A DARLENE QUARLES MD Dec 22, 2020 12:57
[2020-12-22 15:00] VITALS: BP 115/68
[2020-12-22 19:00] VITALS: BP 134/64
[2020-12-22] MEDS: SIMVASTATIN 10 MG TABLET PO SCH (21:11)
[2020-12-22] MEDS: INSULIN GLARGINE SYRINGE. SQ SCH (21:21)
[2020-12-22 23:00] VITALS: BP 155/75
[2020-12-23 03:00] VITALS: BP 146/77
[2020-12-23 07:00] VITALS: BP 146/73
[2020-12-23] MEDS: INSULIN LISPRO 300 UNITS/3 ML VIAL. SQ SCH ×2 (08:00→09:51)
[2020-12-23 08:25] LABS: ALBUMIN 2.8 g/dL (3.4-5.0); CREATININE 4.6 mg/dL (0.7-1.3); GFR 15.4; PHOSPHORUS 4.8 mg/dL (2.6-4.7); POTASSIUM 3.6 mmol/L (3.5-5.1)
--- NOTE | 2020-12-23 08:29 | PDOC ---
Infectious Disease Note Subjective Subjective feeling good Awaiting placement ROS ROS No nausea vomiting diarrhea fever Vital Sign Vital Signs Vital Signs Date Time Temp Pulse Resp B/P (MAP) Pulse Ox O2 Delivery O2 Flow Rate FiO2 12/23/20 03:00 98.0 85 18 146/77 (100) 90 Room Air 98.0 12/22/20 11:13 2.0 Physical Exam PHYSICAL EXAM VSS GENERAL: Alert and oriented x3 male, lying in bed comfortably, in no acute distress. HEENT: Normocephalic and atraumatic. No thrush. Oral mucosa moist. NECK: Supple, no JVD. LUNGS: Clear bilaterally. HEART: S1, S2. No murmurs. ABDOMEN: Soft, nontender, bowel sounds present. EXTREMITIES: No edema. DERMATOLOGIC: Warm, dry, no generalized rash. NEUROLOGIC: Alert, awake, grossly nonfocal. PSYCHIATRIC: Calm and cooperative. Left upper extremity graft site slightly warm and erythematous resolved. Incision well-healed. No drainage. Right chest wall TDC catheter out Labs Lab Laboratory Tests Test 12/22/20 11:21 12/22/20 16:59 12/22/20 20:31 12/23/20 06:40 Glucose (Fingerstick) 202 mg/dL (70-99) 263 mg/dL (70-99) 216 mg/dL (70-99) Hemoglobin 9.4 g/dL (13.0-17.5) Sodium Level 140 mmol/L (136-145) Potassium Level 3.6 mmol/L (3.5-5.1) Chloride Level 102 mmol/L (98-107) Carbon Dioxide Level 27 mmol/L (21-32) Anion Gap 11 (6-14) Blood Urea Nitrogen 55 mg/dL (8-26) Creatinine 4.6 mg/dL (0.7-1.3) Estimated GFR (Cockcroft-Gault) 15.4 Glucose Level 131 mg/dL (70-99) Calcium Level 9.0 mg/dL (8.5-10.1) Phosphorus Level 4.8 mg/dL (2.6-4.7) Magnesium Level 2.1 mg/dL (1.8-2.4) Albumin 2.8 g/dL (3.4-5.0) Micro BC coag neg staph Objective Assessment 1. Gram-positive cocci bacteremia.Staph hominis, Could be TDC catheter infection.S/P TDC removal 2. Left upper extremity graft placement, possible secondary cellulitis. Improving Incision intact. No drainage. Ultrasound negative for deep venous thrombosis. 3. Diarrhea. 4. End-stage renal disease. The patient is undergoing dialysis through right dialysis catheter in the chest. 5. Diabetes. 6. Anemia. Plan Plan of Care Continue IV vancomycin for total of 7 days Patient is awaiting placement per team Discussed with VIKTOR SAGASTUME MD Dec 23, 2020 08:29
[2020-12-23] MEDS: MINERAL OIL/PETROLATUM TOPICAL CREAM 113GM JAR. TP SCH (09:00)
[2020-12-23] MEDS: DICLOFENAC SODIUM 1% TOPICAL GEL 100GM TUBE. TP SCH (09:00)
[2020-12-23] MEDS: TRIAMCINOLONE ACETONIDE 0.1% TOPICAL OINTMENT 15GM TUBE. TP SCH (09:00)
--- NOTE | 2020-12-23 09:06 | PDOC ---
PROGRESS NOTES Date of Service DATE: 12/23/20 TIME: 09:04 Subjective Subjective He feels better. Objective Objective Vital Signs Date Time Temp Pulse Resp B/P (MAP) Pulse Ox O2 Delivery O2 Flow Rate FiO2 12/23/20 07:00 97.9 87 18 146/73 (97) 93 Room Air 97.9 12/22/20 11:13 2.0 Intake and Output 12/23/20 07:00 Intake Total 60 ml Balance 60 ml Intake Oral 60 ml # Bowel Movements 1 Physical Exam Physical Exam He is sitting up in bedside recliner and seems to be comfortable and he admits of walking to bathroom last night with roller walker with nursing staff helping. Assessment Assessment Problems Medical Problems: (1) Adult failure to thrive Status: Acute (2) Cellulitis Status: Acute (3) ESRD (end stage renal disease) Status: Acute Plan Plan of Care Agree with plans for senior living facility transfer when medically stable. Comment Review of Relevant I have reviewed the following items ken (where applicable) has been applied. Labs Laboratory Tests Test 12/21/20 16:52 12/21/20 20:09 12/22/20 07:39 12/22/20 11:21 Glucose (Fingerstick) 270 mg/dL (70-99) 269 mg/dL (70-99) 171 mg/dL (70-99) 202 mg/dL (70-99) Test 12/22/20 16:59 12/22/20 20:31 12/23/20 06:40 Glucose (Fingerstick) 263 mg/dL (70-99) 216 mg/dL (70-99) Hemoglobin 9.4 g/dL (13.0-17.5) Sodium Level 140 mmol/L (136-145) Potassium Level 3.6 mmol/L (3.5-5.1) Chloride Level 102 mmol/L (98-107) Carbon Dioxide Level 27 mmol/L (21-32) Anion Gap 11 (6-14) Blood Urea Nitrogen 55 mg/dL (8-26) Creatinine 4.6 mg/dL (0.7-1.3) Estimated GFR (Cockcroft-Gault) 15.4 Glucose Level 131 mg/dL (70-99) Calcium Level 9.0 mg/dL (8.5-10.1) Phosphorus Level 4.8 mg/dL (2.6-4.7) Magnesium Level 2.1 mg/dL (1.8-2.4) Albumin 2.8 g/dL (3.4-5.0) Laboratory Tests Test 12/22/20 11:21 12/22/20 16:59 12/22/20 20:31 12/23/20 06:40 Glucose (Fingerstick) 202 mg/dL (70-99) 263 mg/dL (70-99) 216 mg/dL (70-99) Hemoglobin 9.4 g/dL (13.0-17.5) Sodium Level 140 mmol/L (136-145) Potassium Level 3.6 mmol/L (3.5-5.1) Chloride Level 102 mmol/L (98-107) Carbon Dioxide Level 27 mmol/L (21-32) Anion Gap 11 (6-14) Blood Urea Nitrogen 55 mg/dL (8-26) Creatinine 4.6 mg/dL (0.7-1.3) Estimated GFR (Cockcroft-Gault) 15.4 Glucose Level 131 mg/dL (70-99) Calcium Level 9.0 mg/dL (8.5-10.1) Phosphorus Level 4.8 mg/dL (2.6-4.7) Magnesium Level 2.1 mg/dL (1.8-2.4) Albumin 2.8 g/dL (3.4-5.0) Microbiology 12/17/20 Gram Stain - Final, Complete 12/17/20 Aerobic Culture - Final, Complete 12/17/20 Blood Culture - Final, Complete NO GROWTH AFTER 5 DAYS Medications Current Medications Fentanyl Citrate (Fentanyl 2ml Vial) 50 mcg PRN Q1HR PRN IVP PAIN; Start at 13:15; Stop 12/15/20 at 13:14; Status DC Acetaminophen (Tylenol) 650 mg PRN Q4HRS PRN PO FEVER > 100.3'F; Start 12/14/20 at 13:15; Stop 12/15/20 at 13:14; Status DC Cefazolin Sodium/ Dextrose 50 ml @ 100 mls/hr 1X ONCE IV Last administered on 12/14/20at 14:23; Start 12/14/20 at 13:30; Stop 12/14/20 at 13:59; Status DC Insulin Glargine (Lantus Syringe) 10 unit QHS SQ Last administered on 12/22/20at 21:21; Start 12/14/20 at 23:00 Insulin Human Lispro (HumaLOG) 0-7 UNITS TIDWMEALS SQ Last administered on 12/22/20at 18:10; Start 12/15/20 at 08:00 Dextrose (Dextrose 50%-Water Syringe) 12.5 gm PRN Q15MIN PRN IV SEE COMMENTS; Start 12/14/20 at 21:15 Insulin Human Lispro (HumaLOG) 10 units 1X ONCE SQ Last administered on 12/14/20at 22:29; Start 12/14/20 at 22:30; Stop 12/14/20 at 22:31; Status DC Amlodipine Besylate (Norvasc) 10 mg DAILY PO Last administered on 12/22/20at 0 8:50; Start 12/15/20 at 09:00 Aspirin (Ecotrin) 81 mg DAILY PO Last administered on 12/22/20at 08:50; Start 12/15/20 at 09:00 Acetaminophen/ Hydrocodone Bitart (Lortab 5/325) 1 tab PRN QID PRN PO MODERATE PAIN 4-6 Last administered on 12/22/20at 08:59; Start 12/14/20 at 22:45 Insulin Human Lispro (HumaLOG) 5 units TIDWMEALS SQ Last administered on 12/22/20at 18:11; Start 12/15/20 at 08:00 Albuterol Sulfate (Ventolin Neb Soln) 2.5 mg PRN QID PRN NEB WHEEZING; Start 12/14/20 at 23:00 Simvastatin (Zocor) 10 mg HS PO Last administered on 12/22/20at 21:11; Start 12/15/20 at 21:00 Triamcinolone Acetonide (Kenalog 0.1%) 1 ayse BID TP Last administered on 12/22/20 08:51; Start 12/15/20 at 09:00 Pantoprazole Sodium (Protonix) 40 mg DAILYAC PO Last administered on 12/22/20at 08:50; Start 12/15/20 at 07:30 Sodium Chloride 1,000 ml @ 1,000 mls/hr Q1H PRN IV hypotension; Start 12/15/20 at 06:45; Stop 12/15/20 at 12:44; Status DC Sodium Chloride 1,000 ml @ 400 mls/hr Q2H30M PRN IV PATENCY; Start 12/15/20 at 06:45; Stop 12/15/20 at 18:44; Status DC Info (PHARMACY MONITORING -- do not chart) 1 each PRN DAILY PRN MC SEE COMMENTS; Start 12/15/20 at 06:45; Status Cancel Info (PHARMACY MONITORING -- do not chart) 1 each PRN DAILY PRN MC SEE COMMENTS; Start 12/15/20 at 06:45; Stop 12/15/20 at 06:47; Status DC Vancomycin HCl 1.5 gm/Sodium Chloride 500 ml @ 250 mls/hr 1X ONCE IV ; Start 12/15/20 at 08:30; Stop 12/15/20 at 10:29; Status UNV Vancomycin HCl 2 gm/Sodium Chloride 500 ml @ 250 mls/hr 1X ONCE IV Last a dministered on 12/15/20at 14:02; Start 12/15/20 at 09:00; Stop 12/15/20 at 10:59; Status DC Epoetin Camron-epbx (RETACRIT for ESRD PTS) 10,000 unit MoWeFr@2100 SQ Last administered on 12/18/20at 21:11; Start 12/16/20 at 21:00 Vancomycin HCl (Vanco Per Pharmacy) 1 each PRN DAILY PRN MC SEE COMMENTS Last administered on 12/17/20at 11:23; Start 12/15/20 at 15:15 Vancomycin HCl (Vancomycin Random Level) 1 each 1X ONCE MC Last administered on 12/17/20at 06:00; Start 12/17/20 at 06:00; Stop 12/17/20 at 06:01; Status DC Methylprednisolone Acetate (DEPO-Medrol 40MG VIAL) 40 mg 1X ONCE IM ; Start 12/16/20 at 09:30; Stop 12/16/20 at 09:31; Status DC Bupivacaine HCl (Sensorcaine-Mpf 0.25%) 10 ml 1X ONCE IJ ; Start 12/16/20 at 09:30; Stop 12/16/20 at 09:31; Status DC Multi-Ingredient Ointment (Hydrocerin, Eucerin Cream) 1 ayse BID TP Last administered on 12/22/20at 08:50; Start 12/16/20 at 21:00 Diclofenac Sodium (Voltaren) 1 ayse BID TP Last administered on 12/22/20at 08:50; Start 12/16/20 at 10:00 Lactobacillus Rhamnosus (Culturelle) 1 cap BID PO Last administered on 12/22/20at 21:11; Start 12/16/20 at 21:00 Sodium Chloride 1,000 ml @ 1,000 mls/hr Q1H PRN IV hypotension; Start 12/17/20 at 08:00; Stop 12/17/20 at 13:59; Status DC Sodium Chloride 1,000 ml @ 400 mls/hr Q2H30M PRN IV PATENCY; Start 12/17/20 at 08:00; Stop 12/17/20 at 19:59; Status DC Info (PHARMACY MONITORING -- do not chart) 1 each PRN DAILY PRN MC SEE COMMENTS; Start 12/17/20 at 08:00; Status Cancel Info (PHARMACY MONITORING -- do not chart) 1 each PRN DAILY PRN MC SEE COMMENTS; Start 12/17/20 at 08:00; Status Cancel Vancomycin HCl 500 mg/Sodium Chloride 100 ml @ 100 mls/hr QTUTHSA IV Last administered on 12/17/20at 16:00; Start 12/17/20 at 16:00; Stop 12/19/20 at 10:44; Status DC Lidocaine/ Epinephrine (LIDOCAINE 1%-EPI 1:100,000 Multi-Dose) 20 ml STK-MED ONCE .ROUTE ; Start 12/17/20 at 14:24; Stop 12/17/20 at 14:24; Status DC Potassium Chloride (Klor-Con) 20 meq 1X ONCE PO Last administered on 12/19/20at 11:49; Start 12/19/20 at 09:15; Stop 12/19/20 at 09:16; Status DC Vancomycin HCl 500 mg/Sodium Chloride 100 ml @ 100 mls/hr QMWF IV Last administered on 12/20/20at 19:45; Start 12/20/20 at 16:00; Stop 12/21/20 at 10:45; Status DC Bupivacaine HCl (Sensorcaine-Mpf 0.25%) 10 ml STK-MED ONCE .ROUTE ; Start 12/16/20 at 09:30; Stop 12/19/20 at 13:17; Status DC Methylprednisolone Acetate (DEPO-Medrol 40MG VIAL) 40 mg STK-MED ONCE .ROUTE ; Start 12/16/20 at 09:30; Stop 12/19/20 at 13:17; Status DC Sodium Chloride 1,000 ml @ 1,000 mls/hr Q1H PRN IV hypotension; Start 12/20/20 at 08:45; Stop 12/20/20 at 14:44; Status DC Sodium Chloride 1,000 ml @ 400 mls/hr Q2H30M PRN IV PATENCY; Start 12/20/20 at 08:45; Stop 12/20/20 at 20:44; Status DC Info (PHARMACY MONITORING -- do not chart) 1 each PRN DAILY PRN MC SEE COMMENTS; Start 12/20/20 at 08:45 Sodium Chloride 1,000 ml @ 1,000 mls/hr Q1H PRN IV hypotension; Start 12/21/20 at 09:30; Stop 12/21/20 at 15:29; Status DC Sodium Chloride 1,000 ml @ 400 mls/hr Q2H30M PRN IV PATENCY; Start 12/21/20 at 09:30; Stop 12/21/20 at 21:29; Status DC Lidocaine HCl (Xylocaine-Mpf 1% 2ml Vial) 2 ml 1X PRN PRN INJ FOR DIALYSIS; Start 12/21/20 at 09:30; Stop 12/22/20 at 09:29; Status DC Info (PHARMACY MONITORING -- do not chart) 1 each PRN DAILY PRN MC SEE COMMENTS; Start 12/21/20 at 09:30; Status UNV Info (PHARMACY MONITORING -- do not chart) 1 each PRN DAILY PRN MC SEE COMMENTS; Start 12/21/20 at 09:30; Status UNV Vancomycin HCl 500 mg/Sodium Chloride 100 ml @ 100 mls/hr TuThSa IV Last administered on 12/21/20at 16:36; Start 12/21/20 at 16:00 Magnesium Sulfate 50 ml @ 25 mls/hr PRN DAILY PRN IV for Mag < 1.7 on am labs; Start 12/22/20 at 12:15 Active Scripts Active Hydrocodone-Apap 5-325 (Hydrocodone Bit/Acetaminophen) 1 Tab Tablet 1 Tab PO PRN 1-2XD PRN 10 Days Admelog (Insulin Lispro) 100 Unit/1 Ml Vial 5 Units SQ TIDWMEALS 30 Days Lantus (Insulin Glargine,Hum.rec.anlog) 100 Unit/1 Ml Vial 10 Unit SQ QHS 30 Days Amlodipine Besylate 10 Mg Tablet 10 Mg PO DAILY 30 Days Reported Duoneb 0.5-3(2.5) Mg/3 Ml (Albuterol/Ipratropium) 3 Ml Ampul.neb 3 Ml NEB QID PRN Triamcinolone Acetonide 0.1% Oint (Triamcinolone Acetonide) 15 Gm Oint...g. 1 Ayse TP BID MIX WITH EUCERIN DIRECTED BY PHYSICIAN Aspir 81 (Aspirin) 81 Mg Tablet. 81 Mg PO DAILY Omeprazole 40 Mg Capsule. 40 Mg PO DAILY Simvastatin 10 Mg Tablet 10 Mg PO HS Vitals/I & O Vital Sign - Last 24 Hours 12/22/20 12/22/20 12/22/20 12/22/20 11:00 11:13 15:00 19:00 Temp 98.1 97.9 98.0 98.1 97.9 98.0 Pulse 92 90 91 Resp 18 16 18 B/P (MAP) 106/57 (73) 115/68 (84) 134/64 (87) Pulse Ox 97 98 95 95 O2 Delivery Room Air Room Air Room Air Room Air O2 Flow Rate 2.0 12/22/20 12/22/20 12/23/20 12/23/20 19:50 23:00 03:00 07:00 Temp 98.1 98.0 97.9 98.1 98.0 97.9 Pulse 89 85 87 Resp 18 18 18 B/P (MAP) 155/75 (101) 146/77 (100) 146/73 (97) Pulse Ox 95 90 93 O2 Delivery Room Air Room Air Room Air Room Air Intake and Output 12/22/20 12/22/20 12/23/20 15:00 23:00 07:00 Intake Total 60 ml Balance 60 ml Justifications for Admission Other Justification ANIL MULLER MD Dec 23, 2020 09:06
--- NOTE | 2020-12-23 09:06 | PDOC ---
PROGRESS NOTES Date of Service: DATE: 12/23/20 TIME: 09:04 Subjective Subjective no new problems Objective Objective Vital Signs Date Time Temp Pulse Resp B/P (MAP) Pulse Ox O2 Delivery O2 Flow Rate FiO2 12/23/20 07:00 97.9 87 18 146/73 (97) 93 Room Air 97.9 12/22/20 11:13 2.0 Intake and Output 12/23/20 07:00 Intake Total 60 ml Balance 60 ml Intake Oral 60 ml # Bowel Movements 1 Physical Exam Abdomen: Soft Heart: Normal S1, Normal S2 Extremities: No clubbing General: Alert MUSCULOSKELETAL: No swelling, Osteoarthritic changes both hands Neuro: Normal speech Psych/Mental Status: Mental status NL Skin: No breakdown Diagnosis Problem List Problems Medical Problems: (1) Adult failure to thrive Status: Acute (2) Cellulitis Status: Acute (3) ESRD (end stage renal disease) Status: Acute Assessment Assessment Problems Medical Problems: (1) Adult failure to thrive Status: Acute (2) Cellulitis Status: Acute (3) ESRD (end stage renal disease) Status: Acute FINAL IMPRESSION: sepsis,positive blood c/s 2/4, gram positive ,STAPHYLOCOCCUS HOMINIS MRS 1. Weakness. 2. Diarrhea. 3. Recent left upper arm arteriovenous shunt, rule out infection. 4. End-stage renal disease, on hemodialysis. 5. Insulin-dependent diabetes. 6. General debility. PLAN:Waiting to go to SNU,pending insurance authorization Using AV shunt for the first time left arm for dialysis on wednesday. Dialysis today? d/c to SNU after that. needs 2 more doses of vancomycin , will be given with out pt dialysis sepsis,positive blood c/s 2/4, gram positive.STAPHYLOCOCCUS HOMINIS MRS removed dialysis catheter 12/17/20 labs noted stable Plan Plan of Care Problems Medical Problems: (1) Adult failure to thrive Status: Acute (2) Cellulitis Status: Acute (3) ESRD (end stage renal disease) Status: Acute Comment Review of Relevant I have reviewed the following items ken (where applicable) has been applied. Labs Laboratory Tests Test 12/22/20 11:21 12/22/20 16:59 12/22/20 20:31 12/23/20 06:40 Glucose (Fingerstick) 202 mg/dL (70-99) 263 mg/dL (70-99) 216 mg/dL (70-99) Hemoglobin 9.4 g/dL (13.0-17.5) Sodium Level 140 mmol/L (136-145) Potassium Level 3.6 mmol/L (3.5-5.1) Chloride Level 102 mmol/L (98-107) Carbon Dioxide Level 27 mmol/L (21-32) Anion Gap 11 (6-14) Blood Urea Nitrogen 55 mg/dL (8-26) Creatinine 4.6 mg/dL (0.7-1.3) Estimated GFR (Cockcroft-Gault) 15.4 Glucose Level 131 mg/dL (70-99) Calcium Level 9.0 mg/dL (8.5-10.1) Phosphorus Level 4.8 mg/dL (2.6-4.7) Magnesium Level 2.1 mg/dL (1.8-2.4) Albumin 2.8 g/dL (3.4-5.0) Microbiology 12/17/20 Gram Stain - Final, Complete 12/17/20 Aerobic Culture - Final, Complete 12/17/20 Blood Culture - Final, Complete NO GROWTH AFTER 5 DAYS Medications Current Medications Magnesium Sulfate 50 ml @ 25 mls/hr PRN DAILY PRN IV for Mag < 1.7 on am labs; Start 12/22/20 at 12:15 Vitals/I & O Vital Sign - Last 24 Hours 12/22/20 12/22/20 12/22/20 12/22/20 11:00 11:13 15:00 19:00 Temp 98.1 97.9 98.0 98.1 97.9 98.0 Pulse 92 90 91 Resp 18 16 18 B/P (MAP) 106/57 (73) 115/68 (84) 134/64 (87) Pulse Ox 97 98 95 95 O2 Delivery Room Air Room Air Room Air Room Air O2 Flow Rate 2.0 12/22/20 12/22/20 12/23/20 12/23/20 19:50 23:00 03:00 07:00 Temp 98.1 98.0 97.9 98.1 98.0 97.9 Pulse 89 85 87 Resp 18 18 18 B/P (MAP) 155/75 (101) 146/77 (100) 146/73 (97) Pulse Ox 95 90 93 O2 Delivery Room Air Room Air Room Air Room Air Intake and Output 12/22/20 12/22/20 12/23/20 15:00 23:00 07:00 Intake Total 60 ml Balance 60 ml Justifications for Admission Other Justification GISELL CLARK MD Dec 23, 2020 09:06
[2020-12-23 09:45] VITALS: BP 146/73
[2020-12-23] MEDS: ASPIRIN ENTERIC COATED 81 MG TABLET.DR. PO SCH (09:45)
[2020-12-23] MEDS: LACTOBACILLUS RHAMNOSUS GG 1 CAPSULE. PO SCH (09:45)
[2020-12-23] MEDS: PANTOPRAZOLE 40 MG TABLET.DR. PO SCH (09:46)
--- NOTE | 2020-12-23 09:51 | PDOC ---
DATE OF SERVICE DATE: 12/23/20 TIME: 09:51 SUBJECTIVE ROS stable OBJECTIVE Vital Signs Vital Signs Date Time Temp Pulse Resp B/P (MAP) Pulse Ox O2 Delivery O2 Flow Rate FiO2 12/23/20 07:00 97.9 87 18 146/73 (97) 93 Room Air 97.9 12/22/20 11:13 2.0 I & 0 Intake and Output 12/23/20 07:00 Intake Total 60 ml Balance 60 ml Intake Oral 60 ml # Bowel Movements 1 PHYSICAL EXAM Physical Exam GEN: Awake, Oriented x 2, In no distress, flat affect EYES: Vision Unchanged, Conjunctiva Normal EN: No EN Drainage, Mucous Membranes moist NECK: no JVD, no JVP, Supple, no Thyromegaly CVS: S1S2, ? soft Murmur, No Gallop, No Rub,no Edema RESP: no Rales, no Rhonchi,no Acc. Muscle Use GI: BS + ve, NO Bruit, Non Tender, Non Distended : no CVA tenderness, no Suprapubic Tenderness DIAGNOSIS/ASSESSMENT Assessment & Plan ESRD: Current fluid and E-lyte status does not necessitate emergent need for dialysis. continue on TTSat schedule Hyperkalemia: Resolved ANEMIA; supplemental erythropoietinwill need ordered, if hemoglobin remains low, transfuse with next HD as needed HTN: Current BP meds as reviewed. See orders for changes. BONE & MINERAL: Follow phosphorus levels and alter binder regimen as needed COMMENT/RELEVANT DATA Meds Current Medications Medications (Trade) Dose Ordered Sig/Madeleine Start Time Stop Time Status Last Admin Dose Admin Acetaminophen (Tylenol) 650 mg PRN Q4HRS PRN 12/14/20 13:15 12/15/20 13:14 DC Acetaminophen/ Hydrocodone Bitart (Lortab 5/325) 1 tab PRN QID PRN 12/14/20 22:45 12/22/20 08:59 1 TAB Albuterol Sulfate (Ventolin Neb Soln) 2.5 mg PRN QID PRN 12/14/20 23:00 Amlodipine Besylate (Norvasc) 10 mg DAILY 12/15/20 09:00 12/22/20 08:50 10 MG Aspirin (Ecotrin) 81 mg DAILY 12/15/20 09:00 12/22/20 08:50 81 MG Bupivacaine HCl (Sensorcaine-Mpf 0.25%) 10 ml STK-MED ONCE 12/16/20 09:30 12/19/20 13:17 DC Cefazolin Sodium/ Dextrose 50 ml @ 100 mls/hr 1X ONCE 12/14/20 13:30 12/14/20 13:59 DC 12/14/20 14:23 100 MLS/HR Dextrose (Dextrose 50%-Water Syringe) 12.5 gm PRN Q15MIN PRN 12/14/20 21:15 Diclofenac Sodium (Voltaren) 1 babar BID 12/16/20 10:00 12/22/20 08:50 1 BABAR Epoetin Camron-epbx (RETACRIT for ESRD PTS) 10,000 unit MoWeFr@2100 12/16/20 21:00 12/18/20 21:11 10,000 UNIT Fentanyl Citrate (Fentanyl 2ml Vial) 50 mcg PRN Q1HR PRN 12/14/20 13:15 12/15/20 13:14 DC Info (PHARMACY MONITORING -- do not chart) 1 each PRN DAILY PRN 12/21/20 09:30 UNV Insulin Glargine (Lantus Syringe) 10 unit QHS 12/14/20 23:00 12/22/20 21:21 10 UNIT Insulin Human Lispro (HumaLOG) 5 units TIDWMEALS 12/15/20 08:00 12/22/20 18:11 5 UNITS Lactobacillus Rhamnosus (Culturelle) 1 cap BID 12/16/20 21:00 12/22/20 21:11 1 CAP Lidocaine HCl (Xylocaine-Mpf 1% 2ml Vial) 2 ml 1X PRN PRN 12/21/20 09:30 12/22/20 09:29 DC Lidocaine/ Epinephrine (LIDOCAINE 1%-EPI 1:100,000 Multi-Dose) 20 ml STK-MED ONCE 12/17/20 14:24 12/17/20 14:24 DC Magnesium Sulfate 50 ml @ 25 mls/hr PRN DAILY PRN 12/22/20 12:15 Methylprednisolone Acetate (DEPO-Medrol 40MG VIAL) 40 mg STK-MED ONCE 12/16/20 09:30 12/19/20 13:17 DC Multi-Ingredient Ointment (Hydrocerin, Eucerin Cream) 1 babar BID 12/16/20 21:00 12/22/20 08:50 1 BABAR Pantoprazole Sodium (Protonix) 40 mg DAILYAC 12/15/20 07:30 12/22/20 08:50 40 MG Potassium Chloride (Klor-Con) 20 meq 1X ONCE 12/19/20 09:15 12/19/20 09:16 DC 12/19/20 11:49 20 MEQ Simvastatin (Zocor) 10 mg HS 12/15/20 21:00 12/22/20 21:11 10 MG Sodium Chloride 1,000 ml @ 400 mls/hr Q2H30M PRN 12/21/20 09:30 12/21/20 21:29 DC Triamcinolone Acetonide (Kenalog 0.1%) 1 babar BID 12/15/20 09:00 12/22/20 08:51 1 BABAR Vancomycin HCl (Vanco Per Pharmacy) 1 each PRN DAILY PRN 12/15/20 15:15 12/17/20 11:23 1 EACH Vancomycin HCl (Vancomycin Random Level) 1 each 1X ONCE 12/17/20 06:00 12/17/20 06:01 DC 12/17/20 06:00 1 EACH Vancomycin HCl 1.5 gm/Sodium Chloride 500 ml @ 250 mls/hr 1X ONCE 12/15/20 08:30 12/15/20 10:29 UNV Vancomycin HCl 500 mg/Sodium Chloride 100 ml @ 100 mls/hr TuThSa 12/21/20 16:00 12/21/20 16:36 100 MLS/HR Vancomycin HCl 2 gm/Sodium Chloride 500 ml @ 250 mls/hr 1X ONCE 12/15/20 09:00 12/15/20 10:59 DC 12/15/20 14:02 250 MLS/HR Lab Laboratory Tests Test 12/22/20 11:21 12/22/20 16:59 12/22/20 20:31 12/23/20 06:40 Glucose (Fingerstick) 202 mg/dL (70-99) 263 mg/dL (70-99) 216 mg/dL (70-99) Hemoglobin 9.4 g/dL (13.0-17.5) Sodium Level 140 mmol/L (136-145) Potassium Level 3.6 mmol/L (3.5-5.1) Chloride Level 102 mmol/L (98-107) Carbon Dioxide Level 27 mmol/L (21-32) Anion Gap 11 (6-14) Blood Urea Nitrogen 55 mg/dL (8-26) Creatinine 4.6 mg/dL (0.7-1.3) Estimated GFR (Cockcroft-Gault) 15.4 Glucose Level 131 mg/dL (70-99) Calcium Level 9.0 mg/dL (8.5-10.1) Phosphorus Level 4.8 mg/dL (2.6-4.7) Magnesium Level 2.1 mg/dL (1.8-2.4) Albumin 2.8 g/dL (3.4-5.0) Results All relevant outside records, renal labs, imaging studies, telemetry/EKG's were reviewed. Justicifation of Admission Dx: Justifications for Admission: Justification of Admission Dx: N/A ABRAM HARDING MD Dec 23, 2020 09:51
[2020-12-23] MEDS: VANCOMYCIN PER PHARMACY MC PRN (10:15)
--- NOTE | 2020-12-23 11:13 | NUR ---
PATIENT DISCHARGED TO SNF VIA TRANSPORTER ALL PERSONAL BELONGING AND PAPERWORK WITH TRANSPORTER . iv SITE REMOVED. CAREGIVER AWARE OF TRANSPORT
--- NOTE | 2020-12-26 22:05 | PDOC ---
Provider Note Date of Service: DATE: 12/26/20 TIME: 22:04 Provider Note Discharge summary dictated#[id number]. Justifications for Admission Other Justification GISELL CLARK MD Dec 26, 2020 22:05
--- NOTE | 2020-12-26 22:06 | PDOC ---
Provider Note Date of Service: DATE: 12/26/20 TIME: 22:05 Provider Note Dischareg summary dictated.#[id number]. Justifications for Admission Other Justification GISELL CLARK MD Dec 26, 2020 22:06
--- NOTE | 2020-12-26 22:45 | DS ---
DATE OF DISCHARGE: 12/23/2020 REASON FOR ADMISSION TO THE HOSPITAL: Sepsis, Gram-positive bacteremia from infected dialysis catheter. PROCEDURES DONE: 1. Removal of dialysis catheter. 2. Hemodialysis and upper extremity ultrasound. HOSPITAL COURSE: The patient is a 70-year-old male. The patient has been recently on dialysis last 3-4 months. He is getting outpatient dialysis Wednesday, and Wednesday through a Perm-A-Cath and he also recently had AV shunt placed in the left couple of weeks ago. The patient was noticed to be very weak and did not get out of the bed, his was bed was soiled with stool. The patient was brought to the hospital, had positive blood cultures, 2/4 blood cultures, which came back positive for Staph hominis sensitive to vancomycin. The patient was given vancomycin IV. ID was consulted. It was felt that patient needs to have dialysis catheter removed, PermCath was removed and the patient had an AV shunt was accessed in the left arm, which was placed a couple of weeks ago. The patient tolerated the dialysis well and it was felt that the [facility]. The patient needed one more week of IV vancomycin. He gets 500 mg after dialysis Wednesday, Wednesday and Wednesday. The patient was discharged to [facility]. FINAL DIAGNOSES: 1. Sepsis due to Staph Bacteremia. 2. Staph hominis bacteremia secondary to infected dialysis catheter, which was removed. 3. End-stage renal disease, on hemodialysis. The patient has been started on dialysis 3-4 months ago. The patient is now being dialyzed with AV shunt, which was placed a couple of weeks ago. 4. Diabetes. 5. Hypertension. 6. Diabetic kidney failure. 7. Generalized weakness. DISPOSITION: To penitentiary unit. I will see him back for additional medications. Continue hemodialysis Wednesday, Wednesday and Wednesday and vancomycin 500 mg with each dialysis for 3 more doses. BARBI/HALINA/DARA DR: BARBI/ruben TID: [id number] [facility]
== END 2020-12-23 10:56 | DRG 314 ==
LOC: ER 11:34 → 4 NORTH 13:13
PROVIDERS: ADMIT Internal Medicine; ATTEND Internal Medicine
PROC: 5A1D70Z Performance of Urinary Filtration, Intermittent, Less than 6 Hours Per Day (ICD-10-PCS; 2020-12-15)
PROC: 5A1D70Z Performance of Urinary Filtration, Intermittent, Less than 6 Hours Per Day (ICD-10-PCS; 2020-12-17)
PROC: 0JPT3XZ Removal of Tunneled Vascular Access Device from Trunk Subcutaneous Tissue and Fascia, Percutaneous Approach (ICD-10-PCS; 2020-12-19)
PROC: 02PY33Z Removal of Infusion Device from Great Vessel, Percutaneous Approach (ICD-10-PCS; 2020-12-19)
PROC: 5A1D70Z Performance of Urinary Filtration, Intermittent, Less than 6 Hours Per Day (ICD-10-PCS; 2020-12-20)
PROC: 5A1D70Z Performance of Urinary Filtration, Intermittent, Less than 6 Hours Per Day (ICD-10-PCS; principal; 2020-12-21)
DX: T80.211A Bloodstream infection due to central venous catheter, initial encounter (principal); N18.6 End stage renal disease; A41.2 Sepsis due to unspecified staphylococcus; I13.2 Hypertensive heart and chronic kidney disease with heart failure and with stage 5 chronic kidney disease, or end stage renal disease; L03.90 Cellulitis, unspecified; B95.7 Other staphylococcus as the cause of diseases classified elsewhere; B96.89 Other specified bacterial agents as the cause of diseases classified elsewhere; D63.1 Anemia in chronic kidney disease; E11.22 Type 2 diabetes mellitus with diabetic chronic kidney disease; E11.42 Type 2 diabetes mellitus with diabetic polyneuropathy; E78.00 Pure hypercholesterolemia, unspecified; E78.5 Hyperlipidemia, unspecified; E87.6 Hypokalemia; I50.9 Heart failure, unspecified; M75.92 Shoulder lesion, unspecified, left shoulder; R32 Unspecified urinary incontinence; R62.7 Adult failure to thrive; Y84.8 Other medical procedures as the cause of abnormal reaction of the patient, or of later complication, without mention of misadventure at the time of the procedure; Z20.822 Contact with and (suspected) exposure to COVID-19; Z79.4 Long term (current) use of insulin; Z82.3 Family history of stroke; Z83.3 Family history of diabetes mellitus; Z99.2 Dependence on renal dialysis; E87.5 Hyperkalemia; K21.9 Gastro-esophageal reflux disease without esophagitis; K57.90 Diverticulosis of intestine, part unspecified, without perforation or abscess without bleeding
CPT/HCPCS: 36415; 36590; 71045; 80048; 80053; 80069; 80202; 82962; 83605; 83735; 85018; 85025; 87040; 87070; 87077; 87186; 87205; 87426; 93005; 93971; 96365; J0690; J1030; J1815; J3370; J3490; J7040; U0003; U0005; 97110-GP; 97530-GO; 97530-GP; 97535-GO; 99285-25; G0378

== ENCOUNTER 2021-04-30 14:39 | Inpatient (IN) | payer MEDICARE, OTHER ==
[~2021-04-30] VITALS: Ht 182.9 cm; Wt 68.5 kg
[~2021-04-30 14:39] MED LIST changes: -MOME17SP NS; +MOME17SP5 NS
[2021-04-30 15:43] LABS: BASO % 0 % (0-3); EOS # 0.1 x10^3/uL (0.0-0.7); EOS % 1 % (0-3); HEMATOCRIT 24.2 % (39.0-53.0); HEMOGLOBIN 8.5 g/dL (13.0-17.5); LYMPH # 1.1 x10^3/uL (1.0-4.8); LYMPH % 11 % (24-48); MEAN CORPUSCULAR HEMOGLOBIN 28 pg (25-35); MEAN CORPUSCULAR HGB CONC 35 g/dL (31-37); MEAN CORPUSCULAR VOLUME 79 fL (79-100); MONO # 0.8 x10^3/uL (0.0-1.1); MONO % 8 % (0-9); NEUT # 7.9 x10^3/uL (1.8-7.7); NEUT % 80 % (31-73); PLATELET COUNT 237 x10^3/uL (140-400); RED BLOOD COUNT 3.06 x10^6/uL (4.30-5.70); RED CELL DISTRIBUTION WIDTH 17.7 % (11.5-14.5)
--- NOTE | 2021-04-30 15:51 | RAD ---
Single view of the chest. 04/30/2021 3:05 PM Indication: Hemoptysis. Comparison: Chest radiograph December 14, 2020 Findings: There is no focal consolidation. There is no pleural effusion or pneumothorax. The cardiome diastinal silhouette and pulmonary vasculature are within normal limits. No acute osseous abnormaliti es are seen. Impression: No evidence of acute cardiopulmonary process. Electronically signed by: Doug Avila MD (04/30/2021 3:49 PM) [id number]
[2021-04-30 15:59] LABS: CALCIUM 8.4 mg/dL (8.5-10.1); CREATININE 3.7 mg/dL (0.7-1.3); GFR 19.7; MAGNESIUM 1.8 mg/dL (1.8-2.4)
--- NOTE | 2021-04-30 16:09 | RAD ---
Exam: CT cervical spine without contrast INDICATION: Neck and right arm pain TECHNIQUE: Sequential axial images through the cervical spine obtained without IV contrast. Sagittal and coronal reformatted images were reconstructed from the axial data and reviewed. Exposure: One or more of the following in the visualized dose reduction techniques were utilized for this examination: 1. Automated exposure control 2. Adjustment of the MA and/or KV according to patient size 3. Use of iterative of reconstructive technique Comparisons: None FINDINGS: Visualized intracranial structures are unremarkable. Vertebral body heights and alignment are well-maintained. Fracture through the cervical spine is not identified. Multilevel spondylotic change in cervical spine with degenerative disc disease greatest at C6-C7. The re is uncovertebral arthropathy at C6-C7 causing mild bilateral neural foraminal stenosis. Visualized paraspinal soft tissues are unremarkable. IMPRESSION: Spondylotic change in the cervical spine as described above. Electronically signed by: Kei Ferrari MD (04/30/2021 4:06 PM) [email or web address]
[2021-04-30 16:26] LABS: POTASSIUM 2.9 mmol/L (3.5-5.1)
[2021-04-30] MEDS ORDERED: POTASSIUM CHLORIDE 20 MEQ TABLET.ER. PO ONE ×2 (16:45→23:30)
--- NOTE | 2021-04-30 17:30 | PHYS DOC ---
Past Medical History Past Medical History: Arthritis, Cancer, CHF, Diabetes-Type II, GERD, High Cholesterol, Hypertension Additional Past Medical Histor: "BLOOD CANCER",LYMPHEDEMA,DIALYSIS:TUES/TH/SAT Past Surgical History: No Surgical History Additional Past Surgical Histo: hernia repair,carpal tunnel,cataract,LEFT UPPER ARM FISTULA Smoking Status: Never Smoker Alcohol Use: None Drug Use: Marijuana Adult General Chief Complaint Chief Complaint: WEAKNESS/GENERALIZED HPI HPI Patient is a 71 year old male presents with generalized weakness. Symptoms been present for about a week. He is a hemodialysis patient and is not needed to dialysis secondary to his weakness. Has not had a fever that he is aware of and he does not have any chest pain, cough or shortness of breath. He denies any abdominal pain, nausea, vomiting or diarrhea. He has had some neck discomfort over the last few days on the right side which seems to radiate to the shoulder and is a bit worse with rotational movements of the head. No history of trauma. Review of Systems Review of Systems Constitutional: Denies fever Eyes: Denies change in visual acuity or eye pain HENT: Denies sore throat Respiratory: Denies shortness of breath Cardiovascular: Denies chest pain GI: Denies abd pain : Denies dysuria Musculoskeletal: Denies back or extremity injury Integument: Denies rash or skin lesions Neurologic: Denies headache, focal weakness or sensory changes All other systems were reviewed and found to be within normal limits, except as documented in this note. Current Medications Current Medications Current Medications Medications (Trade) Dose Ordered Sig/Madeleine Start Time Stop Time Status Last Admin Dose Admin Potassium Chloride (Klor-Con) 40 meq 1X ONCE 04/30/21 16:45 04/30/21 16:46 DC 04/30/21 16:57 40 MEQ Allergies Allergies Allergies Coded Allergies Type Severity Reaction Last Updated Verified No Known Drug Allergies 04/30/21 No Physical Exam Physical Exam Constitutional: Well developed, well nourished, no acute distress, non-toxic babar earance. HENT: Normocephalic, atraumatic, bilateral external ears normal, mucosa moist, nose normal. Eyes: EOMI, conjunctiva normal, no discharge. Neck: Normal range of motion, supple, no stridor, no meningeal signs, right- sided paraspinal muscle tenderness with range of motion and on palpation Cardiovascular: Regular rate and rhythm Lungs & Thorax: Bilateral breath sounds clear to auscultation Abdomen: Soft, no tenderness or obvious masses Skin: Warm, dry, no erythema, no rash. Extremities: No tenderness, no cyanosis, no clubbing, ROM intact, no edema. Neurologic: Alert and oriented, normal motor function, normal sensory function, no focal deficits noted. Psychologic: Affect normal, judgement normal, mood normal. Current Patient Data Vital Signs Vital Signs Date Time Temp Pulse Resp B/P (MAP) Pulse Ox O2 Delivery O2 Flow Rate FiO2 04/30/21 16:27 64 17 189/82 (117) 93 04/30/21 14:42 98.0 Room Air 98.0 Lab Values Laboratory Tests Test 04/30/21 15:25 White Blood Count 10.0 x10^3/uL (4.0-11.0) Red Blood Count 3.06 x10^6/uL (4.30-5.70) L Hemoglobin 8.5 g/dL (13.0-17.5) L Hematocrit 24.2 % (39.0-53.0) L Mean Corpuscular Volume 79 fL (79-100) Mean Corpuscular Hemoglobin 28 pg (25-35) Mean Corpuscular Hemoglobin Concent 35 g/dL (31-37) Red Cell Distribution Width 17.7 % (11.5-14.5) H Platelet Count 237 x10^3/uL (140-400) Neutrophils (%) (Auto) 80 % (31-73) H Lymphocytes (%) (Auto) 11 % (24-48) L Monocytes (%) (Auto) 8 % (0-9) Eosinophils (%) (Auto) 1 % (0-3) Basophils (%) (Auto) 0 % (0-3) Neutrophils # (Auto) 7.9 x10^3/uL (1.8-7.7) H Lymphocytes # (Auto) 1.1 x10^3/uL (1.0-4.8) Monocytes # (Auto) 0.8 x10^3/uL (0.0-1.1) Eosinophils # (Auto) 0.1 x10^3/uL (0.0-0.7) Basophils # (Auto) 0.0 x10^3/uL (0.0-0.2) Sodium Level 141 mmol/L (136-145) Potassium Level 2.9 mmol/L (3.5-5.1) *L Chloride Level 104 mmol/L (98-107) Carbon Dioxide Level 27 mmol/L (21-32) Anion Gap 10 (6-14) Blood Urea Nitrogen 48 mg/dL (8-26) H Creatinine 3.7 mg/dL (0.7-1.3) H Estimated GFR (Cockcroft-Gault) 19.7 Glucose Level 318 mg/dL (70-99) H Lactic Acid Level 0.7 mmol/L (0.4-2.0) Calcium Level 8.4 mg/dL (8.5-10.1) L Magnesium Level 1.8 mg/dL (1.8-2.4) Troponin I High Sensitivity 35 ng/L (4-75) Lipase 56 U/L (73-393) L Laboratory Tests 04/30/21 15:25 Laboratory Tests 04/30/21 15:25 EKG EKG [] Interpretation Time: Twelve-lead EKG demonstrates a sinus rhythm with an overall rate of 67 bpm. NJ, QRS and QT corrected intervals are within normal limits. No ST elevation or depression. Radiology/Procedures Radiology/Procedures [] Impressions: PATIENT: RACHEL GREEN MACCOUNT: [id number]#: [id number] : 1950 LOCATION: ER AGE: 71 SEX: M EXAM STATUS: REG ER ORD. PHYSICIAN: DAVID LIZAMA MD REASON: cough blood work 3:15 PROCEDURE: CHEST AP ONLY Single view of the chest. 04/30/2021 3:05 PM Indication: Hemoptysis. Comparison: Chest radiograph December 14, 2020 Findings: There is no focal consolidation. There is no pleural effusion or pneumothorax. The cardiomediastinal silhouette and pulmonary vasculature are within normal limits. No acute osseous abnormalities are seen. Impression: No evidence of acute cardiopulmonary process. Electronically signed by: Doug Hernandez MD (04/30/2021 3:49 PM) [id number] DICTATED and SIGNED BY: DOUG HERNANDEZ MD DATE: 04/30/21 1548 PATIENT: RACHEL GREEN MACCOUNT: [id number] : 1950 LOCATION: ER AGE: 71 SEX: M EXAM STATUS: REG ER ORD. PHYSICIAN: DAVID LIZAMA MD REASON: neck and rt arm pain x several days PROCEDURE: CT CERVICAL SPINE WO CONTRAST Exam: CT cervical spine without contrast INDICATION: Neck and right arm pain TECHNIQUE: Sequential axial images through the cervical spine obtained without IV contrast. Sagittal and coronal reformatted images were reconstructed from the axial data and reviewed. Exposure: One or more of the following in the visualized dose reduction techniques were utilized for this examination: 1. Automated exposure control 2. Adjustment of the MA and/or KV according to patient size 3. Use of iterative of reconstructive technique Comparisons: None FINDINGS: Visualized intracranial structures are unremarkable. Vertebral body heights and alignment are well-maintained. Fracture through the cervical spine is not identified. Multilevel spondylotic change in cervical spine with degenerative disc disease greatest at C6-C7. There is uncovertebral arthropathy at C6-C7 causing mild bilateral neural foraminal stenosis. Visualized paraspinal soft tissues are unremarkable. IMPRESSION: Spondylotic change in the cervical spine as described above. Electronically signed by: Kei Lewis MD (04/30/2021 4:06 PM) [facility] DICTATED and SIGNED BY: KEI LEWIS MD DATE: 04/30/211600 Course & Med Decision Making Course & Med Decision Making Pertinent Labs and Imaging studies reviewed. (See chart for details) [] Is a 71-year-old male with generalized weakness. He is a hemodialysis patient but his BUN and creatinine are fairly good for having missed a week of dialysis. His potassium is 2.9. Rest of his lab studies are unrevealing. CT of the neck and chest x-ray are unrevealing as well. Patient's been given 40 mEq potassium orally. We will keep him in the hospital for further management, he is in stable condition at this time. Dragon Disclaimer Dragon Disclaimer This electronic medical record was generated, in whole or in part, using a voice recognition dictation system. Departure Departure Impression: Primary Impression: Hypokalemia Additional Impressions: End stage renal disease Generalized weakness Disposition: ADMITTED INPATIENT Admitting Physician: Dorinda Clark Condition: STABLE Referrals: DORINDA CLARK MD (PCP) Problem Qualifiers DAVID LIZAMA MD Apr 30, 2021 17:30
[2021-04-30 17:59] LABS: INFLUENZA A PATIENT NEGATIVE (NEGATIVE); INFLUENZA B PATIENT NEGATIVE (NEGATIVE)
[2021-04-30] MEDS ORDERED: cloNIDine HCL 0.1 MG TABLET PO ONE (18:00)
[2021-04-30 22:15] VITALS: BP 131/62
[2021-04-30] MEDS ORDERED: IV DEXTROSE 5% 250 ML BAG. IV PRN (23:15)
[2021-04-30] MEDS ORDERED: DEXTROSE 50% 25 GM / 50ML DISP.SYRIN. IV PRN (23:15)
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
[2021-05-01] MEDS ORDERED: METO-247 PO (00:05)
[2021-05-01] MEDS ORDERED: INSU100I13 SQ (00:05)
[2021-05-01] MEDS ORDERED: INSU100V6 SQ (00:05)
[2021-05-01] MEDS: INSULIN LISPRO 300 UNITS/3 ML VIAL. SQ SCH ×4 (00:08→17:00)
[2021-05-01] MEDS: ACETAMINOPHEN 325 MG TABLET. PO PRN (00:10)
[2021-05-01] MEDS ORDERED: ALBUTEROL SULFATE 2.5 MG/3 ML NEBU. NEB PRN (00:15)
[2021-05-01 00:25] VITALS: BP 137/64
[2021-05-01 03:00] VITALS: BP 127/58
[2021-05-01 04:00] LABS: BASO # 0.1 x10^3/uL (0.0-0.2); BASO % 1 % (0-3); EOS # 0.1 x10^3/uL (0.0-0.7); EOS % 1 % (0-3); HEMATOCRIT 22.6 % (39.0-53.0); HEMOGLOBIN 8.2 g/dL (13.0-17.5); LYMPH # 1.3 x10^3/uL (1.0-4.8); LYMPH % 13 % (24-48); MEAN CORPUSCULAR HEMOGLOBIN 29 pg (25-35); MEAN CORPUSCULAR HGB CONC 36 g/dL (31-37); MEAN CORPUSCULAR VOLUME 79 fL (79-100); MONO # 0.8 x10^3/uL (0.0-1.1); MONO % 9 % (0-9); NEUT # 7.3 x10^3/uL (1.8-7.7); NEUT % 76 % (31-73); PLATELET COUNT 230 x10^3/uL (140-400); RED BLOOD COUNT 2.87 x10^6/uL (4.30-5.70); RED CELL DISTRIBUTION WIDTH 17.6 % (11.5-14.5); WHITE BLOOD COUNT 9.6 x10^3/uL (4.0-11.0)
[2021-05-01 04:26] LABS: CALCIUM 8.2 mg/dL (8.5-10.1); CREATININE 3.8 mg/dL (0.7-1.3); GFR 19.1; POTASSIUM 3.1 mmol/L (3.5-5.1)
[2021-05-01 07:00] VITALS: BP 118/64
--- NOTE | 2021-05-01 07:56 | EKG ---
[facility] [address] [place] [address] Test Date: 2021-04-30 Test Time: 14:49:42 Pat Name: RACHEL GREEN Department: Room: 203 1 Gender: M Manager Site: : 1950 Requested By: DAVID LIZAMA Order Number: [id number] Reading MD: Angel Espana MD Measurements Intervals [place] Rate: 67 P: 26 WA: 226 QRS: -13 QRSD: 98 T: 26 QT: 404 QTc: 430 Interpretive Statements SINUS RHYTHM PROLONGED WA INTERVAL Electronically Signed On 05-02-2021 17:43:05 CDT by Angel Espana MD
--- NOTE | 2021-05-01 08:06 | EKG ---
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
[2021-05-01] MEDS: PANTOPRAZOLE 40 MG TABLET.DR. PO SCH (08:15)
[2021-05-01] MEDS: ASPIRIN ENTERIC COATED 81 MG TABLET.DR. PO SCH (08:16)
[2021-05-01] MEDS ORDERED: DEXTROSE 50% 25 GM / 50ML DISP.SYRIN. IV PRN (09:15)
[2021-05-01] MEDS ORDERED: POTASSIUM CHLORIDE 20 MEQ TABLET.ER. PO ONE ×2 (09:15→12:15)
--- NOTE | 2021-05-01 09:23 | PDOC ---
Provider Note Date of Service: DATE: 05/01/21 TIME: 09: Provider Note Pt seen .H&P dictated.#[id number]. Justifications for Admission Other Justification GISELL CLARK MD May 01, 2021 09:23
[2021-05-01] MEDS: predniSONE 10 MG TABLET PO SCH (09:39)
--- NOTE | 2021-05-01 09:39 | PDOC2 ---
CONSULT Date of Consult Date of Consult DATE: 05/01/21 TIME: 09:37 Reason for Consult Reason for Consult: ESRD Identification/Chief Complaint Chief Complaint " My neck hurts" History of Present Illness Reason for Visit: Patient is a 71 year old AA male presents with generalized weakness. Symptoms been present for about a week. Denies fever ,No chest pain, cough or shortness of breath. He denies any abdominal pain, nausea, vomiting or diarrhea. He is c/o neck pain Rt side which seems to radiate to the shoulder and is a bit worse with rotational movements of the head. No history of trauma. Was admitted in the past with Failure to thrive For whole week did not go to dialysis; he tells me that he has not missed any dialysis treatments .His CT of the neck was unremarkable Past Medical History Cardiovascular: HTN, Hyperlipidemia CENTRAL NERVOUS SYSTEM: Carpal Tunnel Syndrome GI: Diverticulosis, GERD, Hemorrhoids, Other Heme/Onc: Anemia NOS Musculoskeletal: Other Infectious disease: Other Renal/: Chronic renal insuff, Benign prostatic enlarg. Endocrine: Diabetes Past Surgical History Past Surgical History: Cataract Removal, Hernia Repair, Other Family History Family History: Heart Disease, Stroke Social History ALCOHOL: none Drugs: None Lives: with Family Current Problem List Problem List Problems Medical Problems: (1) End stage renal disease Status: Acute (2) Hypokalemia Status: Acute Current Medications Current Medications Current Medications Potassium Chloride (Klor-Con) 40 meq 1X ONCE PO Last administered on 04/30/21at 16:57; Start 04/30/21 at 16:45; Stop 04/30/21 at 16:46; Status DC Clonidine HCl (Catapres) 0.2 mg 1X ONCE PO Last administered on 04/30/21at 18:05; Start 04/30/21 at 18:00; Stop 04/30/21 at 18:01; Status DC Acetaminophen (Tylenol) 650 mg PRN Q6HRS PRN PO MILD PAIN / TEMP > 100.3'F Last administered on 05/01/21at 00:10; Start 04/30/21 at 23:15 Potassium Chloride (Klor-Con) 20 meq 1X ONCE PO Last administered on 05/01/21at 00:08; Start 04/30/21 at 23:30; Stop 04/30/21 at 23:31; Status DC Insulin Human Lispro (HumaLOG) 0-5 UNITS QIDACHS SQ Last administered on 05/01/21at 08:21; Start 04/30/21 at 23:30 Dextrose (Dextrose 50%-Water Syringe) 12.5 gm PRN Q15MIN PRN IV SEE COMMENTS; Start 04/30/21 at 23:15 Dextrose (Iv Dextrose 5%) 250 ml PRN Q15MIN PRN IV SEE COMMENTS; Start 04/30/21 at 23:15 Amlodipine Besylate (Norvasc) 10 mg DAILY PO Last administered on 05/01/21at 08:16; Start 05/01/21 at 09:00 Aspirin (Ecotrin) 81 mg DAILY PO Last administered on 05/01/21at 08:16; Start 05/01/21 at 09:00 Albuterol Sulfate (Ventolin Neb Soln) 2.5 mg PRN Q6HRS PRN NEB WHEEZING; Start 05/01/21 at 00:15 Simvastatin (Zocor) 10 mg HS PO ; Start 05/01/21 at 21:00 Pantoprazole Sodium (Protonix) 40 mg DAILYAC PO Last administered on 05/01/21at 08:15; Start 05/01/21 at 07:30 Metoprolol Succinate (Toprol Xl) 100 mg DAILY PO ; Start 05/01/21 at 10:00 Insulin Glargine (Lantus Syringe) 15 unit QHS SQ ; Start 05/01/21 at 21:00 Insulin Human Lispro (HumaLOG) 0-5 UNITS TIDWMEALS SQ ; Start 05/01/21 at 12:00 Dextrose (Dextrose 50%-Water Syringe) 12.5 gm PRN Q15MIN PRN IV SEE COMMENTS; Start 05/01/21 at 09:15 Potassium Chloride (Klor-Con) 40 meq 1X ONCE PO ; Start 05/01/21 at 09:15; Stop 05/01/21 at 09:24; Status DC Potassium Chloride (Klor-Con) 20 meq 1X ONCE PO ; Start 05/01/21 at 12:15; Stop 05/01/21 at 12:16 Acetaminophen/ Codeine Phosphate (Tylenol #3) 1 tab PRN Q6HRS PRN PO MODERATE PAIN; Start 05/01/21 at 09:30 Tizanidine HCl (Zanaflex) 4 mg Q8HRS PO ; Start 05/01/21 at 14:00 Prednisone (Prednisone) 10 mg DAILY PO ; Start 05/01/21 at 09:30 Active Scripts Active Amlodipine Besylate 10 Mg Tablet 10 Mg PO DAILY 30 Days Reported Metoprolol Succinate ( Xl ) (Metoprolol Succinate) 100 Mg Tab.er.24h 1 Tab PO DAILY Humalog (Insulin Lispro) 100 Unit/1 Ml Vial 12 Unit SQ TIDAC Lantus Solostar (Insulin Glargine,Hum.rec.anlog) 100 Unit/1 Ml Insuln.pen 15 Unit SQ QHS Duoneb 0.5-3(2.5) Mg/3 Ml (Albuterol/Ipratropium) 3 Ml Ampul.neb 3 Ml NEB QID PRN Aspir 81 (Aspirin) 81 Mg Tablet. 81 Mg PO DAILY Omeprazole 40 Mg Capsule. 40 Mg PO DAILY Simvastatin 10 Mg Tablet 10 Mg PO HS Allergies Allergies: Coded Allergies: No Known Drug Allergies (Unverified , 04/30/21) ROS Review of System As per HPI, rest of the ROS is negative Physical Exam Physical Exam General NAD HEEN OM moist Nck Supple Lungs decreased at abses, Non labored CV s1s2, no rub GI- soft, NT Ext No LE edema Neuro grossly normal No CVA or SP tenderness Psych Normal Affect Vital Signs Vital Signs Date Time Temp Pulse Resp B/P (MAP) Pulse Ox O2 Delivery O2 Flow Rate FiO2 05/01/21 08:16 70 118/64 05/01/21 07:31 Room Air 05/01/21 07:00 98.6 16 94 98.6 Assessment & Plan ESRD on HD TTS . Dialysis today discussed treatment plan with Anca HypoKalemia- On PO replacement Anemia- Hgb stable, TANIA ordered Diabetes, insulin-dependent. History of diastolic heart failure. Labs Labs Laboratory Tests Test 04/30/21 15:25 04/30/21 17:27 04/30/21 23:02 05/01/21 03:35 White Blood Count 10.0 x10^3/uL (4.0-11.0) 9.6 x10^3/uL (4.0-11.0) Red Blood Count 3.06 x10^6/uL (4.30-5.70) 2.87 x10^6/uL (4.30-5.70) Hemoglobin 8.5 g/dL (13.0-17.5) 8.2 g/dL (13.0-17.5) Hematocrit 24.2 % (39.0-53.0) 22.6 % (39.0-53.0) Mean Corpuscular Volume 79 fL (79-100) 79 fL (79-100) Mean Corpuscular Hemoglobin 28 pg (25-35) 29 pg (25-35) Mean Corpuscular Hemoglobin Concent 35 g/dL (31-37) 36 g/dL (31-37) Red Cell Distribution Width 17.7 % (11.5-14.5) 17.6 % (11.5-14.5) Platelet Count 237 x10^3/uL (140-400) 230 x10^3/uL (140-400) Neutrophils (%) (Auto) 80 % (31-73) 76 % (31-73) Lymphocytes (%) (Auto) 11 % (24-48) 13 % (24-48) Monocytes (%) (Auto) 8 % (0-9) 9 % (0-9) Eosinophils (%) (Auto) 1 % (0-3) 1 % (0-3) Basophils (%) (Auto) 0 % (0-3) 1 % (0-3) Neutrophils # (Auto) 7.9 x10^3/uL (1.8-7.7) 7.3 x10^3/uL (1.8-7.7) Lymphocytes # (Auto) 1.1 x10^3/uL (1.0-4.8) 1.3 x10^3/uL (1.0-4.8) Monocytes # (Auto) 0.8 x10^3/uL (0.0-1.1) 0.8 x10^3/uL (0.0-1.1) Eosinophils # (Auto) 0.1 x10^3/uL (0.0-0.7) 0.1 x10^3/uL (0.0-0.7) Basophils # (Auto) 0.0 x10^3/uL (0.0-0.2) 0.1 x10^3/uL (0.0-0.2) Sodium Level 141 mmol/L (136-145) 143 mmol/L (136-145) Potassium Level 2.9 mmol/L (3.5-5.1) 3.1 mmol/L (3.5-5.1) Chloride Level 104 mmol/L (98-107) 106 mmol/L (98-107) Carbon Dioxide Level 27 mmol/L (21-32) 26 mmol/L (21-32) Anion Gap 10 (6-14) 11 (6-14) Blood Urea Nitrogen 48 mg/dL (8-26) 51 mg/dL (8-26) Creatinine 3.7 mg/dL (0.7-1.3) 3.8 mg/dL (0.7-1.3) Estimated GFR (Cockcroft-Gault) 19.7 19.1 Glucose Level 318 mg/dL (70-99) 356 mg/dL (70-99) Lactic Acid Level 0.7 mmol/L (0.4-2.0) Calcium Level 8.4 mg/dL (8.5-10.1) 8.2 mg/dL (8.5-10.1) Magnesium Level 1.8 mg/dL (1.8-2.4) Troponin I High Sensitivity 35 ng/L (4-75) Lipase 56 U/L (73-393) Influenza Type A Antigen Negative (NEGATIVE) Influenza Type B Antigen Negative (NEGATIVE) SARS-CoV-2 Antigen (Rapid) Negative (NEGATIVE) Glucose (Fingerstick) 275 mg/dL (70-99) Laboratory Tests Test 04/30/21 15:25 04/30/21 17:27 04/30/21 23:02 05/01/21 03:35 White Blood Count 10.0 x10^3/uL (4.0-11.0) 9.6 x10^3/uL (4.0-11.0) Red Blood Count 3.06 x10^6/uL (4.30-5.70) 2.87 x10^6/uL (4.30-5.70) Hemoglobin 8.5 g/dL (13.0-17.5) 8.2 g/dL (13.0-17.5) Hematocrit 24.2 % (39.0-53.0) 22.6 % (39.0-53.0) Mean Corpuscular Volume 79 fL (79-100) 79 fL (79-100) Mean Corpuscular Hemoglobin 28 pg (25-35) 29 pg (25-35) Mean Corpuscular Hemoglobin Concent 35 g/dL (31-37) 36 g/dL (31-37) Red Cell Distribution Width 17.7 % (11.5-14.5) 17.6 % (11.5-14.5) Platelet Count 237 x10^3/uL (140-400) 230 x10^3/uL (140-400) Neutrophils (%) (Auto) 80 % (31-73) 76 % (31-73) Lymphocytes (%) (Auto) 11 % (24-48) 13 % (24-48) Monocytes (%) (Auto) 8 % (0-9) 9 % (0-9) Eosinophils (%) (Auto) 1 % (0-3) 1 % (0-3) Basophils (%) (Auto) 0 % (0-3) 1 % (0-3) Neutrophils # (Auto) 7.9 x10^3/uL (1.8-7.7) 7.3 x10^3/uL (1.8-7.7) Lymphocytes # (Auto) 1.1 x10^3/uL (1.0-4.8) 1.3 x10^3/uL (1.0-4.8) Monocytes # (Auto) 0.8 x10^3/uL (0.0-1.1) 0.8 x10^3/uL (0.0-1.1) Eosinophils # (Auto) 0.1 x10^3/uL (0.0-0.7) 0.1 x10^3/uL (0.0-0.7) Basophils # (Auto) 0.0 x10^3/uL (0.0-0.2) 0.1 x10^3/uL (0.0-0.2) Sodium Level 141 mmol/L (136-145) 143 mmol/L (136-145) Potassium Level 2.9 mmol/L (3.5-5.1) 3.1 mmol/L (3.5-5.1) Chloride Level 104 mmol/L (98-107) 106 mmol/L (98-107) Carbon Dioxide Level 27 mmol/L (21-32) 26 mmol/L (21-32) Anion Gap 10 (6-14) 11 (6-14) Blood Urea Nitrogen 48 mg/dL (8-26) 51 mg/dL (8-26) Creatinine 3.7 mg/dL (0.7-1.3) 3.8 mg/dL (0.7-1.3) Estimated GFR (Cockcroft-Gault) 19.7 19.1 Glucose Level 318 mg/dL (70-99) 356 mg/dL (70-99) Lactic Acid Level 0.7 mmol/L (0.4-2.0) Calcium Level 8.4 mg/dL (8.5-10.1) 8.2 mg/dL (8.5-10.1) Magnesium Level 1.8 mg/dL (1.8-2.4) Troponin I High Sensitivity 35 ng/L (4-75) Lipase 56 U/L (73-393) Influenza Type A Antigen Negative (NEGATIVE) Influenza Type B Antigen Negative (NEGATIVE) SARS-CoV-2 Antigen (Rapid) Negative (NEGATIVE) Glucose (Fingerstick) 275 mg/dL (70-99) Review All relevant outside records, renal labs, imaging studies, telemetry/EKG's were reviewed. Images Images Single view of the chest. 04/30/2021 3:05 PM Indication: Hemoptysis. Comparison: Chest radiograph December 14, 2020 Findings: There is no focal consolidation. There is no pleural effusion or pneumothorax. The cardiomediastinal silhouette and pulmonary vasculature are within normal limits. No acute osseous abnormalities are seen. Impression: No evidence of acute cardiopulmonary process. ABRAM HARDING MD May 01, 2021 09:39
[2021-05-01] MEDS: METOPROLOL SUCC 24HR ER 100 MG TAB.ER.24H. PO SCH (09:40)
--- NOTE | 2021-05-01 09:54 | HP ---
DATE OF SERVICE: 05/01/2021 ADMIT DATE: 04/30/2021 REASON FOR ADMISSION TO THE HOSPITAL: Missed dialysis, hypokalemia, neck pain, weakness. HISTORY OF PRESENT ILLNESS: The patient is a 71-year-old male patient known to me, has history of diabetes, he is on dialysis; end-stage renal disease, dialysis for 1 year and he goes to dialysis Wednesday, Wednesday and Wednesday. The patient was not feeling well. Has been weak. For whole week did not go to dialysis; complaining of pain in the neck and he came to the Emergency Room. His CT of the neck was unremarkable. Laboratory data shows a potassium of 2.9. The patient denies nausea, vomiting or diarrhea. The patient was given potassium supplements and admitted to the hospital. The patient is going to get dialysis today. PAST MEDICAL HISTORY: History of diabetes, hypertension, hyperlipidemia and also end-stage renal disease, he goes to dialysis on Wednesday, and Wednesday. PAST SURGICAL HISTORY: He has AV shunt in the left upper arm, cataract surgery, carpal tunnel, hernia repair. PERSONAL HISTORY: Former smoker. Denies smoking, denies alcohol. Occasional use of marijuana. ALLERGIES: No known drug allergies. MEDICATIONS AT HOME: The patient is on Lantus 15 units daily, NovoLog or Humalog 12 units 3 times daily, amlodipine 10 mg daily, aspirin 81 mg daily and DuoNeb four times daily, metoprolol 100 mg daily, omeprazole 40 mg daily, simvastatin 10 mg daily. REVIEW OF SYSTEMS: Complains of neck pain, generalized weakness. Denies any nausea, vomiting or diarrhea. Rest of the 14-system was reviewed and negative. PHYSICAL EXAMINATION: GENERAL: The patient looks older than his age. He has been in bed, not in distress, eating his breakfast. VITAL SIGNS: Temperature 98, pulse 80, respirations 18, blood pressure 188/80, 97 on room air. HEENT: Head is atraumatic. Pupils equal. Oral cavity, few teeth present. NECK: Neck has torticollis spasms, not able to move to the right ,spasm to the left side. CARDIOVASCULAR: S1, S2. No murmurs. LUNGS: Clear to auscultation. No wheezing, no rales. ABDOMEN: Soft. No mass palpable. EXTERNAL GENITALIA: No Lombardo. RECTUM: Deferred. EXTREMITIES: Wasting of the muscles in both extremities, weak in lower extremities, but is able to move the right leg. Left leg, the pulses are diminished. Foot, no ulcerations. NEUROLOGIC: The patient's cranial nerves intact. Has some torticollis with neck spasms to the left side. Generalized body weakness. LABORATORY DATA: Shows a white count of 10, hemoglobin 8.5, platelets 237. Electrolytes show sodium 141, potassium 2.9, chloride 104, bicarb 27, anion gap 10, BUN 48, creatinine 3.7, glucose 318 and influenza was negative. COVID rapid test negative. Chest x-ray was negative. CT of the cervical spine, spondylitic changes. FINAL IMPRESSION: 1. Generalized weakness. The patient missed dialysis for a whole week. He goes to dialysis Wednesday, and Wednesday. 2. Hypokalemia. 3. End-stage renal disease, on hemodialysis. 4. Insulin-dependent diabetes. 5. Cervical spondylolysis with neck muscle spasms. 6. Hypertension. 7. Hyperlipidemia. PLAN: At this time, was admitted to the hospital. He will get dialyzed today, replacement of potassium by oral potassium. We will get physical therapy, rehab, PT, OT and see how the patient's condition improves.. BARBI/KONG DR: BARBI/ruben TID: [id number] MTDD
--- NOTE | 2021-05-01 10:06 | NUR ---
SW following. Discussed with RN, pt from OR with a security expert (Mrs. Parks), room air, renal diet, rapid COVID-19 negative. PT/OT ordered. Wound care and Nephrology following. Pt has had [facility] in the past. SW will continue to follow.
--- NOTE | 2021-05-01 10:22 | CONS ---
DATE OF CONSULTATION: 05/01/2021 ATTENDING PHYSICIAN: Dorinda Colbert MD REASON FOR CONSULTATION: The patient was seen at the request of Dr. Colbert for rehab evaluation. HISTORY OF PRESENT ILLNESS: This is a 71-year-old right-handed male, known to me. The patient with diabetes mellitus type 2, gastroesophageal reflux disease, hypertension, hypercholesterolemia; end-stage renal disease, on hemodialysis. [place] he had an attendant to help him with his care. He complains of right-sided neck pain and he had a fall about 4 weeks ago. Whether he had neck pain before the fall is not quite sure. He denies any radiation of pain to the extremities, but the pain goes from right side of his neck to right shoulder area. He denies any increased numbness or weakness in his extremities. ALLERGIES: The patient is not known allergic to any medication. SOCIAL HISTORY: He lives in a high-rise apartment. PHYSICAL EXAMINATION: GENERAL: Today revealed a middle-aged male. He is alert, oriented to place and person, follows commands appropriately. NEUROLOGIC: Moves all 4 extremities voluntarily where he had 4/5 grade muscle strength. Deep tendon reflexes are decreased overall with absent knee and ankle jerks and he had muscle atrophy involving hand intrinsic muscles, mainly ulnar nerve supplied muscles. The patient had decreased touch and pinprick sensation over a sock and glove distribution. He had painful limited movements of his cervical spine and he keeps his neck rolled to the left side. He had tenderness to palpation over right cervical paraspinal muscles with minimal degree of right cervical paraspinal muscle spasm. The patient requires help with bed mobility and transfers once up with a roller walker. His gait is unsteady. He made a few steps at bedside, but he needs close standby supervision as he had a tendency to lose balance and fall. His skin is intact at this time. He had no significant pain on range of motion of his lower extremity and upper extremity joints at present time. ASSESSMENT: Cervical sprain, probably superimposed on degenerative joint disease of cervical vertebrae. No clinical evidence of ongoing cervical radiculopathy. 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 RECOMMENDATIONS: To try physical modalities. Agree with the plan for physical therapy and occupational therapy. To consider trigger point injections if the pain persists. At this time, he wants to try ice packs before injections. Home with home health followup when medically stable in the next few days. Dr. Colbert, I appreciate asking me to participate in the care of this interesting patient. I will be glad to see him for followup with you on an as needed basis. ARIE DR: Sheri TID: [id number]
[2021-05-01] MEDS ORDERED: DIALYSIS PATIENT. MC PRN ×2 (10:30)
[2021-05-01] MEDS ORDERED: IV NORMAL SALINE 1000ML BAG 1,000 ML IV PRN ×2 (10:30)
[2021-05-01 11:00] VITALS: BP 134/64
[2021-05-01] MEDS: tiZANidine 4 MG TABLET. PO SCH ×2 (14:00→22:04)
[2021-05-01 19:00] VITALS: BP 163/74
[2021-05-01] MEDS: SIMVASTATIN 10 MG TABLET PO SCH (22:04)
[2021-05-01] MEDS: INSULIN GLARGINE SYRINGE. SQ SCH (22:12)
[2021-05-01 23:00] VITALS: BP 142/61
[2021-05-02 03:00] VITALS: BP 150/72
[2021-05-02 06:12] LABS: CALCIUM 8.8 mg/dL (8.5-10.1); CREATININE 2.8 mg/dL (0.7-1.3); GFR 27.2; POTASSIUM 3.7 mmol/L (3.5-5.1)
[2021-05-02 06:16] LABS: CHOLESTEROL/HDL RATIO 5.4
[2021-05-02] MEDS: tiZANidine 4 MG TABLET. PO SCH ×3 (06:45→22:21)
[2021-05-02 07:00] VITALS: BP 154/80
[2021-05-02] MEDS: ASPIRIN ENTERIC COATED 81 MG TABLET.DR. PO SCH (08:47)
[2021-05-02] MEDS: PANTOPRAZOLE 40 MG TABLET.DR. PO SCH (08:47)
[2021-05-02] MEDS: predniSONE 10 MG TABLET PO SCH (08:47)
[2021-05-02] MEDS: METOPROLOL SUCC 24HR ER 100 MG TAB.ER.24H. PO SCH (08:48)
--- NOTE | 2021-05-02 08:57 | PDOC ---
PROGRESS NOTES Date of Service: DATE: 05/02/21 TIME: 08:53 Subjective Subjective no new problems , BS 300 range Objective Objective Vital Signs Date Time Temp Pulse Resp B/P (MAP) Pulse Ox O2 Delivery O2 Flow Rate FiO2 05/02/21 08:48 79 154/80 05/02/21 07:00 98.3 20 94 Room Air 98.3 Intake and Output 05/02/21 07:00 Intake Total 750 ml Output Total 1 ml Balance 749 ml Intake Oral 750 ml Output Stool Total 1 ml # Voids 5 # Bowel Movements 5 Physical Exam Abdomen: Soft Heart: Regular rate, Normal S1, Normal S2 General: No acute distress Lungs: Normal air movement MUSCULOSKELETAL: No swelling, Osteoarthritic changes both hands Neuro: Normal speech Diagnosis Problem List Problems Medical Problems: (1) End stage renal disease Status: Acute (2) Hypokalemia Status: Acute Assessment Assessment Problems Medical Problems: (1) End stage renal disease Status: Acute (2) Hypokalemia Status: Acute FINAL IMPRESSION: 1. Generalized weakness. The patient missed dialysis for a whole week. He goes to dialysis Wednesday, and Wednesday. 2. Hypokalemia. 3. End-stage renal disease, on hemodialysis. 4. Insulin-dependent diabetes. 5. Cervical spondylolysis with neck muscle spasms. 6. Hypertension. 7. Hyperlipidemia. PLAN: CT neck spondylosis,djd. cervical collar dialysed yesterday pt/ot needs SNU. spoke with pts DPOA renal and rehab consult appreciated resume insulin tid ,bs 300 range At this time, was admitted to the hospital. He will get dialyzed today, replacement of potassium by oral potassium. We will get physical therapy, rehab, PT, OT and see how the patient's condition improves.. Plan Plan of Care Problems Medical Problems: (1) End stage renal disease Status: Acute (2) Hypokalemia Status: Acute Comment Review of Relevant I have reviewed the following items ken (where applicable) has been applied. Labs Laboratory Tests Test 05/01/21 11:06 05/01/21 17:06 05/01/21 20:41 05/02/21 04:25 Glucose (Fingerstick) 307 mg/dL (70-99) 169 mg/dL (70-99) 364 mg/dL (70-99) Sodium Level 138 mmol/L (136-145) Potassium Level 3.7 mmol/L (3.5-5.1) Chloride Level 104 mmol/L (98-107) Carbon Dioxide Level 29 mmol/L (21-32) Anion Gap 5 (6-14) Blood Urea Nitrogen 36 mg/dL (8-26) Creatinine 2.8 mg/dL (0.7-1.3) Estimated GFR (Cockcroft-Gault) 27.2 Glucose Level 381 mg/dL (70-99) Calcium Level 8.8 mg/dL (8.5-10.1) Triglycerides Level 182 mg/dL (0-150) Cholesterol Level 140 mg/dL (0-200) LDL Cholesterol, Calculated 78 mg/dL (0-100) VLDL Cholesterol, Calculated 36 mg/dL (0-40) Non-HDL Cholesterol Calculated 114 mg/dL (0-129) HDL Cholesterol 26 mg/dL (40-60) Cholesterol/HDL Ratio 5.4 Thyroid Stimulating Hormone (TSH) 0.784 uIU/mL (0.358-3.74) Test 05/02/21 07:25 Glucose (Fingerstick) 350 mg/dL (70-99) Medications Current Medications Acetaminophen/ Codeine Phosphate (Tylenol #3) 1 tab PRN Q6HRS PRN PO MODERATE PAIN; Start 05/01/21 at 09:30 Amlodipine Besylate (Norvasc) 10 mg DAILY PO Last administered on 05/02/21at 08:47; Start 05/01/21 at 09:00 Aspirin (Ecotrin) 81 mg DAILY PO Last administered on 05/02/21at 08:47; Start 05/01/21 at 09:00 Dextrose (Dextrose 50%-Water Syringe) 12.5 gm PRN Q15MIN PRN IV SEE COMMENTS; Start 05/01/21 at 09:15 Epoetin Camron-epbx (RETACRIT for ESRD PTS) 10,000 unit MoWeFr@2100 SQ ; Start 05/02/21 at 21:00 Info (PHARMACY MONITORING -- do not chart) 1 each PRN DAILY PRN MC SEE COMMENTS; Start 05/01/21 at 10:30 Info (PHARMACY MONITORING -- do not chart) 1 each PRN DAILY PRN MC SEE COMMENTS; Start 05/01/21 at 10:30; Status UNV Insulin Glargine (Lantus Syringe) 15 unit QHS SQ Last administered on 05/01/21at 22:12; Start 05/01/21 at 21:00 Insulin Human Lispro (HumaLOG) 0-5 UNITS TIDWMEALS SQ Last administered on 05/01/21at 12:18; Start 05/01/21 at 12:00 Insulin Human Lispro (HumaLOG) 12 units TIDAC SQ ; Start 05/02/21 at 11:30 Metoprolol Succinate (Toprol Xl) 100 mg DAILY PO Last administered on 05/02/21at 08:48; Start 05/01/21 at 10:00 Potassium Chloride (Klor-Con) 20 meq 1X ONCE PO Last administered on 05/01/21at 12:15; Start 05/01/21 at 12:15; Stop 05/01/21 at 12:16; Status DC Potassium Chloride (Klor-Con) 40 meq 1X ONCE PO Last administered on 05/01/21at 09:40; Start 05/01/21 at 09:15; Stop 05/01/21 at 09:24; Status DC Prednisone (Prednisone) 10 mg DAILY PO Last administered on 05/02/21at 08:47; Start 05/01/21 at 09:30 Simvastatin (Zocor) 10 mg HS PO Last administered on 05/01/21at 22:04; Start 05/01/21 at 21:00 Sodium Chloride 1,000 ml @ 400 mls/hr Q2H30M PRN IV PATENCY; Start 05/01/21 at 10:30; Stop 05/01/21 at 22:29; Status DC Sodium Chloride 1,000 ml @ 1,000 mls/hr Q1H PRN IV hypotension; Start 05/01/21 at 10:30; Stop 05/01/21 at 16:29; Status DC Tizanidine HCl (Zanaflex) 4 mg Q8HRS PO Last administered on 05/02/21at 06:45; Start 05/01/21 at 14:00 Vitals/I & O Vital Sign - Last 24 Hours 05/01/21 05/01/21 05/01/21 05/01/21 09:40 11:00 19:00 22:00 Temp 97.7 98.1 97.7 98.1 Pulse 78 68 74 Resp 18 18 B/P (MAP) 143/84 134/64 (87) 163/74 (103) Pulse Ox 96 95 O2 Delivery Room Air Room Air 05/01/21 05/02/21 05/02/21 05/02/21 23:00 03:00 07:00 08:47 Temp 97.7 97.7 98.3 97.7 97.7 98.3 Pulse 68 72 79 79 Resp 16 16 20 B/P (MAP) 142/61 (88) 150/72 (98) 154/80 (104) 154/80 Pulse Ox 93 94 94 O2 Delivery Room Air 05/02/21 08:48 Pulse 79 B/P (MAP) 154/80 Intake and Output 05/01/21 05/01/21 05/02/21 15:00 23:00 07:00 Intake Total 750 ml Output Total 1 ml Balance 749 ml Justifications for Admission Other Justification Nutrition Consultation Dietary Evaluation: Recommendations by RD: Dietary education by RD, Increase Calorie Intake, Protein supplementation Comments: Renal/ADA DBL meats Nepro bid REC mvi and vit c per wound protocal Expected Outcomes/Goals: to meet >75% est nutr needs Interpretation of weight loss: >7.5% in 3 months Malnutrition Findings: Food and Nutrition Intake (Sev: <50% est energy req 5days Body Fat Depletion (Non Severe: Mod to Severe Weight Status: Underweight GISELL CLARK MD May 02, 2021 08:57
[2021-05-02] MEDS: INSULIN LISPRO 300 UNITS/3 ML VIAL. SQ SCH ×6 (09:03→18:10)
--- NOTE | 2021-05-02 10:07 | PDOC ---
PROGRESS NOTES Date of Service DATE: 05/02/21 TIME: 10:04 Subjective Subjective No new complaints. Objective Objective Vital Signs Date Time Temp Pulse Resp B/P (MAP) Pulse Ox O2 Delivery O2 Flow Rate FiO2 05/02/21 08:48 79 154/80 05/02/21 07:00 98.3 20 94 Room Air 98.3 Intake and Output 05/02/21 07:00 Intake Total 750 ml Output Total 1 ml Balance 749 ml Intake Oral 750 ml Output Stool Total 1 ml # Voids 5 # Bowel Movements 5 Physical Exam Physical Exam He is alert,sitting in bedside recliner with soft cervical collar in place and he requires physical assistance for bed mobility,transfers and up walking with roller walker and he is a fall risk unless someone with him all the time at his side while up. Neck pain seems to be better today Assessment Assessment Problems Medical Problems: (1) End stage renal disease Status: Acute (2) Hypokalemia Status: Acute Plan Plan of Care I hope he agrees to go to SNF. Comment Review of Relevant I have reviewed the following items ken (where applicable) has been applied. Labs Laboratory Tests Test 04/30/21 15:25 04/30/21 17:27 04/30/21 23:02 05/01/21 03:35 White Blood Count 10.0 x10^3/uL (4.0-11.0) 9.6 x10^3/uL (4.0-11.0) Red Blood Count 3.06 x10^6/uL (4.30-5.70) 2.87 x10^6/uL (4.30-5.70) Hemoglobin 8.5 g/dL (13.0-17.5) 8.2 g/dL (13.0-17.5) Hematocrit 24.2 % (39.0-53.0) 22.6 % (39.0-53.0) Mean Corpuscular Volume 79 fL (79-100) 79 fL (79-100) Mean Corpuscular Hemoglobin 28 pg (25-35) 29 pg (25-35) Mean Corpuscular Hemoglobin Concent 35 g/dL (31-37) 36 g/dL (31-37) Red Cell Distribution Width 17.7 % (11.5-14.5) 17.6 % (11.5-14.5) Platelet Count 237 x10^3/uL (140-400) 230 x10^3/uL (140-400) Neutrophils (%) (Auto) 80 % (31-73) 76 % (31-73) Lymphocytes (%) (Auto) 11 % (24-48) 13 % (24-48) Monocytes (%) (Auto) 8 % (0-9) 9 % (0-9) Eosinophils (%) (Auto) 1 % (0-3) 1 % (0-3) Basophils (%) (Auto) 0 % (0-3) 1 % (0-3) Neutrophils # (Auto) 7.9 x10^3/uL (1.8-7.7) 7.3 x10^3/uL (1.8-7.7) Lymphocytes # (Auto) 1.1 x10^3/uL (1.0-4.8) 1.3 x10^3/uL (1.0-4.8) Monocytes # (Auto) 0.8 x10^3/uL (0.0-1.1) 0.8 x10^3/uL (0.0-1.1) Eosinophils # (Auto) 0.1 x10^3/uL (0.0-0.7) 0.1 x10^3/uL (0.0-0.7) Basophils # (Auto) 0.0 x10^3/uL (0.0-0.2) 0.1 x10^3/uL (0.0-0.2) Sodium Level 141 mmol/L (136-145) 143 mmol/L (136-145) Potassium Level 2.9 mmol/L (3.5-5.1) 3.1 mmol/L (3.5-5.1) Chloride Level 104 mmol/L (98-107) 106 mmol/L (98-107) Carbon Dioxide Level 27 mmol/L (21-32) 26 mmol/L (21-32) Anion Gap 10 (6-14) 11 (6-14) Blood Urea Nitrogen 48 mg/dL (8-26) 51 mg/dL (8-26) Creatinine 3.7 mg/dL (0.7-1.3) 3.8 mg/dL (0.7-1.3) Estimated GFR (Cockcroft-Gault) 19.7 19.1 Glucose Level 318 mg/dL (70-99) 356 mg/dL (70-99) Lactic Acid Level 0.7 mmol/L (0.4-2.0) Calcium Level 8.4 mg/dL (8.5-10.1) 8.2 mg/dL (8.5-10.1) Magnesium Level 1.8 mg/dL (1.8-2.4) Troponin I High Sensitivity 35 ng/L (4-75) Lipase 56 U/L (73-393) Influenza Type A Antigen Negative (NEGATIVE) Influenza Type B Antigen Negative (NEGATIVE) SARS-CoV-2 Antigen (Rapid) Negative (NEGATIVE) Glucose (Fingerstick) 275 mg/dL (70-99) Test 05/01/21 11:06 05/01/21 17:06 05/01/21 20:41 05/02/21 04:25 Glucose (Fingerstick) 307 mg/dL (70-99) 169 mg/dL (70-99) 364 mg/dL (70-99) Sodium Level 138 mmol/L (136-145) Potassium Level 3.7 mmol/L (3.5-5.1) Chloride Level 104 mmol/L (98-107) Carbon Dioxide Level 29 mmol/L (21-32) Anion Gap 5 (6-14) Blood Urea Nitrogen 36 mg/dL (8-26) Creatinine 2.8 mg/dL (0.7-1.3) Estimated GFR (Cockcroft-Gault) 27.2 Glucose Level 381 mg/dL (70-99) Calcium Level 8.8 mg/dL (8.5-10.1) Triglycerides Level 182 mg/dL (0-150) Cholesterol Level 140 mg/dL (0-200) LDL Cholesterol, Calculated 78 mg/dL (0-100) VLDL Cholesterol, Calculated 36 mg/dL (0-40) Non-HDL Cholesterol Calculated 114 mg/dL (0-129) HDL Cholesterol 26 mg/dL (40-60) Cholesterol/HDL Ratio 5.4 Thyroid Stimulating Hormone (TSH) 0.784 uIU/mL (0.358-3.74) Test 05/02/21 07:25 05/02/21 08:44 Glucose (Fingerstick) 350 mg/dL (70-99) 353 mg/dL (70-99) Laboratory Tests Test 05/01/21 11:06 05/01/21 17:06 05/01/21 20:41 05/02/21 04:25 Glucose (Fingerstick) 307 mg/dL (70-99) 169 mg/dL (70-99) 364 mg/dL (70-99) Sodium Level 138 mmol/L (136-145) Potassium Level 3.7 mmol/L (3.5-5.1) Chloride Level 104 mmol/L (98-107) Carbon Dioxide Level 29 mmol/L (21-32) Anion Gap 5 (6-14) Blood Urea Nitrogen 36 mg/dL (8-26) Creatinine 2.8 mg/dL (0.7-1.3) Estimated GFR (Cockcroft-Gault) 27.2 Glucose Level 381 mg/dL (70-99) Calcium Level 8.8 mg/dL (8.5-10.1) Triglycerides Level 182 mg/dL (0-150) Cholesterol Level 140 mg/dL (0-200) LDL Cholesterol, Calculated 78 mg/dL (0-100) VLDL Cholesterol, Calculated 36 mg/dL (0-40) Non-HDL Cholesterol Calculated 114 mg/dL (0-129) HDL Cholesterol 26 mg/dL (40-60) Cholesterol/HDL Ratio 5.4 Thyroid Stimulating Hormone (TSH) 0.784 uIU/mL (0.358-3.74) Test 05/02/21 07:25 05/02/21 08:44 Glucose (Fingerstick) 350 mg/dL (70-99) 353 mg/dL (70-99) Medications Current Medications Potassium Chloride (Klor-Con) 40 meq 1X ONCE PO Last administered on 04/30/21at 16:57; Start 04/30/21 at 16:45; Stop 04/30/21 at 16:46; Status DC Clonidine HCl (Catapres) 0.2 mg 1X ONCE PO Last administered on 04/30/21at 18:05; Start 04/30/21 at 18:00; Stop 04/30/21 at 18:01; Status DC Acetaminophen (Tylenol) 650 mg PRN Q6HRS PRN PO MILD PAIN / TEMP > 100.3'F Last administered on 05/01/21at 00:10; Start 04/30/21 at 23:15 Potassium Chloride (Klor-Con) 20 meq 1X ONCE PO Last administered on 05/01/21at 00:08; Start 04/30/21 at 23:30; Stop 04/30/21 at 23:31; Status DC Insulin Human Lispro (HumaLOG) 0-5 UNITS QIDACHS SQ Last administered on 05/01/21at 08:21; Start 04/30/21 at 23:30; Stop 05/01/21 at 09:53; Status DC Dextrose (Dextrose 50%-Water Syringe) 12.5 gm PRN Q15MIN PRN IV SEE COMMENTS; Start 04/30/21 at 23:15 Dextrose (Iv Dextrose 5%) 250 ml PRN Q15MIN PRN IV SEE COMMENTS; Start 04/30/21 at 23:15 Amlodipine Besylate (Norvasc) 10 mg DAILY PO Last administered on 05/02/21at 08:47; Start 05/01/21 at 09:00 Aspirin (Ecotrin) 81 mg DAILY PO Last administered on 05/02/21at 08:47; Start 05/01/21 at 09:00 Albuterol Sulfate (Ventolin Neb Soln) 2.5 mg PRN Q6HRS PRN NEB WHEEZING; Start 05/01/21 at 00:15 Simvastatin (Zocor) 10 mg HS PO Last administered on 05/01/21at 22:04; Start 05/01/21 at 21:00 Pantoprazole Sodium (Protonix) 40 mg DAILYAC PO Last administered on 05/02/21at 08:47; Start 05/01/21 at 07:30 Metoprolol Succinate (Toprol Xl) 100 mg DAILY PO Last administered on 05/02/21at 08:48; Start 05/01/21 at 10:00 Insulin Glargine (Lantus Syringe) 15 unit QHS SQ Last administered on 05/01/21at 22:12; Start 05/01/21 at 21:00 Insulin Human Lispro (HumaLOG) 0-5 UNITS TIDWMEALS SQ Last administered on 05/02/21at 09:03; Start 05/01/21 at 12:00 Dextrose (Dextrose 50%-Water Syringe) 12.5 gm PRN Q15MIN PRN IV SEE COMMENTS; Start 05/01/21 at 09:15 Potassium Chloride (Klor-Con) 40 meq 1X ONCE PO Last administered on 05/01/21at 09:40; Start 05/01/21 at 09:15; Stop 05/01/21 at 09:24; Status DC Potassium Chloride (Klor-Con) 20 meq 1X ONCE PO Last administered on 05/01/21at 12:15; Start 05/01/21 at 12:15; Stop 05/01/21 at 12:16; Status DC Acetaminophen/ Codeine Phosphate (Tylenol #3) 1 tab PRN Q6HRS PRN PO MODERATE PAIN; Start 05/01/21 at 09:30 Tizanidine HCl (Zanaflex) 4 mg Q8HRS PO Last administered on 05/02/21at 06:45; Start 05/01/21 at 14:00 Prednisone (Prednisone) 10 mg DAILY PO Last administered on 05/02/21at 08:47; Start 05/01/21 at 09:30 Epoetin Camron-epbx (RETACRIT for ESRD PTS) 10,000 unit MoWeFr@2100 SQ ; Start 05/02/21 at 21:00 Sodium Chloride 1,000 ml @ 1,000 mls/hr Q1H PRN IV hypotension; Start 05/01/21 at 10:30; Stop 05/01/21 at 16:29; Status DC Sodium Chloride 1,000 ml @ 400 mls/hr Q2H30M PRN IV PATENCY; Start 05/01/21 at 10:30; Stop 05/01/21 at 22:29; Status DC Info (PHARMACY MONITORING -- do not chart) 1 each PRN DAILY PRN MC SEE COMMENTS; Start 05/01/21 at 10:30; Status UNV Info (PHARMACY MONITORING -- do not chart) 1 each PRN DAILY PRN MC SEE COMMENTS; Start 05/01/21 at 10:30 Insulin Human Lispro (HumaLOG) 12 units TIDAC SQ Last administered on 05/02/21at 09:03; Start 05/02/21 at 11:30 Active Scripts Active Amlodipine Besylate 10 Mg Tablet 10 Mg PO DAILY 30 Days Reported Metoprolol Succinate ( Xl ) (Metoprolol Succinate) 100 Mg Tab.er.24h 1 Tab PO DAILY Humalog (Insulin Lispro) 100 Unit/1 Ml Vial 12 Unit SQ TIDAC Lantus Solostar (Insulin Glargine,Hum.rec.anlog) 100 Unit/1 Ml Insuln.pen 15 Unit SQ QHS Duoneb 0.5-3(2.5) Mg/3 Ml (Albuterol/Ipratropium) 3 Ml Ampul.neb 3 Ml NEB QID PRN Aspir 81 (Aspirin) 81 Mg Tablet. 81 Mg PO DAILY Omeprazole 40 Mg Capsule. 40 Mg PO DAILY Simvastatin 10 Mg Tablet 10 Mg PO HS Vitals/I & O Vital Sign - Last 24 Hours 05/01/21 05/01/21 05/01/21 05/01/21 11:00 19:00 22:00 23:00 Temp 97.7 98.1 97.7 97.7 98.1 97.7 Pulse 68 74 68 Resp 18 18 16 B/P (MAP) 134/64 (87) 163/74 (103) 142/61 (88) Pulse Ox 96 95 93 O2 Delivery Room Air Room Air 05/02/21 05/02/21 05/02/21 05/02/21 03:00 07:00 08:47 08:48 Temp 97.7 98.3 97.7 98.3 Pulse 72 79 79 79 Resp 16 20 B/P (MAP) 150/72 (98) 154/80 (104) 154/80 154/80 Pulse Ox 94 94 O2 Delivery Room Air Intake and Output 05/01/21 05/01/21 05/02/21 15:00 23:00 07:00 Intake Total 750 ml Output Total 1 ml Balance 749 ml Justifications for Admission Other Justification Nutrition Consultation Dietary Evaluation: Recommendations by RD: Dietary education by RD, Increase Calorie Intake, Protein supplementation Comments: Renal/ADA DBL meats Nepro bid REC mvi and vit c per wound protocal Expected Outcomes/Goals: to meet >75% est nutr needs Interpretation of weight loss: >7.5% in 3 months Malnutrition Findings: Food and Nutrition Intake (Sev: <50% est energy req 5days Body Fat Depletion (Non Severe: Mod to Severe Weight Status: Underweight ANIL MULLER MD May 02, 2021 10:07
[2021-05-02 11:00] VITALS: BP 129/61
--- NOTE | 2021-05-02 12:47 | NUR ---
SW following. Discussed with RN, pt from home with caregiver, room air, renal diet, rapid COVID-19 negative. PT/OT ordered. Pt has had home health in the past. SW will continue to follow.
--- NOTE | 2021-05-02 13:19 | PDOC ---
DATE OF SERVICE DATE: 05/02/21 TIME: 10:20- Late Note [email or web address] was down SUBJECTIVE ROS No complaints. States dialysis went well yesterday OBJECTIVE Vital Signs Vital Signs Date Time Temp Pulse Resp B/P (MAP) Pulse Ox O2 Delivery O2 Flow Rate FiO2 05/02/21 11:00 98.5 64 20 129/61 (83) 94 Room Air 98.5 I & 0 Intake and Output 05/02/21 07:00 Intake Total 750 ml Output Total 1 ml Balance 749 ml Intake Oral 750 ml Output Stool Total 1 ml # Voids 5 # Bowel Movements 5 PHYSICAL EXAM Physical Exam General NAD HEEN OM moist Nck Supple Lungs decreased at abses, Non labored CV s1s2, no rub GI- soft, NT Ext No LE edema Neuro grossly normal No CVA or SP tenderness Psych Normal Affect DIAGNOSIS/ASSESSMENT Assessment & Plan ESRD on HD TTS No indication for dialysis today HypoKalemia- On PO replacement . K normal Anemia- Hgb stable, TANIA ordered Diabetes, insulin-dependent.BS high History of diastolic heart failure. COMMENT/RELEVANT DATA Meds Current Medications Medications (Trade) Dose Ordered Sig/Madeleine Start Time Stop Time Status Last Admin Dose Admin Acetaminophen (Tylenol) 650 mg PRN Q6HRS PRN 04/30/21 23:15 05/01/21 00:10 650 MG Acetaminophen/ Codeine Phosphate (Tylenol #3) 1 tab PRN Q6HRS PRN 05/01/21 09:30 Albuterol Sulfate (Ventolin Neb Soln) 2.5 mg PRN Q6HRS PRN 05/01/21 00:15 Amlodipine Besylate (Norvasc) 10 mg DAILY 05/01/21 09:00 05/02/21 08:47 10 MG Aspirin (Ecotrin) 81 mg DAILY 05/01/21 09:00 05/02/21 08:47 81 MG Clonidine HCl (Catapres) 0.2 mg 1X ONCE 04/30/21 18:00 04/30/21 18:01 DC 04/30/21 18:05 0.2 MG Dextrose (Dextrose 50%-Water Syringe) 12.5 gm PRN Q15MIN PRN 05/01/21 09:15 Dextrose (Iv Dextrose 5%) 250 ml PRN Q15MIN PRN 04/30/21 23:15 Epoetin Camron-epbx (RETACRIT for ESRD PTS) 10,000 unit MoWeFr@2100 05/02/21 21:00 Info (PHARMACY MONITORING -- do not chart) 1 each PRN DAILY PRN 05/01/21 10:30 Insulin Glargine (Lantus Syringe) 15 unit QHS 05/01/21 21:00 05/01/21 22:12 15 UNIT Insulin Human Lispro (HumaLOG) 12 units TIDAC 05/02/21 11:30 05/02/21 13:07 12 UNITS Metoprolol Succinate (Toprol Xl) 100 mg DAILY 05/01/21 10:00 05/02/21 08:48 100 MG Pantoprazole Sodium (Protonix) 40 mg DAILYAC 05/01/21 07:30 05/02/21 08:47 40 MG Potassium Chloride (Klor-Con) 20 meq 1X ONCE 05/01/21 12:15 05/01/21 12:16 DC 05/01/21 12:15 20 MEQ Prednisone (Prednisone) 10 mg DAILY 05/01/21 09:30 05/02/21 08:47 10 MG Simvastatin (Zocor) 10 mg HS 05/01/21 21:00 05/01/21 22:04 10 MG Sodium Chloride 1,000 ml @ 400 mls/hr Q2H30M PRN 05/01/21 10:30 05/01/21 22:29 DC Tizanidine HCl (Zanaflex) 4 mg Q8HRS 05/01/21 14:00 05/02/21 06:45 4 MG Lab Laboratory Tests Test 05/01/21 17:06 05/01/21 20:41 05/02/21 04:25 05/02/21 07:25 Glucose (Fingerstick) 169 mg/dL (70-99) 364 mg/dL (70-99) 350 mg/dL (70-99) Sodium Level 138 mmol/L (136-145) Potassium Level 3.7 mmol/L (3.5-5.1) Chloride Level 104 mmol/L (98-107) Carbon Dioxide Level 29 mmol/L (21-32) Anion Gap 5 (6-14) Blood Urea Nitrogen 36 mg/dL (8-26) Creatinine 2.8 mg/dL (0.7-1.3) Estimated GFR (Cockcroft-Gault) 27.2 Glucose Level 381 mg/dL (70-99) Calcium Level 8.8 mg/dL (8.5-10.1) Triglycerides Level 182 mg/dL (0-150) Cholesterol Level 140 mg/dL (0-200) LDL Cholesterol, Calculated 78 mg/dL (0-100) VLDL Cholesterol, Calculated 36 mg/dL (0-40) Non-HDL Cholesterol Calculated 114 mg/dL (0-129) HDL Cholesterol 26 mg/dL (40-60) Cholesterol/HDL Ratio 5.4 Thyroid Stimulating Hormone (TSH) 0.784 uIU/mL (0.358-3.74) Test 05/02/21 08:44 05/02/21 11:23 Glucose (Fingerstick) 353 mg/dL (70-99) 307 mg/dL (70-99) Results All relevant outside records, renal labs, imaging studies, telemetry/EKG's were reviewed. Justicifation of Admission Dx: Justifications for Admission: Justification of Admission Dx: N/A ABRAM HARDING MD May 02, 2021 13:19
[2021-05-02 15:00] VITALS: BP 144/70
--- NOTE | 2021-05-02 15:41 | NUR ---
Wound/Ostomy Care Wound Type/Assessment: Wound consult for burn to back. Pt has 2nd degree burn to left flank that is an open blister. Cleansed, assessed, and redressed wound. pt coccyx wound has resolved. Brief changed Treatment Recommendations/Plan: Cleanse wound, apply xeroform and a foam dressing. Change weekly. Education provided: WC POC and PU prevention Offloading surface/device: TQ2H, float heels Recommended Referrals/Tests: na Discharge Recommendations for dressings: see above
[2021-05-02 19:00] VITALS: BP 110/52
[2021-05-02] MEDS: INSULIN GLARGINE SYRINGE. SQ SCH (21:00)
[2021-05-02] MEDS: SIMVASTATIN 10 MG TABLET PO SCH (22:21)
[2021-05-02] MEDS: EPOETIN ALFA-EPBX for ESRD 20,000 UNIT/ML VIAL. SQ SCH (22:22)
[2021-05-02 23:00] VITALS: BP 149/69
[2021-05-03 02:29] LABS: HEMOGLOBIN A1C 8.6 % (4.8-5.6)
[2021-05-03 03:00] VITALS: BP 145/71
[2021-05-03] MEDS: tiZANidine 4 MG TABLET. PO SCH ×3 (06:47→21:52)
[2021-05-03 07:00] VITALS: BP 145/70
[2021-05-03] MEDS ORDERED: IV NORMAL SALINE 1000ML BAG 1,000 ML IV PRN ×2 (07:00)
[2021-05-03] MEDS ORDERED: DIALYSIS PATIENT. MC PRN ×2 (07:00)
[2021-05-03] MEDS: INSULIN LISPRO 300 UNITS/3 ML VIAL. SQ SCH ×6 (07:30→17:58)
[2021-05-03 07:56] LABS: CALCIUM 8.6 mg/dL (8.5-10.1); CREATININE 3.3 mg/dL (0.7-1.3); GFR 22.5; POTASSIUM 3.7 mmol/L (3.5-5.1)
[2021-05-03] MEDS: METOPROLOL SUCC 24HR ER 100 MG TAB.ER.24H. PO SCH (09:00)
--- NOTE | 2021-05-03 09:46 | PDOC ---
IM PROGRESS NOTES- Subjective Subjective Complaints of weakness. No complaints of dyspnea. Objective Vitals/I&O Vital Signs Date Time Temp Pulse Resp B/P (MAP) Pulse Ox O2 Delivery O2 Flow Rate FiO2 05/03/21 08:00 Room Air 05/03/21 07:00 97.3 69 20 145/70 (95) 96 97.3 I & O 05/02/21 05/02/21 05/03/21 15:00 23:00 07:00 Intake Total 360 ml 240 ml Balance 360 ml 240 ml Physical Exam Physical Exam General Appearance - alert and in no distress Chest - decreased breath sounds at bases Heart - S1 and S2 normal Abdomen - soft, non tender Neurological -weak Musculoskeletal - generalized weakness Extremities - no edema Labs Laboratory Tests Test 05/02/21 11:23 05/02/21 16:41 05/02/21 21:10 05/03/21 07:05 Glucose (Fingerstick) 307 mg/dL (70-99) H 113 mg/dL (70-99) H 76 mg/dL (70-99) Sodium Level 135 mmol/L (136-145) L Potassium Level 3.7 mmol/L (3.5-5.1) Chloride Level 102 mmol/L (98-107) Carbon Dioxide Level 27 mmol/L (21-32) Anion Gap 6 (6-14) Blood Urea Nitrogen 45 mg/dL (8-26) H Creatinine 3.3 mg/dL (0.7-1.3) H Estimated GFR (Cockcroft-Gault) 22.5 Glucose Level 266 mg/dL (70-99) H Calcium Level 8.6 mg/dL (8.5-10.1) Test 05/03/21 07:37 Glucose (Fingerstick) 276 mg/dL (70-99) H Laboratory Tests 05/03/21 07:05 Meds Current Medications Medications (Trade) Dose Ordered Sig/Madeleine Route PRN Reason Start Time Stop Time Status Last Admin Dose Admin Epoetin Camron-epbx (RETACRIT for ESRD PTS) 10,000 unit MoWeFr@2100 SQ 05/02/21 21:00 05/02/21 22:22 Insulin Human Lispro (HumaLOG) 12 units TIDAC SQ 05/02/21 11:30 05/02/21 18:10 Assessment Assessment Problems Medical Problems: (1) End stage renal disease Status: Acute (2) Hypokalemia Status: Acute FINAL IMPRESSION: 1. Generalized weakness. The patient missed dialysis for a whole week. He goes to dialysis Wednesday, and Wednesday. 2. Hypokalemia. 3. End-stage renal disease, on hemodialysis. 4. Insulin-dependent diabetes. 5. Cervical spondylolysis with neck muscle spasms. 6. Hypertension. 7. Hyperlipidemia. PLAN: CT neck spondylosis,djd. cervical collar Diabetes not controlled. End-stage renal disease. Continue hemodialysis. Consult production control scheduler. Generalized weakness. Continue PT OT. Consult Dr. Brownlee. Await placement in alf unit. Plan Plan For more details regarding further plans, please refer to the orders. Justifications for Admission Other Justification Nutrition Consultation Dietary Evaluation: Recommendations by RD: Dietary education by RD, Increase Calorie Intake, Protein supplementation Comments: Renal/ADA DBL meats Nepro bid REC mvi and vit c per wound protocal Expected Outcomes/Goals: to meet >75% est nutr needs Interpretation of weight loss: >7.5% in 3 months Malnutrition Findings: Food and Nutrition Intake (Sev: <50% est energy req 5days Body Fat Depletion (Non Severe: Mod to Severe Weight Status: Underweight KARINA COCHRAN MD May 03, 2021 09:46
--- NOTE | 2021-05-03 09:52 | PDOC ---
Dialysis Progress Note Date of Service: DATE: 05/03/21 TIME: 09:51 Dialysis Note Dialysis Note Seen on Hemodialysis, tolerating treatment Well so far Vitals on Hemodialysis: 139 / 68 71 afeb General Appearance: asleepo n HD Neck: No JVD or JVP Chest: CTA [place]ickson Heart: S1 S2 Abdomen - Soft NTND Extremities - No Edema ESRD: Dialysis as below F 180 NR 3.0 Hrs 4 K 2.5 Ca 140 Na 35 HC03 Qb 350 + Qd 500+ Heparin 0 Units Uf 2 Kgs or to dry weight as tolerated May give 25-50 gms of 25% Albumin if needed to maintain Hemodynamic stability Treatment plan reviewed and discussed with admiralty lawyer Vitals Vital Signs Vital Signs Date Time Temp Pulse Resp B/P (MAP) Pulse Ox O2 Delivery O2 Flow Rate FiO2 05/03/21 08:00 Room Air 05/03/21 07:00 97.3 69 20 145/70 (95) 96 97.3 Labs Last Labs Laboratory Tests Test 05/01/21 11:06 05/01/21 17:06 05/01/21 20:41 05/02/21 04:25 Glucose (Fingerstick) 307 mg/dL (70-99) 169 mg/dL (70-99) 364 mg/dL (70-99) Sodium Level 138 mmol/L (136-145) Potassium Level 3.7 mmol/L (3.5-5.1) Chloride Level 104 mmol/L (98-107) Carbon Dioxide Level 29 mmol/L (21-32) Anion Gap 5 (6-14) Blood Urea Nitrogen 36 mg/dL (8-26) Creatinine 2.8 mg/dL (0.7-1.3) Estimated GFR (Cockcroft-Gault) 27.2 Glucose Level 381 mg/dL (70-99) Hemoglobin A1c 8.6 % (4.8-5.6) Calcium Level 8.8 mg/dL (8.5-10.1) Triglycerides Level 182 mg/dL (0-150) Cholesterol Level 140 mg/dL (0-200) LDL Cholesterol, Calculated 78 mg/dL (0-100) VLDL Cholesterol, Calculated 36 mg/dL (0-40) Non-HDL Cholesterol Calculated 114 mg/dL (0-129) HDL Cholesterol 26 mg/dL (40-60) Cholesterol/HDL Ratio 5.4 Thyroid Stimulating Hormone (TSH) 0.784 uIU/mL (0.358-3.74) Test 05/02/21 07:25 05/02/21 08:44 05/02/21 11:23 05/02/21 16:41 Glucose (Fingerstick) 350 mg/dL (70-99) 353 mg/dL (70-99) 307 mg/dL (70-99) 113 mg/dL (70-99) Test 05/02/21 21:10 05/03/21 07:05 05/03/21 07:37 Glucose (Fingerstick) 76 mg/dL (70-99) 276 mg/dL (70-99) Sodium Level 135 mmol/L (136-145) Potassium Level 3.7 mmol/L (3.5-5.1) Chloride Level 102 mmol/L (98-107) Carbon Dioxide Level 27 mmol/L (21-32) Anion Gap 6 (6-14) Blood Urea Nitrogen 45 mg/dL (8-26) Creatinine 3.3 mg/dL (0.7-1.3) Estimated GFR (Cockcroft-Gault) 22.5 Glucose Level 266 mg/dL (70-99) Calcium Level 8.6 mg/dL (8.5-10.1) Laboratory Tests Test 05/02/21 11:23 05/02/21 16:41 05/02/21 21:10 05/03/21 07:05 Glucose (Fingerstick) 307 mg/dL (70-99) 113 mg/dL (70-99) 76 mg/dL (70-99) Sodium Level 135 mmol/L (136-145) Potassium Level 3.7 mmol/L (3.5-5.1) Chloride Level 102 mmol/L (98-107) Carbon Dioxide Level 27 mmol/L (21-32) Anion Gap 6 (6-14) Blood Urea Nitrogen 45 mg/dL (8-26) Creatinine 3.3 mg/dL (0.7-1.3) Estimated GFR (Cockcroft-Gault) 22.5 Glucose Level 266 mg/dL (70-99) Calcium Level 8.6 mg/dL (8.5-10.1) Test 05/03/21 07:37 Glucose (Fingerstick) 276 mg/dL (70-99) Assessment Assessment Problems Medical Problems: (1) End stage renal disease Status: Acute (2) Hypokalemia Status: Acute Plan Plan of Care Problems Medical Problems: (1) End stage renal disease Status: Acute (2) Hypokalemia Status: Acute DARLENE QUARLES MD May 03, 2021 09:52
--- NOTE | 2021-05-03 11:11 | PDOC ---
PROGRESS NOTES Date of Service DATE: 05/03/21 TIME: 11:08 Subjective Subjective He admits some soreness in his neck. Objective Objective Vital Signs Date Time Temp Pulse Resp B/P (MAP) Pulse Ox O2 Delivery O2 Flow Rate FiO2 05/03/21 08:00 Room Air 05/03/21 07:00 97.3 69 20 145/70 (95) 96 97.3 Intake and Output 05/03/21 07:00 Intake Total 600 ml Balance 600 ml Intake Oral 600 ml # Voids 3 # Bowel Movements 2 Physical Exam Physical Exam He is alert,supine in bed with soft cervical collar in place on dialysis bed. He moves all 4 extremities to commands and he requires 2 person assistance for transfers. Assessment Assessment Problems Medical Problems: (1) End stage renal disease Status: Acute (2) Hypokalemia Status: Acute Plan Plan of Care To SNF when medically stable. Comment Review of Relevant I have reviewed the following items ken (where applicable) has been applied. Labs Laboratory Tests Test 05/01/21 17:06 05/01/21 20:41 05/02/21 04:25 05/02/21 07:25 Glucose (Fingerstick) 169 mg/dL (70-99) 364 mg/dL (70-99) 350 mg/dL (70-99) Sodium Level 138 mmol/L (136-145) Potassium Level 3.7 mmol/L (3.5-5.1) Chloride Level 104 mmol/L (98-107) Carbon Dioxide Level 29 mmol/L (21-32) Anion Gap 5 (6-14) Blood Urea Nitrogen 36 mg/dL (8-26) Creatinine 2.8 mg/dL (0.7-1.3) Estimated GFR (Cockcroft-Gault) 27.2 Glucose Level 381 mg/dL (70-99) Hemoglobin A1c 8.6 % (4.8-5.6) Calcium Level 8.8 mg/dL (8.5-10.1) Triglycerides Level 182 mg/dL (0-150) Cholesterol Level 140 mg/dL (0-200) LDL Cholesterol, Calculated 78 mg/dL (0-100) VLDL Cholesterol, Calculated 36 mg/dL (0-40) Non-HDL Cholesterol Calculated 114 mg/dL (0-129) HDL Cholesterol 26 mg/dL (40-60) Cholesterol/HDL Ratio 5.4 Thyroid Stimulating Hormone (TSH) 0.784 uIU/mL (0.358-3.74) Test 05/02/21 08:44 05/02/21 11:23 05/02/21 16:41 05/02/21 21:10 Glucose (Fingerstick) 353 mg/dL (70-99) 307 mg/dL (70-99) 113 mg/dL (70-99) 76 mg/dL (70-99) Test 05/03/21 07:05 05/03/21 07:37 Sodium Level 135 mmol/L (136-145) Potassium Level 3.7 mmol/L (3.5-5.1) Chloride Level 102 mmol/L (98-107) Carbon Dioxide Level 27 mmol/L (21-32) Anion Gap 6 (6-14) Blood Urea Nitrogen 45 mg/dL (8-26) Creatinine 3.3 mg/dL (0.7-1.3) Estimated GFR (Cockcroft-Gault) 22.5 Glucose Level 266 mg/dL (70-99) Calcium Level 8.6 mg/dL (8.5-10.1) Glucose (Fingerstick) 276 mg/dL (70-99) Laboratory Tests Test 05/02/21 11:23 05/02/21 16:41 05/02/21 21:10 05/03/21 07:05 Glucose (Fingerstick) 307 mg/dL (70-99) 113 mg/dL (70-99) 76 mg/dL (70-99) Sodium Level 135 mmol/L (136-145) Potassium Level 3.7 mmol/L (3.5-5.1) Chloride Level 102 mmol/L (98-107) Carbon Dioxide Level 27 mmol/L (21-32) Anion Gap 6 (6-14) Blood Urea Nitrogen 45 mg/dL (8-26) Creatinine 3.3 mg/dL (0.7-1.3) Estimated GFR (Cockcroft-Gault) 22.5 Glucose Level 266 mg/dL (70-99) Calcium Level 8.6 mg/dL (8.5-10.1) Test 05/03/21 07:37 Glucose (Fingerstick) 276 mg/dL (70-99) Medications Current Medications Potassium Chloride (Klor-Con) 40 meq 1X ONCE PO Last administered on 04/30/21at 16:57; Start 04/30/21 at 16:45; Stop 04/30/21 at 16:46; Status DC Clonidine HCl (Catapres) 0.2 mg 1X ONCE PO Last administered on 04/30/21at 18:05; Start 04/30/21 at 18:00; Stop 04/30/21 at 18:01; Status DC Acetaminophen (Tylenol) 650 mg PRN Q6HRS PRN PO MILD PAIN / TEMP > 100.3'F Last administered on 05/01/21at 00:10; Start 04/30/21 at 23:15 Potassium Chloride (Klor-Con) 20 meq 1X ONCE PO Last administered on 05/01/21at 00:08; Start 04/30/21 at 23:30; Stop 04/30/21 at 23:31; Status DC Insulin Human Lispro (HumaLOG) 0-5 UNITS QIDACHS SQ Last administered on 05/01/21at 08:21; Start 04/30/21 at 23:30; Stop 05/01/21 at 09:53; Status DC Dextrose (Dextrose 50%-Water Syringe) 12.5 gm PRN Q15MIN PRN IV SEE COMMENTS; Start 04/30/21 at 23:15; Stop 05/03/21 at 07:02; Status DC Dextrose (Iv Dextrose 5%) 250 ml PRN Q15MIN PRN IV SEE COMMENTS; Start 04/30/21 at 23:15 Amlodipine Besylate (Norvasc) 10 mg DAILY PO Last administered on 05/02/21at 08:47; Start 05/01/21 at 09:00 Aspirin (Ecotrin) 81 mg DAILY PO Last administered on 05/02/21at 08:47; Start 05/01/21 at 09:00 Albuterol Sulfate (Ventolin Neb Soln) 2.5 mg PRN Q6HRS PRN NEB WHEEZING; Start 05/01/21 at 00:15 Simvastatin (Zocor) 10 mg HS PO Last administered on 05/02/21at 22:21; Start 05/01/21 at 21:00 Pantoprazole Sodium (Protonix) 40 mg DAILYAC PO Last administered on 05/02/21at 08:47; Start 05/01/21 at 07:30 Metoprolol Succinate (Toprol Xl) 100 mg DAILY PO Last administered on 05/02/21at 08:48; Start 05/01/21 at 10:00 Insulin Glargine (Lantus Syringe) 15 unit QHS SQ Last administered on 05/01/21at 22:12; Start 05/01/21 at 21:00 Insulin Human Lispro (HumaLOG) 0-5 UNITS TIDWMEALS SQ Last administered on 05/03/21at 09:52; Start 05/01/21 at 12:00 Dextrose (Dextrose 50%-Water Syringe) 12.5 gm PRN Q15MIN PRN IV SEE COMMENTS; Start 05/01/21 at 09:15 Potassium Chloride (Klor-Con) 40 meq 1X ONCE PO Last administered on 05/01/21at 09:40; Start 05/01/21 at 09:15; Stop 05/01/21 at 09:24; Status DC Potassium Chloride (Klor-Con) 20 meq 1X ONCE PO Last administered on 05/01/21at 12:15; Start 05/01/21 at 12:15; Stop 05/01/21 at 12:16; Status DC Acetaminophen/ Codeine Phosphate (Tylenol #3) 1 tab PRN Q6HRS PRN PO MODERATE PAIN; Start 05/01/21 at 09:30 Tizanidine HCl (Zanaflex) 4 mg Q8HRS PO Last administered on 05/03/21at 06:47; Start 05/01/21 at 14:00 Prednisone (Prednisone) 10 mg DAILY PO Last administered on 05/02/21at 08:47; Start 05/01/21 at 09:30 Epoetin Camron-epbx (RETACRIT for ESRD PTS) 10,000 unit MoWeFr@2100 SQ Last administered on 05/02/21at 22:22; Start 05/02/21 at 21:00 Sodium Chloride 1,000 ml @ 1,000 mls/hr Q1H PRN IV hypotension; Start 05/01/21 at 10:30; Stop 05/01/21 at 16:29; Status DC Sodium Chloride 1,000 ml @ 400 mls/hr Q2H30M PRN IV PATENCY; Start 05/01/21 at 10:30; Stop 05/01/21 at 22:29; Status DC Info (PHARMACY MONITORING -- do not chart) 1 each PRN DAILY PRN MC SEE COMMENTS; Start 05/01/21 at 10:30; Status UNV Info (PHARMACY MONITORING -- do not chart) 1 each PRN DAILY PRN MC SEE COMMENTS; Start 05/01/21 at 10:30; Stop 05/03/21 at 07:02; Status DC Insulin Human Lispro (HumaLOG) 12 units TIDAC SQ Last administered on 05/02/21at 18:10; Start 05/02/21 at 11:30 Sodium Chloride 1,000 ml @ 1,000 mls/hr Q1H PRN IV hypotension; Start 05/03/21 at 07:00; Stop 05/03/21 at 12:59 Sodium Chloride 1,000 ml @ 400 mls/hr Q2H30M PRN IV PATENCY; Start 05/03/21 at 07:00; Stop 05/03/21 at 18:59 Info (PHARMACY MONITORING -- do not chart) 1 each PRN DAILY PRN MC SEE COMMENTS; Start 05/03/21 at 07:00; Stop 05/03/21 at 07:02; Status DC Info (PHARMACY MONITORING -- do not chart) 1 each PRN DAILY PRN MC SEE COMMENTS; Start 05/03/21 at 07:00 Active Scripts Active Amlodipine Besylate 10 Mg Tablet 10 Mg PO DAILY 30 Days Reported Metoprolol Succinate ( Xl ) (Metoprolol Succinate) 100 Mg Tab.er.24h 1 Tab PO DAILY Humalog (Insulin Lispro) 100 Unit/1 Ml Vial 12 Unit SQ TIDAC Lantus Solostar (Insulin Glargine,Hum.rec.anlog) 100 Unit/1 Ml Insuln.pen 15 Unit SQ QHS Duoneb 0.5-3(2.5) Mg/3 Ml (Albuterol/Ipratropium) 3 Ml Ampul.neb 3 Ml NEB QID PRN Aspir 81 (Aspirin) 81 Mg Tablet. 81 Mg PO DAILY Omeprazole 40 Mg Capsule. 40 Mg PO DAILY Simvastatin 10 Mg Tablet 10 Mg PO HS Vitals/I & O Vital Sign - Last 24 Hours 05/02/21 05/02/21 05/02/21 05/02/21 15:00 19:00 22:20 23:00 Temp 97.5 97.8 98.0 97.5 97.8 98.0 Pulse 70 54 66 Resp 20 18 18 B/P (MAP) 144/70 (94) 110/52 (71) 149/69 (95) Pulse Ox 94 97 96 O2 Delivery Room Air Room Air 05/03/21 05/03/21 05/03/21 03:00 07:00 08:00 Temp 97.7 97.3 97.7 97.3 Pulse 59 69 Resp 16 20 B/P (MAP) 145/71 (95) 145/70 (95) Pulse Ox 96 96 O2 Delivery Room Air Room Air Intake and Output 05/02/21 05/02/21 05/03/21 15:00 23:00 07:00 Intake Total 360 ml 240 ml Balance 360 ml 240 ml Justifications for Admission Other Justification Nutrition Consultation Dietary Evaluation: Recommendations by RD: Dietary education by RD, Increase Calorie Intake, Protein supplementation Comments: Renal/ADA DBL meats Nepro bid REC mvi and vit c per wound protocal Expected Outcomes/Goals: to meet >75% est nutr needs Interpretation of weight loss: >7.5% in 3 months Malnutrition Findings: Food and Nutrition Intake (Sev: <50% est energy req 5days Body Fat Depletion (Non Severe: Mod to Severe Weight Status: Underweight ANIL MULLER MD May 03, 2021 11:11
[2021-05-03 12:00] VITALS: BP 136/70
[2021-05-03] MEDS: predniSONE 10 MG TABLET PO SCH (12:02)
[2021-05-03] MEDS: PANTOPRAZOLE 40 MG TABLET.DR. PO SCH (12:02)
[2021-05-03] MEDS: ASPIRIN ENTERIC COATED 81 MG TABLET.DR. PO SCH (12:02)
[2021-05-03 15:00] VITALS: BP 146/70
[2021-05-03 19:00] VITALS: BP 160/81
[2021-05-03] MEDS: SIMVASTATIN 10 MG TABLET PO SCH (21:52)
[2021-05-03] MEDS: INSULIN GLARGINE SYRINGE. SQ SCH (21:55)
[2021-05-03 23:06] VITALS: BP 157/83
[2021-05-04 03:08] VITALS: BP 164/74
[2021-05-04] MEDS: PANTOPRAZOLE 40 MG TABLET.DR. PO SCH (05:38)
[2021-05-04] MEDS: tiZANidine 4 MG TABLET. PO SCH ×3 (05:38→21:43)
[2021-05-04 07:00] VITALS: BP 131/61
[2021-05-04] MEDS: predniSONE 10 MG TABLET PO SCH (08:26)
[2021-05-04] MEDS: ASPIRIN ENTERIC COATED 81 MG TABLET.DR. PO SCH (08:26)
[2021-05-04] MEDS: METOPROLOL SUCC 24HR ER 100 MG TAB.ER.24H. PO SCH (08:30)
[2021-05-04] MEDS: INSULIN LISPRO 300 UNITS/3 ML VIAL. SQ SCH ×6 (08:37→18:08)
[2021-05-04 11:00] VITALS: BP 125/72
[2021-05-04] MEDS: ACETAMINOPHEN 325 MG TABLET. PO PRN (12:41)
--- NOTE | 2021-05-04 12:58 | PDOC ---
DATE OF SERVICE: DOS: DATE: 05/04/21 TIME: 12:56 SUBJECTIVE ROS Follow-up for ESRD on hemodialysis Patient doing and feeling better, denies any new complaints CVS: no Orthopnea, no CP RESP: no SOB, no ROSE GI: no Nausea, no Vomiting : no Dysuria, no Urgency OBJECTIVE Vital Signs Vital Signs Date Time Temp Pulse Resp B/P (MAP) Pulse Ox O2 Delivery O2 Flow Rate FiO2 05/04/21 11:00 98.1 80 16 125/72 (89) 94 Room Air 98.1 I & 0 Intake and Output 05/04/21 07:00 Intake Total 600 ml Output Total 0 ml Balance 600 ml Intake Oral 600 ml Output Urine Total 0 ml PHYSICAL EXAM Physical Exam GEN: Awake, Oriented x 2, In no distress EYES: Vision Unchanged, Conjunctiva Normal EN: No EN Drainage, Mucous Membranes moist NECK: Unable to visualize JVD, or JVP due to soft cervical collar CVS: S1S2, soft Murmur, No Gallop, No Rub,no Edema RESP: no Rales, no Rhonchi,no Acc. Muscle Use GI: BS + ve, NO Bruit, Non Tender, Non Distended : no CVA tenderness, no Suprapubic Tenderness DIAGNOSIS/ASSESSMENT Assessment & Plan ESRD: Current fluid and E-lyte status does not necessitate emergent need for dialysis. Will re-evaluate for dialysis in the am and continue on TTSat schedule. ANEMIA in the setting of ESRD; Epogen as ordered, Transfuse with next HD as needed HTN in the setting of ESRD: Current BP meds as reviewed. See orders for changes. BONE & MINERAL: Follow phosphorus levels and alter binder regimen as needed Persistent hyperglycemia: Defer to primary team to correct Discussed Plan of Care with patient at bedside COMMENT/RELEVANT DATA Meds Current Medications Medications (Trade) Dose Ordered Sig/Madeleine Start Time Stop Time Status Last Admin Dose Admin Acetaminophen (Tylenol) 650 mg PRN Q6HRS PRN 04/30/21 23:15 05/04/21 12:41 650 MG Acetaminophen/ Codeine Phosphate (Tylenol #3) 1 tab PRN Q6HRS PRN 05/01/21 09:30 Albuterol Sulfate (Ventolin Neb Soln) 2.5 mg PRN Q6HRS PRN 05/01/21 00:15 Amlodipine Besylate (Norvasc) 10 mg DAILY 05/01/21 09:00 05/04/21 08:30 10 MG Aspirin (Ecotrin) 81 mg DAILY 05/01/21 09:00 05/04/21 08:26 81 MG Clonidine HCl (Catapres) 0.2 mg 1X ONCE 04/30/21 18:00 04/30/21 18:01 DC 04/30/21 18:05 0.2 MG Dextrose (Dextrose 50%-Water Syringe) 12.5 gm PRN Q15MIN PRN 05/01/21 09:15 Dextrose (Iv Dextrose 5%) 250 ml PRN Q15MIN PRN 04/30/21 23:15 Epoetin Camron-epbx (RETACRIT for ESRD PTS) 10,000 unit MoWeFr@2100 05/02/21 21:00 05/02/21 22:22 10,000 UNIT Info (PHARMACY MONITORING -- do not chart) 1 each PRN DAILY PRN 05/03/21 07:00 Insulin Glargine (Lantus Syringe) 15 unit QHS 05/01/21 21:00 05/03/21 21:55 15 UNIT Insulin Human Lispro (HumaLOG) 12 units TIDAC 05/02/21 11:30 05/04/21 12:46 12 UNITS Metoprolol Succinate (Toprol Xl) 100 mg DAILY 05/01/21 10:00 05/04/21 08:30 100 MG Pantoprazole Sodium (Protonix) 40 mg DAILYAC 05/01/21 07:30 05/04/21 05:38 40 MG Potassium Chloride (Klor-Con) 20 meq 1X ONCE 05/01/21 12:15 05/01/21 12:16 DC 05/01/21 12:15 20 MEQ Prednisone (Prednisone) 10 mg DAILY 05/01/21 09:30 05/04/21 08:26 10 MG Simvastatin (Zocor) 10 mg HS 05/01/21 21:00 05/03/21 21:52 10 MG Sodium Chloride 1,000 ml @ 400 mls/hr Q2H30M PRN 05/03/21 07:00 05/03/21 18:59 DC Tizanidine HCl (Zanaflex) 4 mg Q8HRS 05/01/21 14:00 05/04/21 05:38 4 MG Lab Laboratory Tests Test 05/03/21 16:27 05/03/21 20:35 05/04/21 00:10 05/04/21 08:25 Glucose (Fingerstick) 253 mg/dL (70-99) 369 mg/dL (70-99) 297 mg/dL (70-99) 368 mg/dL (70-99) Test 05/04/21 11:57 Glucose (Fingerstick) 331 mg/dL (70-99) Results All relevant outside records, renal labs, imaging studies, telemetry/EKG's were reviewed. Justicifation of Admission Dx: Justifications for Admission: Justification of Admission Dx: N/A DARLENE QUARLES MD May 04, 2021 12:58
--- NOTE | 2021-05-04 13:15 | PDOC ---
PROGRESS NOTES Date of Service: DATE: 05/04/21 TIME: 13:13 Subjective Subjective no new problems Objective Objective Vital Signs Date Time Temp Pulse Resp B/P (MAP) Pulse Ox O2 Delivery O2 Flow Rate FiO2 05/04/21 11:00 98.1 80 16 125/72 (89) 94 Room Air 98.1 Intake and Output 05/04/21 07:00 Intake Total 600 ml Output Total 0 ml Balance 600 ml Intake Oral 600 ml Output Urine Total 0 ml Physical Exam Abdomen: Soft Heart: Regular rate, Normal S1, Normal S2 General: No acute distress Lungs: Normal air movement MUSCULOSKELETAL: No swelling, Osteoarthritic changes both hands Neuro: Normal speech Diagnosis Problem List Problems Medical Problems: (1) End stage renal disease Status: Acute (2) Hypokalemia Status: Acute Assessment Assessment Problems Medical Problems: (1) End stage renal disease Status: Acute (2) Hypokalemia Status: Acute FINAL IMPRESSION: 1. Generalized weakness. The patient missed dialysis for a whole week. He goes to dialysis Wednesday, and Wednesday. 2. Hypokalemia. 3. End-stage renal disease, on hemodialysis. 4. Insulin-dependent diabetes. 5. Cervical spondylolysis with neck muscle spasms. 6. Hypertension. 7. Hyperlipidemia. PLAN: covid test pcr placement /SNU CT neck spondylosis,djd. cervical collar Diabetes not controlled.inc dose of insulin End-stage renal disease. Continue hemodialysis. Consult tire duster. Generalized weakness. Continue PT OT. Consult Dr. Brownlee. Await placement in intermediate unit. Plan Plan of Care Problems Medical Problems: (1) End stage renal disease Status: Acute (2) Hypokalemia Status: Acute Comment Review of Relevant I have reviewed the following items ken (where applicable) has been applied. Labs Laboratory Tests Test 05/03/21 16:27 05/03/21 20:35 05/04/21 00:10 05/04/21 08:25 Glucose (Fingerstick) 253 mg/dL (70-99) 369 mg/dL (70-99) 297 mg/dL (70-99) 368 mg/dL (70-99) Test 05/04/21 11:57 Glucose (Fingerstick) 331 mg/dL (70-99) Vitals/I & O Vital Sign - Last 24 Hours 3/26/22 05/03/21 05/03/21 05/03/21 15:00 19:00 19:35 23:06 Temp 98.7 98.5 98.1 98.7 98.5 98.1 Pulse 74 81 66 Resp 20 20 20 B/P (MAP) 146/70 (95) 160/81 (107) 157/83 (107) Pulse Ox 97 96 96 O2 Delivery Room Air Room Air Room Air Room Air 05/04/21 05/04/21 05/04/21 05/04/21 03:08 07:00 08:30 08:30 Temp 99.2 98.5 99.2 98.5 Pulse 82 81 84 84 Resp 20 16 B/P (MAP) 164/74 (104) 131/61 (84) 145/70 145/70 Pulse Ox 100 95 O2 Delivery Room Air Room Air 05/04/21 11:00 Temp 98.1 98.1 Pulse 80 Resp 16 B/P (MAP) 125/72 (89) Pulse Ox 94 O2 Delivery Room Air Intake and Output 05/03/21 05/03/21 05/04/21 15:00 23:00 07:00 Intake Total 240 ml 360 ml Output Total 0 ml Balance 240 ml 360 ml 0 ml Justifications for Admission Other Justification Nutrition Consultation Dietary Evaluation: Recommendations by RD: Dietary education by RD, Increase Calorie Intake, Protein supplementation Comments: Renal/ADA DBL meats Nepro bid REC mvi and vit c per wound protocal Expected Outcomes/Goals: to meet >75% est nutr needs Interpretation of weight loss: >7.5% in 3 months Malnutrition Findings: Food and Nutrition Intake (Sev: <50% est energy req 5days Body Fat Depletion (Non Severe: Mod to Severe Weight Status: Underweight GISELL CLARK MD May 04, 2021 13:15
[2021-05-04 15:00] VITALS: BP 140/62
[2021-05-04 19:00] VITALS: BP 141/68
[2021-05-04] MEDS: INSULIN GLARGINE SYRINGE. SQ SCH (21:00)
[2021-05-04] MEDS: SIMVASTATIN 10 MG TABLET PO SCH (21:43)
[2021-05-04 23:04] VITALS: BP 158/69
[2021-05-05 03:04] VITALS: BP 153/75
[2021-05-05] MEDS: tiZANidine 4 MG TABLET. PO SCH ×3 (05:56→21:39)
[2021-05-05 07:00] VITALS: BP 136/66
[2021-05-05] MEDS: METOPROLOL SUCC 24HR ER 100 MG TAB.ER.24H. PO SCH (08:26)
[2021-05-05] MEDS: predniSONE 10 MG TABLET PO SCH (08:27)
[2021-05-05] MEDS: ASPIRIN ENTERIC COATED 81 MG TABLET.DR. PO SCH (08:27)
[2021-05-05] MEDS: PANTOPRAZOLE 40 MG TABLET.DR. PO SCH (08:27)
[2021-05-05] MEDS: INSULIN LISPRO 300 UNITS/3 ML VIAL. SQ SCH ×6 (08:29→17:54)
--- NOTE | 2021-05-05 09:21 | PDOC ---
PROGRESS NOTES Date of Service: DATE: 05/05/21 TIME: 09:19 Subjective Subjective feels ok , no pain Objective Objective Vital Signs Date Time Temp Pulse Resp B/P (MAP) Pulse Ox O2 Delivery O2 Flow Rate FiO2 05/05/21 08:27 64 136/66 05/05/21 07:00 97.7 18 100 Room Air 97.7 Intake and Output 05/05/21 07:00 Intake Total 360 ml Output Total 0 ml Balance 360 ml Intake Oral 360 ml Output Urine Total 0 ml Physical Exam Abdomen: Soft Heart: Regular rate, Normal S1, Normal S2 General: No acute distress Lungs: Normal air movement MUSCULOSKELETAL: No swelling, Osteoarthritic changes both hands Neuro: Normal speech COMMENT soft neck collar Diagnosis Problem List Problems Medical Problems: (1) End stage renal disease Status: Acute (2) Hypokalemia Status: Acute Assessment Assessment Problems Medical Problems: (1) End stage renal disease Status: Acute (2) Hypokalemia Status: Acute FINAL IMPRESSION: 1. Generalized weakness. The patient missed dialysis for a whole week. He goes to dialysis Wednesday, and Wednesday. 2. Hypokalemia. 3. End-stage renal disease, on hemodialysis. 4. Insulin-dependent diabetes. 5. Cervical spondylolysis with neck muscle spasms. 6. Hypertension. 7. Hyperlipidemia. PLAN: covid test pcr-ve placement /SNU CT neck spondylosis,djd. soft cervical collar Diabetes on insulin End-stage renal disease on dialysis Sat Plan Plan of Care Problems Medical Problems: (1) End stage renal disease Status: Acute (2) Hypokalemia Status: Acute Comment Review of Relevant I have reviewed the following items ken (where applicable) has been applied. Labs Laboratory Tests Test 05/04/21 11:57 05/04/21 15:21 05/04/21 17:07 05/04/21 20:57 Glucose (Fingerstick) 331 mg/dL (70-99) 153 mg/dL (70-99) 54 mg/dL (70-99) Coronavirus (COVID-19)(PCR) Not detected (NOT DETECTD) Test 05/04/21 21:46 05/05/21 01:26 05/05/21 07:35 Glucose (Fingerstick) 81 mg/dL (70-99) 176 mg/dL (70-99) 232 mg/dL (70-99) Vitals/I & O Vital Sign - Last 24 Hours 05/04/21 05/04/21 05/04/21 05/04/21 11:00 15:00 19:00 20:20 Temp 98.1 98.3 97.6 98.1 98.3 97.6 Pulse 80 60 69 Resp 16 16 20 B/P (MAP) 125/72 (89) 140/62 (88) 141/68 (92) Pulse Ox 94 94 96 O2 Delivery Room Air Room Air Room Air Room Air 05/04/21 05/05/21 05/05/21 05/05/21 23:04 03:04 07:00 08:26 Temp 97.6 98.0 97.7 97.6 98.0 97.7 Pulse 69 70 64 64 Resp 20 17 18 B/P (MAP) 158/69 (98) 153/75 (101) 136/66 (89) 136/66 Pulse Ox 97 97 100 O2 Delivery Room Air Room Air Room Air 05/05/21 08:27 Pulse 64 B/P (MAP) 136/66 Intake and Output 05/04/21 05/04/21 05/05/21 15:00 23:00 07:00 Intake Total 240 ml 120 ml Output Total 0 ml Balance 240 ml 120 ml 0 ml Justifications for Admission Other Justification Nutrition Consultation Dietary Evaluation: Recommendations by RD: Dietary education by RD, Increase Calorie Intake, Protein supplementation Comments: Renal/ADA DBL meats Nepro bid REC mvi and vit c per wound protocal Expected Outcomes/Goals: to meet >75% est nutr needs Interpretation of weight loss: >7.5% in 3 months Malnutrition Findings: Food and Nutrition Intake (Sev: <50% est energy req 5days Body Fat Depletion (Non Severe: Mod to Severe Weight Status: Underweight GISELL CLARK MD May 05, 2021 09:21
--- NOTE | 2021-05-05 09:25 | SNU/HH DC ---
DISCHARGE ORDERS DISCHARGE INFORMATION: DISCHARGE DATE: May 05, 2021 FINAL DIAGNOSIS Problems Medical Problems: (1) End stage renal disease Status: Acute (2) Hypokalemia Status: Acute CONDITION ON DISCHARGE: Stable CODE STATUS: Code Status: Full ALF: SNF STAY <30 DAYS: Yes HOSPICE: HOSPICE: No HOSPICE EVAL & TREAT: No LTAC: ADMIT TO LTAC: No POST DISCHARGE ORDERS: ACTIVITY ORDERS: Activity as tolerated WEIGHT BEARING STATUS: As tolerated DIET AFTER DISCHARGE: Renal CHECKS AFTER DISCHARGE: CHECKS AFTER DISCHARGE: Check blood press - daily, Check blood sugar, ac/hs, Check your Temp as needed FOLLOW-UP: Additional Instructions: Dialysis ,TH ,SAT TREATMENT/EQUIPMENT ORDERS: ADAPTIVE EQUIPMENT NEEDED: None Physical Therapy For: Evalulation/Treatment Occupational Therapy For: Evaluation/Treatment DISCHARGE MEDICATIONS: Home Meds Active Scripts Amlodipine Besylate (AMLODIPINE BESYLATE) 10 Mg Tablet, 10 MG PO DAILY for 30 Days, #30 TAB Prov:GISELL CLARK MD 10/04/17 Reported Medications Metoprolol Succinate (METOPROLOL SUCCINATE ( XL )) 100 Mg Tab.er.24h, 1 TAB PO DAILY for htn 05/01/21 Insulin Lispro (HUMALOG) 100 Unit/1 Ml Vial, 12 UNIT SQ TIDAC for DM, EACH 05/01/21 Insulin Glargine,Hum.rec.anlog (LANTUS SOLOSTAR) 100 Unit/1 Ml Insuln.pen, 15 UNIT SQ QHS for DM, #15 ML 3 Refills 05/01/21 Ipratropium/Albuterol Sulfate (DUONEB 0.5-3(2.5) MG/3 ML) 3 Ml Ampul.neb, 3 ML NEB QID PRN for WHEEZING, EACH 10/01/17 Aspirin (ASPIR 81) 81 Mg Tablet.dr, 81 MG PO DAILY, TAB 01/25/15 Omeprazole (OMEPRAZOLE) 40 Mg Capsule.dr, 40 MG PO DAILY, CAP 04/09/14 Simvastatin (SIMVASTATIN) 10 Mg Tablet, 10 MG PO HS for FOR CHOLESTEROL, TAB 0 Refills 04/09/14 GISELL CLARK MD May 05, 2021 09:25
--- NOTE | 2021-05-05 09:26 | PDOC ---
PROGRESS NOTES Date of Service DATE: 05/05/21 TIME: 09:24 Subjective Subjective He admits neck pain is less. Objective Objective Vital Signs Date Time Temp Pulse Resp B/P (MAP) Pulse Ox O2 Delivery O2 Flow Rate FiO2 05/05/21 08:27 64 136/66 05/05/21 07:00 97.7 18 100 Room Air 97.7 Intake and Output 05/05/21 07:00 Intake Total 360 ml Output Total 0 ml Balance 360 ml Intake Oral 360 ml Output Urine Total 0 ml Physical Exam Physical Exam He is alert,sitting in bedside recliner with soft cervical collar in place and he continues with balance problems and he walked for 8' at bedside yesterday with physical therapy using a roller walker with flexed posture. Assessment Assessment Problems Medical Problems: (1) End stage renal disease Status: Acute (2) Hypokalemia Status: Acute Plan Plan of Care To SNF when medically stable. Comment Review of Relevant I have reviewed the following items ken (where applicable) has been applied. Labs Laboratory Tests Test 05/03/21 11:45 05/03/21 16:27 05/03/21 20:35 05/04/21 00:10 Glucose (Fingerstick) 142 mg/dL (70-99) 253 mg/dL (70-99) 369 mg/dL (70-99) 297 mg/dL (70-99) Test 05/04/21 08:25 05/04/21 11:57 05/04/21 15:21 05/04/21 17:07 Glucose (Fingerstick) 368 mg/dL (70-99) 331 mg/dL (70-99) 153 mg/dL (70-99) Coronavirus (COVID-19)(PCR) Not detected (NOT DETECTD) Test 05/04/21 20:57 05/04/21 21:46 05/05/21 01:26 05/05/21 07:35 Glucose (Fingerstick) 54 mg/dL (70-99) 81 mg/dL (70-99) 176 mg/dL (70-99) 232 mg/dL (70-99) Laboratory Tests Test 05/04/21 11:57 05/04/21 15:21 05/04/21 17:07 05/04/21 20:57 Glucose (Fingerstick) 331 mg/dL (70-99) 153 mg/dL (70-99) 54 mg/dL (70-99) Coronavirus (COVID-19)(PCR) Not detected (NOT DETECTD) Test 05/04/21 21:46 05/05/21 01:26 05/05/21 07:35 Glucose (Fingerstick) 81 mg/dL (70-99) 176 mg/dL (70-99) 232 mg/dL (70-99) Medications Current Medications Potassium Chloride (Klor-Con) 40 meq 1X ONCE PO Last administered on 04/30/21at 16:57; Start 04/30/21 at 16:45; Stop 04/30/21 at 16:46; Status DC Clonidine HCl (Catapres) 0.2 mg 1X ONCE PO Last administered on 04/30/21at 18:05; Start 04/30/21 at 18:00; Stop 04/30/21 at 18:01; Status DC Acetaminophen (Tylenol) 650 mg PRN Q6HRS PRN PO MILD PAIN / TEMP > 100.3'F Last administered on 05/04/21at 12:41; Start 04/30/21 at 23:15 Potassium Chloride (Klor-Con) 20 meq 1X ONCE PO Last administered on 05/01/21at 00:08; Start 04/30/21 at 23:30; Stop 04/30/21 at 23:31; Status DC Insulin Human Lispro (HumaLOG) 0-5 UNITS QIDACHS SQ Last administered on 05/01/21at 08:21; Start 04/30/21 at 23:30; Stop 05/01/21 at 09:53; Status DC Dextrose (Dextrose 50%-Water Syringe) 12.5 gm PRN Q15MIN PRN IV SEE COMMENTS; Start 04/30/21 at 23:15; Stop 05/03/21 at 07:02; Status DC Dextrose (Iv Dextrose 5%) 250 ml PRN Q15MIN PRN IV SEE COMMENTS; Start 04/30/21 at 23:15 Amlodipine Besylate (Norvasc) 10 mg DAILY PO Last administered on 05/05/21at 08:27; Start 05/01/21 at 09:00 Aspirin (Ecotrin) 81 mg DAILY PO Last administered on 05/05/21at 08:27; Start 05/01/21 at 09:00 Albuterol Sulfate (Ventolin Neb Soln) 2.5 mg PRN Q6HRS PRN NEB WHEEZING; Start 05/01/21 at 00:15 Simvastatin (Zocor) 10 mg HS PO Last administered on 05/04/21at 21:43; Start 05/01/21 at 21:00 Pantoprazole Sodium (Protonix) 40 mg DAILYAC PO Last administered on 05/05/21at 08:27; Start 05/01/21 at 07:30 Metoprolol Succinate (Toprol Xl) 100 mg DAILY PO Last administered on 05/05/21at 08:26; Start 05/01/21 at 10:00 Insulin Glargine (Lantus Syringe) 15 unit QHS SQ Last administered on 05/03/21at 21:55; Start 05/01/21 at 21:00 Insulin Human Lispro (HumaLOG) 0-5 UNITS TIDWMEALS SQ Last administered on 05/05/21at 08:35; Start 05/01/21 at 12:00 Dextrose (Dextrose 50%-Water Syringe) 12.5 gm PRN Q15MIN PRN IV SEE COMMENTS; Start 05/01/21 at 09:15 Potassium Chloride (Klor-Con) 40 meq 1X ONCE PO Last administered on 05/01/21at 09:40; Start 05/01/21 at 09:15; Stop 05/01/21 at 09:24; Status DC Potassium Chloride (Klor-Con) 20 meq 1X ONCE PO Last administered on 05/01/21at 12:15; Start 05/01/21 at 12:15; Stop 05/01/21 at 12:16; Status DC Acetaminophen/ Codeine Phosphate (Tylenol #3) 1 tab PRN Q6HRS PRN PO MODERATE PAIN; Start 05/01/21 at 09:30 Tizanidine HCl (Zanaflex) 4 mg Q8HRS PO Last administered on 05/05/21at 05:56; Start 05/01/21 at 14:00 Prednisone (Prednisone) 10 mg DAILY PO Last administered on 05/05/21at 08:27; Start 05/01/21 at 09:30 Epoetin Camron-epbx (RETACRIT for ESRD PTS) 10,000 unit MoWeFr@2100 SQ Last administered on 05/02/21at 22:22; Start 05/02/21 at 21:00 Sodium Chloride 1,000 ml @ 1,000 mls/hr Q1H PRN IV hypotension; Start 05/01/21 at 10:30; Stop 05/01/21 at 16:29; Status DC Sodium Chloride 1,000 ml @ 400 mls/hr Q2H30M PRN IV PATENCY; Start 05/01/21 at 10:30; Stop 05/01/21 at 22:29; Status DC Info (PHARMACY MONITORING -- do not chart) 1 each PRN DAILY PRN MC SEE COMMENTS; Start 05/01/21 at 10:30; Status UNV Info (PHARMACY MONITORING -- do not chart) 1 each PRN DAILY PRN MC SEE COMMENTS; Start 05/01/21 at 10:30; Stop 05/03/21 at 07:02; Status DC Insulin Human Lispro (HumaLOG) 12 units TIDAC SQ Last administered on 05/05/21at 08:29; Start 05/02/21 at 11:30 Sodium Chloride 1,000 ml @ 1,000 mls/hr Q1H PRN IV hypotension; Start 05/03/21 at 07:00; Stop 05/03/21 at 12:59; Status DC Sodium Chloride 1,000 ml @ 400 mls/hr Q2H30M PRN IV PATENCY; Start 05/03/21 at 07:00; Stop 05/03/21 at 18:59; Status DC Info (PHARMACY MONITORING -- do not chart) 1 each PRN DAILY PRN MC SEE COMMENTS; Start 05/03/21 at 07:00; Stop 05/03/21 at 07:02; Status DC Info (PHARMACY MONITORING -- do not chart) 1 each PRN DAILY PRN MC SEE COMMENTS; Start 05/03/21 at 07:00 Active Scripts Active Amlodipine Besylate 10 Mg Tablet 10 Mg PO DAILY 30 Days Reported Metoprolol Succinate ( Xl ) (Metoprolol Succinate) 100 Mg Tab.er.24h 1 Tab PO DAILY Humalog (Insulin Lispro) 100 Unit/1 Ml Vial 12 Unit SQ TIDAC Lantus Solostar (Insulin Glargine,Hum.rec.anlog) 100 Unit/1 Ml Insuln.pen 15 Unit SQ QHS Duoneb 0.5-3(2.5) Mg/3 Ml (Albuterol/Ipratropium) 3 Ml Ampul.neb 3 Ml NEB QID PRN Aspir 81 (Aspirin) 81 Mg Tablet. 81 Mg PO DAILY Omeprazole 40 Mg Capsule. 40 Mg PO DAILY Simvastatin 10 Mg Tablet 10 Mg PO HS Vitals/I & O Vital Sign - Last 24 Hours 05/04/21 05/04/21 05/04/21 05/04/21 11:00 15:00 19:00 20:20 Temp 98.1 98.3 97.6 98.1 98.3 97.6 Pulse 80 60 69 Resp 16 16 20 B/P (MAP) 125/72 (89) 140/62 (88) 141/68 (92) Pulse Ox 94 94 96 O2 Delivery Room Air Room Air Room Air Room Air 05/04/21 05/05/21 05/05/21 05/05/21 23:04 03:04 07:00 08:26 Temp 97.6 98.0 97.7 97.6 98.0 97.7 Pulse 69 70 64 64 Resp 20 17 18 B/P (MAP) 158/69 (98) 153/75 (101) 136/66 (89) 136/66 Pulse Ox 97 97 100 O2 Delivery Room Air Room Air Room Air 05/05/21 08:27 Pulse 64 B/P (MAP) 136/66 Intake and Output 05/04/21 05/04/21 05/05/21 15:00 23:00 07:00 Intake Total 240 ml 120 ml Output Total 0 ml Balance 240 ml 120 ml 0 ml Justifications for Admission Other Justification Nutrition Consultation Dietary Evaluation: Recommendations by RD: Dietary education by RD, Increase Calorie Intake, Protein supplementation Comments: Renal/ADA DBL meats Nepro bid REC mvi and vit c per wound protocal Expected Outcomes/Goals: to meet >75% est nutr needs Interpretation of weight loss: >7.5% in 3 months Malnutrition Findings: Food and Nutrition Intake (Sev: <50% est energy req 5days Body Fat Depletion (Non Severe: Mod to Severe Weight Status: Underweight ANIL MULLER MD May 05, 2021 09:26
[2021-05-05 10:49] VITALS: BP 131/68
--- NOTE | 2021-05-05 11:13 | PDOC ---
DATE OF SERVICE DATE: 05/05/21 TIME: 11:11 SUBJECTIVE ROS No complaints. OBJECTIVE Vital Signs Vital Signs Date Time Temp Pulse Resp B/P (MAP) Pulse Ox O2 Delivery O2 Flow Rate FiO2 05/05/21 10:49 97.1 70 18 131/68 (89) 95 Room Air 97.1 I & 0 Intake and Output 05/05/21 07:00 Intake Total 360 ml Output Total 0 ml Balance 360 ml Intake Oral 360 ml Output Urine Total 0 ml PHYSICAL EXAM Physical Exam General NAD HEEN OM moist Nck Supple Lungs decreased at abses, Non labored CV s1s2, no rub GI- soft, NT Ext No LE edema Neuro grossly normal No CVA or SP tenderness Psych Normal Affect DIAGNOSIS/ASSESSMENT Assessment & Plan ESRD on HD TTS No indication for dialysis today Anemia- Hgb stable, TANIA ordered Diabetes, insulin-dependent.Per primary History of diastolic heart failure. Generalized weakness Cervical spondylolysis with neck muscle spasms COMMENT/RELEVANT DATA Meds Current Medications Medications (Trade) Dose Ordered Sig/Madeleine Start Time Stop Time Status Last Admin Dose Admin Acetaminophen (Tylenol) 650 mg PRN Q6HRS PRN 04/30/21 23:15 05/04/21 12:41 650 MG Acetaminophen/ Codeine Phosphate (Tylenol #3) 1 tab PRN Q6HRS PRN 05/01/21 09:30 Albuterol Sulfate (Ventolin Neb Soln) 2.5 mg PRN Q6HRS PRN 05/01/21 00:15 Amlodipine Besylate (Norvasc) 10 mg DAILY 05/01/21 09:00 05/05/21 08:27 10 MG Aspirin (Ecotrin) 81 mg DAILY 05/01/21 09:00 05/05/21 08:27 81 MG Clonidine HCl (Catapres) 0.2 mg 1X ONCE 04/30/21 18:00 04/30/21 18:01 DC 04/30/21 18:05 0.2 MG Dextrose (Dextrose 50%-Water Syringe) 12.5 gm PRN Q15MIN PRN 05/01/21 09:15 Dextrose (Iv Dextrose 5%) 250 ml PRN Q15MIN PRN 04/30/21 23:15 Epoetin Camron-epbx (RETACRIT for ESRD PTS) 10,000 unit MoWeFr@2100 05/02/21 21:00 05/02/21 22:22 10,000 UNIT Info (PHARMACY MONITORING -- do not chart) 1 each PRN DAILY PRN 05/03/21 07:00 Insulin Glargine (Lantus Syringe) 15 unit QHS 05/01/21 21:00 05/03/21 21:55 15 UNIT Insulin Human Lispro (HumaLOG) 12 units TIDAC 05/02/21 11:30 05/05/21 08:29 12 UNITS Metoprolol Succinate (Toprol Xl) 100 mg DAILY 05/01/21 10:00 05/05/21 08:26 100 MG Pantoprazole Sodium (Protonix) 40 mg DAILYAC 05/01/21 07:30 05/05/21 08:27 40 MG Potassium Chloride (Klor-Con) 20 meq 1X ONCE 05/01/21 12:15 05/01/21 12:16 DC 05/01/21 12:15 20 MEQ Prednisone (Prednisone) 10 mg DAILY 05/01/21 09:30 05/05/21 08:27 10 MG Simvastatin (Zocor) 10 mg HS 05/01/21 21:00 05/04/21 21:43 10 MG Sodium Chloride 1,000 ml @ 400 mls/hr Q2H30M PRN 05/03/21 07:00 05/03/21 18:59 DC Tizanidine HCl (Zanaflex) 4 mg Q8HRS 05/01/21 14:00 05/05/21 05:56 4 MG Lab Laboratory Tests Test 05/04/21 11:57 05/04/21 15:21 05/04/21 17:07 05/04/21 20:57 Glucose (Fingerstick) 331 mg/dL (70-99) 153 mg/dL (70-99) 54 mg/dL (70-99) Coronavirus (COVID-19)(PCR) Not detected (NOT DETECTD) Test 05/04/21 21:46 05/05/21 01:26 05/05/21 07:35 Glucose (Fingerstick) 81 mg/dL (70-99) 176 mg/dL (70-99) 232 mg/dL (70-99) Results All relevant outside records, renal labs, imaging studies, telemetry/EKG's were reviewed. Justicifation of Admission Dx: Justifications for Admission: Justification of Admission Dx: N/A ABRAM HARDING MD May 05, 2021 11:13
[2021-05-05 15:00] VITALS: BP 152/68
[2021-05-05 19:00] VITALS: BP 161/78
[2021-05-05] MEDS: INSULIN GLARGINE SYRINGE. SQ SCH (21:39)
[2021-05-05] MEDS: EPOETIN ALFA-EPBX for ESRD 20,000 UNIT/ML VIAL. SQ SCH (21:39)
[2021-05-05] MEDS: SIMVASTATIN 10 MG TABLET PO SCH (21:40)
[2021-05-05 23:00] VITALS: BP 163/72
[2021-05-06 03:04] VITALS: BP 156/76
[2021-05-06] MEDS: tiZANidine 4 MG TABLET. PO SCH (04:52)
[2021-05-06 07:00] VITALS: BP 149/73
[2021-05-06] MEDS: PANTOPRAZOLE 40 MG TABLET.DR. PO SCH (07:30)
[2021-05-06] MEDS: ASPIRIN ENTERIC COATED 81 MG TABLET.DR. PO SCH (08:06)
[2021-05-06] MEDS: predniSONE 10 MG TABLET PO SCH (08:06)
[2021-05-06] MEDS: METOPROLOL SUCC 24HR ER 100 MG TAB.ER.24H. PO SCH (08:07)
[2021-05-06] MEDS: INSULIN LISPRO 300 UNITS/3 ML VIAL. SQ SCH ×6 (08:09→17:18)
[2021-05-06] MEDS ORDERED: ALBUMIN HUMAN 25% 100 ML IV PRN (09:15)
[2021-05-06] MEDS ORDERED: IV NORMAL SALINE 1000ML BAG 1,000 ML IV PRN ×2 (09:15)
[2021-05-06] MEDS ORDERED: DIALYSIS PATIENT. MC PRN ×2 (09:15)
--- NOTE | 2021-05-06 09:30 | PDOC ---
PROGRESS NOTES Date of Service: DATE: 05/06/21 TIME: 09:28 Subjective Subjective waiting to go to SNU Objective Objective Vital Signs Date Time Temp Pulse Resp B/P (MAP) Pulse Ox O2 Delivery O2 Flow Rate FiO2 05/06/21 08:07 72 179/73 05/06/21 08:00 Room Air 05/06/21 07:00 97.6 18 93 97.6 Intake and Output 05/06/21 07:00 Intake Total 720 ml Balance 720 ml Intake Oral 720 ml # Voids 3 Physical Exam Abdomen: Soft Heart: Regular rate, Normal S1, Normal S2 General: No acute distress Lungs: Normal air movement MUSCULOSKELETAL: No swelling, Osteoarthritic changes both hands Neuro: Normal speech COMMENT soft neck collar Diagnosis Problem List Problems Medical Problems: (1) End stage renal disease Status: Acute (2) Hypokalemia Status: Acute Assessment Assessment Problems Medical Problems: (1) End stage renal disease Status: Acute (2) Hypokalemia Status: Acute FINAL IMPRESSION: 1. Generalized weakness. The patient missed dialysis for a whole week. He goes to dialysis Wednesday, and Wednesday. 2. Hypokalemia. 3. End-stage renal disease, on hemodialysis. 4. Insulin-dependent diabetes. 5. Cervical spondylolysis with neck muscle spasms. 6. Hypertension. 7. Hyperlipidemia. PLAN:BS 200 -300 range Dialysis today covid test pcr-ve placement /SNU CT neck spondylosis,djd. soft cervical collar Diabetes on insulin End-stage renal disease on dialysis , Sat Plan Plan of Care Problems Medical Problems: (1) End stage renal disease Status: Acute (2) Hypokalemia Status: Acute Comment Review of Relevant I have reviewed the following items ken (where applicable) has been applied. Labs Laboratory Tests Test 05/05/21 11:05 05/05/21 16:32 05/05/21 18:55 05/06/21 07:29 Glucose (Fingerstick) 222 mg/dL (70-99) 296 mg/dL (70-99) 324 mg/dL (70-99) 313 mg/dL (70-99) Medications Current Medications Albumin Human 100 ml @ 200 mls/hr 1X PRN PRN IV Hypotension; Start 05/06/21 at 09:15; Stop 05/06/21 at 15:14 Info (PHARMACY MONITORING -- do not chart) 1 each PRN DAILY PRN MC SEE COMMENTS; Start 05/06/21 at 09:15; Stop 05/06/21 at 09:22; Status DC Info (PHARMACY MONITORING -- do not chart) 1 each PRN DAILY PRN MC SEE COMMENTS; Start 05/06/21 at 09:15 Sodium Chloride 1,000 ml @ 400 mls/hr Q2H30M PRN IV PATENCY; Start 05/06/21 at 09:15; Stop 05/06/21 at 21:14 Sodium Chloride 1,000 ml @ 1,000 mls/hr Q1H PRN IV hypotension; Start 05/06/21 at 09:15; Stop 05/06/21 at 15:14 Vitals/I & O Vital Sign - Last 24 Hours 05/05/21 05/05/21 05/05/21 05/05/21 10:49 15:00 19:00 20:00 Temp 97.1 98.1 97.8 97.1 98.1 97.8 Pulse 70 69 71 Resp 18 18 18 B/P (MAP) 131/68 (89) 152/68 (96) 161/78 (105) Pulse Ox 95 98 98 O2 Delivery Room Air Room Air Room Air Room Air 05/05/21 05/06/21 05/06/21 05/06/21 23:00 03:04 07:00 08:00 Temp 97.8 97.8 97.6 97.8 97.8 97.6 Pulse 72 72 72 Resp 18 18 18 B/P (MAP) 163/72 (102) 156/76 (102) 149/73 (98) Pulse Ox 96 97 93 O2 Delivery Room Air Room Air Room Air Room Air 05/06/21 05/06/21 08:06 08:07 Pulse 72 72 B/P (MAP) 179/73 179/73 Intake and Output 05/05/21 05/05/21 05/06/21 15:00 23:00 07:00 Intake Total 480 ml 240 ml Balance 480 ml 240 ml Justifications for Admission Other Justification Nutrition Consultation Dietary Evaluation: Recommendations by RD: Dietary education by RD, Increase Calorie Intake, Protein supplementation Comments: Renal/ADA DBL meats Nepro bid REC mvi and vit c per wound protocal Expected Outcomes/Goals: to meet >75% est nutr needs Interpretation of weight loss: >7.5% in 3 months Malnutrition Findings: Food and Nutrition Intake (Sev: <50% est energy req 5days Body Fat Depletion (Non Severe: Mod to Severe Weight Status: Underweight GISELL CLARK MD May 06, 2021 09:30
--- NOTE | 2021-05-06 09:55 | PDOC ---
DATE OF SERVICE DATE: 05/06/21 TIME: 09:55 SUBJECTIVE ROS No complaints on Dialysis OBJECTIVE Vital Signs Vital Signs Date Time Temp Pulse Resp B/P (MAP) Pulse Ox O2 Delivery O2 Flow Rate FiO2 05/06/21 08:07 72 179/73 05/06/21 08:00 Room Air 05/06/21 07:00 97.6 18 93 97.6 I & 0 Intake and Output 05/06/21 07:00 Intake Total 720 ml Balance 720 ml Intake Oral 720 ml # Voids 3 PHYSICAL EXAM Physical Exam General NAD HEEN OM moist Nck Supple Lungs decreased at abses, Non labored CV s1s2, no rub GI- soft, NT Ext No LE edema Neuro grossly normal No CVA or SP tenderness Psych Normal Affect DIAGNOSIS/ASSESSMENT Assessment & Plan ESRD on HD TTS Seen during treatment , tolerating well. Continue as ordered. [place] March HypoKalemia- K normal Anemia- Hgb stable, TANIA ordered Diabetes, insulin-dependent.BS high History of diastolic heart failure. COMMENT/RELEVANT DATA Meds Current Medications Medications (Trade) Dose Ordered Sig/Madeleine Start Time Stop Time Status Last Admin Dose Admin Acetaminophen (Tylenol) 650 mg PRN Q6HRS PRN 04/30/21 23:15 05/04/21 12:41 650 MG Acetaminophen/ Codeine Phosphate (Tylenol #3) 1 tab PRN Q6HRS PRN 05/01/21 09:30 Albumin Human 100 ml @ 200 mls/hr 1X PRN PRN 05/06/21 09:15 05/06/21 15:14 Albuterol Sulfate (Ventolin Neb Soln) 2.5 mg PRN Q6HRS PRN 05/01/21 00:15 Amlodipine Besylate (Norvasc) 10 mg DAILY 05/01/21 09:00 05/06/21 08:06 10 MG Aspirin (Ecotrin) 81 mg DAILY 05/01/21 09:00 05/06/21 08:06 81 MG Clonidine HCl (Catapres) 0.2 mg 1X ONCE 04/30/21 18:00 04/30/21 18:01 DC 04/30/21 18:05 0.2 MG Dextrose (Dextrose 50%-Water Syringe) 12.5 gm PRN Q15MIN PRN 05/01/21 09:15 Dextrose (Iv Dextrose 5%) 250 ml PRN Q15MIN PRN 04/30/21 23:15 Epoetin Camron-epbx (RETACRIT for ESRD PTS) 10,000 unit MoWeFr@2100 05/02/21 21:00 05/05/21 21:39 10,000 UNIT Info (PHARMACY MONITORING -- do not chart) 1 each PRN DAILY PRN 05/06/21 09:15 Insulin Glargine (Lantus Syringe) 15 unit QHS 05/01/21 21:00 05/05/21 21:39 15 UNIT Insulin Human Lispro (HumaLOG) 12 units TIDAC 05/02/21 11:30 05/06/21 08:09 12 UNITS Metoprolol Succinate (Toprol Xl) 100 mg DAILY 05/01/21 10:00 05/06/21 08:07 100 MG Pantoprazole Sodium (Protonix) 40 mg DAILYAC 05/01/21 07:30 05/06/21 07:30 40 MG Potassium Chloride (Klor-Con) 20 meq 1X ONCE 05/01/21 12:15 05/01/21 12:16 DC 05/01/21 12:15 20 MEQ Prednisone (Prednisone) 10 mg DAILY 05/01/21 09:30 05/06/21 09:31 DC 05/06/21 08:06 10 MG Simvastatin (Zocor) 10 mg HS 05/01/21 21:00 05/05/21 21:40 10 MG Sodium Chloride 1,000 ml @ 400 mls/hr Q2H30M PRN 05/06/21 09:15 05/06/21 21:14 Tizanidine HCl (Zanaflex) 4 mg Q8HRS 05/01/21 14:00 05/06/21 09:31 DC 05/06/21 04:52 4 MG Lab Laboratory Tests Test 05/05/21 11:05 05/05/21 16:32 05/05/21 18:55 05/06/21 07:29 Glucose (Fingerstick) 222 mg/dL (70-99) 296 mg/dL (70-99) 324 mg/dL (70-99) 313 mg/dL (70-99) Results All relevant outside records, renal labs, imaging studies, telemetry/EKG's were reviewed. Justicifation of Admission Dx: Justifications for Admission: Justification of Admission Dx: N/A MEAGHAN,ABRAM MD May 06, 2021 09:55
[2021-05-06 10:24] LABS: CALCIUM 8.7 mg/dL (8.5-10.1); CREATININE 3.4 mg/dL (0.7-1.3); GFR 21.7; POTASSIUM 3.9 mmol/L (3.5-5.1)
--- NOTE | 2021-05-06 14:44 | PDOC ---
PROGRESS NOTES Date of Service DATE: 05/06/21 TIME: 14:40 Subjective Subjective He admits less pain in his neck. he wants to go home rather than going to SNF, Objective Objective Vital Signs Date Time Temp Pulse Resp B/P (MAP) Pulse Ox O2 Delivery O2 Flow Rate FiO2 05/06/21 08:07 72 179/73 05/06/21 08:00 Room Air 05/06/21 07:00 97.6 18 93 97.6 Intake and Output 05/06/21 07:00 Intake Total 720 ml Balance 720 ml Intake Oral 720 ml # Voids 3 Physical Exam Physical Exam He is alert,supine in bed with soft cervical collar in place and he continues to require assistance for transfers but he did walk wiht physical therapy per 40' yesterday with roller walker. Assessment Assessment Problems Medical Problems: (1) End stage renal disease Status: Acute (2) Hypokalemia Status: Acute Plan Plan of Care To SNF or home with home health follow up if physical assistance is available to be with him while up. Comment Review of Relevant I have reviewed the following items ken (where applicable) has been applied. Labs Laboratory Tests Test 05/04/21 15:21 05/04/21 17:07 05/04/21 20:57 05/04/21 21:46 Coronavirus (COVID-19)(PCR) Not detected (NOT DETECTD) Glucose (Fingerstick) 153 mg/dL (70-99) 54 mg/dL (70-99) 81 mg/dL (70-99) Test 05/05/21 01:26 05/05/21 07:35 05/05/21 11:05 05/05/21 16:32 Glucose (Fingerstick) 176 mg/dL (70-99) 232 mg/dL (70-99) 222 mg/dL (70-99) 296 mg/dL (70-99) Test 05/05/21 18:55 05/06/21 07:29 05/06/21 10:00 05/06/21 11:33 Glucose (Fingerstick) 324 mg/dL (70-99) 313 mg/dL (70-99) 163 mg/dL (70-99) Sodium Level 141 mmol/L (136-145) Potassium Level 3.9 mmol/L (3.5-5.1) Chloride Level 103 mmol/L (98-107) Carbon Dioxide Level 27 mmol/L (21-32) Anion Gap 11 (6-14) Blood Urea Nitrogen 59 mg/dL (8-26) Creatinine 3.4 mg/dL (0.7-1.3) Estimated GFR (Cockcroft-Gault) 21.7 Glucose Level 322 mg/dL (70-99) Calcium Level 8.7 mg/dL (8.5-10.1) Laboratory Tests Test 05/05/21 16:32 05/05/21 18:55 05/06/21 07:29 05/06/21 10:00 Glucose (Fingerstick) 296 mg/dL (70-99) 324 mg/dL (70-99) 313 mg/dL (70-99) Sodium Level 141 mmol/L (136-145) Potassium Level 3.9 mmol/L (3.5-5.1) Chloride Level 103 mmol/L (98-107) Carbon Dioxide Level 27 mmol/L (21-32) Anion Gap 11 (6-14) Blood Urea Nitrogen 59 mg/dL (8-26) Creatinine 3.4 mg/dL (0.7-1.3) Estimated GFR (Cockcroft-Gault) 21.7 Glucose Level 322 mg/dL (70-99) Calcium Level 8.7 mg/dL (8.5-10.1) Test 05/06/21 11:33 Glucose (Fingerstick) 163 mg/dL (70-99) Medications Current Medications Potassium Chloride (Klor-Con) 40 meq 1X ONCE PO Last administered on 04/30/21at 16:57; Start 04/30/21 at 16:45; Stop 04/30/21 at 16:46; Status DC Clonidine HCl (Catapres) 0.2 mg 1X ONCE PO Last administered on 04/30/21at 18:05; Start 04/30/21 at 18:00; Stop 04/30/21 at 18:01; Status DC Acetaminophen (Tylenol) 650 mg PRN Q6HRS PRN PO MILD PAIN / TEMP > 100.3'F Last administered on 05/04/21at 12:41; Start 04/30/21 at 23:15 Potassium Chloride (Klor-Con) 20 meq 1X ONCE PO Last administered on 05/01/21at 00:08; Start 04/30/21 at 23:30; Stop 04/30/21 at 23:31; Status DC Insulin Human Lispro (HumaLOG) 0-5 UNITS QIDACHS SQ Last administered on 2at 08:21; Start 04/30/21 at 23:30; Stop 05/01/21 at 09:53; Status DC Dextrose (Dextrose 50%-Water Syringe) 12.5 gm PRN Q15MIN PRN IV SEE COMMENTS; Start 04/30/21 at 23:15; Stop 05/03/21 at 07:02; Status DC Dextrose (Iv Dextrose 5%) 250 ml PRN Q15MIN PRN IV SEE COMMENTS; Start 04/30/21 at 23:15 Amlodipine Besylate (Norvasc) 10 mg DAILY PO Last administered on 05/06/21at 08:06; Start 05/01/21 at 09:00 Aspirin (Ecotrin) 81 mg DAILY PO Last administered on 05/06/21at 08:06; Start 05/01/21 at 09:00 Albuterol Sulfate (Ventolin Neb Soln) 2.5 mg PRN Q6HRS PRN NEB WHEEZING; Start 05/01/21 at 00:15 Simvastatin (Zocor) 10 mg HS PO Last administered on 05/05/21at 21:40; Start 05/01/21 at 21:00 Pantoprazole Sodium (Protonix) 40 mg DAILYAC PO Last administered on 05/06/21at 07:30; Start 05/01/21 at 07:30 Metoprolol Succinate (Toprol Xl) 100 mg DAILY PO Last administered on 05/06/21at 08:07; Start 05/01/21 at 10:00 Insulin Glargine (Lantus Syringe) 15 unit QHS SQ Last administered on 05/05/21at 21:39; Start 05/01/21 at 21:00 Insulin Human Lispro (HumaLOG) 0-5 UNITS TIDWMEALS SQ Last administered on 05/06/21at 14:05; Start 05/01/21 at 12:00 Dextrose (Dextrose 50%-Water Syringe) 12.5 gm PRN Q15MIN PRN IV SEE COMMENTS; Start 05/01/21 at 09:15 Potassium Chloride (Klor-Con) 40 meq 1X ONCE PO Last administered on 05/01/21at 09:40; Start 05/01/21 at 09:15; Stop 05/01/21 at 09:24; Status DC Potassium Chloride (Klor-Con) 20 meq 1X ONCE PO Last administered on 05/01/21at 12:15; Start 05/01/21 at 12:15; Stop 05/01/21 at 12:16; Status DC Acetaminophen/ Codeine Phosphate (Tylenol #3) 1 tab PRN Q6HRS PRN PO MODERATE PAIN; Start 05/01/21 at 09:30 Tizanidine HCl (Zanaflex) 4 mg Q8HRS PO Last administered on 05/06/21at 04:52; Start 05/01/21 at 14:00; Stop 05/06/21 at 09:31; Status DC Prednisone (Prednisone) 10 mg DAILY PO Last administered on 05/06/21at 08:06; Start 05/01/21 at 09:30; Stop 05/06/21 at 09:31; Status DC Epoetin Camron-epbx (RETACRIT for ESRD PTS) 10,000 unit MoWeFr@2100 SQ Last administered on 05/05/21at 21:39; Start 05/02/21 at 21:00 Sodium Chloride 1,000 ml @ 1,000 mls/hr Q1H PRN IV hypotension; Start 05/01/21 at 10:30; Stop 05/01/21 at 16:29; Status DC Sodium Chloride 1,000 ml @ 400 mls/hr Q2H30M PRN IV PATENCY; Start 05/01/21 at 10:30; Stop 05/01/21 at 22:29; Status DC Info (PHARMACY MONITORING -- do not chart) 1 each PRN DAILY PRN MC SEE COMMENTS; Start 05/01/21 at 10:30; Status UNV Info (PHARMACY MONITORING -- do not chart) 1 each PRN DAILY PRN MC SEE COMMENTS; Start 05/01/21 at 10:30; Stop 05/03/21 at 07:02; Status DC Insulin Human Lispro (HumaLOG) 12 units TIDAC SQ Last administered on 05/06/21at 14:04; Start 05/02/21 at 11:30 Sodium Chloride 1,000 ml @ 1,000 mls/hr Q1H PRN IV hypotension; Start 05/03/21 at 07:00; Stop 05/03/21 at 12:59; Status DC Sodium Chloride 1,000 ml @ 400 mls/hr Q2H30M PRN IV PATENCY; Start 05/03/21 at 07:00; Stop 05/03/21 at 18:59; Status DC Info (PHARMACY MONITORING -- do not chart) 1 each PRN DAILY PRN MC SEE COMMENTS; Start 05/03/21 at 07:00; Stop 05/03/21 at 07:02; Status DC Info (PHARMACY MONITORING -- do not chart) 1 each PRN DAILY PRN MC SEE COMMENTS; Start 05/03/21 at 07:00 Sodium Chloride 1,000 ml @ 1,000 mls/hr Q1H PRN IV hypotension; Start 05/06/21 at 09:15; Stop 05/06/21 at 15:14 Albumin Human 100 ml @ 200 mls/hr 1X PRN PRN IV Hypotension; Start 05/06/21 at 09:15; Stop 05/06/21 at 15:14 Sodium Chloride 1,000 ml @ 400 mls/hr Q2H30M PRN IV PATENCY; Start 05/06/21 at 09:15; Stop 05/06/21 at 21:14 Info (PHARMACY MONITORING -- do not chart) 1 each PRN DAILY PRN MC SEE COMMENTS; Start 05/06/21 at 09:15; Stop 05/06/21 at 09:22; Status DC Info (PHARMACY MONITORING -- do not chart) 1 each PRN DAILY PRN MC SEE COMMENTS; Start 05/06/21 at 09:15 Active Scripts Active Amlodipine Besylate 10 Mg Tablet 10 Mg PO DAILY 30 Days Reported Metoprolol Succinate ( Xl ) (Metoprolol Succinate) 100 Mg Tab.er.24h 1 Tab PO DAILY Humalog (Insulin Lispro) 100 Unit/1 Ml Vial 12 Unit SQ TIDAC Lantus Solostar (Insulin Glargine,Hum.rec.anlog) 100 Unit/1 Ml Insuln.pen 15 Unit SQ QHS Duoneb 0.5-3(2.5) Mg/3 Ml (Albuterol/Ipratropium) 3 Ml Ampul.neb 3 Ml NEB QID PRN Aspir 81 (Aspirin) 81 Mg Tablet. 81 Mg PO DAILY Omeprazole 40 Mg Capsule. 40 Mg PO DAILY Simvastatin 10 Mg Tablet 10 Mg PO HS Vitals/I & O Vital Sign - Last 24 Hours 05/05/21 05/05/21 05/05/21 05/05/21 15:00 19:00 20:00 23:00 Temp 98.1 97.8 97.8 98.1 97.8 97.8 Pulse 69 71 72 Resp 18 18 18 B/P (MAP) 152/68 (96) 161/78 (105) 163/72 (102) Pulse Ox 98 98 96 O2 Delivery Room Air Room Air Room Air Room Air 05/06/21 05/06/21 05/06/21 05/06/21 03:04 07:00 08:00 08:06 Temp 97.8 97.6 97.8 97.6 Pulse 72 72 72 Resp 18 18 B/P (MAP) 156/76 (102) 149/73 (98) 179/73 Pulse Ox 97 93 O2 Delivery Room Air Room Air Room Air 05/06/21 08:07 Pulse 72 B/P (MAP) 179/73 Intake and Output 05/05/21 05/05/21 05/06/21 15:00 23:00 07:00 Intake Total 480 ml 240 ml Balance 480 ml 240 ml Justifications for Admission Other Justification Nutrition Consultation Dietary Evaluation: Recommendations by RD: Dietary education by RD, Increase Calorie Intake, Protein supplementation Comments: Renal/ADA DBL meats Nepro bid REC mvi and vit c per wound protocal Expected Outcomes/Goals: to meet >75% est nutr needs Interpretation of weight loss: >7.5% in 3 months Malnutrition Findings: Food and Nutrition Intake (Sev: <50% est energy req 5days Body Fat Depletion (Non Severe: Mod to Severe Weight Status: Underweight ANIL MULLER MD May 06, 2021 14:44
[2021-05-06 15:00] VITALS: BP 145/73
[2021-05-06 19:00] VITALS: BP 171/82
[2021-05-06] MEDS: SIMVASTATIN 10 MG TABLET PO SCH (20:43)
[2021-05-06] MEDS: INSULIN GLARGINE SYRINGE. SQ SCH (20:45)
[2021-05-06 23:18] VITALS: BP 197/85
[2021-05-07 03:27] VITALS: BP 157/77
[2021-05-07 07:00] VITALS: BP 147/70
[2021-05-07] MEDS: PANTOPRAZOLE 40 MG TABLET.DR. PO SCH (07:12)
[2021-05-07] MEDS: INSULIN LISPRO 300 UNITS/3 ML VIAL. SQ SCH ×6 (08:02→17:17)
[2021-05-07] MEDS: ASPIRIN ENTERIC COATED 81 MG TABLET.DR. PO SCH (08:52)
[2021-05-07] MEDS: METOPROLOL SUCC 24HR ER 100 MG TAB.ER.24H. PO SCH (08:53)
--- NOTE | 2021-05-07 09:15 | PDOC ---
DATE OF SERVICE DATE: 05/07/21 TIME: 09:15 SUBJECTIVE ROS No complaints States neck pain little better OBJECTIVE Vital Signs Vital Signs Date Time Temp Pulse Resp B/P (MAP) Pulse Ox O2 Delivery O2 Flow Rate FiO2 05/07/21 08:53 89 147/70 05/07/21 08:00 Room Air 05/07/21 07:00 98.0 18 96 98.0 I & 0 Intake and Output 05/07/21 07:00 Intake Total 480 ml Balance 480 ml Intake Oral 480 ml # Voids 1 PHYSICAL EXAM Physical Exam General NAD HEEN OM moist Nck Supple Lungs decreased at abses, Non labored CV s1s2, no rub GI- soft, NT Ext No LE edema Neuro grossly normal No CVA or SP tenderness Psych Normal Affect DIAGNOSIS/ASSESSMENT Assessment & Plan ESRD on HD TTS No indication for dialysis today Anemia- Hgb stable, TANIA ordered Diabetes, insulin-dependent.BS high History of diastolic heart failure. COMMENT/RELEVANT DATA Meds Current Medications Medications (Trade) Dose Ordered Sig/Madeleine Start Time Stop Time Status Last Admin Dose Admin Acetaminophen (Tylenol) 650 mg PRN Q6HRS PRN 04/30/21 23:15 05/04/21 12:41 650 MG Acetaminophen/ Codeine Phosphate (Tylenol #3) 1 tab PRN Q6HRS PRN 05/01/21 09:30 Albumin Human 100 ml @ 200 mls/hr 1X PRN PRN 05/06/21 09:15 05/06/21 15:14 DC Albuterol Sulfate (Ventolin Neb Soln) 2.5 mg PRN Q6HRS PRN 05/01/21 00:15 Amlodipine Besylate (Norvasc) 10 mg DAILY 05/01/21 09:00 05/07/21 08:52 10 MG Aspirin (Ecotrin) 81 mg DAILY 05/01/21 09:00 05/07/21 08:52 81 MG Clonidine HCl (Catapres) 0.2 mg 1X ONCE 04/30/21 18:00 04/30/21 18:01 DC 04/30/21 18:05 0.2 MG Dextrose (Dextrose 50%-Water Syringe) 12.5 gm PRN Q15MIN PRN 05/01/21 09:15 05/07/21 00:18 DC Dextrose (Iv Dextrose 5%) 250 ml PRN Q15MIN PRN 04/30/21 23:15 Epoetin Camron-epbx (RETACRIT for ESRD PTS) 10,000 unit MoWeFr@2100 05/02/21 21:00 05/05/21 21:39 10,000 UNIT Info (PHARMACY MONITORING -- do not chart) 1 each PRN DAILY PRN 05/06/21 09:15 Cancel Insulin Glargine (Lantus Syringe) 15 unit QHS 05/01/21 21:00 05/06/21 20:45 15 UNIT Insulin Human Lispro (HumaLOG) 12 units TIDAC 05/02/21 11:30 05/07/21 08:02 12 UNITS Metoprolol Succinate (Toprol Xl) 100 mg DAILY 05/01/21 10:00 05/07/21 08:53 100 MG Pantoprazole Sodium (Protonix) 40 mg DAILYAC 05/01/21 07:30 05/07/21 07:12 40 MG Potassium Chloride (Klor-Con) 20 meq 1X ONCE 05/01/21 12:15 05/01/21 12:16 DC 05/01/21 12:15 20 MEQ Prednisone (Prednisone) 10 mg DAILY 05/01/21 09:30 05/06/21 09:31 DC 05/06/21 08:06 10 MG Simvastatin (Zocor) 10 mg HS 05/01/21 21:00 05/06/21 20:43 10 MG Sodium Chloride 1,000 ml @ 400 mls/hr Q2H30M PRN 05/06/21 09:15 05/06/21 21:14 DC Tizanidine HCl (Zanaflex) 4 mg Q8HRS 05/01/21 14:00 05/06/21 09:31 DC 05/06/21 04:52 4 MG Lab Laboratory Tests Test 05/06/21 10:00 05/06/21 11:33 05/06/21 16:55 05/06/21 19:32 Sodium Level 141 mmol/L (136-145) Potassium Level 3.9 mmol/L (3.5-5.1) Chloride Level 103 mmol/L (98-107) Carbon Dioxide Level 27 mmol/L (21-32) Anion Gap 11 (6-14) Blood Urea Nitrogen 59 mg/dL (8-26) Creatinine 3.4 mg/dL (0.7-1.3) Estimated GFR (Cockcroft-Gault) 21.7 Glucose Level 322 mg/dL (70-99) Calcium Level 8.7 mg/dL (8.5-10.1) Glucose (Fingerstick) 163 mg/dL (70-99) 153 mg/dL (70-99) 140 mg/dL (70-99) Test 05/07/21 07:41 Glucose (Fingerstick) 153 mg/dL (70-99) Results All relevant outside records, renal labs, imaging studies, telemetry/EKG's were reviewed. Justicifation of Admission Dx: Justifications for Admission: Justification of Admission Dx: N/A ABRAM HARDING MD May 07, 2021 09:15
--- NOTE | 2021-05-07 09:27 | PDOC ---
PROGRESS NOTES Date of Service DATE: 05/07/21 TIME: 09:24 Subjective Subjective No new complaints. Objective Objective Vital Signs Date Time Temp Pulse Resp B/P (MAP) Pulse Ox O2 Delivery O2 Flow Rate FiO2 05/07/21 08:53 89 147/70 05/07/21 08:00 Room Air 05/07/21 07:00 98.0 18 96 98.0 Intake and Output 05/07/21 07:00 Intake Total 480 ml Balance 480 ml Intake Oral 480 ml # Voids 1 Physical Exam Physical Exam He is resting supine in bed with head end propped up and ho sft cervical collar in place with some staining on it and he is getting up with help and balance problems persists. Assessment Assessment Problems Medical Problems: (1) End stage renal disease Status: Acute (2) Hypokalemia Status: Acute Plan Plan of Care To continue present rehab efforts while waiting for SNF transfer or home with home health follow up when medically stable. Comment Review of Relevant I have reviewed the following items ken (where applicable) has been applied. Labs Laboratory Tests Test 05/05/21 11:05 05/05/21 16:32 05/05/21 18:55 05/06/21 07:29 Glucose (Fingerstick) 222 mg/dL (70-99) 296 mg/dL (70-99) 324 mg/dL (70-99) 313 mg/dL (70-99) Test 05/06/21 10:00 05/06/21 11:33 05/06/21 16:55 05/06/21 19:32 Sodium Level 141 mmol/L (136-145) Potassium Level 3.9 mmol/L (3.5-5.1) Chloride Level 103 mmol/L (98-107) Carbon Dioxide Level 27 mmol/L (21-32) Anion Gap 11 (6-14) Blood Urea Nitrogen 59 mg/dL (8-26) Creatinine 3.4 mg/dL (0.7-1.3) Estimated GFR (Cockcroft-Gault) 21.7 Glucose Level 322 mg/dL (70-99) Calcium Level 8.7 mg/dL (8.5-10.1) Glucose (Fingerstick) 163 mg/dL (70-99) 153 mg/dL (70-99) 140 mg/dL (70-99) Test 05/07/21 07:41 Glucose (Fingerstick) 153 mg/dL (70-99) Laboratory Tests Test 05/06/21 10:00 05/06/21 11:33 05/06/21 16:55 05/06/21 19:32 Sodium Level 141 mmol/L (136-145) Potassium Level 3.9 mmol/L (3.5-5.1) Chloride Level 103 mmol/L (98-107) Carbon Dioxide Level 27 mmol/L (21-32) Anion Gap 11 (6-14) Blood Urea Nitrogen 59 mg/dL (8-26) Creatinine 3.4 mg/dL (0.7-1.3) Estimated GFR (Cockcroft-Gault) 21.7 Glucose Level 322 mg/dL (70-99) Calcium Level 8.7 mg/dL (8.5-10.1) Glucose (Fingerstick) 163 mg/dL (70-99) 153 mg/dL (70-99) 140 mg/dL (70-99) Test 05/07/21 07:41 Glucose (Fingerstick) 153 mg/dL (70-99) Medications Current Medications Potassium Chloride (Klor-Con) 40 meq 1X ONCE PO Last administered on 04/30/21at 16:57; Start 04/30/21 at 16:45; Stop 04/30/21 at 16:46; Status DC Clonidine HCl (Catapres) 0.2 mg 1X ONCE PO Last administered on 04/30/21at 18:05; Start 04/30/21 at 18:00; Stop 04/30/21 at 18:01; Status DC Acetaminophen (Tylenol) 650 mg PRN Q6HRS PRN PO MILD PAIN / TEMP > 100.3'F Last administered on 05/04/21at 12:41; Start 04/30/21 at 23:15 Potassium Chloride (Klor-Con) 20 meq 1X ONCE PO Last administered on 05/01/21at 00:08; Start 04/30/21 at 23:30; Stop 04/30/21 at 23:31; Status DC Insulin Human Lispro (HumaLOG) 0-5 UNITS QIDACHS SQ Last administered on 05/01/21at 08:21; Start 04/30/21 at 23:30; Stop 05/01/21 at 09:53; Status DC Dextrose (Dextrose 50%-Water Syringe) 12.5 gm PRN Q15MIN PRN IV SEE COMMENTS; Start 04/30/21 at 23:15; Stop 05/03/21 at 07:02; Status DC Dextrose (Iv Dextrose 5%) 250 ml PRN Q15MIN PRN IV SEE COMMENTS; Start 04/30/21 at 23:15 Amlodipine Besylate (Norvasc) 10 mg DAILY PO Last administered on 05/07/21at 08:52; Start 05/01/21 at 09:00 Aspirin (Ecotrin) 81 mg DAILY PO Last administered on 05/07/21at 08:52; Start 05/01/21 at 09:00 Albuterol Sulfate (Ventolin Neb Soln) 2.5 mg PRN Q6HRS PRN NEB WHEEZING; Start 05/01/21 at 00:15 Simvastatin (Zocor) 10 mg HS PO Last administered on 05/06/21at 20:43; Start 05/01/21 at 21:00 Pantoprazole Sodium (Protonix) 40 mg DAILYAC PO Last administered on 05/07/21at 07:12; Start 05/01/21 at 07:30 Metoprolol Succinate (Toprol Xl) 100 mg DAILY PO Last administered on 05/07/21at 08:53; Start 05/01/21 at 10:00 Insulin Glargine (Lantus Syringe) 15 unit QHS SQ Last administered on 05/06/21at 20:45; Start 05/01/21 at 21:00 Insulin Human Lispro (HumaLOG) 0-5 UNITS TIDWMEALS SQ Last administered on 05/07/21at 08:03; Start 05/01/21 at 12:00 Dextrose (Dextrose 50%-Water Syringe) 12.5 gm PRN Q15MIN PRN IV SEE COMMENTS; Start 05/01/21 at 09:15; Stop 05/07/21 at 00:18; Status DC Potassium Chloride (Klor-Con) 40 meq 1X ONCE PO Last administered on 05/01/21at 09:40; Start 05/01/21 at 09:15; Stop 05/01/21 at 09:24; Status DC Potassium Chloride (Klor-Con) 20 meq 1X ONCE PO Last administered on 05/01/21at 12:15; Start 05/01/21 at 12:15; Stop 05/01/21 at 12:16; Status DC Acetaminophen/ Codeine Phosphate (Tylenol #3) 1 tab PRN Q6HRS PRN PO MODERATE PAIN; Start 05/01/21 at 09:30 Tizanidine HCl (Zanaflex) 4 mg Q8HRS PO Last administered on 05/06/21at 04:52; Start 05/01/21 at 14:00; Stop 05/06/21 at 09:31; Status DC Prednisone (Prednisone) 10 mg DAILY PO Last administered on 05/06/21at 08:06; Start 05/01/21 at 09:30; Stop 05/06/21 at 09:31; Status DC Epoetin Camron-epbx (RETACRIT for ESRD PTS) 10,000 unit MoWeFr@2100 SQ Last administered on 05/05/21at 21:39; Start 05/02/21 at 21:00 Sodium Chloride 1,000 ml @ 1,000 mls/hr Q1H PRN IV hypotension; Start 05/01/21 at 10:30; Stop 05/01/21 at 16:29; Status DC Sodium Chloride 1,000 ml @ 400 mls/hr Q2H30M PRN IV PATENCY; Start 05/01/21 at 10:30; Stop 05/01/21 at 22:29; Status DC Info (PHARMACY MONITORING -- do not chart) 1 each PRN DAILY PRN MC SEE COMMENTS; Start 05/01/21 at 10:30; Status UNV Info (PHARMACY MONITORING -- do not chart) 1 each PRN DAILY PRN MC SEE COMMENTS; Start 05/01/21 at 10:30; Stop 05/03/21 at 07:02; Status DC Insulin Human Lispro (HumaLOG) 12 units TIDAC SQ Last administered on 05/07/21at 08:02; Start 05/02/21 at 11:30 Sodium Chloride 1,000 ml @ 1,000 mls/hr Q1H PRN IV hypotension; Start 05/03/21 at 07:00; Stop 05/03/21 at 12:59; Status DC Sodium Chloride 1,000 ml @ 400 mls/hr Q2H30M PRN IV PATENCY; Start 05/03/21 at 07:00; Stop 05/03/21 at 18:59; Status DC Info (PHARMACY MONITORING -- do not chart) 1 each PRN DAILY PRN MC SEE COMMENTS; Start 05/03/21 at 07:00; Stop 05/03/21 at 07:02; Status DC Info (PHARMACY MONITORING -- do not chart) 1 each PRN DAILY PRN MC SEE COMMENTS; Start 05/03/21 at 07:00 Sodium Chloride 1,000 ml @ 1,000 mls/hr Q1H PRN IV hypotension; Start 05/06/21 at 09:15; Stop 05/06/21 at 15:14; Status DC Albumin Human 100 ml @ 200 mls/hr 1X PRN PRN IV Hypotension; Start 05/06/21 at 09:15; Stop 05/06/21 at 15:14; Status DC Sodium Chloride 1,000 ml @ 400 mls/hr Q2H30M PRN IV PATENCY; Start 05/06/21 at 09:15; Stop 05/06/21 at 21:14; Status DC Info (PHARMACY MONITORING -- do not chart) 1 each PRN DAILY PRN MC SEE COMMENTS; Start 05/06/21 at 09:15; Stop 05/06/21 at 09:22; Status DC Info (PHARMACY MONITORING -- do not chart) 1 each PRN DAILY PRN MC SEE COMMENTS; Start 05/06/21 at 09:15; Status Cancel Active Scripts Active Amlodipine Besylate 10 Mg Tablet 10 Mg PO DAILY 30 Days Reported Metoprolol Succinate ( Xl ) (Metoprolol Succinate) 100 Mg Tab.er.24h 1 Tab PO DAILY Humalog (Insulin Lispro) 100 Unit/1 Ml Vial 12 Unit SQ TIDAC Lantus Solostar (Insulin Glargine,Hum.rec.anlog) 100 Unit/1 Ml Insuln.pen 15 Unit SQ QHS Duoneb 0.5-3(2.5) Mg/3 Ml (Albuterol/Ipratropium) 3 Ml Ampul.neb 3 Ml NEB QID PRN Aspir 81 (Aspirin) 81 Mg Tablet. 81 Mg PO DAILY Omeprazole 40 Mg Capsule. 40 Mg PO DAILY Simvastatin 10 Mg Tablet 10 Mg PO HS Vitals/I & O Vital Sign - Last 24 Hours 05/06/21 05/06/21 05/06/21 05/06/21 15:00 19:00 20:00 23:18 Temp 96.7 98.5 98.2 96.7 98.5 98.2 Pulse 94 81 98 Resp 18 17 18 B/P (MAP) 145/73 (97) 171/82 (111) 197/85 (122) Pulse Ox 96 95 100 O2 Delivery Room Air Room Air Room Air Room Air 05/07/21 05/07/21 05/07/21 05/07/21 03:27 07:00 08:00 08:52 Temp 98.0 98.0 98.0 98.0 Pulse 95 89 89 Resp 18 18 B/P (MAP) 157/77 (103) 147/70 (95) 147/70 Pulse Ox 98 96 O2 Delivery Room Air Room Air Room Air 05/07/21 08:53 Pulse 89 B/P (MAP) 147/70 Intake and Output 05/06/21 05/06/21 05/07/21 15:00 23:00 07:00 Intake Total 240 ml 240 ml 0 ml Balance 240 ml 240 ml 0 ml Justifications for Admission Other Justification Nutrition Consultation Dietary Evaluation: Recommendations by RD: Dietary education by RD, Increase Calorie Intake, Protein supplementation Comments: Renal/ADA DBL meats Nepro bid REC mvi and vit c per wound protocal Expected Outcomes/Goals: to meet >75% est nutr needs Interpretation of weight loss: >7.5% in 3 months Malnutrition Findings: Food and Nutrition Intake (Sev: <50% est energy req 5days Body Fat Depletion (Non Severe: Mod to Severe Weight Status: Underweight ANIL MULLER MD May 07, 2021 09:27
--- NOTE | 2021-05-07 09:32 | PDOC ---
PROGRESS NOTES Date of Service: DATE: 05/07/21 TIME: 09:30 Subjective Subjective feels ok Objective Objective Vital Signs Date Time Temp Pulse Resp B/P (MAP) Pulse Ox O2 Delivery O2 Flow Rate FiO2 05/07/21 08:53 89 147/70 05/07/21 08:00 Room Air 05/07/21 07:00 98.0 18 96 98.0 Intake and Output 05/07/21 07:00 Intake Total 480 ml Balance 480 ml Intake Oral 480 ml # Voids 1 Physical Exam Abdomen: Soft Heart: Regular rate, Normal S1, Normal S2 General: No acute distress Lungs: Normal air movement MUSCULOSKELETAL: No swelling, Osteoarthritic changes both hands Neuro: Normal speech COMMENT soft neck collar Diagnosis Problem List Problems Medical Problems: (1) End stage renal disease Status: Acute (2) Hypokalemia Status: Acute Assessment Assessment Problems Medical Problems: (1) End stage renal disease Status: Acute (2) Hypokalemia Status: Acute FINAL IMPRESSION: 1. Generalized weakness. The patient missed dialysis for a whole week. He goes to dialysis Wednesday, and Wednesday. 2. Hypokalemia. 3. End-stage renal disease, on hemodialysis. 4. Insulin-dependent diabetes. 5. Cervical spondylolysis with neck muscle spasms. 6. Hypertension. 7. Hyperlipidemia. PLAN: discharge today. BS 100 -200 range Dialysis done yesterday covid test pcr-ve placement /SNU CT neck spondylosis,djd. soft cervical collar Diabetes on insulin End-stage renal disease on dialysis Sat Plan Plan of Care Problems Medical Problems: (1) End stage renal disease Status: Acute (2) Hypokalemia Status: Acute Comment Review of Relevant I have reviewed the following items ken (where applicable) has been applied. Labs Laboratory Tests Test 05/06/21 10:00 05/06/21 11:33 05/06/21 16:55 05/06/21 19:32 Sodium Level 141 mmol/L (136-145) Potassium Level 3.9 mmol/L (3.5-5.1) Chloride Level 103 mmol/L (98-107) Carbon Dioxide Level 27 mmol/L (21-32) Anion Gap 11 (6-14) Blood Urea Nitrogen 59 mg/dL (8-26) Creatinine 3.4 mg/dL (0.7-1.3) Estimated GFR (Cockcroft-Gault) 21.7 Glucose Level 322 mg/dL (70-99) Calcium Level 8.7 mg/dL (8.5-10.1) Glucose (Fingerstick) 163 mg/dL (70-99) 153 mg/dL (70-99) 140 mg/dL (70-99) Test 05/07/21 07:41 Glucose (Fingerstick) 153 mg/dL (70-99) Vitals/I & O Vital Sign - Last 24 Hours 05/06/21 05/06/21 05/06/21 05/06/21 15:00 19:00 20:00 23:18 Temp 96.7 98.5 98.2 96.7 98.5 98.2 Pulse 94 81 98 Resp 18 17 18 B/P (MAP) 145/73 (97) 171/82 (111) 197/85 (122) Pulse Ox 96 95 100 O2 Delivery Room Air Room Air Room Air Room Air 05/07/21 05/07/21 05/07/21 05/07/21 03:27 07:00 08:00 08:52 Temp 98.0 98.0 98.0 98.0 Pulse 95 89 89 Resp 18 18 B/P (MAP) 157/77 (103) 147/70 (95) 147/70 Pulse Ox 98 96 O2 Delivery Room Air Room Air Room Air 05/07/21 08:53 Pulse 89 B/P (MAP) 147/70 Intake and Output 05/06/21 05/06/21 05/07/21 15:00 23:00 07:00 Intake Total 240 ml 240 ml 0 ml Balance 240 ml 240 ml 0 ml Justifications for Admission Other Justification Nutrition Consultation Dietary Evaluation: Recommendations by RD: Dietary education by RD, Increase Calorie Intake, Pr otein supplementation Comments: Renal/ADA DBL meats Nepro bid REC mvi and vit c per wound protocal Expected Outcomes/Goals: to meet >75% est nutr needs Interpretation of weight loss: >7.5% in 3 months Malnutrition Findings: Food and Nutrition Intake (Sev: <50% est energy req 5days Body Fat Depletion (Non Severe: Mod to Severe Weight Status: Underweight GISELL CLARK MD May 07, 2021 09:32
[2021-05-07 11:00] VITALS: BP 135/64
[2021-05-07 15:00] VITALS: BP 124/57
[2021-05-07] MEDS: ACETAMINOPHEN/CODEINE 300/30MG TABLET. PO PRN (17:39)
[2021-05-07 19:00] VITALS: BP 126/53
[2021-05-07] MEDS: EPOETIN ALFA-EPBX for ESRD 20,000 UNIT/ML VIAL. SQ SCH (21:10)
[2021-05-07] MEDS: INSULIN GLARGINE SYRINGE. SQ SCH (21:10)
[2021-05-07] MEDS: SIMVASTATIN 10 MG TABLET PO SCH (21:11)
[2021-05-07 23:54] VITALS: BP 138/64
[2021-05-08 03:52] VITALS: BP 134/65
[2021-05-08 07:00] VITALS: BP 160/69
[2021-05-08] MEDS ORDERED: IV NORMAL SALINE 1000ML BAG 1,000 ML IV PRN ×2 (07:15)
[2021-05-08] MEDS ORDERED: DIALYSIS PATIENT. MC PRN (07:15)
[2021-05-08] MEDS: PANTOPRAZOLE 40 MG TABLET.DR. PO SCH (07:15)
[2021-05-08] MEDS: ACETAMINOPHEN/CODEINE 300/30MG TABLET. PO PRN (07:19)
[2021-05-08] MEDS: INSULIN LISPRO 300 UNITS/3 ML VIAL. SQ SCH ×4 (07:30→12:00)
[2021-05-08 08:28] LABS: CALCIUM 8.8 mg/dL (8.5-10.1); CREATININE 3.5 mg/dL (0.7-1.3); POTASSIUM 3.5 mmol/L (3.5-5.1)
--- NOTE | 2021-05-08 09:10 | PDOC ---
DATE OF SERVICE DATE: 05/08/21 TIME: 09:10 SUBJECTIVE ROS Seen on dialysis. No new complaints OBJECTIVE Vital Signs Vital Signs Date Time Temp Pulse Resp B/P (MAP) Pulse Ox O2 Delivery O2 Flow Rate FiO2 05/08/21 08:00 Room Air 05/08/21 07:00 98.1 77 18 160/69 (99) 95 98.1 I & 0 Intake and Output 05/08/21 07:00 Intake Total 0 ml Balance 0 ml Intake Oral 0 ml # Bowel Movements 1 PHYSICAL EXAM Physical Exam General NAD HEEN OM moist Nck Supple Lungs decreased at abses, Non labored CV s1s2, no rub GI- soft, NT Ext No LE edema Neuro grossly normal No CVA or SP tenderness Psych Normal Affect DIAGNOSIS/ASSESSMENT Assessment & Plan ESRD on HD TTS Seen on dialysis, tolerating well. Continue as ordered. [place] March Anemia- Hgb stable, TANIA ordered Diabetes, insulin-dependent.BS high History of diastolic heart failure. COMMENT/RELEVANT DATA Meds Current Medications Medications (Trade) Dose Ordered Sig/Madeleine Start Time Stop Time Status Last Admin Dose Admin Acetaminophen (Tylenol) 650 mg PRN Q6HRS PRN 04/30/21 23:15 05/04/21 12:41 650 MG Acetaminophen/ Codeine Phosphate (Tylenol #3) 1 tab PRN Q6HRS PRN 05/01/21 09:30 05/08/21 07:19 1 TAB Albumin Human 100 ml @ 200 mls/hr 1X PRN PRN 05/06/21 09:15 05/06/21 15:14 DC Albuterol Sulfate (Ventolin Neb Soln) 2.5 mg PRN Q6HRS PRN 05/01/21 00:15 Amlodipine Besylate (Norvasc) 10 mg DAILY 05/01/21 09:00 05/07/21 08:52 10 MG Aspirin (Ecotrin) 81 mg DAILY 05/01/21 09:00 05/07/21 08:52 81 MG Clonidine HCl (Catapres) 0.2 mg 1X ONCE 04/30/21 18:00 04/30/21 18:01 DC 04/30/21 18:05 0.2 MG Dextrose (Dextrose 50%-Water Syringe) 12.5 gm PRN Q15MIN PRN 05/01/21 09:15 05/07/21 00:18 DC Dextrose (Iv Dextrose 5%) 250 ml PRN Q15MIN PRN 04/30/21 23:15 Epoetin Camron-epbx (RETACRIT for ESRD PTS) 10,000 unit MoWeFr@2100 05/02/21 21:00 05/07/21 21:10 10,000 UNIT Info (PHARMACY MONITORING -- do not chart) 1 each PRN DAILY PRN 05/08/21 07:15 Insulin Glargine (Lantus Syringe) 15 unit QHS 05/01/21 21:00 05/07/21 21:10 15 UNIT Insulin Human Lispro (HumaLOG) 12 units TIDAC 05/02/21 11:30 05/07/21 17:17 12 UNITS Metoprolol Succinate (Toprol Xl) 100 mg DAILY 05/01/21 10:00 05/07/21 08:53 100 MG Pantoprazole Sodium (Protonix) 40 mg DAILYAC 05/01/21 07:30 05/08/21 07:15 40 MG Potassium Chloride (Klor-Con) 20 meq 1X ONCE 05/01/21 12:15 05/01/21 12:16 DC 05/01/21 12:15 20 MEQ Prednisone (Prednisone) 10 mg DAILY 05/01/21 09:30 05/06/21 09:31 DC 05/06/21 08:06 10 MG Simvastatin (Zocor) 10 mg HS 05/01/21 21:00 05/07/21 21:11 10 MG Sodium Chloride 1,000 ml @ 400 mls/hr Q2H30M PRN 05/08/21 07:15 05/08/21 19:14 Tizanidine HCl (Zanaflex) 4 mg Q8HRS 05/01/21 14:00 05/06/21 09:31 DC 05/06/21 04:52 4 MG Lab Laboratory Tests Test 05/07/21 11:25 05/07/21 16:44 05/07/21 19:30 05/08/21 06:50 Glucose (Fingerstick) 74 mg/dL (70-99) 170 mg/dL (70-99) 100 mg/dL (70-99) Sodium Level 140 mmol/L (136-145) Potassium Level 3.5 mmol/L (3.5-5.1) Chloride Level 103 mmol/L (98-107) Carbon Dioxide Level 31 mmol/L (21-32) Anion Gap 6 (6-14) Blood Urea Nitrogen 53 mg/dL (8-26) Creatinine 3.5 mg/dL (0.7-1.3) Estimated GFR (Cockcroft-Gault) 21.0 Glucose Level 73 mg/dL (70-99) Calcium Level 8.8 mg/dL (8.5-10.1) Test 05/08/21 07:23 Glucose (Fingerstick) 77 mg/dL (70-99) Results All relevant outside records, renal labs, imaging studies, telemetry/EKG's were reviewed. Justicifation of Admission Dx: Justifications for Admission: Justification of Admission Dx: N/A ABRAM HARDING MD May 08, 2021 09:10
--- NOTE | 2021-05-08 09:17 | PDOC ---
PROGRESS NOTES Date of Service DATE: 05/08/21 TIME: 09:11 Subjective Subjective No new complaints. He apparently declined to get up yesterday with physical therapy but got up to chair with nursing staff. Objective Objective Vital Signs Date Time Temp Pulse Resp B/P (MAP) Pulse Ox O2 Delivery O2 Flow Rate FiO2 05/08/21 08:00 Room Air 05/08/21 07:00 98.1 77 18 160/69 (99) 95 98.1 Intake and Output 05/08/21 07:00 Intake Total 0 ml Balance 0 ml Intake Oral 0 ml # Bowel Movements 1 Physical Exam Physical Exam He is alert,on dialysis bed without cervical collar which he took off after shower last night but took tylenol #3 for pain control this AM as per nursing [facility]. He continues to require physical assistance for transfers and his gait remains unsteady requiring close stand by supervision to assistance while up. Assessment Assessment Problems Medical Problems: (1) End stage renal disease Status: Acute (2) Hypokalemia Status: Acute Plan Plan of Care [facility] Comment Review of Relevant I have reviewed the following items ken (where applicable) has been applied. Labs Laboratory Tests Test 05/06/21 10:00 05/06/21 11:33 05/06/21 16:55 05/06/21 19:32 Sodium Level 141 mmol/L (136-145) Potassium Level 3.9 mmol/L (3.5-5.1) Chloride Level 103 mmol/L (98-107) Carbon Dioxide Level 27 mmol/L (21-32) Anion Gap 11 (6-14) Blood Urea Nitrogen 59 mg/dL (8-26) Creatinine 3.4 mg/dL (0.7-1.3) Estimated GFR (Cockcroft-Gault) 21.7 Glucose Level 322 mg/dL (70-99) Calcium Level 8.7 mg/dL (8.5-10.1) Glucose (Fingerstick) 163 mg/dL (70-99) 153 mg/dL (70-99) 140 mg/dL (70-99) Test 05/07/21 07:41 05/07/21 11:25 05/07/21 16:44 05/07/21 19:30 Glucose (Fingerstick) 153 mg/dL (70-99) 74 mg/dL (70-99) 170 mg/dL (70-99) 100 mg/dL (70-99) Test 05/08/21 06:50 05/08/21 07:23 Sodium Level 140 mmol/L (136-145) Potassium Level 3.5 mmol/L (3.5-5.1) Chloride Level 103 mmol/L (98-107) Carbon Dioxide Level 31 mmol/L (21-32) Anion Gap 6 (6-14) Blood Urea Nitrogen 53 mg/dL (8-26) Creatinine 3.5 mg/dL (0.7-1.3) Estimated GFR (Cockcroft-Gault) 21.0 Glucose Level 73 mg/dL (70-99) Calcium Level 8.8 mg/dL (8.5-10.1) Glucose (Fingerstick) 77 mg/dL (70-99) Laboratory Tests Test 05/07/21 11:25 05/07/21 16:44 05/07/21 19:30 05/08/21 06:50 Glucose (Fingerstick) 74 mg/dL (70-99) 170 mg/dL (70-99) 100 mg/dL (70-99) Sodium Level 140 mmol/L (136-145) Potassium Level 3.5 mmol/L (3.5-5.1) Chloride Level 103 mmol/L (98-107) Carbon Dioxide Level 31 mmol/L (21-32) Anion Gap 6 (6-14) Blood Urea Nitrogen 53 mg/dL (8-26) Creatinine 3.5 mg/dL (0.7-1.3) Estimated GFR (Cockcroft-Gault) 21.0 Glucose Level 73 mg/dL (70-99) Calcium Level 8.8 mg/dL (8.5-10.1) Test 05/08/21 07:23 Glucose (Fingerstick) 77 mg/dL (70-99) Medications Current Medications Potassium Chloride (Klor-Con) 40 meq 1X ONCE PO Last administered on 04/30/21at 16:57; Start 04/30/21 at 16:45; Stop 04/30/21 at 16:46; Status DC Clonidine HCl (Catapres) 0.2 mg 1X ONCE PO Last administered on 04/30/21at 18:05; Start 04/30/21 at 18:00; Stop 04/30/21 at 18:01; Status DC Acetaminophen (Tylenol) 650 mg PRN Q6HRS PRN PO MILD PAIN / TEMP > 100.3'F Last administered on 05/04/21at 12:41; Start 04/30/21 at 23:15 Potassium Chloride (Klor-Con) 20 meq 1X ONCE PO Last administered on 05/01/21at 00:08; Start 04/30/21 at 23:30; Stop 04/30/21 at 23:31; Status DC Insulin Human Lispro (HumaLOG) 0-5 UNITS QIDACHS SQ Last administered on 05/01/21at 08:21; Start 04/30/21 at 23:30; Stop 05/01/21 at 09:53; Status DC Dextrose (Dextrose 50%-Water Syringe) 12.5 gm PRN Q15MIN PRN IV SEE COMMENTS; Start 04/30/21 at 23:15; Stop 05/03/21 at 07:02; Status DC Dextrose (Iv Dextrose 5%) 250 ml PRN Q15MIN PRN IV SEE COMMENTS; Start 04/30/21 at 23:15 Amlodipine Besylate (Norvasc) 10 mg DAILY PO Last administered on 05/07/21at 08:52; Start 05/01/21 at 09:00 Aspirin (Ecotrin) 81 mg DAILY PO Last administered on 05/07/21 08:52; Start 05/01/21 at 09:00 Albuterol Sulfate (Ventolin Neb Soln) 2.5 mg PRN Q6HRS PRN NEB WHEEZING; Start 05/01/21 at 00:15 Simvastatin (Zocor) 10 mg HS PO Last administered on 05/07/21at 21:11; Start 05/01/21 at 21:00 Pantoprazole Sodium (Protonix) 40 mg DAILYAC PO Last administered on 05/08/21at 07:15; Start 05/01/21 at 07:30 Metoprolol Succinate (Toprol Xl) 100 mg DAILY PO Last administered on 05/07/21 08:53; Start 05/01/21 at 10:00 Insulin Glargine (Lantus Syringe) 15 unit QHS SQ Last administered on 05/07/21at 21:10; Start 05/01/21 at 21:00 Insulin Human Lispro (HumaLOG) 0-5 UNITS TIDWMEALS SQ Last administered on 05/07/21at 17:00; Start 05/01/21 at 12:00 Dextrose (Dextrose 50%-Water Syringe) 12.5 gm PRN Q15MIN PRN IV SEE COMMENTS; Start 05/01/21 at 09:15; Stop 05/07/21 at 00:18; Status DC Potassium Chloride (Klor-Con) 40 meq 1X ONCE PO Last administered on 05/01/21at 09:40; Start 05/01/21 at 09:15; Stop 05/01/21 at 09:24; Status DC Potassium Chloride (Klor-Con) 20 meq 1X ONCE PO Last administered on 05/01/21at 12:15; Start 05/01/21 at 12:15; Stop 05/01/21 at 12:16; Status DC Acetaminophen/ Codeine Phosphate (Tylenol #3) 1 tab PRN Q6HRS PRN PO MODERATE PAIN Last administered on 05/08/21at 07:19; Start 05/01/21 at 09:30 Tizanidine HCl (Zanaflex) 4 mg Q8HRS PO Last administered on 05/06/21at 04:52; Start 05/01/21 at 14:00; Stop 05/06/21 at 09:31; Status DC Prednisone (Prednisone) 10 mg DAILY PO Last administered on 05/06/21at 08:06; Start 05/01/21 at 09:30; Stop 05/06/21 at 09:31; Status DC Epoetin Camron-epbx (RETACRIT for ESRD PTS) 10,000 unit MoWeFr@2100 SQ Last administered on 05/07/21at 21:10; Start 05/02/21 at 21:00 Sodium Chloride 1,000 ml @ 1,000 mls/hr Q1H PRN IV hypotension; Start 05/01/21 at 10:30; Stop 05/01/21 at 16:29; Status DC Sodium Chloride 1,000 ml @ 400 mls/hr Q2H30M PRN IV PATENCY; Start 05/01/21 at 10:30; Stop 05/01/21 at 22:29; Status DC Info (PHARMACY MONITORING -- do not chart) 1 each PRN DAILY PRN MC SEE COMMENTS; Start 05/01/21 at 10:30; Status UNV Info (PHARMACY MONITORING -- do not chart) 1 each PRN DAILY PRN MC SEE COMMENTS; Start 05/01/21 at 10:30; Stop 05/03/21 at 07:02; Status DC Insulin Human Lispro (HumaLOG) 12 units TIDAC SQ Last administered on 05/07/21at 17:17; Start 05/02/21 at 11:30 Sodium Chloride 1,000 ml @ 1,000 mls/hr Q1H PRN IV hypotension; Start 05/03/21 at 07:00; Stop 05/03/21 at 12:59; Status DC Sodium Chloride 1,000 ml @ 400 mls/hr Q2H30M PRN IV PATENCY; Start 05/03/21 at 07:00; Stop 05/03/21 at 18:59; Status DC Info (PHARMACY MONITORING -- do not chart) 1 each PRN DAILY PRN MC SEE COMMENTS; Start 05/03/21 at 07:00; Stop 05/03/21 at 07:02; Status DC Info (PHARMACY MONITORING -- do not chart) 1 each PRN DAILY PRN MC SEE COMMENTS; Start 05/03/21 at 07:00 Sodium Chloride 1,000 ml @ 1,000 mls/hr Q1H PRN IV hypotension; Start 05/06/21 at 09:15; Stop 05/06/21 at 15:14; Status DC Albumin Human 100 ml @ 200 mls/hr 1X PRN PRN IV Hypotension; Start 05/06/21 at 09:15; Stop 05/06/21 at 15:14; Status DC Sodium Chloride 1,000 ml @ 400 mls/hr Q2H30M PRN IV PATENCY; Start 05/06/21 at 09:15; Stop 05/06/21 at 21:14; Status DC Info (PHARMACY MONITORING -- do not chart) 1 each PRN DAILY PRN MC SEE COMMENTS ; Start 05/06/21 at 09:15; Stop 05/06/21 at 09:22; Status DC Info (PHARMACY MONITORING -- do not chart) 1 each PRN DAILY PRN MC SEE COMMENTS; Start 05/06/21 at 09:15; Status Cancel Sodium Chloride 1,000 ml @ 1,000 mls/hr Q1H PRN IV hypotension; Start 05/08/21 at 07:15; Stop 05/08/21 at 13:14 Sodium Chloride 1,000 ml @ 400 mls/hr Q2H30M PRN IV PATENCY; Start 05/08/21 at 07:15; Stop 05/08/21 at 19:14 Info (PHARMACY MONITORING -- do not chart) 1 each PRN DAILY PRN MC SEE COMMENTS; Start 05/08/21 at 07:15 Active Scripts Active Amlodipine Besylate 10 Mg Tablet 10 Mg PO DAILY 30 Days Reported Metoprolol Succinate ( Xl ) (Metoprolol Succinate) 100 Mg Tab.er.24h 1 Tab PO DAILY Humalog (Insulin Lispro) 100 Unit/1 Ml Vial 12 Unit SQ TIDAC Lantus Solostar (Insulin Glargine,Hum.rec.anlog) 100 Unit/1 Ml Insuln.pen 15 Unit SQ QHS Duoneb 0.5-3(2.5) Mg/3 Ml (Albuterol/Ipratropium) 3 Ml Ampul.neb 3 Ml NEB QID PRN Aspir 81 (Aspirin) 81 Mg Tablet. 81 Mg PO DAILY Omeprazole 40 Mg Capsule. 40 Mg PO DAILY Simvastatin 10 Mg Tablet 10 Mg PO HS Vitals/I & O Vital Sign - Last 24 Hours 05/07/21 05/07/21 05/07/21 05/07/21 11:00 15:00 19:00 23:54 Temp 97.3 98.5 97.4 97.5 97.3 98.5 97.4 97.5 Pulse 78 78 69 72 Resp 18 18 17 16 B/P (MAP) 135/64 (87) 124/57 (79) 126/53 (77) 138/64 (88) Pulse Ox 95 96 95 94 O2 Delivery Room Air Room Air Room Air Room Air 05/08/21 05/08/21 05/08/21 03:52 07:00 08:00 Temp 98.1 98.1 98.1 98.1 Pulse 70 77 Resp 16 18 B/P (MAP) 134/65 (88) 160/69 (99) Pulse Ox 95 95 O2 Delivery Room Air Room Air Intake and Output 05/07/21 05/07/21 05/08/21 15:00 23:00 07:00 Intake Total 0 ml Balance 0 ml Justifications for Admission Other Justification Nutrition Consultation Dietary Evaluation: Recommendations by RD: Dietary education by RD, Increase Calorie Intake, Protein supplementation Comments: Renal/ADA DBL meats Nepro bid REC mvi and vit c per wound protocal Expected Outcomes/Goals: to meet >75% est nutr needs Interpretation of weight loss: >7.5% in 3 months Malnutrition Findings: Food and Nutrition Intake (Sev: <50% est energy req 5days Body Fat Depletion (Non Severe: Mod to Severe Weight Status: Underweight ANIL MULLER MD May 08, 2021 09:17
--- NOTE | 2021-05-08 09:24 | PDOC ---
PROGRESS NOTES Date of Service: DATE: 05/08/21 TIME: 09: Subjective Subjective in Dialysis Objective Objective Vital Signs Date Time Temp Pulse Resp B/P (MAP) Pulse Ox O2 Delivery O2 Flow Rate FiO2 05/08/21 08:00 Room Air 05/08/21 07:00 98.1 77 18 160/69 (99) 95 98.1 Intake and Output 05/08/21 07:00 Intake Total 0 ml Balance 0 ml Intake Oral 0 ml # Bowel Movements 1 Physical Exam Abdomen: Soft Heart: Regular rate, Normal S1, Normal S2 General: No acute distress Lungs: Normal air movement MUSCULOSKELETAL: No swelling, Osteoarthritic changes both hands Neuro: Normal speech COMMENT soft neck collar Diagnosis Problem List Problems Medical Problems: (1) End stage renal disease Status: Acute (2) Hypokalemia Status: Acute Assessment Assessment Problems Medical Problems: (1) End stage renal disease Status: Acute (2) Hypokalemia Status: Acute FINAL IMPRESSION: 1. Generalized weakness. The patient missed dialysis for a whole week. He goes to dialysis Wednesday, and Wednesday. 2. Hypokalemia. 3. End-stage renal disease, on hemodialysis. 4. Insulin-dependent diabetes. 5. Cervical spondylolysis with neck muscle spasms. 6. Hypertension. 7. Hyperlipidemia. PLAN:spoke with Dr Brownlee discharge to [facility] when bed available BS 70 -200 range Dialysis today covid test pcr-ve placement /SNU CT neck spondylosis,djd. soft cervical collar Diabetes on insulin End-stage renal disease on dialysis , Sat Plan Plan of Care Problems Medical Problems: (1) End stage renal disease Status: Acute (2) Hypokalemia Status: Acute Comment Review of Relevant I have reviewed the following items ken (where applicable) has been applied. Labs Laboratory Tests Test 05/07/21 11:25 05/07/21 16:44 05/07/21 19:30 05/08/21 06:50 Glucose (Fingerstick) 74 mg/dL (70-99) 170 mg/dL (70-99) 100 mg/dL (70-99) Sodium Level 140 mmol/L (136-145) Potassium Level 3.5 mmol/L (3.5-5.1) Chloride Level 103 mmol/L (98-107) Carbon Dioxide Level 31 mmol/L (21-32) Anion Gap 6 (6-14) Blood Urea Nitrogen 53 mg/dL (8-26) Creatinine 3.5 mg/dL (0.7-1.3) Estimated GFR (Cockcroft-Gault) 21.0 Glucose Level 73 mg/dL (70-99) Calcium Level 8.8 mg/dL (8.5-10.1) Test 05/08/21 07:23 Glucose (Fingerstick) 77 mg/dL (70-99) Medications Current Medications Info (PHARMACY MONITORING -- do not chart) 1 each PRN DAILY PRN MC SEE COMMENTS; Start 05/08/21 at 07:15 Sodium Chloride 1,000 ml @ 400 mls/hr Q2H30M PRN IV PATENCY; Start 05/08/21 at 07:15; Stop 05/08/21 at 19:14 Sodium Chloride 1,000 ml @ 1,000 mls/hr Q1H PRN IV hypotension; Start 05/08/21 at 07:15; Stop 05/08/21 at 13:14 Vitals/I & O Vital Sign - Last 24 Hours 05/07/21 05/07/21 05/07/21 05/07/21 11:00 15:00 19:00 23:54 Temp 97.3 98.5 97.4 97.5 97.3 98.5 97.4 97.5 Pulse 78 78 69 72 Resp 18 18 17 16 B/P (MAP) 135/64 (87) 124/57 (79) 126/53 (77) 138/64 (88) Pulse Ox 95 96 95 94 O2 Delivery Room Air Room Air Room Air Room Air 05/08/21 05/08/21 05/08/21 03:52 07:00 08:00 Temp 98.1 98.1 98.1 98.1 Pulse 70 77 Resp 16 18 B/P (MAP) 134/65 (88) 160/69 (99) Pulse Ox 95 95 O2 Delivery Room Air Room Air Intake and Output 05/07/21 05/07/21 05/08/21 15:00 23:00 07:00 Intake Total 0 ml Balance 0 ml Justifications for Admission Other Justification Nutrition Consultation Dietary Evaluation: Recommendations by RD: Dietary education by RD, Increase Calorie Intake, Protein supplementation Comments: Renal/ADA DBL meats Nepro bid REC mvi and vit c per wound protocal Expected Outcomes/Goals: to meet >75% est nutr needs Interpretation of weight loss: >7.5% in 3 months Malnutrition Findings: Food and Nutrition Intake (Sev: <50% est energy req 5days Body Fat Depletion (Non Severe: Mod to Severe Weight Status: Underweight GISELL CLARK MD May 08, 2021 09:24
[2021-05-08] MEDS: METOPROLOL SUCC 24HR ER 100 MG TAB.ER.24H. PO SCH (12:46)
[2021-05-08 12:47] VITALS: BP 160/69
[2021-05-08] MEDS: ASPIRIN ENTERIC COATED 81 MG TABLET.DR. PO SCH (12:47)
--- NOTE | 2021-05-08 14:52 | NUR ---
RN gave report to [facility] for Brentroxanna Huber. 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
--- NOTE | 2021-05-09 21:32 | PDOC ---
Provider Note Date of Service: DATE: 05/09/21 TIME: 21:32 Provider Note Discharge summary dictated.#[id number]. Justifications for Admission Other Justification GISELL CLARK MD May 09, 2021 21:32
--- NOTE | 2021-05-09 21:45 | DS ---
DATE OF DISCHARGE: 05/08/2021 REASON FOR ADMISSION TO THE HOSPITAL: 1. Generalized weakness. 2. End-stage renal disease. The patient missed dialysis for 1 week. 3. Hypokalemia. 4. Neck pain and generalized weakness. CONSULTATIONS: Dr. Brownlee, rehab. Dr. Johnson, Nephrology. PROCEDURES DONE: Hemodialysis. CT of the cervical spine. HOSPITAL COURSE: The patient is a 71-year-old male with history of diabetes, hypertension, chronic kidney disease, on hemodialysis Wednesday, and Wednesday. He was feeling weak. He has noticed some pain in the neck and hard for him to get out of the bed. He missed dialysis for a whole week and he came in with weakness. The patient had a spasm of the cervical spine. CT scan shows spondylolysis, seen by Dr. Brownlee. The patient was put on soft cervical collar, was given physical therapy, muscle relaxers. The patient was dialyzed in the hospital and his potassium came up and the patient was seen by Physical Therapy, Occupational Therapy and it was felt that he needs to go to [facility]. The patient was discharged to [facility]. CBC: Hemoglobin 8.5, anemia of chronic disease. Potassium was 2.9 at admission. BUN 48, creatinine 3.7. A1c 8.6. Thyroid was normal and the patient was discharged to [facility]. Continue outpatient dialysis. PT, OT and rehabilitation. OTTONIEL BOWEN: Rajesh TID: [id number]
== END 2021-05-08 16:14 | DRG 551 ==
LOC: ER 14:39 → ED HOLD 17:30 → 2 NORTH 19:06 → OBSVTOIN 05-01 09:45 → 5 NORTH 05-01 13:00
PROVIDERS: ADMIT Internal Medicine; ATTEND Internal Medicine
PROC: 5A1D70Z Performance of Urinary Filtration, Intermittent, Less than 6 Hours Per Day (ICD-10-PCS; principal; 2021-05-01)
PROC: 5A1D70Z Performance of Urinary Filtration, Intermittent, Less than 6 Hours Per Day (ICD-10-PCS; 2021-05-03)
PROC: 5A1D70Z Performance of Urinary Filtration, Intermittent, Less than 6 Hours Per Day (ICD-10-PCS; 2021-05-07)
PROC: 5A1D70Z Performance of Urinary Filtration, Intermittent, Less than 6 Hours Per Day (ICD-10-PCS; 2021-05-08)
DX: M47.812 Spondylosis without myelopathy or radiculopathy, cervical region (principal); N18.6 End stage renal disease; E43 Unspecified severe protein-calorie malnutrition; I13.2 Hypertensive heart and chronic kidney disease with heart failure and with stage 5 chronic kidney disease, or end stage renal disease; I50.32 Chronic diastolic (congestive) heart failure; M43.02 Spondylolysis, cervical region; M62.81 Muscle weakness (generalized); E87.6 Hypokalemia; Z91.15 Patient's noncompliance with renal dialysis; Z99.2 Dependence on renal dialysis; E11.22 Type 2 diabetes mellitus with diabetic chronic kidney disease; D63.8 Anemia in other chronic diseases classified elsewhere; E11.42 Type 2 diabetes mellitus with diabetic polyneuropathy; E78.00 Pure hypercholesterolemia, unspecified; E78.5 Hyperlipidemia, unspecified; I50.9 Heart failure, unspecified; K21.9 Gastro-esophageal reflux disease without esophagitis; G56.00 Carpal tunnel syndrome, unspecified upper limb; K57.90 Diverticulosis of intestine, part unspecified, without perforation or abscess without bleeding; D63.1 Anemia in chronic kidney disease; E11.65 Type 2 diabetes mellitus with hyperglycemia; S13.4XXA Sprain of ligaments of cervical spine, initial encounter; X58.XXXA Exposure to other specified factors, initial encounter; Y93.89 Activity, other specified; Y92.89 Other specified places as the place of occurrence of the external cause; Y99.8 Other external cause status; Z79.4 Long term (current) use of insulin; Z82.3 Family history of stroke; Z87.891 Personal history of nicotine dependence
CPT/HCPCS: 36415; 71045; 72125; 80048; 80061; 82962; 83036; 83605; 83690; 83735; 84443; 84484; 85025; 87428; 93005; G0378; G0379; J1815; J7512; U0003; 97116-GP; 97530-GO; 97535-GO; 99285-25